=== PATIENT | male | born 1945 | race Caucasian/White ===

== ENCOUNTER → 2016-10-10 | Outpatient (CLI) | payer MEDICARE, OTHER ==
[~2016-10-10] MED LIST: ASPI-892 PO; CARB200T6 PO; CLOT10TR PO; CRB200T PO; DIPH25TA82 PO; DXCC100C PO; EPIN0.3P3 INJ; FAMO20TA13 PO; FEXO-16 PO; GADOBUTROL 10 MMOL/10 ML (GADAVIST) VIAL IV ONE; GEMF600T3 PO; GLYB1.253 PO; HDR10T PO; HYDR-2854 PO; INSU100I14 SQ; INSU100I29 SQ; INSU100I5 SQ; LORA10TA7 PO; LRT10T PO; METF1000 PO; MONT10TA24 PO; NSTU5 PO; OMEP40CA36 PO; PRD20T PO; RANI-10 PO; Sodium Bicarbonate PO; TOPI50TA2 PO; TPR25T PO; WARF1TAB PO; WARF5TAB PO
[2016-10-10 08:48] LABS: BASOPHILS % (AUTO) 1 % (0-10); EOSINOPHILS # (AUTO) 0.2 10^3/uL (0.0-0.3); EOSINOPHILS % (AUTO) 3 % (0-10); LYMPHOCYTES # (AUTO) 2.2 X 10^3 (1.0-4.0); LYMPHOCYTES % (AUTO) 33 % (12-44); MEAN CORPUSCULAR HEMOGLOBIN 29 PG (25-34); MEAN CORPUSCULAR HGB CONC 34 G/DL (32-36); MEAN CORPUSCULAR VOLUME 87 FL (80-99); MONOCYTES # (AUTO) 0.5 X 10^3 (0.0-1.0); MONOCYTES % (AUTO) 8 % (0-12); NEUTROPHILS # (AUTO) 3.6 X 10^3 (1.8-7.8); NEUTROPHILS % (AUTO) 55 % (42-75); PLATELET COUNT 239 10^3/uL (130-400); RED BLOOD COUNT 5.72 10^6/uL (4.35-5.85); RED CELL DISTRIBUTION WIDTH 13.6 % (10.0-14.5); WHITE BLOOD COUNT 6.5 10^3/uL (4.3-11.0)
[2016-10-10 09:04] LABS: INR 3.3 (0.8-1.4); PROTHROMBIN TIME PATIENT 33.8 SEC (12.2-14.7)
[2016-10-10 09:17] LABS: ALBUMIN 4.2 G/DL (3.2-4.5); BILIRUBIN,TOTAL 0.5 MG/DL (0.1-1.0); CALCIUM 9.3 MG/DL (8.5-10.1); CREATININE SERUM 1.52 MG/DL (0.60-1.30); POTASSIUM 4.1 MMOL/L (3.6-5.0); TOTAL PROTEIN 8.7 G/DL (6.4-8.2)
--- NOTE | 2016-10-10 13:01 | Diagnostic Imaging Report ---
PROCEDURE: MR imaging of the brain with and without contrast. TECHNIQUE: Multiplanar, multisequence MR imaging of the brain was performed with and without contrast. INDICATION: Dizziness. Type 2 diabetes. 5 mL of Gadavist was administered intravenously. FINDINGS: There is no diffusion restriction to suggest an acute infarct or other diffusion abnormality. There is mild periventricular and deep white matter T2 hyperintense signal abnormality not associated with mass effect or contrast enhancement suggestive of chronic microvascular ischemic changes. This is commonly seen at the patient's age. No hydrocephalus. No extra-axial fluid collection. There is no enhancing brain or extra-axial mass. The pituitary gland is normal in size. No hypothalamic or pineal region mass. The brainstem and the cerebellum appear unremarkable. The cerebellopontine angle demonstrates no abnormality with symmetric IAC and inner ear structures. The central vascular flow-voids demonstrate a dominant left vertebral artery, and appears grossly unremarkable otherwise. There is a nonspecific mild mucosal thickening or fluid signal in the right mastoid air cells. There is also a 1 cm enhancing nodule in the right parotid gland with smooth margins and lobulated appearance. It has morphologic appearance in favor of an incidental intraparotid lymph node. IMPRESSION: No acute infarct or enhancing mass. Dictated by: Dictated on workstation # [id number]
== END ==
LOC: RAD 08:18
PROVIDERS: ATTEND Internal Medicine
DX: Z00.00 Encounter for general adult medical examination without abnormal findings (principal); I63.50 Cerebral infarction due to unspecified occlusion or stenosis of unspecified cerebral artery; E78.1 Pure hyperglyceridemia; E11.65 Type 2 diabetes mellitus with hyperglycemia; E55.9 Vitamin D deficiency, unspecified; E78.00 Pure hypercholesterolemia, unspecified
CPT/HCPCS: 36415; 70553; 80053; 82306; 82465; 83036; 84478; 85025; 85610

== ENCOUNTER → 2017-11-07 | Outpatient (CLI) | payer MEDICARE, OTHER ==
[~2017-11-07] VITALS: Ht 172.7 cm; Wt 86.2 kg
[~2017-11-07] MED LIST changes: +CATHETER FLUSH 10 ML SYR IV PRN; -GADOBUTROL 10 MMOL/10 ML (GADAVIST) VIAL IV ONE
[2017-11-07 08:08] VITALS: BP 128/94
--- NOTE | 2017-11-07 23:24 | STRESS TEST ---
DATE OF SERVICE: 11/07/2017 PROCEDURE: Resting and post-exercise technetium-99m Tetrofosmin SPECT CT imaging. ORDERING PHYSICIAN: Amelia Rene DO. PRIMARY CARE PHYSICIAN: Amelia Rene DO. CLINICAL DIAGNOSIS: Chest discomfort. DESCRIPTION: Baseline images were carried out after injection of 9.68 mCi technetium-99m Tetrofosmin. Subsequently, exercise was carried out on a treadmill under Dr. Rene's supervision and this part of the study is reported separately by her. The patient exercised for a total of 5 minutes and 45 seconds in the Edwin protocol. He attained 7.1 mets of workload and 92% of maximum predicted heart rate. After he had attained 85% of maximum predicted heart rate, 28.9 mCi of technetium-99m Tetrofosmin were injected and the exercise was continued for more than another minute. The test was stopped on account of fatigue. Review of images at rest and following stress does not indicate any significant perfusion defects consistent with significant myocardial ischemia or infarction. Gated images show normal global left ventricular systolic function with normal regional wall motion. Left ventricular ejection fraction is calculated to be 66%. Left ventricular end diastolic volume is 22 mL. TID is absent (0.91). CONCLUSIONS: 1. No evidence of significant myocardial ischemia or infarction is seen. 2. Normal regional wall motion. 3. Normal global left ventricular systolic function with a calculated ejection fraction of 66%. Job ID: [id number] DocumentID: [id number] Dictated Date: 11/07/2017 14:59:05 Compliance Aide Date: 11/07/2017 23:23:10 Dictated By: SHIVAM LAINEZ MD, MA, FACP, FACC,
== END ==
LOC: CARD 06:31
PROVIDERS: ATTEND Internal Medicine
DX: R07.9 Chest pain, unspecified (principal)
CPT/HCPCS: 78452; 93017

== ENCOUNTER 2018-05-13 10:26 | Inpatient (IN) | payer MEDICARE, OTHER ==
[~2018-05-13] VITALS: Ht 180.3 cm; Wt 85.5 kg
[~2018-05-13 10:26] MED LIST changes: +ALB0.5V IH; +ASPI-983 PO; +BENZ-36 PO; -CATHETER FLUSH 10 ML SYR IV PRN; +CEPH250C PO; +HYDR-700 PO; +INSU100I14 SC; +INSU100I29 SC; +PANT40TA3 PO; +POLY17PO23 PO; +SODI325T PO; +TOPI100T11 PO; +WARF1TAB82 PO
[2018-05-13] MEDS ORDERED: NS IV 1000 ML 1,000 ML IV SCH (10:32)
[2018-05-13] MEDS ORDERED: fentaNYL INJECTION 100 MCG/2 ML AMP IVP PRN (10:45)
[2018-05-13] MEDS ORDERED: ONDANSETRON 4 MG/2 ML (SDV) Z0FRAN IVP PRN (10:45)
[2018-05-13] MEDS ORDERED: ACETAMINOPHEN 500 MG TAB (TYLENOL) PO PRN (10:45)
[2018-05-13 10:50] VITALS: BP 125/87
--- OUTSIDE RECORDS SUMMARY | 2018-05-13 11:04 | XMS REPORT | Clinical Summary ---
Author Author User, [employer] Organization Amelia Rene DO, FACP Address Unknown Phone Allergies, Adverse Reactions, Alerts Allergy Name Reaction Description Start Date Severity Status Provider TETRACYCLINE Critical Active Amelia Rene Conditions or Problems Problem Name Problem Code Onset Date Status Entry Date Provider Comment Standard Description Annotate DIABETES MELLITUS, NONINSULIN DEPENDENT (NIDDM) 250.02 Active Amelia Rene Diabetes mellitus without mention of complication, type II or unspecified type, uncontrolled OTHER CONVULSIONS 780.39 Active Amelia Rene Other convulsions HYPERCHOLESTEROLEMIA 272.0 Active Amelia Rene Pure hypercholesterolemia HYPERTRIGLYCERIDEMIA 272.1 Active Amelia Rene Pure hyperglyceridemia CONSTIPATION, CHRONIC 564.09 Active Amelia Rene Other constipation RENAL INSUFFICIENCY 593.9 Active Amelia Rene Unspecified disorder of kidney and ureter ERECTILE DYSFUNCTION, 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 Amelia Rene Impotence of organic origin HYPOTENSION, ORTHOSTATIC 458.0 Resolved Amelia Rene Orthostatic hypotension ENCOUNTER FOR LONG-TERM USE OF OTHER MEDICATIONS V58.69 Resolved Amelia Rene Long-term (current) use of other medications HYPERTENSION 401.1 Active Amelia Rene Benign essential hypertension URI 465.9 Inactive Amelia Rene Acute upper respiratory infections of unspecified site SYNCOPE 780.2 Resolved Amelia Rene Syncope and collapse URTICARIA, ACUTE 708.9 Resolved Amelia Rene Unspecified urticaria SEDIMENTATION RATE, ELEVATED 790.1 Active Amelia Rene Elevated sedimentation rate DYSPNEA 786.09 Active Amelia Rene Other dyspnea and respiratory abnormality OTHER PULMONARY EMBOLISM AND INFARCTION 415.19 Active Amelia Rene Other pulmonary embolism and infarction Medication List Medication Instructions Start Date Stop Date Generic Name NDC Status Provider Patient Instruction SODIUM BICARBONATE 325 MG TABS 1 po BID SODIUM BICARBONATE 77746575874 Active Amelia Rene COUMADIN 1 MG TABS ONE TAB ALONG WITH 6MG TO TOTAL 7 MG ON WED, FRI AND SUN ONLY WARFARIN SODIUM 53119766353 Active Amelia Rene COUMADIN 6 MG TABS 1 PO DAILYON MON, TU, THURS AND FRI WARFARIN SODIUM 81390633065 Active Amelia Rene COUMADIN 1 MG TABS WARFARIN SODIUM 22278851476 No Longer Active Amelia Rene TESSALON PERLES 100 MG CAPS 1 PO TID prn cough BENZONATATE 74548285492 No Longer Active Karla Evans HYDROXYZINE HCL 10 MG TABS 1 PO TID PRN ITCHING HYDROXYZINE HCL 13620622691 No Longer Active Amelia Rene AMBIEN 10 MG TAB 1 PO QHS prn ZOLPIDEM TARTRATE 78946878623 No Longer Active Amelia Rene NOVOLOG FLEXPEN 100 UNIT/ML SOPN 14 UNITS BEFORE MEALS INSULIN ASPART 78535177595 Active Amelia Rene LEVEMIR FLEXPEN 100 UNIT/ML SOPN 25 UNITS AT HS INSULIN DETEMIR 10416354878 Active Amelia Rene COUMADIN 1 MG TABS TAKE ONE WITH A 6 MG TO TOTAL 7 MG AND THEN TAKE 6 MG THE NEXT. WARFARIN SODIUM 63634807599 No Longer Active Amelia Lisseth Rene LOVENOX 80 MG/0.8ML SOLN 1 injection twice daily ENOXAPARIN SODIUM 68572997105 No Longer Active Amelia Lisseth Rene OMEPRAZOLE 40 MG CPDR 1 PO daily OMEPRAZOLE 65738374364 Active Karla Evans NYSTATIN 027514 UNIT/ML SUSP 1 teaspoon swish and swallow QID NYSTATIN 38663733418 No Longer Active Amelianunu Rene PREDNISONE 20 MG TAB 1/2 PO daily PREDNISONE 35476861828 No Longer Active Amelianunu Rene TRUETEST TEST STRP TEST BS QID DX: 250.02 GLUCOSE BLOOD 63377105701 Active Karla Evans TOPAMAX 50 MG TABS 1 PO BID TOPIRAMATE 81926098466 Active Karla Evans MONTELUKAST SODIUM 10 MG TABS 1 PO AT HS MONTELUKAST SODIUM 14977733176 Active Karla Evans PREDNISONE 20 MG TAB 1 PO DAILY BID WITH MEALS PREDNISONE 27845764997 No Longer Active Amelianunu Rene CLARITIN 10 MG TABS 1 PO BID LORATADINE 99982136011 Active Amelianunu Rene PEPCID 20 MG TAB 1 PO BID FAMOTIDINE 28944883377 No Longer Active Amelianunu Rene DOXYCYCLINE HYCLATE 100 MG CAP 1 po BID DOXYCYCLINE HYCLATE 30836964271 No Longer Active Amelianunu Rene PEN NEEDLES 01/21" 31G X 8 MM MISC DIRECTED DX: 250.02 INSULIN PEN NEEDLE 10593452823 No Longer Active Amelia Lisseth Rene FLUOCINONIDE 0.05 % CREA apply to affected area on hand nightly for 7 nights then prn FLUOCINONIDE 75591002511 No Longer Active Amelia Lisseth Rene LEVITRA 10 MG TABS 1 PO as directed VARDENAFIL HCL 94674544163 No Longer Active Amelia Lisseth Rene SENIOR MULTIVITAMIN PLUS TABS 1 PO daily MULTIPLE VITAMINS- MINERALS 83680993734 No Longer Active Amelia Lisseth Rene EQL FISH OIL 1000 MG CAPS 3 PO BID OMEGA-3 FATTY ACIDS 78370094869 No Longer Active Amelia Lisseth Rene DOCUSATE SODIUM 100 MG CAPS 2 PO BID DOCUSATE SODIUM 47024832801 No Longer Active Amelia Lisseth Rene ASPIRIN 81 MG TABS 1 PO BID ASPIRIN 79990725513 No Longer Active Amelia Lisseth Rene CARBAMAZEPINE 200 MG TABS 3-5 PO daily CARBAMAZEPINE 04989159889 No Longer Active Amelia Lisseth Rene GEMFIBROZIL 600 MG TABS 1 PO BID GEMFIBROZIL 77749744198 No Longer Active Amelia Lisseth Rene METFORMIN HCL 1000 MG TABS 1 PO BID METFORMIN HCL 56022459069 No Longer Active Amelia Lisseth Rene GLYBURIDE 1.25 MG TABS 2 PO QAM and 1 PO QPM GLYBURIDE 43327057490 No Longer Active Amelia Lisseth Rene PROMETHAZINE VC/CODEINE 6.25-5-10 MG/5ML SYRP 1 teaspoon PO Q6hrs prn cough [id number] 04726048773 No Longer Active Amelia Lisseth Rene WELCHOL 625 MG TABS 3 PO BID with meals COLESEVELAM HCL 69497065029 No Longer Active Amelia Lisseth Rene TEGRETOL XR 100 MG [id number] 1 PO friday, friday, CARBAMAZEPINE 44529677430 No Longer Active Amelia Lisseth Rene JANUVIA 100 MG TABS 1 PO daily SITAGLIPTIN PHOSPHATE 80545207128 No Longer Active Amelia Lissethkarley Rene Immunizations Vaccine Administration Date Value Standard Description Influenza vaccine given Done influenza virus vaccine, unspecified formulation Vital Signs Date Name Value Unit Range Description pulse rate E&M - 8867-4 76 /min Heart rate respiratory rate E&M - 9279-1 14 /min Resp rate weight E&M - 3141-9 185 [lb_av] Weight Measured blood pressure, diastolic - 8462-4 72 mm[Hg] BP michael blood pressure, systolic - 8480-6 118 mm[Hg] BP sys pulse rate E&M - 8867-4 72 /min Heart rate respiratory rate E&M - 9279-1 14 /min Resp rate temperature E&M 97.7 [degF] Body temperature weight E&M - 3141-9 183 [lb_av] Weight Measured blood pressure, diastolic - 8462-4 80 mm[Hg] BP michael blood pressure, systolic - 8480-6 140 mm[Hg] BP sys pulse rate E&M - 8867-4 76 /min Heart rate respiratory rate E&M - 9279-1 14 /min Resp rate temperature E&M 98.6 [degF] Body temperature weight E&M - 3141-9 184 [lb_av] Weight Measured blood pressure, diastolic - 8462-4 90 mm[Hg] BP michael blood pressure, systolic - 8480-6 140 mm[Hg] BP sys pulse rate E&M - 8867-4 84 /min Heart rate respiratory rate E&M - 9279-1 14 /min Resp rate temperature E&M 98.6 [degF] Body temperature weight E&M - 3141-9 180 [lb_av] Weight Measured blood pressure, diastolic - 8462-4 74 mm[Hg] BP michael blood pressure, systolic - 8480-6 136 mm[Hg] BP sys pulse rate E&M - 8867-4 80 /min Heart rate respiratory rate E&M - 9279-1 14 /min Resp rate temperature E&M 97.6 [degF] Body temperature blood pressure, diastolic - 8462-4 68 mm[Hg] BP michael blood pressure, systolic - 8480-6 122 mm[Hg] BP sys pulse rate E&M - 8867-4 66 /min Heart rate respiratory rate E&M - 9279-1 14 /min Resp rate temperature E&M 98.6 [degF] Body temperature weight E&M - 3141-9 182 [lb_av] Weight Measured blood pressure, diastolic - 8462-4 92 mm[Hg] BP michael blood pressure, systolic - 8480-6 158 mm[Hg] BP sys pulse rate E&M - 8867-4 92 /min Heart rate respiratory rate E&M - 9279-1 14 /min Resp rate weight E&M - 3141-9 177 [lb_av] Weight Measured blood pressure, diastolic - 8462-4 78 mm[Hg] BP michael blood pressure, systolic - 8480-6 122 mm[Hg] BP sys pulse rate E&M - 8867-4 78 /min Heart rate respiratory rate E&M - 9279-1 14 /min Resp rate weight E&M - 3141-9 180 [lb_av] Weight Measured blood pressure, diastolic - 8462-4 92 mm[Hg] BP michael blood pressure, systolic - 8480-6 136 mm[Hg] BP sys pulse rate E&M - 8867-4 82 /min Heart rate respiratory rate E&M - 9279-1 14 /min Resp rate temperature E&M 97.3 [degF] Body temperature weight E&M - 3141-9 181 [lb_av] Weight Measured blood pressure, diastolic - 8462-4 96 mm[Hg] BP michael blood pressure, systolic - 8480-6 142 mm[Hg] BP sys pulse rate E&M - 8867-4 80 /min Heart rate respiratory rate E&M - 9279-1 16 /min Resp rate temperature E&M 97.4 [degF] Body temperature weight E&M - 3141-9 177 [lb_av] Weight Measured blood pressure, diastolic - 8462-4 90 mm[Hg] BP michael blood pressure, systolic - 8480-6 145 mm[Hg] BP sys pulse rate E&M - 8867-4 72 /min Heart rate respiratory rate E&M - 9279-1 14 /min Resp rate temperature E&M 99.8 [degF] Body temperature weight E&M - 3141-9 184 [lb_av] Weight Measured blood pressure, diastolic - 8462-4 80 mm[Hg] BP michael blood pressure, systolic - 8480-6 130 mm[Hg] BP sys pulse rate E&M - 8867-4 96 /min Heart rate respiratory rate E&M - 9279-1 14 /min Resp rate temperature E&M 98.6 [degF] Body temperature weight E&M - 3141-9 190 [lb_av] Weight Measured Diagnostic Results Date Name Value Unit Range Description Clinical Lists Update: CBC,CMP,ESR - Chemistry sodium, serum 136 mmol/L alanine aminotransferase (SGPT), serum 27 U/L creatinine, serum 1.4 mg/dL carbon dioxide, venous blood 18 mmol/L chloride, serum 105 mmol/L protein, total, serum 7.1 g/dL potassium, serum 4.3 mmol/L albumin, serum 3.7 g/dL alkaline phosphatase, serum 70 U/L bilirubin, serum, total 0.5 mg/dL urea nitrogen, blood 40 mg/dL calcium, serum 10.0 mg/dL glucose, plasma fasting 255 mg/dL aspartate aminotransferase (SGOT), serum 11 U/L Estimated Glomerular Filtration Rate (calc) >60 mL/min/1.73m2 Clinical Lists Update: CBC,CMP,ESR - Hematology erythrocyte sedimentation rate 42 mm/h platelet count 341 10*3/mm3 leukocyte count, blood 16.4 10*3/mm3 mean corpuscular volume, RBC 88 fL red blood cell distribution width 13.8 % erythrocyte (RBC) count 4.72 10*6/mm3 hematocrit, blood 41.7 % hemoglobin, blood 14.3 g/dL Clinical Lists Update: CBC,CMP,ESR IN PT LABS - Chemistry aspartate aminotransferase (SGOT), serum 10 U/L alanine aminotransferase (SGPT), serum 26 U/L sodium, serum 140 mmol/L albumin, serum 3.4 g/dL alkaline phosphatase, serum 44 U/L bilirubin, serum, total 0.2 mg/dL urea nitrogen, blood 43 mg/dL calcium, serum 9.5 mg/dL potassium, serum 4.2 mmol/L protein, total, serum 7.0 g/dL chloride, serum 111 mmol/L carbon dioxide, venous blood 18 mmol/L creatinine, serum 1.29 mg/dL glucose, plasma fasting 200 mg/dL Clinical Lists Update: CBC,CMP,ESR IN PT LABS - Hematology hematocrit, blood 37 % erythrocyte sedimentation rate 44 mm/h platelet count 420 10*3/mm3 leukocyte count, blood 14.1 10*3/mm3 mean corpuscular volume, RBC 88 fL red blood cell distribution width 12.6 % erythrocyte (RBC) count 4.22 10*6/mm3 hemoglobin, blood 12.7 g/dL Clinical Lists Update: CBC,CMP,ESR,Chol,Trig - Chemistry cholesterol, serum 183 mg/dL HDL cholesterol, serum 26 mg/dL chloride, serum 111 mmol/L LDL cholesterol, serum 112 mg/dL cholesterol/HDL ratio, serum, percent 7.0 protein, total, serum 8.1 g/dL potassium, serum 3.8 mmol/L Estimated Glomerular Filtration Rate (calc) >60 mL/min/1.73m2 glucose, plasma fasting 119 mg/dL aspartate aminotransferase (SGOT), serum 15 U/L alanine aminotransferase (SGPT), serum 20 U/L sodium, serum 142 mmol/L albumin, serum 3.9 g/dL alkaline phosphatase, serum 68 U/L bilirubin, serum, total 0.5 mg/dL urea nitrogen, blood 16 mg/dL calcium, serum 10.1 mg/dL carbon dioxide, venous blood 20 mmol/L creatinine, serum 1.3 mg/dL triglyceride, serum, fasting 227 mg/dL Clinical Lists Update: CBC,CMP,ESR,Chol,Trig - Hematology erythrocyte sedimentation rate 60 mm/h mean corpuscular volume, RBC 89 fL platelet count 268 10*3/mm3 hematocrit, blood 43.1 % hemoglobin, blood 14.0 g/dL red blood cell distribution width 13.6 % leukocyte count, blood 8.2 10*3/mm3 erythrocyte (RBC) count 4.83 10*6/mm3 Clinical Lists Update: CBC,CMP,FLP,HgA1c - Chemistry aspartate aminotransferase (SGOT), serum 10 U/L alanine aminotransferase (SGPT), serum 9 U/L sodium, serum 140 mmol/L alkaline phosphatase, serum 60 U/L bilirubin, serum, total 0.5 mg/dL urea nitrogen, blood 17 mg/dL calcium, serum 9.6 mg/dL triglyceride, serum, fasting 156 mg/dL potassium, serum 4.3 mmol/L protein, total, serum 8.7 g/dL chloride, serum 105 mmol/L cholesterol/HDL ratio, serum, percent 4.9 cholesterol, serum 165 mg/dL carbon dioxide, venous blood 21 mmol/L creatinine, serum 1.3 mg/dL Estimated Glomerular Filtration Rate (calc) 55 mL/min/1.73m2 glucose, plasma fasting 183 mg/dL HDL cholesterol, serum 34 mg/dL hemoglobin A1C, blood, as % of total hemoglobin 10.3 % LDL cholesterol, serum 100 mg/dL albumin, serum 4.0 g/dL Clinical Lists Update: CBC,CMP,FLP,HgA1c - Hematology erythrocyte (RBC) count 4.53 10*6/mm3 red blood cell distribution width 13.2 % mean corpuscular volume, RBC 91 fL hemoglobin, blood 13.6 g/dL platelet count 558 10*3/mm3 hematocrit, blood 41.3 % leukocyte count, blood 18.3 10*3/mm3 Clinical Lists Update: CMP,CHOL,TRIG,HGA1C,ESR,PT,INR - Chemistry protein, total, serum 9.6 g/dL hemoglobin A1C, blood, as % of total hemoglobin 7.0 % glucose, plasma fasting 130 mg/dL Estimated Glomerular Filtration Rate (calc) 43 mL/min/1.73m2 creatinine, serum 1.6 mg/dL carbon dioxide, venous blood 21 mmol/L cholesterol, serum 179 mg/dL chloride, serum 110 mmol/L potassium, serum 4.1 mmol/L triglyceride, serum, fasting 278 mg/dL calcium, serum 9.9 mg/dL urea nitrogen, blood 22 mg/dL bilirubin, serum, total 0.5 mg/dL alkaline phosphatase, serum 104 U/L albumin, serum 4.6 g/dL sodium, serum 142 mmol/L alanine aminotransferase (SGPT), serum 18 U/L aspartate aminotransferase (SGOT), serum 20 U/L Clinical Lists Update: CMP,CHOL,TRIG,HGA1C,ESR,PT,INR - Coagulation prothrombin time (patient) 26.6 s international normalized ratio (INR) 2.6 Clinical Lists Update: CMP,CHOL,TRIG,HGA1C,ESR,PT,INR - Hematology erythrocyte sedimentation rate 37 mm/h Clinical Lists Update: CMP,CHOL,TRIG,HgA1c - Chemistry alanine aminotransferase (SGPT), serum 16 U/L carbon dioxide, venous blood 20 mmol/L bilirubin, serum, total 0.4 mg/dL sodium, serum 141 mmol/L albumin, serum 4.1 g/dL protein, total, serum 8.0 g/dL hemoglobin A1C, blood, as % of total hemoglobin 7.0 % alkaline phosphatase, serum 75 U/L creatinine, serum 1.4 mg/dL triglyceride, serum, fasting 271 mg/dL glucose, plasma fasting 143 mg/dL cholesterol, serum 184 mg/dL Estimated Glomerular Filtration Rate (calc) >60 mL/min/1.73m2 chloride, serum 112 mmol/L potassium, serum 4.1 mmol/L urea nitrogen, blood 19 mg/dL calcium, serum 9.1 mg/dL aspartate aminotransferase (SGOT), serum 18 U/L Clinical Lists Update: CMP,Microalbumin,TSH,Chol,Trig - Chemistry aspartate aminotransferase (SGOT), serum 28 U/L carbon dioxide, venous blood 20 mmol/L alanine aminotransferase (SGPT), serum 26 U/L sodium, serum 140 mmol/L creatinine, serum 1.2 mg/dL alkaline phosphatase, serum 47 U/L bilirubin, serum, total 0.2 mg/dL cholesterol, serum 159 mg/dL glucose, plasma fasting 141 mg/dL chloride, serum 107 mmol/L protein, total, serum 8.8 g/dL potassium, serum 4.5 mmol/L thyroid stimulating hormone, serum 0.97 u[iU]/mL triglyceride, serum, fasting 292 mg/dL calcium, serum 9.3 mg/dL Estimated Glomerular Filtration Rate (calc) >60 mL/min/1.73m2 urea nitrogen, blood 20 mg/dL hemoglobin A1C, blood, as % of total hemoglobin 8.6 % albumin, serum 4.2 g/dL Clinical Lists Update: CMP,Microalbumin,TSH,Chol,Trig - Urinalysis microalbumin, urine, semiquantitative 6.7 mg/dL Clinical Lists Update: IN PT LABS - Chemistry chloride, serum 110 mmol/L sodium, serum 138 mmol/L creatinine, serum 1.0 mg/dL Estimated Glomerular Filtration Rate (calc) >60 mL/min/1.73m2 carbon dioxide, venous blood 20 mmol/L alanine aminotransferase (SGPT), serum 15 U/L aspartate aminotransferase (SGOT), serum 13 U/L protein, total, serum 6.8 g/dL potassium, serum 4.2 mmol/L urea nitrogen, blood 24 mg/dL bilirubin, serum, total 0.2 mg/dL anion gap, serum 8.7 alkaline phosphatase, serum 39 U/L albumin, serum 3.0 g/dL hemoglobin A1C, blood, as % of total hemoglobin 7.6 % glucose, plasma fasting 214 mg/dL Clinical Lists Update: IN PT LABS - Coagulation PTT patient 28.6 s prothrombin time (patient) 12.8 s international normalized ratio (INR) 1.2 Clinical Lists Update: IN PT LABS - Hematology erythrocyte (RBC) count 3.59 10*6/mm3 platelet count 295 10*3/mm3 erythrocyte sedimentation rate 86 mm/h leukocyte count, blood 9.5 10*3/mm3 hemoglobin, blood 10.7 g/dL hematocrit, blood 31.9 % mean corpuscular volume, RBC 89 fL red blood cell distribution width 12.8 % Clinical Lists Update: IN PT LABS - Urinalysis glucose, urine, semiquantitative >100 hyaline casts, urine few /[LPF] ketones, urine, by test strip neg appearance, urine Clear Yellow bilirubin, urine neg blood in urine (hemoglobin) by dipstick moderate mucus on urinalysis neg WBC urine on microscopy rare {Cells}/[HPF] urobilinogen, urine, semiquantitative (dipstick) normal nitrite, urine, semiquantitative neg pH, urine, semiquantitative 5.5 protein, urine, semiquantitative (dipstick) 100 RBC urine by microscopy neg specific gravity, urine 1.030 Clinical Lists Update: PT,INR - Coagulation prothrombin time (patient) 33.5 s international normalized ratio (INR) 3.9 prothrombin time (patient) 45.1 s prothrombin time (patient) 66.7 s prothrombin time (patient) 38.3 s prothrombin time (patient) 17.2 s prothrombin time (patient) 48.0 s international normalized ratio (INR) 4.6 international normalized ratio (INR) 1.7 prothrombin time (patient) 42.0 s international normalized ratio (INR) 4.1 prothrombin time (patient) 38.3 s prothrombin time (patient) 36.1 s international normalized ratio (INR) 6.0 international normalized ratio (INR) 3.1 international normalized ratio (INR) 3.5 international normalized ratio (INR) 3.3 prothrombin time (patient) 49.9 s international normalized ratio (INR) 4.8 international normalized ratio (INR) 3.7 Clinical Lists Update: RE: Coumadin Results - Coagulation prothrombin time (patient) 53.4 s international normalized ratio (INR) 5.1 Office Visit: Dr Rene's Check Up: Established Patient Visit - Coagulation international normalized ratio (INR) 1.3 prothrombin time (patient) 13.3 s Phone Note: Bloodwork/Lovenox Update - Coagulation international normalized ratio (INR) 2.3 prothrombin time (patient) 24.0 s Phone Note: RE: Coumadin Results - Chemistry protein, total, serum 7.8 g/dL potassium, serum 3.8 mmol/L calcium, serum 9.1 mg/dL urea nitrogen, blood 18 mg/dL bilirubin, serum, total 0.2 mg/dL alkaline phosphatase, serum 110 U/L albumin, serum 4.0 g/dL glucose, plasma fasting 154 mg/dL Estimated Glomerular Filtration Rate (calc) >60 mL/min/1.73m2 creatinine, serum 1.3 mg/dL sodium, serum 141 mmol/L chloride, serum 111 mmol/L carbon dioxide, venous blood 19 mmol/L alanine aminotransferase (SGPT), serum 16 U/L aspartate aminotransferase (SGOT), serum 14 U/L Phone Note: RE: Coumadin Results - Coagulation prothrombin time (patient) 21.4 s international normalized ratio (INR) 2.1 Phone Note: RE: Coumadin Results - Hematology platelet count 235 10*3/mm3 erythrocyte (RBC) count 5.00 10*6/mm3 red blood cell distribution width 13.6 % mean corpuscular volume, RBC 87 fL leukocyte count, blood 5.8 10*3/mm3 hematocrit, blood 43.3 % hemoglobin, blood 14.0 g/dL erythrocyte sedimentation rate 34 mm/h Encounters Code Encounter Date Provider Facility CPT-04558 Ofc Vst, Est Level III 14:38:44 CDT Amelia Rene DO, FACP CPT-80753 Ofc Vst, Est Level IV 20:21:55 [employer] [employer] Amelia Rene DO, FACP CPT-53787 Ofc Vst, Est Level IV 16:05:00 [employer] Amelia Ernst Rene, DO, FACP CPT-63819 Ofc Vst, Est Level V 21:19:57 [employer] Amelia Ernst Rene, DO, FACP CPT-07358 Ofc Vst, Est Level IV 17:06:25 [employer] Amelia Rene [facility] CPT-22360 Ofc Vst, Est Level III 13:25:12 [employer] [employer] Amelia Ernst Rene, DO, FACP CPT-84297 Ofc Vst, Est Level III 12:54:14 CDT Amelia Lisseth Ernst Rene, DO, FACP CPT-75546 Ofc Vst, Est Level III 16:36:19 CDT Amelianunu Ernst Anju, DO, FACP CPT-36766 Ofc Vst, Est Level IV 22:37:22 CDT Amelia Lisseth Ernst Rene, DO, FACP CPT-32733 Ofc Vst, Est Level V 15:41:07 CDT Amelianunu Ernst Rene, DO, FACP CPT-87574 Ofc Vst, Est Level III 11:42:56 CDT Amelianunu Ernst Anju, DO, FACP CPT-37006 Ofc Vst, Est Level III 12:06:27 [employer] Amelia Lisseth Ernst Rene, DO, FACP CPT-51889 Ofc Vst, Est Level III 14:34:43 CDT Amelia Lisseth Yeni S Rene, DO, FACP CPT-62364 Ofc Vst, Est Level III 14:19:43 [employer] Amelia Lisseth Yeni Sujata Rene, DO, FACP CPT-34328 Ofc Vst, Est Level IV 16:26:28 CDT Amelia Lisseth Rene DO, FACP CPT-83572 Ofc Vst, Est Level IV 14:04:53 [employer] Amelia Rene DO, FACP CPT-34315 Ofc Vst, New Level IV 14:05:53 CDT Amelia Rene DO, FACP Procedures Code Procedure Name Date Entry Date Standard Description CPT-G0439 Medicare Annual Wellness Visit 12:45:38 [facility] CPT-G8443 E-Prescribing Medication Sent 12:06:27 [employer] [employer] CPT-G8443 E-Prescribing Medication Sent 12:44:06 CDT CPT-G0439 Medicare Annual Wellness Visit 12:44:06 CDT CPT-G8443 E-Prescribing Medication Sent 14:34:43 CDT CPT-G0438 Medicare Annual Wellness Visit Initial 11:12:53 CDT
--- OUTSIDE RECORDS SUMMARY | 2018-05-13 11:05 | XMS REPORT | Clinical Summary ---
Author Author User, [employer] Amelia Rene DO, FACP Address Unknown [...] MG TABS 1 po BID SODIUM BICARBONATE 79732355276 Active Amelia Rene COUMADIN 1 MG TABS ONE TAB ALONG WITH 6MG TO TOTAL 7 MG ON WED, FRI AND SUN ONLY WARFARIN SODIUM 45308854243 Active Amelia Rene COUMADIN 6 MG TABS 1 PO DAILYON MON, TU, THURS AND FRI WARFARIN SODIUM 08132135710 Active Amelia Rene COUMADIN 1 MG TABS WARFARIN SODIUM 17984694705 No Longer Active Amelia Rene TESSALON PERLES 100 MG CAPS 1 PO TID prn cough BENZONATATE 66452034474 No Longer Active Karla Evans HYDROXYZINE HCL 10 MG TABS 1 PO TID PRN ITCHING HYDROXYZINE HCL 44621586880 No Longer Active Amelia Rene AMBIEN 10 MG TAB 1 PO QHS prn ZOLPIDEM TARTRATE 63930018020 No Longer Active Amelia Rene NOVOLOG FLEXPEN 100 UNIT/ML SOPN 14 UNITS BEFORE MEALS INSULIN ASPART 94135884741 Active Amelia Rene LEVEMIR FLEXPEN 100 UNIT/ML SOPN 25 UNITS AT HS INSULIN DETEMIR 60176969452 Active Amelia Rene COUMADIN 1 MG TABS TAKE ONE WITH A 6 MG TO TOTAL 7 MG AND THEN TAKE 6 MG THE NEXT. WARFARIN SODIUM 57714476581 No Longer Active Amelia Lisseth Rene LOVENOX 80 MG/0.8ML SOLN 1 injection twice daily ENOXAPARIN SODIUM 97044956919 No Longer Active Amelia Lisseth Rene OMEPRAZOLE 40 MG CPDR 1 PO daily OMEPRAZOLE 21625135485 Active Karla Evans NYSTATIN 326424 UNIT/ML SUSP 1 teaspoon swish and swallow QID NYSTATIN 29608682551 No Longer Active Amelianunu Rene PREDNISONE 20 MG TAB 1/2 PO daily PREDNISONE 47961918608 No Longer Active Amelianunu Rene TRUETEST TEST STRP TEST BS QID DX: 250.02 GLUCOSE BLOOD 68814169488 Active Karla Evans TOPAMAX 50 MG TABS 1 PO BID TOPIRAMATE 02649391471 Active Karla Evans MONTELUKAST SODIUM 10 MG TABS 1 PO AT HS MONTELUKAST SODIUM 26065046373 Active Karla Evans PREDNISONE 20 MG TAB 1 PO DAILY BID WITH MEALS PREDNISONE 34293508825 No Longer Active Amelianunu Rene CLARITIN 10 MG TABS 1 PO BID LORATADINE 72127028730 Active Amelianunu Rene PEPCID 20 MG TAB 1 PO BID FAMOTIDINE 75224825568 No Longer Active Amelianunu Rene DOXYCYCLINE HYCLATE 100 MG CAP 1 po BID DOXYCYCLINE HYCLATE 69474528275 No Longer Active Amelianunu Rene PEN NEEDLES 01/21" 31G X 8 MM MISC DIRECTED DX: 250.02 INSULIN PEN NEEDLE 10339510739 No Longer Active Amelia Lisseth Rene FLUOCINONIDE 0.05 % CREA apply to affected area on hand nightly for 7 nights then prn FLUOCINONIDE 55143256351 No Longer Active Amelia Lisseth Rene LEVITRA 10 MG TABS 1 PO as directed VARDENAFIL HCL 29056356874 No Longer Active Amelia Lisseth Rene SENIOR MULTIVITAMIN PLUS TABS 1 PO daily MULTIPLE VITAMINS- MINERALS 43251930065 No Longer Active Amelia Lisseth Rene EQL FISH OIL 1000 MG CAPS 3 PO BID OMEGA-3 FATTY ACIDS 39162691239 No Longer Active Amelia Lisseth Rene DOCUSATE SODIUM 100 MG CAPS 2 PO BID DOCUSATE SODIUM 53463293548 No Longer Active Amelia Lisseth Rene ASPIRIN 81 MG TABS 1 PO BID ASPIRIN 74044227268 No Longer Active Amelia Lisseth Rene CARBAMAZEPINE 200 MG TABS 3-5 PO daily CARBAMAZEPINE 45069836645 No Longer Active Amelia Lisseth Rene GEMFIBROZIL 600 MG TABS 1 PO BID GEMFIBROZIL 45771442010 No Longer Active Amelia Lisseth Rene METFORMIN HCL 1000 MG TABS 1 PO BID METFORMIN HCL 61312340783 No Longer Active Amelia Lisseth Rene GLYBURIDE 1.25 MG TABS 2 PO QAM and 1 PO QPM GLYBURIDE 80765429259 No Longer Active Amelia Lisseth Rene PROMETHAZINE VC/CODEINE 6.25-5-10 MG/5ML SYRP 1 teaspoon PO Q6hrs prn cough [id number] 54684263611 No Longer Active Amelia Lisseth Rene WELCHOL 625 MG TABS 3 PO BID with meals COLESEVELAM HCL 53537562311 No Longer Active Amelia Lisseth Rene TEGRETOL XR 100 MG [id number] 1 PO friday, friday, CARBAMAZEPINE 19690663568 No Longer Active Amelia Lisseth Rene JANUVIA 100 MG TABS 1 PO daily SITAGLIPTIN PHOSPHATE 81752427788 No Longer Active Amelia Lissethkarley Rene Immunizations [...] Description Clinical Lists Update: CBC,CMP,ESR - Chemistry alkaline phosphatase, serum 70 U/L urea nitrogen, blood 40 mg/dL albumin, serum 3.7 g/dL calcium, serum 10.0 mg/dL chloride, serum 105 mmol/L carbon dioxide, venous blood 18 mmol/L creatinine, serum 1.4 mg/dL potassium, serum 4.3 mmol/L protein, total, serum 7.1 g/dL aspartate aminotransferase (SGOT), serum 11 U/L Estimated Glomerular Filtration Rate (calc) >60 mL/min/1.73m2 glucose, plasma fasting 255 mg/dL sodium, serum 136 mmol/L bilirubin, serum, total 0.5 mg/dL alanine aminotransferase (SGPT), serum 27 U/L Clinical Lists Update: CBC,CMP,ESR - Hematology erythrocyte sedimentation rate 42 mm/h hematocrit, blood 41.7 % hemoglobin, blood 14.3 g/dL platelet count 341 10*3/mm3 erythrocyte (RBC) count 4.72 10*6/mm3 leukocyte count, blood 16.4 10*3/mm3 mean corpuscular volume, RBC 88 fL red blood cell distribution width 13.8 % Clinical Lists Update: CBC,CMP,ESR IN PT LABS - Chemistry albumin, serum 3.4 g/dL glucose, plasma fasting 200 mg/dL sodium, serum 140 mmol/L bilirubin, serum, total 0.2 mg/dL alanine aminotransferase (SGPT), serum 26 U/L aspartate aminotransferase (SGOT), serum 10 U/L protein, total, serum 7.0 g/dL potassium, serum 4.2 mmol/L creatinine, serum 1.29 mg/dL carbon dioxide, venous blood 18 mmol/L chloride, serum 111 mmol/L calcium, serum 9.5 mg/dL urea nitrogen, blood 43 mg/dL alkaline phosphatase, serum 44 U/L Clinical Lists Update: CBC,CMP,ESR IN PT LABS - Hematology leukocyte count, blood 14.1 10*3/mm3 erythrocyte (RBC) count 4.22 10*6/mm3 erythrocyte sedimentation rate 44 mm/h hematocrit, blood 37 % red blood cell distribution width 12.6 % hemoglobin, blood 12.7 g/dL platelet count 420 10*3/mm3 mean corpuscular volume, RBC 88 fL Clinical Lists Update: CBC,CMP,ESR,Chol,Trig - Chemistry albumin, serum 3.9 g/dL alkaline phosphatase, serum 68 U/L cholesterol/HDL ratio, serum, percent 7.0 urea nitrogen, blood 16 mg/dL calcium, serum 10.1 mg/dL chloride, serum 111 mmol/L cholesterol, serum 183 mg/dL carbon dioxide, venous blood 20 mmol/L creatinine, serum 1.3 mg/dL HDL cholesterol, serum 26 mg/dL LDL cholesterol, serum 112 mg/dL potassium, serum 3.8 mmol/L protein, total, serum 8.1 g/dL aspartate aminotransferase (SGOT), serum 15 U/L alanine aminotransferase (SGPT), serum 20 U/L bilirubin, serum, total 0.5 mg/dL triglyceride, serum, fasting 227 mg/dL sodium, serum 142 mmol/L glucose, plasma fasting 119 mg/dL Estimated Glomerular Filtration Rate (calc) >60 mL/min/1.73m2 Clinical Lists Update: CBC,CMP,ESR,Chol,Trig - Hematology platelet count 268 10*3/mm3 red blood cell distribution width 13.6 % hemoglobin, blood 14.0 g/dL erythrocyte (RBC) count 4.83 10*6/mm3 mean corpuscular volume, RBC 89 fL hematocrit, blood 43.1 % leukocyte count, blood 8.2 10*3/mm3 erythrocyte sedimentation rate 60 mm/h Clinical Lists Update: CBC,CMP,FLP,HgA1c - Chemistry calcium, serum 9.6 mg/dL alanine aminotransferase (SGPT), serum 9 U/L creatinine, serum 1.3 mg/dL aspartate aminotransferase (SGOT), serum 10 U/L chloride, serum 105 mmol/L protein, total, serum 8.7 g/dL carbon dioxide, venous blood 21 mmol/L potassium, serum 4.3 mmol/L urea nitrogen, blood 17 mg/dL LDL cholesterol, serum 100 mg/dL Estimated Glomerular Filtration Rate (calc) 55 mL/min/1.73m2 albumin, serum 4.0 g/dL bilirubin, serum, total 0.5 mg/dL HDL cholesterol, serum 34 mg/dL triglyceride, serum, fasting 156 mg/dL hemoglobin A1C, blood, as % of total hemoglobin 10.3 % sodium, serum 140 mmol/L alkaline phosphatase, serum 60 U/L cholesterol/HDL ratio, serum, percent 4.9 glucose, plasma fasting 183 mg/dL cholesterol, serum 165 mg/dL Clinical Lists Update: CBC,CMP,FLP,HgA1c - Hematology mean corpuscular volume, RBC 91 fL platelet count 558 10*3/mm3 hematocrit, blood 41.3 % red blood cell distribution width 13.2 % erythrocyte (RBC) count 4.53 10*6/mm3 leukocyte count, blood 18.3 10*3/mm3 hemoglobin, blood 13.6 g/dL Clinical Lists Update: CMP,CHOL,TRIG,HGA1C,ESR,PT,INR - Chemistry Estimated Glomerular Filtration Rate (calc) 43 mL/min/1.73m2 albumin, serum 4.6 g/dL alkaline phosphatase, serum 104 U/L urea nitrogen, blood 22 mg/dL calcium, serum 9.9 mg/dL chloride, serum 110 mmol/L cholesterol, serum 179 mg/dL carbon dioxide, venous blood 21 mmol/L creatinine, serum 1.6 mg/dL hemoglobin A1C, blood, as % of total hemoglobin 7.0 % potassium, serum 4.1 mmol/L protein, total, serum 9.6 g/dL aspartate aminotransferase (SGOT), serum 20 U/L alanine aminotransferase (SGPT), serum 18 U/L bilirubin, serum, total 0.5 mg/dL triglyceride, serum, fasting 278 mg/dL sodium, serum 142 mmol/L glucose, plasma fasting 130 mg/dL Clinical Lists Update: CMP,CHOL,TRIG,HGA1C,ESR,PT,INR - Coagulation international normalized ratio (INR) 2.6 prothrombin time (patient) 26.6 s Clinical Lists Update: CMP,CHOL,TRIG,HGA1C,ESR,PT,INR - Hematology erythrocyte sedimentation rate 37 mm/h Clinical Lists Update: CMP,CHOL,TRIG,HgA1c - Chemistry calcium, serum 9.1 mg/dL potassium, serum 4.1 mmol/L protein, total, serum 8.0 g/dL chloride, serum 112 mmol/L aspartate aminotransferase (SGOT), serum 18 U/L alkaline phosphatase, serum 75 U/L alanine aminotransferase (SGPT), serum 16 U/L cholesterol, serum 184 mg/dL bilirubin, serum, total 0.4 mg/dL triglyceride, serum, fasting 271 mg/dL carbon dioxide, venous blood 20 mmol/L sodium, serum 141 mmol/L urea nitrogen, blood 19 mg/dL glucose, plasma fasting 143 mg/dL creatinine, serum 1.4 mg/dL Estimated Glomerular Filtration Rate (calc) >60 mL/min/1.73m2 hemoglobin A1C, blood, as % of total hemoglobin 7.0 % albumin, serum 4.1 g/dL Clinical Lists Update: CMP,Microalbumin,TSH,Chol,Trig - Chemistry Estimated Glomerular Filtration Rate (calc) >60 mL/min/1.73m2 glucose, plasma fasting 141 mg/dL sodium, serum 140 mmol/L triglyceride, serum, fasting 292 mg/dL bilirubin, serum, total 0.2 mg/dL alanine aminotransferase (SGPT), serum 26 U/L aspartate aminotransferase (SGOT), serum 28 U/L protein, total, serum 8.8 g/dL potassium, serum 4.5 mmol/L thyroid stimulating hormone, serum 0.97 u[iU]/mL hemoglobin A1C, blood, as % of total hemoglobin 8.6 % creatinine, serum 1.2 mg/dL carbon dioxide, venous blood 20 mmol/L cholesterol, serum 159 mg/dL chloride, serum 107 mmol/L calcium, serum 9.3 mg/dL urea nitrogen, blood 20 mg/dL alkaline phosphatase, serum 47 U/L albumin, serum 4.2 g/dL Clinical Lists Update: CMP,Microalbumin,TSH,Chol,Trig - Urinalysis microalbumin, urine, semiquantitative 6.7 mg/dL Clinical Lists Update: IN PT LABS - Chemistry anion gap, serum 8.7 sodium, serum 138 mmol/L bilirubin, serum, total 0.2 mg/dL alanine aminotransferase (SGPT), serum 15 U/L aspartate aminotransferase (SGOT), serum 13 U/L protein, total, serum 6.8 g/dL potassium, serum 4.2 mmol/L hemoglobin A1C, blood, as % of total hemoglobin 7.6 % creatinine, serum 1.0 mg/dL carbon dioxide, venous blood 20 mmol/L chloride, serum 110 mmol/L urea nitrogen, blood 24 mg/dL alkaline phosphatase, serum 39 U/L albumin, serum 3.0 g/dL Estimated Glomerular Filtration Rate (calc) >60 mL/min/1.73m2 glucose, plasma fasting 214 mg/dL Clinical Lists Update: IN PT LABS - Coagulation prothrombin time (patient) 12.8 s PTT patient 28.6 s international normalized ratio (INR) 1.2 Clinical Lists Update: IN PT LABS - Hematology platelet count 295 10*3/mm3 leukocyte count, blood 9.5 10*3/mm3 mean corpuscular volume, RBC 89 fL red blood cell distribution width 12.8 % hemoglobin, blood 10.7 g/dL hematocrit, blood 31.9 % erythrocyte sedimentation rate 86 mm/h erythrocyte (RBC) count 3.59 10*6/mm3 Clinical Lists Update: IN PT LABS - Urinalysis glucose, urine, semiquantitative >100 protein, urine, semiquantitative (dipstick) 100 bilirubin, urine neg ketones, urine, by test strip neg nitrite, urine, semiquantitative neg pH, urine, semiquantitative 5.5 specific gravity, urine 1.030 urobilinogen, urine, semiquantitative (dipstick) normal appearance, urine Clear Yellow WBC urine on microscopy rare {Cells}/[HPF] RBC urine by microscopy neg hyaline casts, urine few /[LPF] mucus on urinalysis neg blood in urine (hemoglobin) by dipstick moderate Clinical Lists Update: PT,INR - Coagulation international normalized ratio (INR) 3.3 international normalized ratio (INR) 1.7 international normalized ratio (INR) 3.1 international normalized ratio (INR) 6.0 international normalized ratio (INR) 4.1 international normalized ratio (INR) 3.9 international normalized ratio (INR) 3.5 prothrombin time (patient) 42.0 s international normalized ratio (INR) 4.8 international normalized ratio (INR) 3.7 prothrombin time (patient) 17.2 s prothrombin time (patient) 38.3 s prothrombin time (patient) 49.9 s prothrombin time (patient) 36.1 s prothrombin time (patient) 38.3 s prothrombin time (patient) 33.5 s prothrombin time (patient) 66.7 s prothrombin time (patient) 45.1 s Clinical Lists Update: RE: Coumadin Results - Coagulation prothrombin time (patient) 53.4 s international normalized ratio (INR) 5.1 Office Visit: Dr Rene's Check Up: Established Patient Visit - Coagulation prothrombin time (patient) 13.3 s international normalized ratio (INR) 1.3 Phone Note: Bloodwork/Lovenox Update - Coagulation international normalized ratio (INR) 2.3 prothrombin time (patient) 24.0 s Phone Note: RE: Coumadin Results - Chemistry bilirubin, serum, total 0.2 mg/dL alanine aminotransferase (SGPT), serum 16 U/L aspartate aminotransferase (SGOT), serum 14 U/L protein, total, serum 7.8 g/dL potassium, serum 3.8 mmol/L creatinine, serum 1.3 mg/dL carbon dioxide, venous blood 19 mmol/L chloride, serum 111 mmol/L calcium, serum 9.1 mg/dL urea nitrogen, blood 18 mg/dL alkaline phosphatase, serum 110 U/L albumin, serum 4.0 g/dL sodium, serum 141 mmol/L Estimated Glomerular Filtration Rate (calc) >60 mL/min/1.73m2 glucose, plasma fasting 154 mg/dL Phone Note: RE: Coumadin Results - Coagulation international normalized ratio (INR) 2.1 prothrombin time (patient) 21.4 s Phone Note: RE: Coumadin Results - Hematology mean corpuscular volume, RBC 87 fL erythrocyte (RBC) count 5.00 10*6/mm3 platelet count 235 10*3/mm3 hemoglobin, blood 14.0 g/dL hematocrit, blood 43.3 % red blood cell distribution width 13.6 % erythrocyte sedimentation rate 34 mm/h leukocyte count, blood 5.8 10*3/mm3 Encounters Code Encounter Date Provider Facility CPT-63474 Ofc Vst, Est Level III 14:38:44 CDT Amelia Rene DO, FACP CPT-07177 Ofc Vst, Est Level IV 20:21:55 [employer] Amelia Rene DO, FACP CPT-30806 Ofc Vst, Est Level IV 16:05:00 [employer]IMAL PATHOLOGY TEACHER Amelia Lisseth Rene Amelia S Rene, DO, FACP CPT-98102 Ofc Vst, Est Level V 21:19:57 [employer]IMAL PATHOLOGY TEACHER Amelia Ernst Anju, DO, FACP CPT-98160 Ofc Vst, Est Level IV 17:06:25 ANIMAL PATHOLOGY TEACHER [facility] CPT-36337 Ofc Vst, Est Level III 13:25:12 [employer]IMAL PATHOLOGY TEACHER Amelia Ernst Anju, DO, FACP CPT-62833 Ofc Vst, Est Level III 12:54:14 CDT Ameliannuu Ernst Anju, DO, FACP CPT-62125 Ofc Vst, Est Level III 16:36:19 CDT Amelia Ernst Anju, DO, FACP CPT-42615 Ofc Vst, Est Level IV 22:37:22 CDT Amelianunu Ernst Anju, DO, FACP CPT-30263 Ofc Vst, Est Level V 15:41:07 CDT Amelianunu Ernst Anju, DO, FACP CPT-60643 Ofc Vst, Est Level III 11:42:56 CDT Amelianunu Ernst Anju, DO, FACP CPT-77765 Ofc Vst, Est Level III 12:06:27 [employer]IMAL PATHOLOGY TEACHER Amelia Ernst Anju, DO, FACP CPT-60438 Ofc Vst, Est Level III 14:34:43 CDT Amelia Ernst Anju, DO, FACP CPT-21901 Ofc Vst, Est Level III 14:19:43 ANIMAL PATHOLOGY TEACHER Amelia Ernst Anju, DO, FACP CPT-01762 Ofc Vst, Est Level IV 16:26:28 CDT Amelianunu Ernst Anju, DO, FACP CPT-04937 Ofc Vst, Est Level IV 14:04:53 ANIMAL PATHOLOGY TEACHER Amelia Rene DO, FACP CPT-26146 Ofc Vst, New Level IV 14:05:53 CDT Amelia Rene DO, FACP Procedures Code Procedure Name Date Entry Date Standard Description CPT-G0439 Medicare Annual Wellness Visit 12:45:38 ANIMAL PATHOLOGY TEACHER CPT-G8443 E-Prescribing Medication Sent 12:06:27 ANIMAL PATHOLOGY TEACHER CPT-G8443 E-Prescribing Medication Sent 12:44:06 CDT CPT-G0439 Medicare Annual Wellness Visit 12:44:06 CDT CPT-G8443 E-Prescribing Medication Sent 14:34:43 CDT CPT-G0438 Medicare Annual Wellness Visit Initial 11:12:53 CDT
--- OUTSIDE RECORDS SUMMARY | 2018-05-13 11:06 | XMS REPORT | Clinical Summary ---
Author Author User, [employer] Organization Amelia Rene DO, FACP Address Unknown [...] urticaria SEDIMENTATION RATE, ELEVATED 790.1 Active Amelia Rnee Elevated sedimentation rate DYSPNEA 786.09 Active Amelia Rene Other dyspnea and respiratory abnormality OTHER PULMONARY EMBOLISM AND INFARCTION 415.19 Active Amelia Rene Other pulmonary embolism and infarction Medication List Medication Instructions Start Date Stop Date Generic Name NDC Status Provider Patient Instruction SODIUM BICARBONATE 325 MG TABS 1 po BID SODIUM BICARBONATE 89637348333 Active Amelia Rene COUMADIN 1 MG TABS ONE TAB ALONG WITH 6MG TO TOTAL 7 MG ON WED, FRI AND SUN ONLY WARFARIN SODIUM 34943029987 Active Amelia Rene COUMADIN 6 MG TABS 1 PO DAILYON MON, TU, THURS AND FRI WARFARIN SODIUM 41265700876 Active Amelia Rene COUMADIN 1 MG TABS WARFARIN SODIUM 21279474348 No Longer Active Amelia Rene TESSALON PERLES 100 MG CAPS 1 PO TID prn cough BENZONATATE 66377029745 No Longer Active Karla Evans HYDROXYZINE HCL 10 MG TABS 1 PO TID PRN ITCHING HYDROXYZINE HCL 54654133626 No Longer Active Amelia Rene AMBIEN 10 MG TAB 1 PO QHS prn ZOLPIDEM TARTRATE 06235873342 No Longer Active Amelia Rene NOVOLOG FLEXPEN 100 UNIT/ML SOPN 14 UNITS BEFORE MEALS INSULIN ASPART 62405066202 Active Amelia Rene LEVEMIR FLEXPEN 100 UNIT/ML SOPN 25 UNITS AT HS INSULIN DETEMIR 61392171261 Active Amelia Rene COUMADIN 1 MG TABS TAKE ONE WITH A 6 MG TO TOTAL 7 MG AND THEN TAKE 6 MG THE NEXT. WARFARIN SODIUM 05765117573 No Longer Active Amelia Lisseth Rene LOVENOX 80 MG/0.8ML SOLN 1 injection twice daily ENOXAPARIN SODIUM 42183727954 No Longer Active Amelia Lisseth Rene OMEPRAZOLE 40 MG CPDR 1 PO daily OMEPRAZOLE 99465051787 Active Karla Evans NYSTATIN 519277 UNIT/ML SUSP 1 teaspoon swish and swallow QID NYSTATIN 60441367206 No Longer Active Amelianunu Rene PREDNISONE 20 MG TAB 1/2 PO daily PREDNISONE 79222873214 No Longer Active Amelianunu Rene TRUETEST TEST STRP TEST BS QID DX: 250.02 GLUCOSE BLOOD 11345480842 Active Karla Evans TOPAMAX 50 MG TABS 1 PO BID TOPIRAMATE 75034082950 Active Karla Evans MONTELUKAST SODIUM 10 MG TABS 1 PO AT HS MONTELUKAST SODIUM 51365040262 Active Karla Evans PREDNISONE 20 MG TAB 1 PO DAILY BID WITH MEALS PREDNISONE 06925447621 No Longer Active Amelianunu Rene CLARITIN 10 MG TABS 1 PO BID LORATADINE 20616435548 Active Amelianunu Rene PEPCID 20 MG TAB 1 PO BID FAMOTIDINE 80913076266 No Longer Active Amelianunu Rene DOXYCYCLINE HYCLATE 100 MG CAP 1 po BID DOXYCYCLINE HYCLATE 99868716058 No Longer Active Amelianunu Rene PEN NEEDLES /" 31G X 8 MM MISC DIRECTED DX: 250.02 INSULIN PEN NEEDLE 11513877126 No Longer Active Amelianunu Rene FLUOCINONIDE 0.05 % CREA apply to affected area on hand nightly for 7 nights then prn FLUOCINONIDE 87646726650 No Longer Active Amelia Lisseth Rene LEVITRA 10 MG TABS 1 PO as directed VARDENAFIL HCL 57989883495 No Longer Active Amelia Lisseth Rene SENIOR MULTIVITAMIN PLUS TABS 1 PO daily MULTIPLE VITAMINS- MINERALS 17084937185 No Longer Active Amelia Lisseth Rene EQL FISH OIL 1000 MG CAPS 3 PO BID OMEGA-3 FATTY ACIDS 74735503416 No Longer Active Amelia Lisesth Rene DOCUSATE SODIUM 100 MG CAPS 2 PO BID DOCUSATE SODIUM 35981698356 No Longer Active Amelia Lisseth Rene ASPIRIN 81 MG TABS 1 PO BID ASPIRIN 77330707194 No Longer Active Amelia Lisseth Rene CARBAMAZEPINE 200 MG TABS 3-5 PO daily CARBAMAZEPINE 23792743813 No Longer Active Amelia Lisseth Rene GEMFIBROZIL 600 MG TABS 1 PO BID GEMFIBROZIL 54572277058 No Longer Active Amelia Lisseth Rene METFORMIN HCL 1000 MG TABS 1 PO BID METFORMIN HCL 61097640511 No Longer Active Amelia Lisseth Rene GLYBURIDE 1.25 MG TABS 2 PO QAM and 1 PO QPM GLYBURIDE 27324032194 No Longer Active Amelia Lisseth Rene PROMETHAZINE VC/CODEINE 6.25-5-10 MG/5ML SYRP 1 teaspoon PO Q6hrs prn cough [id number] 01561764755 No Longer Active Amelia Lisseth Rene WELCHOL 625 MG TABS 3 PO BID with meals COLESEVELAM HCL 35644014158 No Longer Active Amelia Lisseth Rene TEGRETOL XR 100 MG [id number] 1 PO friday, friday, CARBAMAZEPINE 17630786356 No Longer Active Amelia Lisseth Rene JANUVIA 100 MG TABS 1 PO daily SITAGLIPTIN PHOSPHATE 77392627371 No Longer Active Amelia Lissethkarley Rene Immunizations [...] 10*3/mm3 Encounters Code Encounter Date Provider Facility CPT-77973 Ofc Vst, Est Level III 14:38:44 CDT Amelia Rene DO, FACP CPT-33349 Ofc Vst, Est Level IV 20:21:55 [employer]CH[employer] Amelia Rene DO, FACP CPT-91846 Ofc Vst, Est Level IV 16:05:00 [employer]CH[employer] Amelia Lisseth Rene Amelia S Rene, DO, FACP CPT-75924 Ofc Vst, Est Level V 21:19:57 [employer] MECH[employer] Amelia Ernst Anju, DO, FACP CPT-73528 Ofc Vst, Est Level IV 17:06:25 [employer] MECH[employer]IC [facility] CPT-49523 Ofc Vst, Est Level III 13:25:12 [employer]CH[employer] Amelia Ernst Anju, DO, FACP CPT-08812 Ofc Vst, Est Level III 12:54:14 CDT Amelianunu Ernst Anju, DO, FACP CPT-37606 Ofc Vst, Est Level III 16:36:19 CDT Amelia Ernst Anju, DO, FACP CPT-41789 Ofc Vst, Est Level IV 22:37:22 CDT Amelia Lisseth Ernst Anju, DO, FACP CPT-54369 Ofc Vst, Est Level V 15:41:07 CDT Amelianunu Ernst Anju, DO, FACP CPT-71239 Ofc Vst, Est Level III 11:42:56 CDT Amelia Ernst Anju, DO, FACP CPT-26533 Ofc Vst, Est Level III 12:06:27 [employer] MECH[employer] Amelia Ernst Anju, DO, FACP CPT-72501 Ofc Vst, Est Level III 14:34:43 CDT Amelia Ernst Anju, DO, FACP CPT-96555 Ofc Vst, Est Level III 14:19:43 [employer] MECH[employer] Amelia Ernst Anju, DO, FACP CPT-10692 Ofc Vst, Est Level IV 16:26:28 CDT Amelianunu Ernst Anju, DO, FACP CPT-73158 Ofc Vst, Est Level IV 14:04:53 [employer] MECH[employer] Amelia Rene DO, FACP CPT-49932 Ofc Vst, New Level IV 14:05:53 CDT Amelia Rene DO, FACP Procedures Code Procedure Name Date Entry Date Standard Description CPT-G0439 Medicare Annual Wellness Visit 12:45:38 [employer] CPT-G8443 E-Prescribing Medication Sent 12:06:27 [employer]CH[employer] CPT-G8443 E-Prescribing Medication Sent 12:44:06 CDT CPT-G0439 Medicare Annual Wellness Visit 12:44:06 CDT CPT-G8443 E-Prescribing Medication Sent 14:34:43 CDT CPT-G0438 Medicare Annual Wellness Visit Initial 11:12:53 CDT
--- OUTSIDE RECORDS SUMMARY | 2018-05-13 11:07 | XMS REPORT | Clinical Summary ---
Author Author User, [employer] Organization Amelia Rene DO, FACP Address Unknown [...] Generic Name NDC Status Provider Patient Instruction BD PEN NEEDLE BARAK U/F 32G X 4 MM MISC DIRECTED DX: 250.02 INSULIN PEN NEEDLE 81688292408 Active Karlapatrick Evans COUMADIN 6 MG TABS 1 PO DAILY WARFARIN SODIUM 99286463358 Active Karla Waterstis COUMADIN 1 MG TABS ONE TAB ALONG WITH 6MG TO TOTAL 7 MG ON WED, SAT AND SUN ONLY WARFARIN SODIUM 82808796835 No Longer Active Amelia Rene SODIUM BICARBONATE 325 MG TABS 1 po BID SODIUM BICARBONATE 71527532947 Active Karla Waterstis COUMADIN 1 MG TABS WARFARIN SODIUM 90138161414 No Longer Active Amelia Rene TESSALON PERLES 100 MG CAPS 1 PO TID prn cough BENZONATATE 58034703741 No Longer Active Karla Evans HYDROXYZINE HCL 10 MG TABS 1 PO TID PRN ITCHING HYDROXYZINE HCL 78800060325 No Longer Active Amelia Rene AMBIEN 10 MG TAB 1 PO QHS prn ZOLPIDEM TARTRATE 22703452568 No Longer Active Amelia Rene NOVOLOG FLEXPEN 100 UNIT/ML SOPN 14 UNITS BEFORE MEALS INSULIN ASPART 04105979810 Active Karla Evans LEVEMIR FLEXPEN 100 UNIT/ML SOPN 25 UNITS AT HS INSULIN DETEMIR 82984435308 Active Karla Evans COUMADIN 1 MG TABS TAKE ONE WITH A 6 MG TO TOTAL 7 MG AND THEN TAKE 6 MG THE NEXT. WARFARIN SODIUM 41725258557 No Longer Active Amelianunu Rene LOVENOX 80 MG/0.8ML SOLN 1 injection twice daily ENOXAPARIN SODIUM 56046669959 No Longer Active Amelianunu Rene OMEPRAZOLE 40 MG CPDR 1 PO daily OMEPRAZOLE 84934569912 Active Karla Evans NYSTATIN 807408 UNIT/ML SUSP 1 teaspoon swish and swallow QID NYSTATIN 04732264060 No Longer Active Amelianunu Rene PREDNISONE 20 MG TAB 1/2 PO daily PREDNISONE 91298872371 No Longer Active Amelia Rene TRUETEST TEST STRP TEST BS QID DX: 250.02 GLUCOSE BLOOD 32673310439 Active Karla Evans TOPAMAX 50 MG TABS 1 PO BID TOPIRAMATE 73314300463 Active Karla Evans MONTELUKAST SODIUM 10 MG TABS 1 PO AT HS MONTELUKAST SODIUM 89813697962 Active Karla Evans PREDNISONE 20 MG TAB 1 PO DAILY BID WITH MEALS PREDNISONE 18448300394 No Longer Active Amelia Rene CLARITIN 10 MG TABS 1 PO BID LORATADINE 71580018226 Active Amelianunu Rene PEPCID 20 MG TAB 1 PO BID FAMOTIDINE 52588406011 No Longer Active Amelianunu Rene DOXYCYCLINE HYCLATE 100 MG CAP 1 po BID DOXYCYCLINE HYCLATE 16119907854 No Longer Active Amelianunu Rene PEN NEEDLES 5/16" 31G X 8 MM MISC DIRECTED DX: 250.02 INSULIN PEN NEEDLE 43914641835 No Longer Active Amelianunu Rene FLUOCINONIDE 0.05 % CREA apply to affected area on hand nightly for 7 nights then prn FLUOCINONIDE 20273193460 No Longer Active Amelia Lisseth Rene LEVITRA 10 MG TABS 1 PO as directed VARDENAFIL HCL 12197660648 No Longer Active Amelia Lisseth Rene SENIOR MULTIVITAMIN PLUS TABS 1 PO daily MULTIPLE VITAMINS- MINERALS 89686378775 No Longer Active Amelia Lisseth Rene EQL FISH OIL 1000 MG CAPS 3 PO BID OMEGA-3 FATTY ACIDS 82137731392 No Longer Active Amelia Lisseth Rene DOCUSATE SODIUM 100 MG CAPS 2 PO BID DOCUSATE SODIUM 22436499387 No Longer Active Amelia Lisseth Rene ASPIRIN 81 MG TABS 1 PO BID ASPIRIN 83715884785 No Longer Active Amelia Lisseth Rene CARBAMAZEPINE 200 MG TABS 3-5 PO daily CARBAMAZEPINE 62063064913 No Longer Active Amelia Lisseth Rene GEMFIBROZIL 600 MG TABS 1 PO BID GEMFIBROZIL 25876690889 No Longer Active Amelia Lisseth Rene METFORMIN HCL 1000 MG TABS 1 PO BID METFORMIN HCL 80856123520 No Longer Active Amelia Lisseth Rene GLYBURIDE 1.25 MG TABS 2 PO QAM and 1 PO QPM GLYBURIDE 84691500367 No Longer Active Amelia Lisseth Rene PROMETHAZINE VC/CODEINE 6.25-5-10 MG/5ML SYRP 1 teaspoon PO Q6hrs prn cough [id number] 58477399253 No Longer Active Amelia Lisseth Rene WELCHOL 625 MG TABS 3 PO BID with meals COLESEVELAM HCL 02125074246 No Longer Active Amelia Lisseth Rene TEGRETOL XR 100 MG [id number] 1 PO friday, friday, CARBAMAZEPINE 64431635014 No Longer Active Amelia Rene JANUVIA 100 MG TABS 1 PO daily SITAGLIPTIN PHOSPHATE 46399913782 No Longer Active Amelianunu Rene Immunizations Vaccine Administration Date Value Standard [...] E&M - 3141-9 184 [lb_av] Weight Measured Diagnostic Results Date Name Value Unit Range Description Clinical Lists Update: CBC,CMP,ESR - Chemistry bilirubin, serum, total 0.5 mg/dL alkaline phosphatase, serum 70 U/L urea nitrogen, blood 40 mg/dL calcium, serum 10.0 mg/dL chloride, serum 105 mmol/L carbon dioxide, venous blood 18 mmol/L creatinine, serum 1.4 mg/dL potassium, serum 4.3 mmol/L Estimated Glomerular Filtration Rate (calc) >60 mL/min/1.73m2 glucose, plasma fasting 255 mg/dL sodium, serum 136 mmol/L albumin, serum 3.7 g/dL alanine aminotransferase (SGPT), serum 27 U/L aspartate aminotransferase (SGOT), serum 11 U/L protein, total, serum 7.1 g/dL Clinical Lists Update: CBC,CMP,ESR - Hematology erythrocyte sedimentation rate 42 mm/h hematocrit, blood 41.7 % hemoglobin, blood 14.3 g/dL platelet count 341 10*3/mm3 erythrocyte (RBC) count 4.72 10*6/mm3 leukocyte count, blood 16.4 10*3/mm3 mean corpuscular volume, RBC 88 fL red blood cell distribution width 13.8 % Clinical Lists Update: CBC,CMP,ESR IN PT LABS - Chemistry bilirubin, serum, total 0.2 mg/dL alkaline phosphatase, serum 44 U/L urea nitrogen, blood 43 mg/dL calcium, serum 9.5 mg/dL chloride, serum 111 mmol/L carbon dioxide, venous blood 18 mmol/L creatinine, serum 1.29 mg/dL potassium, serum 4.2 mmol/L glucose, plasma fasting 200 mg/dL sodium, serum 140 mmol/L albumin, serum 3.4 g/dL alanine aminotransferase (SGPT), serum 26 U/L aspartate aminotransferase (SGOT), serum 10 U/L protein, total, serum 7.0 g/dL Clinical Lists Update: CBC,CMP,ESR IN PT LABS - Hematology erythrocyte sedimentation rate 44 mm/h hematocrit, blood 37 % hemoglobin, blood 12.7 g/dL platelet count 420 10*3/mm3 erythrocyte (RBC) count 4.22 10*6/mm3 leukocyte count, blood 14.1 10*3/mm3 mean corpuscular volume, RBC 88 fL red blood cell distribution width 12.6 % Clinical Lists Update: CBC,CMP,ESR,Chol,Trig - Chemistry potassium, serum 3.8 mmol/L protein, total, serum 8.1 g/dL HDL cholesterol, serum 26 mg/dL creatinine, serum 1.3 mg/dL carbon dioxide, venous blood 20 mmol/L cholesterol, serum 183 mg/dL chloride, serum 111 mmol/L calcium, serum 10.1 mg/dL urea nitrogen, blood 16 mg/dL alkaline phosphatase, serum 68 U/L albumin, serum 3.9 g/dL Estimated Glomerular Filtration Rate (calc) >60 mL/min/1.73m2 glucose, plasma fasting 119 mg/dL cholesterol/HDL ratio, serum, percent 7.0 sodium, serum 142 mmol/L triglyceride, serum, fasting 227 mg/dL bilirubin, serum, total 0.5 mg/dL alanine aminotransferase (SGPT), serum 20 U/L aspartate aminotransferase (SGOT), serum 15 U/L LDL cholesterol, serum 112 mg/dL Clinical Lists Update: CBC,CMP,ESR,Chol,Trig - Hematology red blood cell distribution width 13.6 % mean corpuscular volume, RBC 89 fL leukocyte count, blood 8.2 10*3/mm3 erythrocyte (RBC) count 4.83 10*6/mm3 platelet count 268 10*3/mm3 hemoglobin, blood 14.0 g/dL hematocrit, blood 43.1 % erythrocyte sedimentation rate 60 mm/h Clinical Lists Update: CBC,CMP,FLP,HgA1c - Chemistry alanine aminotransferase (SGPT), serum 9 U/L alkaline phosphatase, serum 60 U/L urea nitrogen, blood 17 mg/dL calcium, serum 9.6 mg/dL chloride, serum 105 mmol/L cholesterol, serum 165 mg/dL carbon dioxide, venous blood 21 mmol/L Estimated Glomerular Filtration Rate (calc) 55 mL/min/1.73m2 glucose, plasma fasting 183 mg/dL cholesterol/HDL ratio, serum, percent 4.9 sodium, serum 140 mmol/L triglyceride, serum, fasting 156 mg/dL bilirubin, serum, total 0.5 mg/dL albumin, serum 4.0 g/dL aspartate aminotransferase (SGOT), serum 10 U/L protein, total, serum 8.7 g/dL potassium, serum 4.3 mmol/L LDL cholesterol, serum 100 mg/dL hemoglobin A1C, blood, as % of total hemoglobin 10.3 % HDL cholesterol, serum 34 mg/dL creatinine, serum 1.3 mg/dL Clinical Lists Update: CBC,CMP,FLP,HgA1c - Hematology hematocrit, blood 41.3 % hemoglobin, blood 13.6 g/dL platelet count 558 10*3/mm3 erythrocyte (RBC) count 4.53 10*6/mm3 leukocyte count, blood 18.3 10*3/mm3 mean corpuscular volume, RBC 91 fL red blood cell distribution width 13.2 % Clinical Lists Update: CMP,CHOL,TRIG,HGA1C,ESR,PT,INR - Chemistry Estimated Glomerular Filtration Rate (calc) 43 mL/min/1.73m2 glucose, plasma fasting 130 mg/dL albumin, serum 4.6 g/dL urea nitrogen, blood 22 mg/dL calcium, serum [...] fasting 278 mg/dL sodium, serum 142 mmol/L alkaline phosphatase, serum 104 U/L Clinical Lists Update: CMP,CHOL,TRIG,HGA1C,ESR,PT,INR - Coagulation prothrombin time (patient) 26.6 s international normalized ratio (INR) 2.6 Clinical Lists Update: CMP,CHOL,TRIG,HGA1C,ESR,PT,INR - Hematology erythrocyte sedimentation rate 37 mm/h Clinical Lists Update: CMP,CHOL,TRIG,HgA1c - Chemistry albumin, serum 4.1 g/dL alkaline phosphatase, serum 75 U/L urea nitrogen, blood 19 mg/dL calcium, serum 9.1 mg/dL chloride, serum 112 mmol/L cholesterol, serum 184 mg/dL carbon dioxide, venous blood 20 mmol/L creatinine, serum 1.4 mg/dL hemoglobin A1C, blood, as % of total hemoglobin 7.0 % potassium, serum 4.1 mmol/L protein, total, serum 8.0 g/dL aspartate aminotransferase (SGOT), serum 18 U/L alanine aminotransferase (SGPT), serum 16 U/L bilirubin, serum, total 0.4 mg/dL triglyceride, serum, fasting 271 mg/dL sodium, serum 141 mmol/L glucose, plasma fasting 143 mg/dL Estimated Glomerular Filtration Rate (calc) >60 mL/min/1.73m2 Clinical Lists Update: CMP,CHOL,TRIG,TSH,HGA1C,MICROALBUMIN - Chemistry calcium, serum 9.5 mg/dL aspartate aminotransferase (SGOT), serum 18 U/L urea nitrogen, blood 14 mg/dL Estimated Glomerular Filtration Rate (calc) >60 mL/min/1.73m2 glucose, plasma fasting 145 mg/dL sodium, serum 142 mmol/L triglyceride, serum, fasting 264 mg/dL bilirubin, serum, total 0.4 mg/dL alanine aminotransferase (SGPT), serum 19 U/L alkaline phosphatase, serum 87 U/L protein, total, serum 7.7 g/dL potassium, serum 4.1 mmol/L thyroid stimulating hormone, serum 0.55 u[iU]/mL hemoglobin A1C, blood, as % of total hemoglobin 7.6 % creatinine, serum 1.4 mg/dL carbon dioxide, venous blood 21 mmol/L cholesterol, serum 144 mg/dL chloride, serum 113 mmol/L albumin, serum 3.8 g/dL Clinical Lists Update: CMP,CHOL,TRIG,TSH,HGA1C,MICROALBUMIN - Urinalysis microalbumin, urine, semiquantitative 1.5 mg/dL Clinical Lists Update: IN PT LABS - Chemistry Estimated Glomerular Filtration Rate (calc) >60 mL/min/1.73m2 glucose, plasma fasting 214 mg/dL anion gap, serum 8.7 sodium, serum 138 mmol/L bilirubin, serum, total 0.2 mg/dL alanine aminotransferase (SGPT), serum 15 U/L aspartate aminotransferase (SGOT), serum 13 U/L protein, total, serum 6.8 g/dL potassium, serum 4.2 mmol/L creatinine, serum 1.0 mg/dL carbon dioxide, venous blood 20 mmol/L chloride, serum 110 mmol/L urea nitrogen, blood 24 mg/dL alkaline phosphatase, serum 39 U/L albumin, serum 3.0 g/dL hemoglobin A1C, blood, as % of total hemoglobin 7.6 % Clinical Lists Update: IN PT LABS - Coagulation PTT patient 28.6 s international normalized ratio (INR) 1.2 prothrombin time (patient) 12.8 s Clinical Lists Update: IN PT LABS - Hematology mean corpuscular volume, RBC 89 fL leukocyte count, blood 9.5 10*3/mm3 erythrocyte (RBC) count 3.59 10*6/mm3 platelet count 295 10*3/mm3 hemoglobin, blood 10.7 g/dL erythrocyte sedimentation rate 86 mm/h hematocrit, blood 31.9 % red blood cell distribution width 12.8 % Clinical Lists Update: IN PT LABS - Urinalysis bilirubin, urine neg glucose, urine, semiquantitative >100 blood in urine (hemoglobin) by dipstick moderate mucus on urinalysis neg hyaline casts, urine few /[LPF] RBC urine by microscopy neg WBC urine on microscopy rare {Cells}/[HPF] appearance, urine Clear Yellow urobilinogen, urine, semiquantitative (dipstick) normal specific gravity, urine 1.030 pH, urine, semiquantitative 5.5 protein, urine, semiquantitative (dipstick) 100 ketones, urine, by test strip neg nitrite, urine, semiquantitative neg Clinical Lists Update: PT,INR - Coagulation prothrombin time (patient) 42.0 s international normalized ratio (INR) 3.9 prothrombin time (patient) 45.1 s international normalized ratio (INR) 4.1 prothrombin time (patient) 66.7 s international normalized ratio (INR) 6.0 prothrombin time (patient) 33.5 s international normalized ratio (INR) 3.1 prothrombin time (patient) 38.3 s international normalized ratio (INR) 3.5 prothrombin time (patient) 36.1 s international normalized ratio (INR) 3.3 prothrombin time (patient) 49.9 s international normalized ratio (INR) 4.8 prothrombin time (patient) 38.3 s international normalized ratio (INR) 3.7 prothrombin time (patient) 17.2 s international normalized ratio (INR) 1.7 prothrombin time (patient) 48.0 s international normalized ratio (INR) 4.6 prothrombin time (patient) 33.5 s international normalized ratio (INR) 3.2 prothrombin time (patient) 29.4 s international normalized ratio (INR) 2.8 international normalized ratio (INR) 3.2 prothrombin time (patient) 32.9 s Clinical Lists Update: RE: Coumadin Results - Coagulation international normalized ratio (INR) 5.1 prothrombin time (patient) 53.4 s Office Visit: Dr Rene's Check Up: Established [...] 10*3/mm3 Encounters Code Encounter Date Provider Facility CPT-40356 Ofc Vst, Est Level III 14:38:44 CDT Amelia Rene DO, [facility] CPT-53726 Ofc Vst, Est Level IV 20:21:55 [employer] Amelia Rene DO, FACP CPT-34564 Ofc Vst, Est Level IV 16:05:00 [employer]ING [employer]INE[employer] Amelia Ernst Rene, DO, FACP CPT-59738 Ofc Vst, Est Level V 21:19:57 [employer]ING ENGINE[employer] Amelia Ernst Rene, DO, FACP CPT-77474 Ofc Vst, Est Level IV 17:06:25 [employer] Amelia Rene [facility] CPT-52132 Ofc Vst, Est Level III 13:25:12 [employer] Amelia Ernst Rene, DO, FACP CPT-94756 Ofc Vst, Est Level III 12:54:14 CDT Amelia Ernst Rene, DO, FACP CPT-30282 Ofc Vst, Est Level III 16:36:19 CDT Amelianunu Ernst Anju, DO, FACP CPT-04033 Ofc Vst, Est Level IV 22:37:22 CDT Amelianunu Ernst Rene, DO, FACP CPT-76771 Ofc Vst, Est Level V 15:41:07 CDT Amelianunu Ernst Rene, DO, FACP CPT-82050 Ofc Vst, Est Level III 11:42:56 CDT Amelia Ernst Anju, DO, FACP CPT-67726 Ofc Vst, Est Level III 12:06:27 [employer]ING ENGINE[employer] Amelia Ernst Rene, DO, FACP CPT-46128 Ofc Vst, Est Level III 14:34:43 CDT Amelia Lisseth Ernst Rene, DO, FACP CPT-25769 Ofc Vst, Est Level III 14:19:43 [employer]URING ENGINEER Amelia Ernst Rene, DO, FACP CPT-62856 Ofc Vst, Est Level IV 16:26:28 CDT Amelianunu Ernst Anju, DO, FACP CPT-74465 Ofc Vst, Est Level IV 14:04:53 [employer]URING ENGINEER Amelia Rene DO, [facility] CPT-74913 Ofc Vst, New Level IV 14:05:53 CDT Amelia Rene DO, [facility] Procedures Code Procedure Name Date Entry Date Standard Description CPT-G0439 Medicare Annual Wellness Visit 12:45:38 [employer]ING ENGINEER CPT-G8443 E-Prescribing Medication Sent 12:06:27 [employer]ING [employer]INE[employer] CPT-G8443 E-Prescribing Medication Sent 12:44:06 CDT CPT-G0439 Medicare Annual Wellness Visit 12:44:06 CDT CPT-G8443 E-Prescribing Medication Sent 14:34:43 CDT CPT-G0438 Medicare Annual Wellness Visit Initial 11:12:53 CDT
--- OUTSIDE RECORDS SUMMARY | 2018-05-13 11:07 | XMS REPORT | Clinical Summary ---
Author Author User, [employer] Organization Amelia Rene DO, FACP Address Unknown [...] MG TABS 1 po BID SODIUM BICARBONATE 65780288565 Active Amelia Rene COUMADIN 1 MG TABS ONE TAB ALONG WITH 6MG TO TOTAL 7 MG ON WED, FRI AND SUN ONLY WARFARIN SODIUM 26320005556 Active Amelia Rene COUMADIN 6 MG TABS 1 PO DAILYON MON, TU, THURS AND FRI WARFARIN SODIUM 26147399693 Active Amelia Rene COUMADIN 1 MG TABS WARFARIN SODIUM 49784280940 No Longer Active Amelia Rene TESSALON PERLES 100 MG CAPS 1 PO TID prn cough BENZONATATE 93848537667 No Longer Active Karla Evans HYDROXYZINE HCL 10 MG TABS 1 PO TID PRN ITCHING HYDROXYZINE HCL 66156245821 No Longer Active Amelia Rene AMBIEN 10 MG TAB 1 PO QHS prn ZOLPIDEM TARTRATE 46143036673 No Longer Active Amelia Rene NOVOLOG FLEXPEN 100 UNIT/ML SOPN 14 UNITS BEFORE MEALS INSULIN ASPART 42266617532 Active Amelia Rene LEVEMIR FLEXPEN 100 UNIT/ML SOPN 25 UNITS AT HS INSULIN DETEMIR 62005679753 Active Amelia Rene COUMADIN 1 MG TABS TAKE ONE WITH A 6 MG TO TOTAL 7 MG AND THEN TAKE 6 MG THE NEXT. WARFARIN SODIUM 38852753259 No Longer Active Amelia Lisseth Rene LOVENOX 80 MG/0.8ML SOLN 1 injection twice daily ENOXAPARIN SODIUM 84035222845 No Longer Active Amelia Lisseth Rene OMEPRAZOLE 40 MG CPDR 1 PO daily OMEPRAZOLE 71267779617 Active Karla Evans NYSTATIN 253339 UNIT/ML SUSP 1 teaspoon swish and swallow QID NYSTATIN 79663280234 No Longer Active Amelianunu Rene PREDNISONE 20 MG TAB 1/2 PO daily PREDNISONE 25405781498 No Longer Active Amelianunu Rene TRUETEST TEST STRP TEST BS QID DX: 250.02 GLUCOSE BLOOD 26085542408 Active Karla Evans TOPAMAX 50 MG TABS 1 PO BID TOPIRAMATE 42400979088 Active Karla Evans MONTELUKAST SODIUM 10 MG TABS 1 PO AT HS MONTELUKAST SODIUM 24902276032 Active Karla Evans PREDNISONE 20 MG TAB 1 PO DAILY BID WITH MEALS PREDNISONE 34253499141 No Longer Active Amelianunu Rene CLARITIN 10 MG TABS 1 PO BID LORATADINE 83381211554 Active Amelianunu Rene PEPCID 20 MG TAB 1 PO BID FAMOTIDINE 80146846066 No Longer Active Amelianunu Rene DOXYCYCLINE HYCLATE 100 MG CAP 1 po BID DOXYCYCLINE HYCLATE 40093052980 No Longer Active Amelianunu Rene PEN NEEDLES 01/21" 31G X 8 MM MISC DIRECTED DX: 250.02 INSULIN PEN NEEDLE 40296636513 No Longer Active Amelia Lisseth Rene FLUOCINONIDE 0.05 % CREA apply to affected area on hand nightly for 7 nights then prn FLUOCINONIDE 91420405289 No Longer Active Amelia Lisseth Rene LEVITRA 10 MG TABS 1 PO as directed VARDENAFIL HCL 48788773560 No Longer Active Amelia Lisseth Rene SENIOR MULTIVITAMIN PLUS TABS 1 PO daily MULTIPLE VITAMINS- MINERALS 78785951184 No Longer Active Amelia Lisseth Rene EQL FISH OIL 1000 MG CAPS 3 PO BID OMEGA-3 FATTY ACIDS 07080276786 No Longer Active Amelia Lisseth Rene DOCUSATE SODIUM 100 MG CAPS 2 PO BID DOCUSATE SODIUM 32938087734 No Longer Active Amelia Lisseth Rene ASPIRIN 81 MG TABS 1 PO BID ASPIRIN 03790870524 No Longer Active Amelia Lisseth Rene CARBAMAZEPINE 200 MG TABS 3-5 PO daily CARBAMAZEPINE 87459117306 No Longer Active Amelia Lisseth Rene GEMFIBROZIL 600 MG TABS 1 PO BID GEMFIBROZIL 22672389856 No Longer Active Amelia Lisseth Rnee METFORMIN HCL 1000 MG TABS 1 PO BID METFORMIN HCL 06382988443 No Longer Active Amelia Lisseth Rene GLYBURIDE 1.25 MG TABS 2 PO QAM and 1 PO QPM GLYBURIDE 53203618341 No Longer Active Amelia Lisseth Rene PROMETHAZINE VC/CODEINE 6.25-5-10 MG/5ML SYRP 1 teaspoon PO Q6hrs prn cough [id number] 88982031903 No Longer Active Amelia Lisseth Rene WELCHOL 625 MG TABS 3 PO BID with meals COLESEVELAM HCL 07427989506 No Longer Active Amelia Lisseth Rene TEGRETOL XR 100 MG [id number] 1 PO friday, friday, CARBAMAZEPINE 24731681355 No Longer Active Amelia Lisseth Rene JANUVIA 100 MG TABS 1 PO daily SITAGLIPTIN PHOSPHATE 67636424871 No Longer Active Amelia Lissethkarley Rene Immunizations [...] 10*3/mm3 Encounters Code Encounter Date Provider Facility CPT-06025 Ofc Vst, Est Level III 14:38:44 CDT Amelia Rene DO, FACP CPT-75206 Ofc Vst, Est Level IV 20:21:55 FIN[employer]CIAL COMPLIANCE MANAGER Amelia Rene DO, FACP CPT-04106 Ofc Vst, Est Level IV 16:05:00 FINANCIAL COMPLIANCE MANAGER Amelia Lisseth Rene Amelia S Rene, DO, FACP CPT-22202 Ofc Vst, Est Level V 21:19:57 FINANCIAL COMPLIANCE MANAGER Amelia Ernst Anju, DO, FACP CPT-98395 Ofc Vst, Est Level IV 17:06:25 FINANCIAL COMPLIANCE MANAGER [facility] CPT-67257 Ofc Vst, Est Level III 13:25:12 FINANCIAL COMPLIANCE MANAGER Amelia Ernst Anju, DO, FACP CPT-77295 Ofc Vst, Est Level III 12:54:14 CDT Amelianunu Ernst Anju, DO, FACP CPT-13616 Ofc Vst, Est Level III 16:36:19 CDT Amelia Ernst Anju, DO, FACP CPT-17312 Ofc Vst, Est Level IV 22:37:22 CDT Amelianunu Ernst Anju, DO, FACP CPT-61823 Ofc Vst, Est Level V 15:41:07 CDT Amelianunu Ernst Anju, DO, FACP CPT-67796 Ofc Vst, Est Level III 11:42:56 CDT Amelianunu Ernst Anju, DO, FACP CPT-89250 Ofc Vst, Est Level III 12:06:27 FINANCIAL COMPLIANCE MANAGER Amelia Ernst Anju, DO, FACP CPT-48697 Ofc Vst, Est Level III 14:34:43 CDT Amelia Ernst Anju, DO, FACP CPT-00613 Ofc Vst, Est Level III 14:19:43 FINANCIAL COMPLIANCE MANAGER Amelia Ernst Anju, DO, FACP CPT-06776 Ofc Vst, Est Level IV 16:26:28 CDT Amelianunu Ernst Anju, DO, FACP CPT-33079 Ofc Vst, Est Level IV 14:04:53 FINANCIAL COMPLIANCE MANAGER Amelia Rene DO, FACP CPT-50209 Ofc Vst, New Level IV 14:05:53 CDT Amelia Rene DO, FACP Procedures Code Procedure Name Date Entry Date Standard Description CPT-G0439 Medicare Annual Wellness Visit 12:45:38 FINANCIAL COMPLIANCE MANAGER CPT-G8443 E-Prescribing Medication Sent 12:06:27 FINANCIAL COMPLIANCE MANAGER CPT-G8443 E-Prescribing Medication Sent 12:44:06 CDT CPT-G0439 Medicare Annual Wellness Visit 12:44:06 CDT CPT-G8443 E-Prescribing Medication Sent 14:34:43 CDT CPT-G0438 Medicare Annual Wellness Visit Initial 11:12:53 CDT
--- OUTSIDE RECORDS SUMMARY | 2018-05-13 11:08 | XMS REPORT | Clinical Summary ---
Author Author User, [employer] Amelia Rene DO, FACP Address Unknown [...] MG TABS 1 po BID SODIUM BICARBONATE 55408425891 Active Amelia Rene COUMADIN 1 MG TABS ONE TAB ALONG WITH 6MG TO TOTAL 7 MG ON WED, FRI AND SUN ONLY WARFARIN SODIUM 26192110477 Active Amelia Rene COUMADIN 6 MG TABS 1 PO DAILYON MON, TU, THURS AND FRI WARFARIN SODIUM 73681523229 Active Amelia Rene COUMADIN 1 MG TABS WARFARIN SODIUM 13376872488 No Longer Active Amelia Rene TESSALON PERLES 100 MG CAPS 1 PO TID prn cough BENZONATATE 26894127076 No Longer Active Karla Evans HYDROXYZINE HCL 10 MG TABS 1 PO TID PRN ITCHING HYDROXYZINE HCL 86361194679 No Longer Active Amelia Rene AMBIEN 10 MG TAB 1 PO QHS prn ZOLPIDEM TARTRATE 20162914690 No Longer Active Amelia Rene NOVOLOG FLEXPEN 100 UNIT/ML SOPN 14 UNITS BEFORE MEALS INSULIN ASPART 09620026425 Active Amelia Rene LEVEMIR FLEXPEN 100 UNIT/ML SOPN 25 UNITS AT HS INSULIN DETEMIR 70730077340 Active Amelia Rene COUMADIN 1 MG TABS TAKE ONE WITH A 6 MG TO TOTAL 7 MG AND THEN TAKE 6 MG THE NEXT. WARFARIN SODIUM 21335844037 No Longer Active Amelia Lisseth Rene LOVENOX 80 MG/0.8ML SOLN 1 injection twice daily ENOXAPARIN SODIUM 46131913588 No Longer Active Amelia Lisseth Rene OMEPRAZOLE 40 MG CPDR 1 PO daily OMEPRAZOLE 49852676780 Active Karla Evans NYSTATIN 091198 UNIT/ML SUSP 1 teaspoon swish and swallow QID NYSTATIN 04740648462 No Longer Active Amelianunu Rene PREDNISONE 20 MG TAB 1/2 PO daily PREDNISONE 72773166675 No Longer Active Amelianunu Rene TRUETEST TEST STRP TEST BS QID DX: 250.02 GLUCOSE BLOOD 84682451516 Active Karla Evans TOPAMAX 50 MG TABS 1 PO BID TOPIRAMATE 28609883213 Active Karla Evans MONTELUKAST SODIUM 10 MG TABS 1 PO AT HS MONTELUKAST SODIUM 63001030436 Active Karla Evans PREDNISONE 20 MG TAB 1 PO DAILY BID WITH MEALS PREDNISONE 40089110941 No Longer Active Amelianunu Rene CLARITIN 10 MG TABS 1 PO BID LORATADINE 49509318152 Active Amelianunu Rene PEPCID 20 MG TAB 1 PO BID FAMOTIDINE 31044847335 No Longer Active Amelianunu Rene DOXYCYCLINE HYCLATE 100 MG CAP 1 po BID DOXYCYCLINE HYCLATE 85361125610 No Longer Active Amelianunu Rene PEN NEEDLES 01/21" 31G X 8 MM MISC DIRECTED DX: 250.02 INSULIN PEN NEEDLE 51202417004 No Longer Active Amelia Lisseth Rene FLUOCINONIDE 0.05 % CREA apply to affected area on hand nightly for 7 nights then prn FLUOCINONIDE 68320977785 No Longer Active Amelia Lisseth Rene LEVITRA 10 MG TABS 1 PO as directed VARDENAFIL HCL 86031581611 No Longer Active Amelia Lisseth Rene SENIOR MULTIVITAMIN PLUS TABS 1 PO daily MULTIPLE VITAMINS- MINERALS 49358161259 No Longer Active Amelia Lisseth Rene EQL FISH OIL 1000 MG CAPS 3 PO BID OMEGA-3 FATTY ACIDS 93466002142 No Longer Active Amelia Lisseth Rene DOCUSATE SODIUM 100 MG CAPS 2 PO BID DOCUSATE SODIUM 10969170667 No Longer Active Amelia Lisseth Rene ASPIRIN 81 MG TABS 1 PO BID ASPIRIN 45831487517 No Longer Active Amelia Lisseth Rene CARBAMAZEPINE 200 MG TABS 3-5 PO daily CARBAMAZEPINE 81423797768 No Longer Active Amelia Lisseth Rene GEMFIBROZIL 600 MG TABS 1 PO BID GEMFIBROZIL 28369144891 No Longer Active Amelia Lisseth Rene METFORMIN HCL 1000 MG TABS 1 PO BID METFORMIN HCL 85953818429 No Longer Active Amelia Lisseth Rene GLYBURIDE 1.25 MG TABS 2 PO QAM and 1 PO QPM GLYBURIDE 02039832192 No Longer Active Amelia Lisseth Rene PROMETHAZINE VC/CODEINE 6.25-5-10 MG/5ML SYRP 1 teaspoon PO Q6hrs prn cough [id number] 78099398857 No Longer Active Amelia Lisseth Rene WELCHOL 625 MG TABS 3 PO BID with meals COLESEVELAM HCL 87199805503 No Longer Active Amelia Lisseth Rene TEGRETOL XR 100 MG [id number] 1 PO friday, friday, CARBAMAZEPINE 64931322014 No Longer Active Amelia Lisseth Rene JANUVIA 100 MG TABS 1 PO daily SITAGLIPTIN PHOSPHATE 29946459126 No Longer Active Amelia Lissethkarley Rene Immunizations [...] 10*3/mm3 Encounters Code Encounter Date Provider Facility CPT-25086 Ofc Vst, Est Level III 14:38:44 CDT Amelia Rene DO, FACP CPT-75699 Ofc Vst, Est Level IV 20:21:55 [facility] [employer] [facility]AIR Amelia Rene DO, FACP CPT-81885 Ofc Vst, Est Level IV 16:05:00 EN[facility]IRONMENT[facility]UDIES DE[facility]MENT CHAIR Amelia Lisseth Rene Amelia S Rene, DO, FACP CPT-13399 Ofc Vst, Est Level V 21:19:57 EN[facility] DE[facility]MENT CHAIR Amelia Ernst Anju, DO, FACP CPT-43961 Ofc Vst, Est Level IV 17:06:25 ENVIRONMENTAL STUDIES DEPARTMENT CHAIR [facility] CPT-66842 Ofc Vst, Est Level III 13:25:12 ENVIRONMENTAL STUDIES DEPARTMENT CHAIR Amelia Ernst Anju, DO, FACP CPT-23835 Ofc Vst, Est Level III 12:54:14 CDT Amelianunu Ernst Anju, DO, FACP CPT-10029 Ofc Vst, Est Level III 16:36:19 CDT Amelia Ernst Anju, DO, FACP CPT-59169 Ofc Vst, Est Level IV 22:37:22 CDT Amelianunu Ernst Anju, DO, FACP CPT-95995 Ofc Vst, Est Level V 15:41:07 CDT Amelianunu Ernst Anju, DO, FACP CPT-50254 Ofc Vst, Est Level III 11:42:56 CDT Amelianunu Ernst Anju, DO, FACP CPT-37826 Ofc Vst, Est Level III 12:06:27 ENVIRONMENTAL STUDIES DEPARTMENT CHAIR Amelia Ernst Anju, DO, FACP CPT-38795 Ofc Vst, Est Level III 14:34:43 CDT Amelia Ernst Anju, DO, FACP CPT-72863 Ofc Vst, Est Level III 14:19:43 ENVIRONMENTAL STUDIES DEPARTMENT CHAIR Amelia Ernst Anju, DO, FACP CPT-65890 Ofc Vst, Est Level IV 16:26:28 CDT Amelianunu Ernst Anju, DO, FACP CPT-47211 Ofc Vst, Est Level IV 14:04:53 ENVIRONMENTAL STUDIES DEPARTMENT CHAIR Amelia Rene DO, FACP CPT-75956 Ofc Vst, New Level IV 14:05:53 CDT Amelia Rene DO, FACP Procedures Code Procedure Name Date Entry Date Standard Description CPT-G0439 Medicare Annual Wellness Visit 12:45:38 ENVIRONMENTAL STUDIES DEPARTMENT CHAIR CPT-G8443 E-Prescribing Medication Sent 12:06:27 ENVIRONMENTAL STUDIES DEPARTMENT CHAIR CPT-G8443 E-Prescribing Medication Sent 12:44:06 CDT CPT-G0439 Medicare Annual Wellness Visit 12:44:06 CDT CPT-G8443 E-Prescribing Medication Sent 14:34:43 CDT CPT-G0438 Medicare Annual Wellness Visit Initial 11:12:53 CDT
--- OUTSIDE RECORDS SUMMARY | 2018-05-13 11:09 | XMS REPORT | Clinical Summary ---
Author Author User, [employer] Organization Amelia Rene DO, FACP Address Unknown [...] MG TABS 1 po BID SODIUM BICARBONATE 86680387949 Active Amelia Rene COUMADIN 1 MG TABS ONE TAB ALONG WITH 6MG TO TOTAL 7 MG ON WED, FRI AND SUN ONLY WARFARIN SODIUM 31584484646 Active Amelia Rene COUMADIN 6 MG TABS 1 PO DAILYON MON, TU, THURS AND FRI WARFARIN SODIUM 21017712694 Active Amelia Rene COUMADIN 1 MG TABS WARFARIN SODIUM 71318606113 No Longer Active Amelia Rene TESSALON PERLES 100 MG CAPS 1 PO TID prn cough BENZONATATE 05978008686 No Longer Active Karla Evans HYDROXYZINE HCL 10 MG TABS 1 PO TID PRN ITCHING HYDROXYZINE HCL 25497081834 No Longer Active Amelia Rene AMBIEN 10 MG TAB 1 PO QHS prn ZOLPIDEM TARTRATE 60766385677 No Longer Active Amelia Rene NOVOLOG FLEXPEN 100 UNIT/ML SOPN 14 UNITS BEFORE MEALS INSULIN ASPART 92288950284 Active Amelia Rene LEVEMIR FLEXPEN 100 UNIT/ML SOPN 25 UNITS AT HS INSULIN DETEMIR 78337736855 Active Amelia Rene COUMADIN 1 MG TABS TAKE ONE WITH A 6 MG TO TOTAL 7 MG AND THEN TAKE 6 MG THE NEXT. WARFARIN SODIUM 40668451450 No Longer Active Amelia Lisseth Rene LOVENOX 80 MG/0.8ML SOLN 1 injection twice daily ENOXAPARIN SODIUM 46857348956 No Longer Active Amelia Lisseth Rene OMEPRAZOLE 40 MG CPDR 1 PO daily OMEPRAZOLE 28232482475 Active Karla Evans NYSTATIN 990425 UNIT/ML SUSP 1 teaspoon swish and swallow QID NYSTATIN 88617732169 No Longer Active Amelianunu Rene PREDNISONE 20 MG TAB 1/2 PO daily PREDNISONE 93092365092 No Longer Active Amelianunu Rene TRUETEST TEST STRP TEST BS QID DX: 250.02 GLUCOSE BLOOD 24006555497 Active Karla Evans TOPAMAX 50 MG TABS 1 PO BID TOPIRAMATE 50398608756 Active Karla Evans MONTELUKAST SODIUM 10 MG TABS 1 PO AT HS MONTELUKAST SODIUM 88869750191 Active Karla Evans PREDNISONE 20 MG TAB 1 PO DAILY BID WITH MEALS PREDNISONE 64627926446 No Longer Active Amelianunu Rene CLARITIN 10 MG TABS 1 PO BID LORATADINE 28129312038 Active Amelianunu Rene PEPCID 20 MG TAB 1 PO BID FAMOTIDINE 56752064010 No Longer Active Amelianunu Rene DOXYCYCLINE HYCLATE 100 MG CAP 1 po BID DOXYCYCLINE HYCLATE 26529211144 No Longer Active Amelianunu Rene PEN NEEDLES 01/21" 31G X 8 MM MISC DIRECTED DX: 250.02 INSULIN PEN NEEDLE 94601761165 No Longer Active Amelia Lisseth Rene FLUOCINONIDE 0.05 % CREA apply to affected area on hand nightly for 7 nights then prn FLUOCINONIDE 40217480388 No Longer Active Amelia Lisseth Rene LEVITRA 10 MG TABS 1 PO as directed VARDENAFIL HCL 94841426529 No Longer Active Amelia Lisseth Rene SENIOR MULTIVITAMIN PLUS TABS 1 PO daily MULTIPLE VITAMINS- MINERALS 97801790986 No Longer Active Amelia Lisseth Rene EQL FISH OIL 1000 MG CAPS 3 PO BID OMEGA-3 FATTY ACIDS 78503792448 No Longer Active Amelia Lisseth Rene DOCUSATE SODIUM 100 MG CAPS 2 PO BID DOCUSATE SODIUM 18925800200 No Longer Active Amelia Lisseth Rene ASPIRIN 81 MG TABS 1 PO BID ASPIRIN 05618351590 No Longer Active Amelia Lisseth Rene CARBAMAZEPINE 200 MG TABS 3-5 PO daily CARBAMAZEPINE 35318585773 No Longer Active Amelia Lisseth Rene GEMFIBROZIL 600 MG TABS 1 PO BID GEMFIBROZIL 85752914051 No Longer Active Amelia Lisseth Rene METFORMIN HCL 1000 MG TABS 1 PO BID METFORMIN HCL 28849853638 No Longer Active Amelia Lisseth Rene GLYBURIDE 1.25 MG TABS 2 PO QAM and 1 PO QPM GLYBURIDE 32430935972 No Longer Active Amelia Lisseth Rene PROMETHAZINE VC/CODEINE 6.25-5-10 MG/5ML SYRP 1 teaspoon PO Q6hrs prn cough [id number] 90835188516 No Longer Active Amelia Lisseth Rene WELCHOL 625 MG TABS 3 PO BID with meals COLESEVELAM HCL 63545720106 No Longer Active Amelia Lisseth Rene TEGRETOL XR 100 MG [id number] 1 PO friday, friday, CARBAMAZEPINE 13324535761 No Longer Active Amelia Lisseth Rene JANUVIA 100 MG TABS 1 PO daily SITAGLIPTIN PHOSPHATE 68694155135 No Longer Active Amelia Lissethkarley Rene Immunizations [...] 10*3/mm3 Encounters Code Encounter Date Provider Facility CPT-97527 Ofc Vst, Est Level III 14:38:44 CDT Amelia Rene DO, FACP CPT-51928 Ofc Vst, Est Level IV 20:21:55 DOG SHOW JUDGE Amelia Rene DO, FACP CPT-12842 Ofc Vst, Est Level IV 16:05:00 DOG SHOW JUDGE Amelia Lisseth Rene Amelia S Rene, DO, FACP CPT-41579 Ofc Vst, Est Level V 21:19:57 DOG SHOW JUDGE Amelia Ernst Anju, DO, FACP CPT-79621 Ofc Vst, Est Level IV 17:06:25 DOG SHOW JUDGE [facility] CPT-54281 Ofc Vst, Est Level III 13:25:12 DOG SHOW JUDGE Amelia Ernst Anju, DO, FACP CPT-22709 Ofc Vst, Est Level III 12:54:14 CDT Amelianunu Ernst Anju, DO, FACP CPT-91894 Ofc Vst, Est Level III 16:36:19 CDT Amelia Ernst Anju, DO, FACP CPT-13233 Ofc Vst, Est Level IV 22:37:22 CDT Amelianunu Ernst Anju, DO, FACP CPT-25982 Ofc Vst, Est Level V 15:41:07 CDT Amelianunu Ernst Anju, DO, FACP CPT-71498 Ofc Vst, Est Level III 11:42:56 CDT Amelianunu Ernst Anju, DO, FACP CPT-35206 Ofc Vst, Est Level III 12:06:27 DOG SHOW JUDGE Amelia Ernst Anju, DO, FACP CPT-00748 Ofc Vst, Est Level III 14:34:43 CDT Amelia Ernst Anju, DO, FACP CPT-09348 Ofc Vst, Est Level III 14:19:43 DOG SHOW JUDGE Amelia Ernst Anju, DO, FACP CPT-69118 Ofc Vst, Est Level IV 16:26:28 CDT Amelianunu Ernst Anju, DO, FACP CPT-04963 Ofc Vst, Est Level IV 14:04:53 DOG SHOW JUDGE Amelia Rene DO, FACP CPT-95116 Ofc Vst, New Level IV 14:05:53 CDT Amelia Rene DO, FACP Procedures Code Procedure Name Date Entry Date Standard Description CPT-G0439 Medicare Annual Wellness Visit 12:45:38 DOG SHOW JUDGE CPT-G8443 E-Prescribing Medication Sent 12:06:27 DOG SHOW JUDGE CPT-G8443 E-Prescribing Medication Sent 12:44:06 CDT CPT-G0439 Medicare Annual Wellness Visit 12:44:06 CDT CPT-G8443 E-Prescribing Medication Sent 14:34:43 CDT CPT-G0438 Medicare Annual Wellness Visit Initial 11:12:53 CDT
--- OUTSIDE RECORDS SUMMARY | 2018-05-13 11:09 | XMS REPORT | Clinical Summary ---
Author Author User, [employer] Organization Amelia Rene DO, FACP Address Unknown [...] MISC DIRECTED DX: 250.02 INSULIN PEN NEEDLE 26983189024 Active Karla Waterstis COUMADIN 6 MG TABS 1 PO DAILY WARFARIN SODIUM 73993198024 Active Karla Waterstis COUMADIN 1 MG TABS ONE TAB ALONG WITH 6MG TO TOTAL 7 MG ON WED, SAT AND SUN ONLY WARFARIN SODIUM 03636299752 No Longer Active Amelia Rene SODIUM BICARBONATE 325 MG TABS 1 po BID SODIUM BICARBONATE 08901428642 Active Karla Waterstis COUMADIN 1 MG TABS WARFARIN SODIUM 44775298269 No Longer Active Amelia Rene TESSALON PERLES 100 MG CAPS 1 PO TID prn cough BENZONATATE 78689181228 No Longer Active Karla Waterstis HYDROXYZINE HCL 10 MG TABS 1 PO TID PRN ITCHING HYDROXYZINE HCL 40465436272 No Longer Active Amelia Rene AMBIEN 10 MG TAB 1 PO QHS prn ZOLPIDEM TARTRATE 28744055090 No Longer Active Amelia Rene NOVOLOG FLEXPEN 100 UNIT/ML SOPN 14 UNITS BEFORE MEALS INSULIN ASPART 88443778963 Active Amelia Rene LEVEMIR FLEXPEN 100 UNIT/ML SOPN 25 UNITS AT HS INSULIN DETEMIR 74028464778 Active Amelianunu Rene COUMADIN 1 MG TABS TAKE ONE WITH A 6 MG TO TOTAL 7 MG AND THEN TAKE 6 MG THE NEXT. WARFARIN SODIUM 79084033467 No Longer Active Amelianunu Rene LOVENOX 80 MG/0.8ML SOLN 1 injection twice daily ENOXAPARIN SODIUM 78260418681 No Longer Active Amelianunu Rene OMEPRAZOLE 40 MG CPDR 1 PO daily OMEPRAZOLE 93226976184 Active Karla Cristina NYSTATIN 117327 UNIT/ML SUSP 1 teaspoon swish and swallow QID NYSTATIN 43506929445 No Longer Active Amelianunu Rene PREDNISONE 20 MG TAB 1/2 PO daily PREDNISONE 31571656088 No Longer Active Amelia Rene TRUETEST TEST STRP TEST BS QID DX: 250.02 GLUCOSE BLOOD 93626377065 Active Karla Waterstis TOPAMAX 50 MG TABS 1 PO BID TOPIRAMATE 41930140750 Active Karla Evans MONTELUKAST SODIUM 10 MG TABS 1 PO AT HS MONTELUKAST SODIUM 56665377845 Active Karla Cristina PREDNISONE 20 MG TAB 1 PO DAILY BID WITH MEALS PREDNISONE 78256142605 No Longer Active Amelianunu Rene CLARITIN 10 MG TABS 1 PO BID LORATADINE 61608733360 Active Amelianunu Rene PEPCID 20 MG TAB 1 PO BID FAMOTIDINE 29190390988 No Longer Active Amelianunu Rene DOXYCYCLINE HYCLATE 100 MG CAP 1 po BID DOXYCYCLINE HYCLATE 22246591215 No Longer Active Amelia Rene PEN NEEDLES 5/16" 31G X 8 MM MISC DIRECTED DX: 250.02 INSULIN PEN NEEDLE 65944667088 No Longer Active Amelia Lisseth Rene FLUOCINONIDE 0.05 % CREA apply to affected area on hand nightly for 7 nights then prn FLUOCINONIDE 80809855080 No Longer Active Amelia Lisseth Rene LEVITRA 10 MG TABS 1 PO as directed VARDENAFIL HCL 33423553180 No Longer Active Amelia Lisseth Rene SENIOR MULTIVITAMIN PLUS TABS 1 PO daily MULTIPLE VITAMINS- MINERALS 05567288163 No Longer Active Amelia Lisseth Rene EQL FISH OIL 1000 MG CAPS 3 PO BID OMEGA-3 FATTY ACIDS 98747309467 No Longer Active Amelia Lisseth Rene DOCUSATE SODIUM 100 MG CAPS 2 PO BID DOCUSATE SODIUM 22684907501 No Longer Active Amelia Lisseth Rene ASPIRIN 81 MG TABS 1 PO BID ASPIRIN 52059491632 No Longer Active Amelia Lisseth Rene CARBAMAZEPINE 200 MG TABS 3-5 PO daily CARBAMAZEPINE 85942867257 No Longer Active Amelia Lisseth Rene GEMFIBROZIL 600 MG TABS 1 PO BID GEMFIBROZIL 30016151370 No Longer Active Amelia Lisseth Rene METFORMIN HCL 1000 MG TABS 1 PO BID METFORMIN HCL 23613903930 No Longer Active Amelia Lisseth Rene GLYBURIDE 1.25 MG TABS 2 PO QAM and 1 PO QPM GLYBURIDE 93156115789 No Longer Active Amelia Lisseth Rene PROMETHAZINE VC/CODEINE 6.25-5-10 MG/5ML SYRP 1 teaspoon PO Q6hrs prn cough [id number] 09700308524 No Longer Active Amelia Lisseth Rene WELCHOL 625 MG TABS 3 PO BID with meals COLESEVELAM HCL 02488343283 No Longer Active Amelia Lisseth Rene TEGRETOL XR 100 MG [id number] 1 PO friday, friday, [facility] 02676959336 No Longer Active Amelia Rene JANUVIA 100 MG TABS 1 PO daily SITAGLIPTIN PHOSPHATE 36063362627 No Longer Active Amelia Rene Immunizations Vaccine Administration Date Value Standard [...] Update: CBC,CMP,ESR IN PT LABS - Chemistry protein, total, serum 7.0 g/dL potassium, serum 4.2 mmol/L creatinine, serum 1.29 mg/dL carbon dioxide, venous blood 18 mmol/L chloride, serum 111 mmol/L calcium, serum 9.5 mg/dL urea nitrogen, blood 43 mg/dL alkaline phosphatase, serum 44 U/L albumin, serum 3.4 g/dL glucose, plasma fasting 200 mg/dL sodium, serum 140 mmol/L bilirubin, serum, total 0.2 mg/dL alanine aminotransferase (SGPT), serum 26 U/L aspartate aminotransferase (SGOT), serum 10 U/L Clinical Lists Update: CBC,CMP,ESR IN PT LABS - Hematology erythrocyte sedimentation rate 44 mm/h hematocrit, blood 37 % hemoglobin, blood 12.7 g/dL platelet count 420 10*3/mm3 erythrocyte (RBC) count 4.22 10*6/mm3 leukocyte count, blood 14.1 10*3/mm3 mean corpuscular volume, RBC 88 fL red blood cell distribution width 12.6 % Clinical Lists Update: CBC,CMP,ESR,Chol,Trig - Chemistry glucose, plasma fasting 119 mg/dL alkaline phosphatase, serum 68 U/L urea nitrogen, blood 16 mg/dL calcium, serum 10.1 mg/dL chloride, serum 111 mmol/L cholesterol, serum 183 mg/dL carbon dioxide, venous blood 20 mmol/L creatinine, serum 1.3 mg/dL Estimated Glomerular Filtration Rate (calc) >60 mL/min/1.73m2 albumin, serum 3.9 g/dL cholesterol/HDL ratio, serum, percent 7.0 sodium, serum 142 mmol/L triglyceride, serum, fasting 227 mg/dL bilirubin, serum, total 0.5 mg/dL alanine aminotransferase (SGPT), serum 20 U/L aspartate aminotransferase (SGOT), serum 15 U/L protein, total, serum 8.1 g/dL potassium, serum 3.8 mmol/L LDL cholesterol, serum 112 mg/dL HDL cholesterol, serum 26 mg/dL Clinical Lists Update: CBC,CMP,ESR,Chol,Trig - Hematology red blood cell distribution width 13.6 % mean corpuscular volume, RBC 89 fL leukocyte count, blood 8.2 10*3/mm3 erythrocyte (RBC) count 4.83 10*6/mm3 platelet count 268 10*3/mm3 hemoglobin, blood 14.0 g/dL hematocrit, blood 43.1 % erythrocyte sedimentation rate 60 mm/h Clinical Lists Update: CBC,CMP,FLP,HgA1c - Chemistry cholesterol, serum 165 mg/dL chloride, serum 105 mmol/L calcium, serum 9.6 mg/dL urea nitrogen, blood 17 mg/dL alkaline phosphatase, serum 60 U/L albumin, serum 4.0 g/dL Estimated Glomerular Filtration Rate (calc) 55 mL/min/1.73m2 glucose, plasma fasting 183 mg/dL cholesterol/HDL ratio, serum, percent 4.9 sodium, serum 140 mmol/L triglyceride, serum, fasting 156 mg/dL bilirubin, serum, total 0.5 mg/dL alanine aminotransferase (SGPT), serum 9 U/L aspartate aminotransferase (SGOT), serum 10 U/L protein, total, serum 8.7 g/dL potassium, serum 4.3 mmol/L LDL cholesterol, serum 100 mg/dL hemoglobin A1C, blood, as % of total hemoglobin 10.3 % HDL cholesterol, serum 34 mg/dL creatinine, serum 1.3 mg/dL carbon dioxide, venous blood 21 mmol/L Clinical Lists Update: CBC,CMP,FLP,HgA1c - Hematology red blood cell distribution width 13.2 % mean corpuscular volume, RBC 91 fL leukocyte count, blood 18.3 10*3/mm3 hematocrit, blood 41.3 % platelet count 558 10*3/mm3 hemoglobin, blood 13.6 g/dL erythrocyte (RBC) count 4.53 10*6/mm3 Clinical Lists Update: CMP,CHOL,TRIG,HGA1C,ESR,PT,INR - Chemistry Estimated Glomerular Filtration Rate (calc) 43 mL/min/1.73m2 albumin, serum 4.6 g/dL sodium, serum 142 mmol/L triglyceride, serum, fasting 278 mg/dL bilirubin, serum, total 0.5 mg/dL alanine aminotransferase (SGPT), serum 18 U/L aspartate aminotransferase (SGOT), serum 20 U/L protein, total, serum 9.6 g/dL potassium, serum 4.1 mmol/L hemoglobin A1C, blood, as % of total hemoglobin 7.0 % creatinine, serum 1.6 mg/dL carbon dioxide, venous blood 21 mmol/L cholesterol, serum 179 mg/dL chloride, serum 110 mmol/L calcium, serum 9.9 mg/dL urea nitrogen, blood 22 mg/dL alkaline phosphatase, serum 104 U/L glucose, plasma fasting 130 mg/dL Clinical Lists Update: CMP,CHOL,TRIG,HGA1C,ESR,PT,INR - Coagulation prothrombin time (patient) 26.6 s international normalized ratio (INR) 2.6 Clinical Lists Update: CMP,CHOL,TRIG,HGA1C,ESR,PT,INR - Hematology erythrocyte sedimentation rate 37 mm/h Clinical Lists Update: CMP,CHOL,TRIG,HgA1c - Chemistry Estimated Glomerular Filtration Rate (calc) >60 mL/min/1.73m2 bilirubin, serum, total 0.4 mg/dL alanine aminotransferase (SGPT), serum 16 U/L aspartate aminotransferase (SGOT), serum 18 U/L protein, total, serum 8.0 g/dL potassium, serum 4.1 mmol/L hemoglobin A1C, blood, as % of total hemoglobin 7.0 % creatinine, serum 1.4 mg/dL carbon dioxide, venous blood 20 mmol/L cholesterol, serum 184 mg/dL chloride, serum 112 mmol/L calcium, serum 9.1 mg/dL urea nitrogen, blood 19 mg/dL alkaline phosphatase, serum 75 U/L albumin, serum 4.1 g/dL sodium, serum 141 mmol/L triglyceride, serum, fasting 271 mg/dL glucose, plasma fasting 143 mg/dL Clinical Lists Update: CMP,Microalbumin,TSH,Chol,Trig - Chemistry triglyceride, serum, fasting 292 mg/dL glucose, plasma fasting 141 mg/dL alanine aminotransferase (SGPT), serum 26 U/L [...] serum 47 U/L albumin, serum 4.2 g/dL Estimated Glomerular Filtration Rate (calc) >60 mL/min/1.73m2 sodium, serum 140 mmol/L bilirubin, serum, total 0.2 mg/dL Clinical Lists Update: CMP,Microalbumin,TSH,Chol,Trig - Urinalysis microalbumin, urine, semiquantitative 6.7 mg/dL Clinical Lists Update: IN PT LABS - Chemistry Estimated Glomerular Filtration Rate (calc) >60 mL/min/1.73m2 glucose, plasma fasting 214 mg/dL hemoglobin A1C, blood, as % of total hemoglobin 7.6 % albumin, serum 3.0 g/dL alkaline phosphatase, serum 39 U/L urea nitrogen, blood 24 mg/dL chloride, serum 110 mmol/L carbon dioxide, venous blood 20 mmol/L creatinine, serum 1.0 mg/dL potassium, serum 4.2 mmol/L protein, total, serum 6.8 g/dL aspartate aminotransferase (SGOT), serum 13 U/L anion gap, serum 8.7 sodium, serum 138 mmol/L bilirubin, serum, total 0.2 mg/dL alanine aminotransferase (SGPT), serum 15 U/L Clinical Lists Update: IN PT LABS - Coagulation international normalized ratio (INR) 1.2 PTT patient 28.6 s prothrombin time (patient) 12.8 s Clinical Lists Update: IN PT LABS - Hematology platelet count 295 10*3/mm3 erythrocyte (RBC) count 3.59 10*6/mm3 erythrocyte sedimentation rate 86 mm/h hematocrit, blood 31.9 % hemoglobin, blood 10.7 g/dL red blood cell distribution width 12.8 % mean corpuscular volume, RBC 89 fL leukocyte count, blood 9.5 10*3/mm3 Clinical Lists Update: IN PT LABS - Urinalysis bilirubin, urine neg glucose, urine, semiquantitative >100 protein, urine, semiquantitative (dipstick) 100 blood in urine (hemoglobin) by dipstick moderate mucus on urinalysis neg hyaline casts, urine few /[LPF] RBC urine by microscopy neg WBC urine on microscopy rare {Cells}/[HPF] appearance, urine Clear Yellow urobilinogen, urine, semiquantitative (dipstick) normal specific gravity, urine 1.030 pH, urine, semiquantitative 5.5 nitrite, urine, semiquantitative neg ketones, urine, by test strip neg Clinical Lists Update: PT,INR - Coagulation international normalized ratio (INR) 2.8 prothrombin time (patient) 42.0 s international normalized ratio (INR) 3.2 prothrombin time (patient) 33.5 s international normalized ratio (INR) 4.6 prothrombin time (patient) 48.0 s international normalized ratio (INR) 1.7 prothrombin time (patient) 17.2 s international normalized ratio (INR) 3.7 prothrombin time (patient) 38.3 s international normalized ratio (INR) 4.8 prothrombin time (patient) 49.9 s prothrombin time (patient) 29.4 s international normalized ratio (INR) 3.9 international normalized ratio (INR) 3.3 prothrombin time (patient) 36.1 s international normalized ratio (INR) 3.5 prothrombin time (patient) 38.3 s international normalized ratio (INR) 3.1 prothrombin time (patient) 33.5 s international normalized ratio (INR) 6.0 prothrombin time (patient) 66.7 s international normalized ratio (INR) 4.1 prothrombin time (patient) 45.1 s Clinical Lists [...] 10*3/mm3 Encounters Code Encounter Date Provider Facility CPT-82621 Ofc Vst, Est Level III 14:38:44 CDT Amelianunu Ernst Anju, DO, FACP CPT-38038 Ofc Vst, Est Level IV 20:21:55 AUTOCUTTER Amelia Ernst Rene, DO, FACP CPT-18278 Ofc Vst, Est Level IV 16:05:00 AUTOCUTTER Amelia Ernst Rene, DO, FACP CPT-00705 Ofc Vst, Est Level V 21:19:57 AUTOCUTTER Amelia Ernst Anju, DO, FACP CPT-10105 Ofc Vst, Est Level IV 17:06:25 AUTOCUTTER [facility] CPT-93364 Ofc Vst, Est Level III 13:25:12 AUTOCUTTER Amelia Ernst Anju, DO, FACP CPT-13806 Ofc Vst, Est Level III 12:54:14 CDT Amelianunu Ernst Anju, DO, FACP CPT-97910 Ofc Vst, Est Level III 16:36:19 CDT Amelianuun Ernst Rene, DO, FACP CPT-10395 Ofc Vst, Est Level IV 22:37:22 CDT Amelianunu Ernst Anju, DO, FACP CPT-34481 Ofc Vst, Est Level V 15:41:07 CDT Amelia Lisseth Ernst Anju, DO, FACP CPT-13124 Ofc Vst, Est Level III 11:42:56 CDT Amelia Lisseth Ernst Rene, DO, FACP CPT-14650 Ofc Vst, Est Level III 12:06:27 AUTOCUTTER Amelia Lisseth Ernst Anju, DO, FACP CPT-70548 Ofc Vst, Est Level III 14:34:43 CDT Amelianunu Yeni Sujata DO Anju, FACP CPT-38395 Ofc Vst, Est Level III 14:19:43 AUTOCUTTER Amelia Rene Amelia Rene DO, FACP CPT-30633 Ofc Vst, Est Level IV 16:26:28 CDT Amelia Rodriguezninoska Rene DO, FACP CPT-54541 Ofc Vst, Est Level IV 14:04:53 AUTOCUTTER Amelia Yennunu Rene DO, FACP CPT-13405 Ofc Vst, New Level IV 14:05:53 CDT Amelia Montanez Anju Rene DO, FACP Procedures Code Procedure Name Date Entry Date Standard Description CPT-G0439 Medicare Annual Wellness Visit 12:45:38 AUTOCUTTER CPT-G8443 E-Prescribing Medication Sent 12:06:27 AUTOCUTTER CPT-G8443 E-Prescribing Medication Sent 12:44:06 CDT CPT-G0439 Medicare Annual Wellness Visit 12:44:06 CDT CPT-G8443 E-Prescribing Medication Sent 14:34:43 CDT CPT-G0438 Medicare Annual Wellness Visit Initial 11:12:53 CDT
--- OUTSIDE RECORDS SUMMARY | 2018-05-13 11:10 | XMS REPORT | Clinical Summary ---
Author Author User, [employer] Organization Amelia Rene DO, FACP Address Unknown [...] MG TABS 1 po BID SODIUM BICARBONATE 88608275827 Active Amelia Rene COUMADIN 1 MG TABS ONE TAB ALONG WITH 6MG TO TOTAL 7 MG ON WED, FRI AND SUN ONLY WARFARIN SODIUM 37679796502 Active Amelia Rene COUMADIN 6 MG TABS 1 PO DAILYON MON, TU, THURS AND FRI WARFARIN SODIUM 48286094846 Active Amelia Rene COUMADIN 1 MG TABS WARFARIN SODIUM 57391520187 No Longer Active Amelia Rene TESSALON PERLES 100 MG CAPS 1 PO TID prn cough BENZONATATE 59466461231 No Longer Active Karla Evans HYDROXYZINE HCL 10 MG TABS 1 PO TID PRN ITCHING HYDROXYZINE HCL 84794158440 No Longer Active Amelia Rene AMBIEN 10 MG TAB 1 PO QHS prn ZOLPIDEM TARTRATE 61910609210 No Longer Active Amelia Rene NOVOLOG FLEXPEN 100 UNIT/ML SOPN 14 UNITS BEFORE MEALS INSULIN ASPART 99038349523 Active Amelia Rene LEVEMIR FLEXPEN 100 UNIT/ML SOPN 25 UNITS AT HS INSULIN DETEMIR 28987918309 Active Amelia Rene COUMADIN 1 MG TABS TAKE ONE WITH A 6 MG TO TOTAL 7 MG AND THEN TAKE 6 MG THE NEXT. WARFARIN SODIUM 75039998488 No Longer Active Amelia Lisseth Rene LOVENOX 80 MG/0.8ML SOLN 1 injection twice daily ENOXAPARIN SODIUM 94612089093 No Longer Active Amelia Lisseth Rene OMEPRAZOLE 40 MG CPDR 1 PO daily OMEPRAZOLE 92280750873 Active Karla Evans NYSTATIN 185996 UNIT/ML SUSP 1 teaspoon swish and swallow QID NYSTATIN 54650027104 No Longer Active Amelianunu Rene PREDNISONE 20 MG TAB 1/2 PO daily PREDNISONE 28404262363 No Longer Active Amelianunu Rene TRUETEST TEST STRP TEST BS QID DX: 250.02 GLUCOSE BLOOD 77409859518 Active Karla Evans TOPAMAX 50 MG TABS 1 PO BID TOPIRAMATE 19650484446 Active Karla Evans MONTELUKAST SODIUM 10 MG TABS 1 PO AT HS MONTELUKAST SODIUM 95874259992 Active Karla Evans PREDNISONE 20 MG TAB 1 PO DAILY BID WITH MEALS PREDNISONE 63883467969 No Longer Active Amelianunu Rene CLARITIN 10 MG TABS 1 PO BID LORATADINE 26111574846 Active Amelianunu Rene PEPCID 20 MG TAB 1 PO BID FAMOTIDINE 06627189964 No Longer Active Amelianunu Rene DOXYCYCLINE HYCLATE 100 MG CAP 1 po BID DOXYCYCLINE HYCLATE 82152419214 No Longer Active Amelianunu Rene PEN NEEDLES /" 31G X 8 MM MISC DIRECTED DX: 250.02 INSULIN PEN NEEDLE 03526874508 No Longer Active Amelianunu Rene FLUOCINONIDE 0.05 % CREA apply to affected area on hand nightly for 7 nights then prn FLUOCINONIDE 78258465251 No Longer Active Amelia Lisseth Rene LEVITRA 10 MG TABS 1 PO as directed VARDENAFIL HCL 40853880133 No Longer Active Amelia Lisseth Rene SENIOR MULTIVITAMIN PLUS TABS 1 PO daily MULTIPLE VITAMINS- MINERALS 74388285722 No Longer Active Amelia Lisseth Rene EQL FISH OIL 1000 MG CAPS 3 PO BID OMEGA-3 FATTY ACIDS 47185142142 No Longer Active Amelia Lisseth Rene DOCUSATE SODIUM 100 MG CAPS 2 PO BID DOCUSATE SODIUM 16265223779 No Longer Active Amelia Lisseth Rene ASPIRIN 81 MG TABS 1 PO BID ASPIRIN 97159135491 No Longer Active Amelia Lisseth Rene CARBAMAZEPINE 200 MG TABS 3-5 PO daily CARBAMAZEPINE 56043557372 No Longer Active Amelia Lisseth Rene GEMFIBROZIL 600 MG TABS 1 PO BID GEMFIBROZIL 04730765754 No Longer Active Amelia Lisseth Rene METFORMIN HCL 1000 MG TABS 1 PO BID METFORMIN HCL 63109802662 No Longer Active Amelia Lisseth Rene GLYBURIDE 1.25 MG TABS 2 PO QAM and 1 PO QPM GLYBURIDE 97005565133 No Longer Active Amelia Lisseth Rene PROMETHAZINE VC/CODEINE 6.25-5-10 MG/5ML SYRP 1 teaspoon PO Q6hrs prn cough [id number] 41981134056 No Longer Active Amelia Lisseth Rene WELCHOL 625 MG TABS 3 PO BID with meals COLESEVELAM HCL 12476682469 No Longer Active Amelia Lisseth Rene TEGRETOL XR 100 MG [id number] 1 PO friday, friday, CARBAMAZEPINE 88842031586 No Longer Active Amelia Lisseth Rene JANUVIA 100 MG TABS 1 PO daily SITAGLIPTIN PHOSPHATE 66224654733 No Longer Active Amelia Lissethkarley Rene Immunizations [...] pressure, diastolic - 8462-4 74 mm[Hg] BP micahel blood pressure, systolic - 8480-6 136 mm[Hg] [...] normalized ratio (INR) 5.1 Office Visit: Dr Rnee's Check Up: Established Patient Visit - Coagulation [...] 10*3/mm3 Encounters Code Encounter Date Provider Facility CPT-90889 Ofc Vst, Est Level III 14:38:44 CDT Amelia Rene DO, FACP CPT-03101 Ofc Vst, Est Level IV 20:21:55 COVERAGE SPECIALIST RN Amelia Rene DO, FACP CPT-13781 Ofc Vst, Est Level IV 16:05:00 COVERAGE SPECIALIST RN Amelia Lisseth Rene Amelia S Rene, DO, FACP CPT-98691 Ofc Vst, Est Level V 21:19:57 COVERAGE SPECIALIST RN Amelia Ernst Anju, DO, FACP CPT-74361 Ofc Vst, Est Level IV 17:06:25 COVERAGE SPECIALIST RN [facility] CPT-94593 Ofc Vst, Est Level III 13:25:12 COVERAGE SPECIALIST RN Amelia Ernst Anju, DO, FACP CPT-44420 Ofc Vst, Est Level III 12:54:14 CDT Amelianunu Ernst Anju, DO, FACP CPT-66839 Ofc Vst, Est Level III 16:36:19 CDT Amelia Ernst Anju, DO, FACP CPT-49523 Ofc Vst, Est Level IV 22:37:22 CDT Amelia Lisseth Ernst Anju, DO, FACP CPT-19779 Ofc Vst, Est Level V 15:41:07 CDT Amelianunu Ernst Anju, DO, FACP CPT-55227 Ofc Vst, Est Level III 11:42:56 CDT Amelia Ernst Anju, DO, FACP CPT-71761 Ofc Vst, Est Level III 12:06:27 COVERAGE SPECIALIST RN Amelia Ernst Anju, DO, FACP CPT-83311 Ofc Vst, Est Level III 14:34:43 CDT Amelia Ernst Anju, DO, FACP CPT-23772 Ofc Vst, Est Level III 14:19:43 COVERAGE SPECIALIST RN Amelia Ernst Anju, DO, FACP CPT-80527 Ofc Vst, Est Level IV 16:26:28 CDT Amelianunu Ernst Anju, DO, FACP CPT-36609 Ofc Vst, Est Level IV 14:04:53 COVERAGE SPECIALIST RN Amelia Rene DO, FACP CPT-93107 Ofc Vst, New Level IV 14:05:53 CDT Amelia Rene DO, FACP Procedures Code Procedure Name Date Entry Date Standard Description CPT-G0439 Medicare Annual Wellness Visit 12:45:38 COVERAGE SPECIALIST RN CPT-G8443 E-Prescribing Medication Sent 12:06:27 COVERAGE SPECIALIST RN CPT-G8443 E-Prescribing Medication Sent 12:44:06 CDT CPT-G0439 Medicare Annual Wellness Visit 12:44:06 CDT CPT-G8443 E-Prescribing Medication Sent 14:34:43 CDT CPT-G0438 Medicare Annual Wellness Visit Initial 11:12:53 CDT
--- OUTSIDE RECORDS SUMMARY | 2018-05-13 11:11 | XMS REPORT | Clinical Summary ---
Author Author User, [employer] Organization Amelia Rene DO, FACP Address Unknown [...] MISC DIRECTED DX: 250.02 INSULIN PEN NEEDLE 57904337039 Active Karlapatrick Evans COUMADIN 6 MG TABS 1 PO DAILY WARFARIN SODIUM 68166334965 Active Karla Waterstis COUMADIN 1 MG TABS ONE TAB ALONG WITH 6MG TO TOTAL 7 MG ON WED, SAT AND SUN ONLY WARFARIN SODIUM 02645819377 No Longer Active Amelia Rene SODIUM BICARBONATE 325 MG TABS 1 po BID SODIUM BICARBONATE 93703531500 Active Karla Waterstis COUMADIN 1 MG TABS WARFARIN SODIUM 64265791138 No Longer Active Amelia Rene TESSALON PERLES 100 MG CAPS 1 PO TID prn cough BENZONATATE 40737773660 No Longer Active Karla Evans HYDROXYZINE HCL 10 MG TABS 1 PO TID PRN ITCHING HYDROXYZINE HCL 11498727908 No Longer Active Amelia Rene AMBIEN 10 MG TAB 1 PO QHS prn ZOLPIDEM TARTRATE 30944691876 No Longer Active Amelia Rene NOVOLOG FLEXPEN 100 UNIT/ML SOPN 14 UNITS BEFORE MEALS INSULIN ASPART 55763370605 Active Karla Evans LEVEMIR FLEXPEN 100 UNIT/ML SOPN 25 UNITS AT HS INSULIN DETEMIR 52692360147 Active Karla Evans COUMADIN 1 MG TABS TAKE ONE WITH A 6 MG TO TOTAL 7 MG AND THEN TAKE 6 MG THE NEXT. WARFARIN SODIUM 94468986347 No Longer Active Amelianunu Rene LOVENOX 80 MG/0.8ML SOLN 1 injection twice daily ENOXAPARIN SODIUM 06766991154 No Longer Active Amelianunu Rene OMEPRAZOLE 40 MG CPDR 1 PO daily OMEPRAZOLE 65627180163 Active Karla Evans NYSTATIN 542735 UNIT/ML SUSP 1 teaspoon swish and swallow QID NYSTATIN 01369273643 No Longer Active Amelianunu Rene PREDNISONE 20 MG TAB 1/2 PO daily PREDNISONE 78400981612 No Longer Active Amelia Rene TRUETEST TEST STRP TEST BS QID DX: 250.02 GLUCOSE BLOOD 71277776863 Active Karla Evans TOPAMAX 50 MG TABS 1 PO BID TOPIRAMATE 60339123952 Active Karla Evans MONTELUKAST SODIUM 10 MG TABS 1 PO AT HS MONTELUKAST SODIUM 98725658013 Active Karla Evans PREDNISONE 20 MG TAB 1 PO DAILY BID WITH MEALS PREDNISONE 19953604847 No Longer Active Amelia Rene CLARITIN 10 MG TABS 1 PO BID LORATADINE 54027104444 Active Amelianunu Rene PEPCID 20 MG TAB 1 PO BID FAMOTIDINE 60426749527 No Longer Active Amelianunu Rene DOXYCYCLINE HYCLATE 100 MG CAP 1 po BID DOXYCYCLINE HYCLATE 48644485340 No Longer Active Amelianunu Rene PEN NEEDLES 5/16" 31G X 8 MM MISC DIRECTED DX: 250.02 INSULIN PEN NEEDLE 48741468627 No Longer Active Amelianunu Rene FLUOCINONIDE 0.05 % CREA apply to affected area on hand nightly for 7 nights then prn FLUOCINONIDE 25290402502 No Longer Active Amelia Lisseth Rene LEVITRA 10 MG TABS 1 PO as directed VARDENAFIL HCL 30332194603 No Longer Active Amelia Lisseth Rene SENIOR MULTIVITAMIN PLUS TABS 1 PO daily MULTIPLE VITAMINS- MINERALS 01607621410 No Longer Active Amelia Lisseth Rene EQL FISH OIL 1000 MG CAPS 3 PO BID OMEGA-3 FATTY ACIDS 73040808668 No Longer Active Amelia Lisseth Rene DOCUSATE SODIUM 100 MG CAPS 2 PO BID DOCUSATE SODIUM 89709106031 No Longer Active Amelia Lisseth Rene ASPIRIN 81 MG TABS 1 PO BID ASPIRIN 14777127341 No Longer Active Amelia Lisseth Rene CARBAMAZEPINE 200 MG TABS 3-5 PO daily CARBAMAZEPINE 94282399306 No Longer Active Amelia Lisseth Rene GEMFIBROZIL 600 MG TABS 1 PO BID GEMFIBROZIL 37639279710 No Longer Active Amelia Lisseth Rene METFORMIN HCL 1000 MG TABS 1 PO BID METFORMIN HCL 45329857846 No Longer Active Amelia Lisseth Rene GLYBURIDE 1.25 MG TABS 2 PO QAM and 1 PO QPM GLYBURIDE 51952357273 No Longer Active Amelia Lisseth Rene PROMETHAZINE VC/CODEINE 6.25-5-10 MG/5ML SYRP 1 teaspoon PO Q6hrs prn cough [id number] 30011273668 No Longer Active Amelia Lisseth Rene WELCHOL 625 MG TABS 3 PO BID with meals COLESEVELAM HCL 23205186197 No Longer Active Amelia Lisseth Rene TEGRETOL XR 100 MG [id number]-AUP 1 PO friday, friday, CARBAMAZEPINE 48541290284 No Longer Active Amelia Rene JANUVIA 100 MG TABS 1 PO daily SITAGLIPTIN PHOSPHATE 26494867794 No Longer Active Amelianunu Rene Immunizations Vaccine [...] pressure, diastolic - 8462-4 68 mm[Hg] BP micheal blood pressure, systolic - 8480-6 122 mm[Hg] [...] 43 mL/min/1.73m2 glucose, plasma fasting 130 mg/dL sodium, serum 142 mmol/L triglyceride, serum, [...] 22 mg/dL alkaline phosphatase, serum 104 U/L albumin, serum 4.6 g/dL Clinical Lists Update: CMP,CHOL,TRIG,HGA1C,ESR,PT,INR - Coagulation international normalized ratio (INR) 2.6 prothrombin time (patient) 26.6 s Clinical Lists Update: CMP,CHOL,TRIG,HGA1C,ESR,PT,INR - Hematology erythrocyte sedimentation rate 37 mm/h Clinical Lists Update: CMP,CHOL,TRIG,HgA1c - Chemistry bilirubin, serum, total 0.4 mg/dL alanine aminotransferase [...] serum 75 U/L albumin, serum 4.1 g/dL triglyceride, serum, fasting 271 mg/dL sodium, serum 141 mmol/L glucose, plasma fasting 143 mg/dL Estimated Glomerular Filtration Rate (calc) >60 mL/min/1.73m2 Clinical Lists Update: IN PT LABS - Chemistry anion gap, serum 8.7 glucose, plasma fasting 214 mg/dL bilirubin, serum, total 0.2 mg/dL alanine [...] as % of total hemoglobin 7.6 % Estimated Glomerular Filtration Rate (calc) >60 mL/min/1.73m2 sodium, serum 138 mmol/L Clinical Lists Update: IN PT LABS - Coagulation international normalized ratio (INR) 1.2 PTT patient 28.6 s prothrombin time (patient) 12.8 s Clinical Lists Update: IN PT LABS - Hematology mean corpuscular volume, RBC 89 fL leukocyte count, blood 9.5 10*3/mm3 erythrocyte (RBC) count 3.59 10*6/mm3 platelet count 295 10*3/mm3 hemoglobin, blood 10.7 g/dL hematocrit, blood 31.9 % erythrocyte sedimentation rate 86 mm/h red blood cell distribution width 12.8 % Clinical Lists Update: IN PT LABS - Urinalysis pH, urine, semiquantitative 5.5 nitrite, urine, semiquantitative neg ketones, urine, by test strip neg bilirubin, urine neg glucose, urine, semiquantitative >100 specific gravity, urine 1.030 urobilinogen, urine, semiquantitative (dipstick) normal blood in urine (hemoglobin) by dipstick moderate mucus on urinalysis neg hyaline casts, urine few /[LPF] RBC urine by microscopy neg protein, urine, semiquantitative (dipstick) 100 appearance, urine Clear Yellow WBC urine on microscopy rare {Cells}/[HPF] Clinical Lists Update: PT,INR - Coagulation prothrombin time (patient) 49.9 s international normalized ratio (INR) 4.8 prothrombin time (patient) 38.3 s international normalized ratio (INR) 3.7 prothrombin time (patient) 17.2 s international normalized ratio (INR) 1.7 prothrombin time (patient) 48.0 s international normalized ratio (INR) 4.6 prothrombin time (patient) 33.5 s international normalized ratio (INR) 3.2 prothrombin time (patient) 29.4 s prothrombin time (patient) 42.0 s prothrombin time (patient) 32.9 s international normalized ratio (INR) 3.2 international normalized ratio (INR) 2.8 international normalized ratio (INR) 3.9 international normalized [...] 10*3/mm3 Encounters Code Encounter Date Provider Facility CPT-04325 Ofc Vst, Est Level III 14:38:44 CDT mAelia Rene DO, FACP CPT-04902 Ofc Vst, Est Level IV 20:21:55 DONOR PROCESSOR Amelia Rene DO, FACP CPT-04798 Ofc Vst, Est Level IV 16:05:00 DONOR PROCESSOR Amelia Rene DO, FACP CPT-80588 Ofc Vst, Est Level V 21:19:57 DONOR PROCESSOR Amelia Rene DO, FACP CPT-36780 Ofc Vst, Est Level IV 17:06:25 DONOR PROCESSOR Amelia Rene [facility] CPT-39778 Ofc Vst, Est Level III 13:25:12 DONOR PROCESSOR Amelia Rene DO, FACP CPT-32230 Ofc Vst, Est Level III 12:54:14 CDT Amelia Rene DO, FACP CPT-68967 Ofc Vst, Est Level III 16:36:19 CDT Amelia Rene DO, FACP CPT-41573 Ofc Vst, Est Level IV 22:37:22 CDT Amelia Rene DO, FACP CPT-70974 Ofc Vst, Est Level V 15:41:07 CDT Amelia Rene, DO, FACP CPT-94516 Ofc Vst, Est Level III 11:42:56 CDT Amelia Rene DO, FACP CPT-19339 Ofc Vst, Est Level III 12:06:27 DONOR PROCESSOR Amelia Rodriguezner Amelianunu Rene DO, FACP CPT-95023 Ofc Vst, Est Level III 14:34:43 CDT Amelia Rodriguezner Amelianunu Rene DO, FACP CPT-37773 Ofc Vst, Est Level III 14:19:43 DONOR PROCESSOR Amelia Rodriguezner Amelianunu Rene DO, FACP CPT-78028 Ofc Vst, Est Level IV 16:26:28 CDT Amelia Montanez Anju Rene DO, FACP CPT-46585 Ofc Vst, Est Level IV 14:04:53 DONOR PROCESSOR Amelia Rodriguezninoska Rene DO, FACP CPT-97274 Ofc Vst, New Level IV 14:05:53 CDT Amelia Rene Amelia Rene, DO, FACP Procedures Code Procedure Name Date Entry Date Standard Description CPT-G0439 Medicare Annual Wellness Visit 12:45:38 DONOR PROCESSOR CPT-G8443 E-Prescribing Medication Sent 12:06:27 DONOR PROCESSOR CPT-G8443 E-Prescribing Medication Sent 12:44:06 CDT CPT-G0439 Medicare Annual Wellness Visit 12:44:06 CDT CPT-G8443 E-Prescribing Medication Sent 14:34:43 CDT CPT-G0438 Medicare Annual Wellness Visit Initial 11:12:53 CDT
--- OUTSIDE RECORDS SUMMARY | 2018-05-13 11:12 | XMS REPORT | Clinical Summary ---
Author Author User, [employer] Organization Amelia Rene DO, FACP Address Unknown [...] MG TABS 1 po BID SODIUM BICARBONATE 39818688751 Active Amelia Rene COUMADIN 1 MG TABS ONE TAB ALONG WITH 6MG TO TOTAL 7 MG ON WED, FRI AND SUN ONLY WARFARIN SODIUM 11676629137 Active Amelia Rene COUMADIN 6 MG TABS 1 PO DAILYON MON, TU, THURS AND FRI WARFARIN SODIUM 82776774998 Active Amelia Rene COUMADIN 1 MG TABS WARFARIN SODIUM 49968039697 No Longer Active Amelia Rene TESSALON PERLES 100 MG CAPS 1 PO TID prn cough BENZONATATE 68309299127 No Longer Active Karla Evans HYDROXYZINE HCL 10 MG TABS 1 PO TID PRN ITCHING HYDROXYZINE HCL 31571630536 No Longer Active Amelia Rene AMBIEN 10 MG TAB 1 PO QHS prn ZOLPIDEM TARTRATE 99374963334 No Longer Active Amelia Rene NOVOLOG FLEXPEN 100 UNIT/ML SOPN 14 UNITS BEFORE MEALS INSULIN ASPART 09174273689 Active Amelia Rene LEVEMIR FLEXPEN 100 UNIT/ML SOPN 25 UNITS AT HS INSULIN DETEMIR 61955620081 Active Amelia Rene COUMADIN 1 MG TABS TAKE ONE WITH A 6 MG TO TOTAL 7 MG AND THEN TAKE 6 MG THE NEXT. WARFARIN SODIUM 37914926152 No Longer Active Amelia Lisseth Rene LOVENOX 80 MG/0.8ML SOLN 1 injection twice daily ENOXAPARIN SODIUM 55930856927 No Longer Active Amelia Lisseth Rene OMEPRAZOLE 40 MG CPDR 1 PO daily OMEPRAZOLE 16036537879 Active Karla Evans NYSTATIN 080084 UNIT/ML SUSP 1 teaspoon swish and swallow QID NYSTATIN 18041724718 No Longer Active Amelianunu Rene PREDNISONE 20 MG TAB 1/2 PO daily PREDNISONE 60421275897 No Longer Active Amelianunu Rene TRUETEST TEST STRP TEST BS QID DX: 250.02 GLUCOSE BLOOD 71183031256 Active Karla Evans TOPAMAX 50 MG TABS 1 PO BID TOPIRAMATE 89871990845 Active Karla Evans MONTELUKAST SODIUM 10 MG TABS 1 PO AT HS MONTELUKAST SODIUM 58835358496 Active Karla Evans PREDNISONE 20 MG TAB 1 PO DAILY BID WITH MEALS PREDNISONE 86581209673 No Longer Active Amelianunu Rene CLARITIN 10 MG TABS 1 PO BID LORATADINE 23575524849 Active Amelianunu Rene PEPCID 20 MG TAB 1 PO BID FAMOTIDINE 51697553852 No Longer Active Amelianunu Rene DOXYCYCLINE HYCLATE 100 MG CAP 1 po BID DOXYCYCLINE HYCLATE 13766422170 No Longer Active Amelianunu Rene PEN NEEDLES /" 31G X 8 MM MISC DIRECTED DX: 250.02 INSULIN PEN NEEDLE 82622316351 No Longer Active Amelianunu Rene FLUOCINONIDE 0.05 % CREA apply to affected area on hand nightly for 7 nights then prn FLUOCINONIDE 15645599037 No Longer Active Amelia Lisseth Rene LEVITRA 10 MG TABS 1 PO as directed VARDENAFIL HCL 72147880287 No Longer Active Amelia Lisseth Rene SENIOR MULTIVITAMIN PLUS TABS 1 PO daily MULTIPLE VITAMINS- MINERALS 56202746382 No Longer Active Amelia Lisseth Rene EQL FISH OIL 1000 MG CAPS 3 PO BID OMEGA-3 FATTY ACIDS 86066723668 No Longer Active Amelia Lisseth Rene DOCUSATE SODIUM 100 MG CAPS 2 PO BID DOCUSATE SODIUM 53968665060 No Longer Active Amelia Lisseth Rene ASPIRIN 81 MG TABS 1 PO BID ASPIRIN 18433799447 No Longer Active Amelia Lisseth Rene CARBAMAZEPINE 200 MG TABS 3-5 PO daily CARBAMAZEPINE 63681599162 No Longer Active Amelia Lisseth Rene GEMFIBROZIL 600 MG TABS 1 PO BID GEMFIBROZIL 48580939845 No Longer Active Amelia Lisseth Rene METFORMIN HCL 1000 MG TABS 1 PO BID METFORMIN HCL 61846416552 No Longer Active Amelia Lisseth Rene GLYBURIDE 1.25 MG TABS 2 PO QAM and 1 PO QPM GLYBURIDE 01763742286 No Longer Active Amelia Lisseth Rene PROMETHAZINE VC/CODEINE 6.25-5-10 MG/5ML SYRP 1 teaspoon PO Q6hrs prn cough [id number] 80059873380 No Longer Active Amelia Lisseth Rene WELCHOL 625 MG TABS 3 PO BID with meals COLESEVELAM HCL 28422818145 No Longer Active Amelia Lisseth Rene TEGRETOL XR 100 MG [id number] 1 PO friday, friday, CARBAMAZEPINE 05430477802 No Longer Active Amelia Lisseth Rene JANUVIA 100 MG TABS 1 PO daily SITAGLIPTIN PHOSPHATE 52537350814 No Longer Active Amelia Lissethkarley Rene Immunizations [...] 10*3/mm3 Encounters Code Encounter Date Provider Facility CPT-18593 Ofc Vst, Est Level III 14:38:44 CDT Amelia Rene DO, FACP CPT-53384 Ofc Vst, Est Level IV 20:21:55 WEB CONTENT [employer] SOCIAL MEDIA MANAGER Amelia Rene DO, FACP CPT-32022 Ofc Vst, Est Level IV 16:05:00 WE[employer] CONTENT [employer] SOCIAL MEDIA MANAGER Amelia Lisseth Rene Amelia S Rene, DO, FACP CPT-07536 Ofc Vst, Est Level V 21:19:57 WE[employer] CONTENT [employer] SOCIAL MEDIA MANAGER Amelia Ernst Anju, DO, FACP CPT-33884 Ofc Vst, Est Level IV 17:06:25 WE[employer] CONT[employer] SOCIAL MEDIA MANAGER Amelia [facility] CPT-29964 Ofc Vst, Est Level III 13:25:12 WE[employer] CONT[employer] SOCIAL MEDIA MANAGER Amelia Ernst Anju, DO, FACP CPT-78506 Ofc Vst, Est Level III 12:54:14 CDT Amelianunu Ernst Anju, DO, FACP CPT-83787 Ofc Vst, Est Level III 16:36:19 CDT Amelia Ernst Anju, DO, FACP CPT-16927 Ofc Vst, Est Level IV 22:37:22 CDT Amelia Lisseth Ernst Anju, DO, FACP CPT-32100 Ofc Vst, Est Level V 15:41:07 CDT Amelianunu Ernst Anju, DO, FACP CPT-85025 Ofc Vst, Est Level III 11:42:56 CDT Amelia Ernst Anju, DO, FACP CPT-90737 Ofc Vst, Est Level III 12:06:27 WE[employer] CONT[employer] & SOCIAL MEDIA MANAGER Amelia Ernst Anju, DO, FACP CPT-87721 Ofc Vst, Est Level III 14:34:43 CDT Amelia Ernst Anju, DO, FACP CPT-46430 Ofc Vst, Est Level III 14:19:43 WEB CONTENT & SOCIAL MEDIA MANAGER Amelia Ernst Anju, DO, FACP CPT-26133 Ofc Vst, Est Level IV 16:26:28 CDT Amelianunu Ernst Anju, DO, FACP CPT-80130 Ofc Vst, Est Level IV 14:04:53 WE[employer] CONTENT & SOCIAL MEDIA MANAGER Amelia Rene DO, FACP CPT-17693 Ofc Vst, New Level IV 14:05:53 CDT Amelia Rene DO, FACP Procedures Code Procedure Name Date Entry Date Standard Description CPT-G0439 Medicare Annual Wellness Visit 12:45:38 WEB CONTENT & SOCIAL MEDIA MANAGER CPT-G8443 E-Prescribing Medication Sent 12:06:27 WEB CONTENT & SOCIAL MEDIA MANAGER CPT-G8443 E-Prescribing Medication Sent 12:44:06 CDT CPT-G0439 Medicare Annual Wellness Visit 12:44:06 CDT CPT-G8443 E-Prescribing Medication Sent 14:34:43 CDT CPT-G0438 Medicare Annual Wellness Visit Initial 11:12:53 CDT
--- OUTSIDE RECORDS SUMMARY | 2018-05-13 11:12 | XMS REPORT | Clinical Summary ---
Author Author User, [employer] Organization Amelia Rene DO, FACP Address Unknown [...] MISC DIRECTED DX: 250.02 INSULIN PEN NEEDLE 67957332422 Active Karla Evans COUMADIN 6 MG TABS 1 PO DAILY WARFARIN SODIUM 19676496484 Active Amelia Rene COUMADIN 1 MG TABS ONE TAB ALONG WITH 6MG TO TOTAL 7 MG ON WED, SAT AND SUN ONLY WARFARIN SODIUM 98227646505 No Longer Active Amelia Rene SODIUM BICARBONATE 325 MG TABS 1 po BID SODIUM BICARBONATE 29040259415 Active Amelia Rene COUMADIN 1 MG TABS WARFARIN SODIUM 06933244328 No Longer Active Amelia Rene TESSALON PERLES 100 MG CAPS 1 PO TID prn cough BENZONATATE 26442402445 No Longer Active Karla Evans HYDROXYZINE HCL 10 MG TABS 1 PO TID PRN ITCHING HYDROXYZINE HCL 21892863950 No Longer Active Amelia Rene AMBIEN 10 MG TAB 1 PO QHS prn ZOLPIDEM TARTRATE 50634375018 No Longer Active Amelia Rene NOVOLOG FLEXPEN 100 UNIT/ML SOPN 14 UNITS BEFORE MEALS INSULIN ASPART 62881217743 Active Amelia Rene LEVEMIR FLEXPEN 100 UNIT/ML SOPN 25 UNITS AT HS INSULIN DETEMIR 86700094042 Active Amelianunu Rene COUMADIN 1 MG TABS TAKE ONE WITH A 6 MG TO TOTAL 7 MG AND THEN TAKE 6 MG THE NEXT. WARFARIN SODIUM 93129900407 No Longer Active Amelia Rene LOVENOX 80 MG/0.8ML SOLN 1 injection twice daily ENOXAPARIN SODIUM 92648476258 No Longer Active Amelianunu Rene OMEPRAZOLE 40 MG CPDR 1 PO daily OMEPRAZOLE 12348733519 Active Karlapatrick Evans NYSTATIN 694284 UNIT/ML SUSP 1 teaspoon swish and swallow QID NYSTATIN 65880360135 No Longer Active Amelianunu Rene PREDNISONE 20 MG TAB 1/2 PO daily PREDNISONE 72765037179 No Longer Active Amelia Rene TRUETEST TEST STRP TEST BS QID DX: 250.02 GLUCOSE BLOOD 24523318839 Active Karlapatrick Evans TOPAMAX 50 MG TABS 1 PO BID TOPIRAMATE 39404084485 Active Karla Cristina MONTELUKAST SODIUM 10 MG TABS 1 PO AT HS MONTELUKAST SODIUM 20029620276 Active Karlapatrick Evans PREDNISONE 20 MG TAB 1 PO DAILY BID WITH MEALS PREDNISONE 11465927550 No Longer Active Amelia Rene CLARITIN 10 MG TABS 1 PO BID LORATADINE 03889262102 Active Amelia Rene PEPCID 20 MG TAB 1 PO BID FAMOTIDINE 66971607753 No Longer Active Amelianunu Rene DOXYCYCLINE HYCLATE 100 MG CAP 1 po BID DOXYCYCLINE HYCLATE 09310210631 No Longer Active Amelia Rene PEN NEEDLES 5/16" 31G X 8 MM MISC DIRECTED DX: 250.02 INSULIN PEN NEEDLE 73520888681 No Longer Active Amelia Lisseth Rene FLUOCINONIDE 0.05 % CREA apply to affected area on hand nightly for 7 nights then prn FLUOCINONIDE 34516504264 No Longer Active Amelia Lisseth Rene LEVITRA 10 MG TABS 1 PO as directed VARDENAFIL HCL 00204576239 No Longer Active Amelia Lisseth Rene SENIOR MULTIVITAMIN PLUS TABS 1 PO daily MULTIPLE VITAMINS- MINERALS 18977484749 No Longer Active Amelia Lisseth Rene EQL FISH OIL 1000 MG CAPS 3 PO BID OMEGA-3 FATTY ACIDS 76616733508 No Longer Active Amelia Lisseth Rene DOCUSATE SODIUM 100 MG CAPS 2 PO BID DOCUSATE SODIUM 15498506187 No Longer Active Amelia Lisseth Rene ASPIRIN 81 MG TABS 1 PO BID ASPIRIN 69387840732 No Longer Active Amelia Lisseth Rene CARBAMAZEPINE 200 MG TABS 3-5 PO daily CARBAMAZEPINE 36034090225 No Longer Active Amelia Lisseth Rene GEMFIBROZIL 600 MG TABS 1 PO BID GEMFIBROZIL 35767640807 No Longer Active Amelia Lisseth Rene METFORMIN HCL 1000 MG TABS 1 PO BID METFORMIN HCL 18687673530 No Longer Active Amelia Lisseth Rene GLYBURIDE 1.25 MG TABS 2 PO QAM and 1 PO QPM GLYBURIDE 36241888057 No Longer Active Amelia Lisseth Rene PROMETHAZINE VC/CODEINE 6.25-5-10 MG/5ML SYRP 1 teaspoon PO Q6hrs prn cough [id number] 39778316938 No Longer Active Amelia Lisseth Rene WELCHOL 625 MG TABS 3 PO BID with meals COLESEVELAM HCL 65583616828 No Longer Active Amelia Lisseth Rene TEGRETOL XR 100 MG [id number]-IQR 1 PO friday, friday, [facility] 53760917489 No Longer Active Amelia Rene JANUVIA 100 MG TABS 1 PO daily SITAGLIPTIN PHOSPHATE 81352496195 No Longer Active Amelia Rene Immunizations Vaccine [...] - Coagulation prothrombin time (patient) 12.8 s international normalized ratio (INR) 1.2 PTT patient 28.6 s Clinical Lists Update: IN PT LABS - Hematology platelet count 295 10*3/mm3 hemoglobin, blood 10.7 g/dL hematocrit, blood 31.9 % erythrocyte sedimentation rate 86 mm/h leukocyte count, blood 9.5 10*3/mm3 mean corpuscular volume, RBC 89 fL red blood cell distribution width 12.8 % erythrocyte (RBC) count 3.59 10*6/mm3 Clinical Lists [...] by test strip neg bilirubin, urine neg Clinical Lists Update: PT,INR - Coagulation international normalized ratio (INR) 3.9 prothrombin time (patient) 33.5 s international normalized ratio (INR) 6.0 international normalized ratio (INR) 3.1 international normalized ratio (INR) 3.5 international normalized ratio (INR) 3.3 international normalized ratio (INR) 4.1 prothrombin time (patient) 48.0 s international normalized ratio (INR) 4.8 international normalized ratio (INR) 3.7 international normalized ratio (INR) 1.7 international normalized ratio (INR) 4.6 international normalized ratio (INR) 3.2 prothrombin time (patient) 42.0 s prothrombin time (patient) 45.1 s prothrombin time (patient) 66.7 s prothrombin time (patient) 33.5 s prothrombin time (patient) 38.3 s prothrombin time (patient) 36.1 s prothrombin time (patient) 49.9 s prothrombin time (patient) 38.3 s prothrombin time (patient) 17.2 s Clinical Lists Update: RE: Coumadin Results [...] 10*3/mm3 Encounters Code Encounter Date Provider Facility CPT-83221 Ofc Vst, Est Level III 14:38:44 CDT Amelia Yeni S Rene, DO, FACP CPT-95022 Ofc Vst, Est Level IV 20:21:55 DIRECTOR APPAREL Amelia Ernst Rene, DO, FACP CPT-09735 Ofc Vst, Est Level IV 16:05:00 DIRECTOR APPAREL Amelia Ernst Rene, DO, FACP CPT-72804 Ofc Vst, Est Level V 21:19:57 DIRECTOR APPAREL Amelia Ernst Rene, DO, FACP CPT-66577 Ofc Vst, Est Level IV 17:06:25 DIRECTOR APPAREL Amelia [facility] CPT-44242 Ofc Vst, Est Level III 13:25:12 DIRECTOR APPAREL Amelia Ernst Rene, DO, FACP CPT-98384 Ofc Vst, Est Level III 12:54:14 CDT Amelianunu Ernst Rene, DO, FACP CPT-04188 Ofc Vst, Est Level III 16:36:19 CDT Amelianunu Ernst Anju, DO, FACP CPT-14201 Ofc Vst, Est Level IV 22:37:22 CDT Amelia Ernst Anju, DO, FACP CPT-59050 Ofc Vst, Est Level V 15:41:07 CDT Amelianunu Ernst Rene, DO, FACP CPT-25420 Ofc Vst, Est Level III 11:42:56 CDT Amelianunu Ernst Rene, DO, FACP CPT-73177 Ofc Vst, Est Level III 12:06:27 DIRECTOR APPAREL Amelia Ernst Rene, DO, FACP CPT-60372 Ofc Vst, Est Level III 14:34:43 CDT Amelia Ernst Anju, DO, FACP CPT-91117 Ofc Vst, Est Level III 14:19:43 DIRECTOR APPAREL Amelia Montanez Anju Rene DO, FACP CPT-96282 Ofc Vst, Est Level IV 16:26:28 CDT Amelia Montanez Anju Rene DO, FACP CPT-66686 Ofc Vst, Est Level IV 14:04:53 DIRECTOR APPAREL Amelia Fernandezanne Anju Rene DO, FACP CPT-44082 Ofc Vst, New Level IV 14:05:53 CDT Amelia Fernandezanne Anju Rene DO, FACP Procedures Code Procedure Name Date Entry Date Standard Description CPT-G0439 Medicare Annual Wellness Visit 12:45:38 DIRECTOR APPAREL CPT-G8443 E-Prescribing Medication Sent 12:06:27 DIRECTOR APPAREL CPT-G8443 E-Prescribing Medication Sent 12:44:06 CDT CPT-G0439 Medicare Annual Wellness Visit 12:44:06 CDT CPT-G8443 E-Prescribing Medication Sent 14:34:43 CDT CPT-G0438 Medicare Annual Wellness Visit Initial 11:12:53 CDT
--- OUTSIDE RECORDS SUMMARY | 2018-05-13 11:13 | XMS REPORT | Clinical Summary ---
Author Author User, [employer] Organization Amelia Rene DO, FACP Address Unknown [...] MISC DIRECTED DX: 250.02 INSULIN PEN NEEDLE 99500063359 Active Karla Waterstis COUMADIN 6 MG TABS 1 PO DAILY WARFARIN SODIUM 85159948456 Active Karla Evans COUMADIN 1 MG TABS ONE TAB ALONG WITH 6MG TO TOTAL 7 MG ON WED, SAT AND SUN ONLY WARFARIN SODIUM 93465519211 No Longer Active Amelia Rene SODIUM BICARBONATE 325 MG TABS 1 po BID SODIUM BICARBONATE 64277431268 Active Karla Evans COUMADIN 1 MG TABS WARFARIN SODIUM 61049225409 No Longer Active Amelia Rene TESSALON PERLES 100 MG CAPS 1 PO TID prn cough BENZONATATE 70664125656 No Longer Active Karla Waterstis HYDROXYZINE HCL 10 MG TABS 1 PO TID PRN ITCHING HYDROXYZINE HCL 79853660358 No Longer Active Amelia Rene AMBIEN 10 MG TAB 1 PO QHS prn ZOLPIDEM TARTRATE 09099341500 No Longer Active Amelia Rene NOVOLOG FLEXPEN 100 UNIT/ML SOPN 14 UNITS BEFORE MEALS INSULIN ASPART 55077404823 Active Amelia Rene LEVEMIR FLEXPEN 100 UNIT/ML SOPN 25 UNITS AT HS INSULIN DETEMIR 77982053879 Active Karla Evans COUMADIN 1 MG TABS TAKE ONE WITH A 6 MG TO TOTAL 7 MG AND THEN TAKE 6 MG THE NEXT. WARFARIN SODIUM 40036256550 No Longer Active Amelianunu Rene LOVENOX 80 MG/0.8ML SOLN 1 injection twice daily ENOXAPARIN SODIUM 53134146386 No Longer Active Amelianunu Rene OMEPRAZOLE 40 MG CPDR 1 PO daily OMEPRAZOLE 57361153625 Active Karla Evans NYSTATIN 878238 UNIT/ML SUSP 1 teaspoon swish and swallow QID NYSTATIN 14676422563 No Longer Active Amelianunu Rene PREDNISONE 20 MG TAB 1/2 PO daily PREDNISONE 64299326963 No Longer Active Amelianunu Rene TRUETEST TEST STRP TEST BS QID DX: 250.02 GLUCOSE BLOOD 94833688232 Active Karla Evans TOPAMAX 50 MG TABS 1 PO BID TOPIRAMATE 69909915303 Active Karla Evans MONTELUKAST SODIUM 10 MG TABS 1 PO AT HS MONTELUKAST SODIUM 98703633516 Active Karla Evans PREDNISONE 20 MG TAB 1 PO DAILY BID WITH MEALS PREDNISONE 33378520958 No Longer Active Amelianunu Rene CLARITIN 10 MG TABS 1 PO BID LORATADINE 32211638787 Active Amelianunu Rene PEPCID 20 MG TAB 1 PO BID FAMOTIDINE 56404809960 No Longer Active Amelianunu Rene DOXYCYCLINE HYCLATE 100 MG CAP 1 po BID DOXYCYCLINE HYCLATE 99103925765 No Longer Active Amelianunu Rene PEN NEEDLES 5/16" 31G X 8 MM MISC DIRECTED DX: 250.02 INSULIN PEN NEEDLE 21149725565 No Longer Active Amelianunu Rene FLUOCINONIDE 0.05 % CREA apply to affected area on hand nightly for 7 nights then prn FLUOCINONIDE 72167641808 No Longer Active Amelia Lisseth Rene LEVITRA 10 MG TABS 1 PO as directed VARDENAFIL HCL 06910879507 No Longer Active Amelia Lisseth Rene SENIOR MULTIVITAMIN PLUS TABS 1 PO daily MULTIPLE VITAMINS- MINERALS 01807328628 No Longer Active Amelia Lisseth Rene EQL FISH OIL 1000 MG CAPS 3 PO BID OMEGA-3 FATTY ACIDS 00355118703 No Longer Active Amelia Lisseth Rene DOCUSATE SODIUM 100 MG CAPS 2 PO BID DOCUSATE SODIUM 31291866148 No Longer Active Amelia Lisseth Rene ASPIRIN 81 MG TABS 1 PO BID ASPIRIN 58614998014 No Longer Active Amelia Lisseth Rene CARBAMAZEPINE 200 MG TABS 3-5 PO daily CARBAMAZEPINE 61281809796 No Longer Active Amelia Lisseth Rene GEMFIBROZIL 600 MG TABS 1 PO BID GEMFIBROZIL 75887049356 No Longer Active Amelia Lisseth Rene METFORMIN HCL 1000 MG TABS 1 PO BID METFORMIN HCL 27227408236 No Longer Active Amelia Lisseth Rene GLYBURIDE 1.25 MG TABS 2 PO QAM and 1 PO QPM GLYBURIDE 00295819219 No Longer Active Amelia Lisseth Rene PROMETHAZINE VC/CODEINE 6.25-5-10 MG/5ML SYRP 1 teaspoon PO Q6hrs prn cough [id number] 06510849069 No Longer Active Amelia Lisseth Rene WELCHOL 625 MG TABS 3 PO BID with meals COLESEVELAM HCL 10676069262 No Longer Active Amelia Lisseth Rene TEGRETOL XR 100 MG [id number] 1 PO friday, friday, CARBAMAZEPINE 27922507755 No Longer Active Amelia Rene JANUVIA 100 MG TABS 1 PO daily SITAGLIPTIN PHOSPHATE 15072838758 No Longer Active Amelia Rene Immunizations Vaccine [...] 10*3/mm3 Encounters Code Encounter Date Provider Facility CPT-77156 Ofc Vst, Est Level III 14:38:44 CDT Amelia Rene, DO, FACP CPT-46504 Ofc Vst, Est Level IV 20:21:55 DIRECT[employer]ALITY [employer]S Amelia Rene, DO, FACP CPT-86245 Ofc Vst, Est Level IV 16:05:00 [employer] Amelia Rene DO, FACP CPT-06628 Ofc Vst, Est Level V 21:19:57 [employer] Amelia Rene DO, FACP CPT-92336 Ofc Vst, Est Level IV 17:06:25 DIRECT[employer] Amelia Rene [facility] CPT-02311 Ofc Vst, Est Level III 13:25:12 [employer] Amelia Rene DO, FACP CPT-24634 Ofc Vst, Est Level III 12:54:14 CDT Amelia Rene DO, FACP CPT-58550 Ofc Vst, Est Level III 16:36:19 CDT Amelia Rene, DO, FACP CPT-89643 Ofc Vst, Est Level IV 22:37:22 CDT Amelia Rene, DO, FACP CPT-86390 Ofc Vst, Est Level V 15:41:07 CDT Amelia Rene, DO, FACP CPT-54902 Ofc Vst, Est Level III 11:42:56 CDT Amelia Rene, DO, FACP CPT-40769 Ofc Vst, Est Level III 12:06:27 [employer] Amelia Ernst Rene, DO, FACP CPT-28032 Ofc Vst, Est Level III 14:34:43 CDT Amelia Ernst Anju, DO, FACP CPT-64074 Ofc Vst, Est Level III 14:19:43 [employer] Amelai Ernst Rene, DO, FACP CPT-31356 Ofc Vst, Est Level IV 16:26:28 CDT Amelia Ernst Anju, DO, FACP CPT-14376 Ofc Vst, Est Level IV 14:04:53 [employer] Amelia Ernst Rene, DO, FACP CPT-99775 Ofc Vst, New Level IV 14:05:53 CDT Amelia Ernst Rene, DO, FACP Procedures Code Procedure Name Date Entry Date Standard Description CPT-G0439 Medicare Annual Wellness Visit 12:45:38 [employer] CPT-G8443 E-Prescribing Medication Sent 12:06:27 [employer] CPT-G8443 E-Prescribing Medication Sent 12:44:06 CDT CPT-G0439 Medicare Annual Wellness Visit 12:44:06 CDT CPT-G8443 E-Prescribing Medication Sent 14:34:43 CDT CPT-G0438 Medicare Annual Wellness Visit Initial 11:12:53 CDT
--- OUTSIDE RECORDS SUMMARY | 2018-05-13 11:14 | XMS REPORT | Clinical Summary ---
Author Author User, [employer] Organization Amelia Rene DO, FACP Address Unknown [...] MG TABS 1 po BID SODIUM BICARBONATE 15424937366 Active Amelia Rene COUMADIN 1 MG TABS ONE TAB ALONG WITH 6MG TO TOTAL 7 MG ON WED, FRI AND SUN ONLY WARFARIN SODIUM 02532437112 Active Amelia Rene COUMADIN 6 MG TABS 1 PO DAILYON MON, TU, THURS AND FRI WARFARIN SODIUM 88925843235 Active Amelia Rene COUMADIN 1 MG TABS WARFARIN SODIUM 83646759638 No Longer Active Amelia Rene TESSALON PERLES 100 MG CAPS 1 PO TID prn cough BENZONATATE 73977665597 No Longer Active Karla Evans HYDROXYZINE HCL 10 MG TABS 1 PO TID PRN ITCHING HYDROXYZINE HCL 79632856164 No Longer Active Amelia Rene AMBIEN 10 MG TAB 1 PO QHS prn ZOLPIDEM TARTRATE 56844292045 No Longer Active Amelia Rene NOVOLOG FLEXPEN 100 UNIT/ML SOPN 14 UNITS BEFORE MEALS INSULIN ASPART 13941210207 Active Amelia Rene LEVEMIR FLEXPEN 100 UNIT/ML SOPN 25 UNITS AT HS INSULIN DETEMIR 54795960231 Active Amelia Rene COUMADIN 1 MG TABS TAKE ONE WITH A 6 MG TO TOTAL 7 MG AND THEN TAKE 6 MG THE NEXT. WARFARIN SODIUM 93672312789 No Longer Active Amelia Lisseth Rene LOVENOX 80 MG/0.8ML SOLN 1 injection twice daily ENOXAPARIN SODIUM 66904213483 No Longer Active Amelia Lisseth Rene OMEPRAZOLE 40 MG CPDR 1 PO daily OMEPRAZOLE 22563825299 Active Karla Evans NYSTATIN 565691 UNIT/ML SUSP 1 teaspoon swish and swallow QID NYSTATIN 85099278599 No Longer Active Amelianunu Rene PREDNISONE 20 MG TAB 1/2 PO daily PREDNISONE 19568979721 No Longer Active Amelianunu Rene TRUETEST TEST STRP TEST BS QID DX: 250.02 GLUCOSE BLOOD 17371343063 Active Karla Evans TOPAMAX 50 MG TABS 1 PO BID TOPIRAMATE 54219101327 Active Karla Evans MONTELUKAST SODIUM 10 MG TABS 1 PO AT HS MONTELUKAST SODIUM 70426652206 Active Karla Evans PREDNISONE 20 MG TAB 1 PO DAILY BID WITH MEALS PREDNISONE 90535181958 No Longer Active Amelianunu Rene CLARITIN 10 MG TABS 1 PO BID LORATADINE 40906478094 Active Amelianunu Rene PEPCID 20 MG TAB 1 PO BID FAMOTIDINE 02504019957 No Longer Active Amelianunu Rene DOXYCYCLINE HYCLATE 100 MG CAP 1 po BID DOXYCYCLINE HYCLATE 74798667985 No Longer Active Amelianunu Rene PEN NEEDLES /" 31G X 8 MM MISC DIRECTED DX: 250.02 INSULIN PEN NEEDLE 21402171601 No Longer Active Amelianunu Rene FLUOCINONIDE 0.05 % CREA apply to affected area on hand nightly for 7 nights then prn FLUOCINONIDE 67303075232 No Longer Active Amelia Lisseth Rene LEVITRA 10 MG TABS 1 PO as directed VARDENAFIL HCL 92361991513 No Longer Active Amelia Lisseth Rene SENIOR MULTIVITAMIN PLUS TABS 1 PO daily MULTIPLE VITAMINS- MINERALS 63209713785 No Longer Active Amelia Lisseth Rene EQL FISH OIL 1000 MG CAPS 3 PO BID OMEGA-3 FATTY ACIDS 49568133399 No Longer Active Amelia Lisseth Rene DOCUSATE SODIUM 100 MG CAPS 2 PO BID DOCUSATE SODIUM 99110306331 No Longer Active Amelia Lisseth Rene ASPIRIN 81 MG TABS 1 PO BID ASPIRIN 14554613610 No Longer Active Amelia Lisseth Rene CARBAMAZEPINE 200 MG TABS 3-5 PO daily CARBAMAZEPINE 22888072657 No Longer Active Amelia Lisseth Rene GEMFIBROZIL 600 MG TABS 1 PO BID GEMFIBROZIL 00090494590 No Longer Active Amelia Lisseth Rene METFORMIN HCL 1000 MG TABS 1 PO BID METFORMIN HCL 98900595228 No Longer Active Amelia Lisseth Rene GLYBURIDE 1.25 MG TABS 2 PO QAM and 1 PO QPM GLYBURIDE 63802563627 No Longer Active Amelia Lisseth Rene PROMETHAZINE VC/CODEINE 6.25-5-10 MG/5ML SYRP 1 teaspoon PO Q6hrs prn cough [id number] 79932947255 No Longer Active Amelia Lisseth Rene WELCHOL 625 MG TABS 3 PO BID with meals COLESEVELAM HCL 64840050778 No Longer Active Amelia Lisseth Rene TEGRETOL XR 100 MG [id number] 1 PO friday, friday, CARBAMAZEPINE 43064320850 No Longer Active Amelia Lisseth Rene JANUVIA 100 MG TABS 1 PO daily SITAGLIPTIN PHOSPHATE 86262289184 No Longer Active Amelia Lissethkarley Rene Immunizations [...] 10*3/mm3 Encounters Code Encounter Date Provider Facility CPT-69059 Ofc Vst, Est Level III 14:38:44 CDT Amelia Rene DO, FACP CPT-49358 Ofc Vst, Est Level IV 20:21:55 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 Amelia Rene DO, FACP CPT-51992 Ofc Vst, Est Level IV 16:05:00 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 Amelia Lisseth Rene Amelia S Rene, DO, FACP CPT-48659 Ofc Vst, Est Level V 21:19:57 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 Amelia Ernst Anju, DO, FACP CPT-10388 Ofc Vst, Est Level IV 17:06:25 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 [facility] CPT-41458 Ofc Vst, Est Level III 13:25:12 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 Amelia Ernst Anju, DO, FACP CPT-12327 Ofc Vst, Est Level III 12:54:14 CDT Amelianunu Ernst Anju, DO, FACP CPT-13830 Ofc Vst, Est Level III 16:36:19 CDT Amelia Ernst Anju, DO, FACP CPT-70509 Ofc Vst, Est Level IV 22:37:22 CDT Amelia Lisseth Ernst Anju, DO, FACP CPT-95172 Ofc Vst, Est Level V 15:41:07 CDT Amelianunu Ernst Anju, DO, FACP CPT-83374 Ofc Vst, Est Level III 11:42:56 CDT Amelia Ernst Anju, DO, FACP CPT-85694 Ofc Vst, Est Level III 12:06:27 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 Amelia Ernst Anju, DO, FACP CPT-46426 Ofc Vst, Est Level III 14:34:43 CDT Amelia Ernst Anju, DO, FACP CPT-46414 Ofc Vst, Est Level III 14:19:43 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 Amelia Ernst Anju, DO, FACP CPT-05066 Ofc Vst, Est Level IV 16:26:28 CDT Amelianunu Ernst Anju, DO, FACP CPT-63344 Ofc Vst, Est Level IV 14:04:53 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
--- OUTSIDE RECORDS SUMMARY | 2018-05-13 11:14 | XMS REPORT | Clinical Summary ---
Author Author User, [employer] Organization Amelia Rene DO, FACP Address Unknown [...] MISC DIRECTED DX: 250.02 INSULIN PEN NEEDLE 84817240320 Active Karla Waterstis COUMADIN 6 MG TABS 1 PO DAILY WARFARIN SODIUM 07298907182 Active Karla Waterstis COUMADIN 1 MG TABS ONE TAB ALONG WITH 6MG TO TOTAL 7 MG ON WED, SAT AND SUN ONLY WARFARIN SODIUM 75131591390 No Longer Active Amelia Rene SODIUM BICARBONATE 325 MG TABS 1 po BID SODIUM BICARBONATE 72962744788 Active Karla Waterstis COUMADIN 1 MG TABS WARFARIN SODIUM 80453676539 No Longer Active Amelia Rene TESSALON PERLES 100 MG CAPS 1 PO TID prn cough BENZONATATE 97547315718 No Longer Active Karla Waterstis HYDROXYZINE HCL 10 MG TABS 1 PO TID PRN ITCHING HYDROXYZINE HCL 24762549453 No Longer Active Amelia Rene AMBIEN 10 MG TAB 1 PO QHS prn ZOLPIDEM TARTRATE 37530999172 No Longer Active Amelia Rene NOVOLOG FLEXPEN 100 UNIT/ML SOPN 14 UNITS BEFORE MEALS INSULIN ASPART 22778699844 Active Amelia Rene LEVEMIR FLEXPEN 100 UNIT/ML SOPN 25 UNITS AT HS INSULIN DETEMIR 34478779776 Active Amelianunu Rene COUMADIN 1 MG TABS TAKE ONE WITH A 6 MG TO TOTAL 7 MG AND THEN TAKE 6 MG THE NEXT. WARFARIN SODIUM 23957135942 No Longer Active Amelianunu Rene LOVENOX 80 MG/0.8ML SOLN 1 injection twice daily ENOXAPARIN SODIUM 02028799784 No Longer Active Amelianunu Rene OMEPRAZOLE 40 MG CPDR 1 PO daily OMEPRAZOLE 86973953679 Active Karla Cristina NYSTATIN 273714 UNIT/ML SUSP 1 teaspoon swish and swallow QID NYSTATIN 17927816870 No Longer Active Amelianunu Rene PREDNISONE 20 MG TAB 1/2 PO daily PREDNISONE 58980267834 No Longer Active Amelia Rene TRUETEST TEST STRP TEST BS QID DX: 250.02 GLUCOSE BLOOD 45762284552 Active Karla Waterstis TOPAMAX 50 MG TABS 1 PO BID TOPIRAMATE 16584479645 Active Karla Evans MONTELUKAST SODIUM 10 MG TABS 1 PO AT HS MONTELUKAST SODIUM 29169107288 Active Karla Cristina PREDNISONE 20 MG TAB 1 PO DAILY BID WITH MEALS PREDNISONE 43232384622 No Longer Active Amelianunu Rene CLARITIN 10 MG TABS 1 PO BID LORATADINE 57699523253 Active Amelianunu Rene PEPCID 20 MG TAB 1 PO BID FAMOTIDINE 19019472286 No Longer Active Amelianunu Rene DOXYCYCLINE HYCLATE 100 MG CAP 1 po BID DOXYCYCLINE HYCLATE 74803657773 No Longer Active Amelia Rene PEN NEEDLES 5/16" 31G X 8 MM MISC DIRECTED DX: 250.02 INSULIN PEN NEEDLE 15892852916 No Longer Active Amelia Lisseth Rene FLUOCINONIDE 0.05 % CREA apply to affected area on hand nightly for 7 nights then prn FLUOCINONIDE 90245402131 No Longer Active Amelia Lisseth Rene LEVITRA 10 MG TABS 1 PO as directed VARDENAFIL HCL 69538676318 No Longer Active Amelia Lisseth Rene SENIOR MULTIVITAMIN PLUS TABS 1 PO daily MULTIPLE VITAMINS- MINERALS 67399204628 No Longer Active Amelia Lisseth Rene EQL FISH OIL 1000 MG CAPS 3 PO BID OMEGA-3 FATTY ACIDS 80385108841 No Longer Active Amelia Lisseth Rene DOCUSATE SODIUM 100 MG CAPS 2 PO BID DOCUSATE SODIUM 98535954760 No Longer Active Amelia Lisseth Rene ASPIRIN 81 MG TABS 1 PO BID ASPIRIN 88113864009 No Longer Active Amelia Lisseth Rene CARBAMAZEPINE 200 MG TABS 3-5 PO daily CARBAMAZEPINE 88005312168 No Longer Active Amelia Lisseth Rene GEMFIBROZIL 600 MG TABS 1 PO BID GEMFIBROZIL 84750186930 No Longer Active Amelia Lisseth Rene METFORMIN HCL 1000 MG TABS 1 PO BID METFORMIN HCL 83321912724 No Longer Active Amelia Lisseth Rene GLYBURIDE 1.25 MG TABS 2 PO QAM and 1 PO QPM GLYBURIDE 40146670129 No Longer Active Amelia Lisseth Rene PROMETHAZINE VC/CODEINE 6.25-5-10 MG/5ML SYRP 1 teaspoon PO Q6hrs prn cough [id number] 31120203130 No Longer Active Amelia Lisseth Rene WELCHOL 625 MG TABS 3 PO BID with meals COLESEVELAM HCL 73076104985 No Longer Active Amelia Lisseth Rene TEGRETOL XR 100 MG [id number] 1 PO friday, friday, [facility] 19457070159 No Longer Active Amelia Rene JANUVIA 100 MG TABS 1 PO daily SITAGLIPTIN PHOSPHATE 88249186106 No Longer Active Amelia Rene Immunizations Vaccine [...] fasting 130 mg/dL albumin, serum 4.6 g/dL alkaline phosphatase, serum 104 U/L sodium, serum 142 mmol/L triglyceride, serum, fasting [...] 9.9 mg/dL urea nitrogen, blood 22 mg/dL Clinical Lists Update: CMP,CHOL,TRIG,HGA1C,ESR,PT,INR - Coagulation prothrombin time (patient) 26.6 s international normalized ratio (INR) 2.6 Clinical Lists Update: CMP,CHOL,TRIG,HGA1C,ESR,PT,INR - Hematology erythrocyte sedimentation rate 37 mm/h Clinical Lists Update: CMP,CHOL,TRIG,HgA1c - Chemistry Estimated Glomerular Filtration Rate (calc) >60 mL/min/1.73m2 glucose, plasma fasting 143 mg/dL sodium, serum 141 mmol/L triglyceride, serum, fasting 271 mg/dL bilirubin, serum, total 0.4 mg/dL alanine [...] serum 75 U/L albumin, serum 4.1 g/dL Clinical Lists Update: IN PT LABS - Chemistry Estimated Glomerular Filtration Rate (calc) >60 mL/min/1.73m2 glucose, plasma fasting 214 mg/dL albumin, serum 3.0 g/dL alkaline phosphatase, serum 39 U/L urea nitrogen, blood 24 mg/dL chloride, serum 110 mmol/L carbon dioxide, venous blood 20 mmol/L creatinine, serum 1.0 mg/dL hemoglobin A1C, blood, as % of total hemoglobin 7.6 % potassium, serum 4.2 mmol/L protein, total, serum [...] normalized ratio (INR) 3.9 prothrombin time (patient) 29.4 s international normalized ratio (INR) 6.0 international normalized ratio (INR) 3.1 international normalized ratio (INR) 3.5 international normalized ratio (INR) 3.3 international normalized ratio (INR) 4.1 prothrombin time (patient) 33.5 s international normalized ratio (INR) 4.8 international normalized ratio (INR) 3.7 international normalized ratio (INR) 1.7 international normalized ratio (INR) 4.6 international normalized ratio (INR) 3.2 international normalized ratio (INR) 2.8 prothrombin time (patient) 42.0 s prothrombin time (patient) 45.1 s prothrombin time (patient) 66.7 s prothrombin time (patient) 33.5 s prothrombin time (patient) 38.3 s prothrombin time (patient) 36.1 s prothrombin time (patient) 49.9 s prothrombin time (patient) 38.3 s prothrombin time (patient) 17.2 s prothrombin time (patient) 48.0 s Clinical Lists Update: RE: Coumadin Results [...] 10*3/mm3 Encounters Code Encounter Date Provider Facility CPT-07029 Ofc Vst, Est Level III 14:38:44 CDT Amelia Lisseth Anju Rene, DO, FACP CPT-28479 Ofc Vst, Est Level IV 20:21:55 [facility] Amelia Rene, DO, FACP CPT-27448 Ofc Vst, Est Level IV 16:05:00 [facility] [place] Amelia Rene, DO, FACP CPT-29202 Ofc Vst, Est Level V 21:19:57 [facility] [place] Amelia Rene, DO, FACP CPT-84659 Ofc Vst, Est Level IV 17:06:25 [facility] [place] Amelia Rene [facility] CPT-56819 Ofc Vst, Est Level III 13:25:12 [facility] [place] Amelia Rene, DO, FACP CPT-37799 Ofc Vst, Est Level III 12:54:14 CDT Amelia Rene, DO, FACP CPT-95407 Ofc Vst, Est Level III 16:36:19 CDT Amelia Rene, DO, FACP CPT-44810 Ofc Vst, Est Level IV 22:37:22 CDT Amelia Rene, DO, FACP CPT-61317 Ofc Vst, Est Level V 15:41:07 CDT Amelia Rene, DO, FACP CPT-01409 Ofc Vst, Est Level III 11:42:56 CDT Amelia Rene, DO, FACP CPT-03584 Ofc Vst, Est Level III 12:06:27 [facility] [place] Amelia Ernst Anju, DO, FACP CPT-71575 Ofc Vst, Est Level III 14:34:43 CDT Amelia Ernst Anju, DO, FACP CPT-84226 Ofc Vst, Est Level III 14:19:43 [facility] [place] Amelia Ernst Anju, DO, FACP CPT-11212 Ofc Vst, Est Level IV 16:26:28 CDT Amelia Ernst Anju, DO, FACP CPT-75399 Ofc Vst, Est Level IV 14:04:53 [facility] [place] Amelia Ernst Anju, DO, FACP CPT-87923 Ofc Vst, New Level IV 14:05:53 CDT Amelia Ernst Anju, DO, FACP Procedures Code Procedure Name Date Entry Date Standard Description CPT-G0439 Medicare Annual Wellness Visit 12:45:38 [facility] [place] CPT-G8443 E-Prescribing Medication Sent 12:06:27 [facility] [place] CPT-G8443 E-Prescribing Medication Sent 12:44:06 CDT CPT-G0439 Medicare Annual Wellness Visit 12:44:06 CDT CPT-G8443 E-Prescribing Medication Sent 14:34:43 CDT CPT-G0438 Medicare Annual Wellness Visit Initial 11:12:53 CDT
[2018-05-13] MEDS ORDERED: CATHETER FLUSH 10 ML SYR IV PRN (11:15)
--- OUTSIDE RECORDS SUMMARY | 2018-05-13 11:15 | XMS REPORT | Clinical Summary ---
Author Author User, [employer] Organization Amelia Rene DO, FACP Address Unknown [...] Generic Name NDC Status Provider Patient Instruction COUMADIN 6 MG TABS 1 PO DAILY WARFARIN SODIUM 24325390839 Active Amelia Rene COUMADIN 1 MG TABS ONE TAB ALONG WITH 6MG TO TOTAL 7 MG ON WED, FRI AND SUN ONLY WARFARIN SODIUM 42724259009 No Longer Active Amelia Rene SODIUM BICARBONATE 325 MG TABS 1 po BID SODIUM BICARBONATE 37558547778 Active Amelia Rene COUMADIN 1 MG TABS WARFARIN SODIUM 58113552042 No Longer Active Amelia Rene TESSALON PERLES 100 MG CAPS 1 PO TID prn cough BENZONATATE 09304037285 No Longer Active Karla Evans HYDROXYZINE HCL 10 MG TABS 1 PO TID PRN ITCHING HYDROXYZINE HCL 56409078250 No Longer Active Amelia Rene AMBIEN 10 MG TAB 1 PO QHS prn ZOLPIDEM TARTRATE 52464256725 No Longer Active Amelia Rene NOVOLOG FLEXPEN 100 UNIT/ML SOPN 14 UNITS BEFORE MEALS INSULIN ASPART 85672428202 Active Amelia Rene LEVEMIR FLEXPEN 100 UNIT/ML SOPN 25 UNITS AT HS INSULIN DETEMIR 81385061147 Active Amelia Rene COUMADIN 1 MG TABS TAKE ONE WITH A 6 MG TO TOTAL 7 MG AND THEN TAKE 6 MG THE NEXT. WARFARIN SODIUM 00334485329 No Longer Active Ameliannuu Rene LOVENOX 80 MG/0.8ML SOLN 1 injection twice daily ENOXAPARIN SODIUM 22975899376 No Longer Active Amelianunu Rene OMEPRAZOLE 40 MG CPDR 1 PO daily OMEPRAZOLE 48903007598 Active Karla Evans NYSTATIN 785410 UNIT/ML SUSP 1 teaspoon swish and swallow QID NYSTATIN 44437145573 No Longer Active Amelianunu Rene PREDNISONE 20 MG TAB 1/2 PO daily PREDNISONE 54487227141 No Longer Active Amelianunu Rene TRUETEST TEST STRP TEST BS QID DX: 250.02 GLUCOSE BLOOD 05304943675 Active Karla Evans TOPAMAX 50 MG TABS 1 PO BID TOPIRAMATE 05952913711 Active Karla Evans MONTELUKAST SODIUM 10 MG TABS 1 PO AT HS MONTELUKAST SODIUM 88130769030 Active Karla Evans PREDNISONE 20 MG TAB 1 PO DAILY BID WITH MEALS PREDNISONE 37198049701 No Longer Active Amelianunu Rene CLARITIN 10 MG TABS 1 PO BID LORATADINE 49120827192 Active Amelianunu Rene PEPCID 20 MG TAB 1 PO BID FAMOTIDINE 11620137648 No Longer Active Amelianunu Rene DOXYCYCLINE HYCLATE 100 MG CAP 1 po BID DOXYCYCLINE HYCLATE 61089291935 No Longer Active Amelianunu Rene PEN NEEDLES 01/21" 31G X 8 MM MISC DIRECTED DX: 250.02 INSULIN PEN NEEDLE 40635637691 No Longer Active Amelianunu Rene FLUOCINONIDE 0.05 % CREA apply to affected area on hand nightly for 7 nights then prn FLUOCINONIDE 88843308576 No Longer Active Amelia Lisseth Rene LEVITRA 10 MG TABS 1 PO as directed VARDENAFIL HCL 21354854253 No Longer Active Amelia Lisseth Rene SENIOR MULTIVITAMIN PLUS TABS 1 PO daily MULTIPLE VITAMINS- MINERALS 91489207740 No Longer Active Amelia Lisseth Rene EQL FISH OIL 1000 MG CAPS 3 PO BID OMEGA-3 FATTY ACIDS 51524485584 No Longer Active Amelia Lisseth Rene DOCUSATE SODIUM 100 MG CAPS 2 PO BID DOCUSATE SODIUM 05701596102 No Longer Active Amelia Lisseth Rene ASPIRIN 81 MG TABS 1 PO BID ASPIRIN 72585056691 No Longer Active Amelia Lisseth Rene CARBAMAZEPINE 200 MG TABS 3-5 PO daily CARBAMAZEPINE 86340047828 No Longer Active Amelia Lisseth Rene GEMFIBROZIL 600 MG TABS 1 PO BID GEMFIBROZIL 60544435040 No Longer Active Amelia Lisseth Rene METFORMIN HCL 1000 MG TABS 1 PO BID METFORMIN HCL 82818651474 No Longer Active Amelia Lisseth Rene GLYBURIDE 1.25 MG TABS 2 PO QAM and 1 PO QPM GLYBURIDE 71390313997 No Longer Active Amelia Lisseth Rene PROMETHAZINE VC/CODEINE 6.25-5-10 MG/5ML SYRP 1 teaspoon PO Q6hrs prn cough [id number] 82957280877 No Longer Active Amelia Lisseth Rene WELCHOL 625 MG TABS 3 PO BID with meals COLESEVELAM HCL 10399463892 No Longer Active Amelia Lisseth Rene TEGRETOL XR 100 MG [id number] 1 PO friday, friday, CARBAMAZEPINE 30465832663 No Longer Active Amelia Lisseth Rene JANUVIA 100 MG TABS 1 PO daily SITAGLIPTIN PHOSPHATE 41514657257 No Longer Active Amelia Lissethkarley Rene Immunizations [...] mm/h Encounters Code Encounter Date Provider Facility CPT-75031 Ofc Vst, Est Level III 14:38:44 CDT Amelia Rene DO, FACP CPT-48874 Ofc Vst, Est Level IV 20:21:55 [employer] Amelia Rene DO, FACP CPT-19171 Ofc Vst, Est Level IV 16:05:00 [facility] Amelia Ernst Rene, DO, FACP CPT-68449 Ofc Vst, Est Level V 21:19:57 [facility] Amelia Ernst Rene, DO, FACP CPT-99986 Ofc Vst, Est Level IV 17:06:25 [facility] CPT-08559 Ofc Vst, Est Level III 13:25:12 [facility] Amelia Ernst Rene, DO, FACP CPT-00242 Ofc Vst, Est Level III 12:54:14 CDT Amelianunu Ernst Rene, DO, FACP CPT-92572 Ofc Vst, Est Level III 16:36:19 CDT Amelianunu Ernst Rene, DO, FACP CPT-65983 Ofc Vst, Est Level IV 22:37:22 CDT Amelianunu Ernst Rene, DO, FACP CPT-88602 Ofc Vst, Est Level V 15:41:07 CDT Amelianunu Ernst Rene, DO, FACP CPT-42136 Ofc Vst, Est Level III 11:42:56 CDT Amelianunu Ernst Rene, DO, FACP CPT-33397 Ofc Vst, Est Level III 12:06:27 [facility] Amelia Lisseth Ernst Rene, DO, FACP CPT-21882 Ofc Vst, Est Level III 14:34:43 CDT Amelia Lisseth Yeni S Rene, DO, FACP CPT-68331 Ofc Vst, Est Level III 14:19:43 [employer]ARM[employer] Amelia Yeni Sujata Rene, DO, FACP CPT-15332 Ofc Vst, Est Level IV 16:26:28 CDT Amelia Lisseth Anju Rene DO, FACP CPT-70070 Ofc Vst, Est Level IV 14:04:53 [employer] FARM[employer] Amelia Rene DO, FACP CPT-50504 Ofc Vst, New Level IV 14:05:53 CDT Amelia Rene DO, FACP Procedures Code Procedure Name Date Entry Date Standard Description CPT-G0439 Medicare Annual Wellness Visit 12:45:38 H[facility] FARM[facility] CPT-G8443 E-Prescribing Medication Sent 12:06:27 [facility] CPT-G8443 E-Prescribing Medication Sent 12:44:06 CDT CPT-G0439 Medicare Annual Wellness Visit 12:44:06 CDT CPT-G8443 E-Prescribing Medication Sent 14:34:43 CDT CPT-G0438 Medicare Annual Wellness Visit Initial 11:12:53 CDT
--- OUTSIDE RECORDS SUMMARY | 2018-05-13 11:16 | XMS REPORT | Clinical Summary ---
Author Author User, [employer] Organization Amelia Rene DO, FACP Address Unknown [...] MG TABS 1 po BID SODIUM BICARBONATE 28877007617 Active Amelia Rene COUMADIN 1 MG TABS ONE TAB ALONG WITH 6MG TO TOTAL 7 MG ON WED, FRI AND SUN ONLY WARFARIN SODIUM 05272884955 Active Amelia Rene COUMADIN 6 MG TABS 1 PO DAILYON MON, TU, THURS AND FRI WARFARIN SODIUM 05366143999 Active Amelia Rene COUMADIN 1 MG TABS WARFARIN SODIUM 47829645843 No Longer Active Amelia Rene TESSALON PERLES 100 MG CAPS 1 PO TID prn cough BENZONATATE 53489264776 No Longer Active Karla Evans HYDROXYZINE HCL 10 MG TABS 1 PO TID PRN ITCHING HYDROXYZINE HCL 51409836091 No Longer Active Amelia Rene AMBIEN 10 MG TAB 1 PO QHS prn ZOLPIDEM TARTRATE 06478594771 No Longer Active Amelia Rene NOVOLOG FLEXPEN 100 UNIT/ML SOPN 14 UNITS BEFORE MEALS INSULIN ASPART 95766857697 Active Amelia Rene LEVEMIR FLEXPEN 100 UNIT/ML SOPN 25 UNITS AT HS INSULIN DETEMIR 70524877331 Active Amelia Rene COUMADIN 1 MG TABS TAKE ONE WITH A 6 MG TO TOTAL 7 MG AND THEN TAKE 6 MG THE NEXT. WARFARIN SODIUM 40484098895 No Longer Active Amelia Lisseth Rene LOVENOX 80 MG/0.8ML SOLN 1 injection twice daily ENOXAPARIN SODIUM 13217351865 No Longer Active Amelia Lisseth Rene OMEPRAZOLE 40 MG CPDR 1 PO daily OMEPRAZOLE 79158398230 Active Karla Evans NYSTATIN 269629 UNIT/ML SUSP 1 teaspoon swish and swallow QID NYSTATIN 95360857477 No Longer Active Amelianunu Rene PREDNISONE 20 MG TAB 1/2 PO daily PREDNISONE 74368745932 No Longer Active Amelianunu Rene TRUETEST TEST STRP TEST BS QID DX: 250.02 GLUCOSE BLOOD 83636219702 Active Karla Evans TOPAMAX 50 MG TABS 1 PO BID TOPIRAMATE 41745130316 Active Karla Evans MONTELUKAST SODIUM 10 MG TABS 1 PO AT HS MONTELUKAST SODIUM 74604895087 Active Karla Evans PREDNISONE 20 MG TAB 1 PO DAILY BID WITH MEALS PREDNISONE 52036534420 No Longer Active Amelianunu Rene CLARITIN 10 MG TABS 1 PO BID LORATADINE 75622604111 Active Amelianunu Rene PEPCID 20 MG TAB 1 PO BID FAMOTIDINE 06579712338 No Longer Active Amelianunu Rene DOXYCYCLINE HYCLATE 100 MG CAP 1 po BID DOXYCYCLINE HYCLATE 62588787607 No Longer Active Amelianunu Rene PEN NEEDLES 01/21" 31G X 8 MM MISC DIRECTED DX: 250.02 INSULIN PEN NEEDLE 56637267989 No Longer Active Amelia Lisseth Rene FLUOCINONIDE 0.05 % CREA apply to affected area on hand nightly for 7 nights then prn FLUOCINONIDE 02144707019 No Longer Active Amelia Lisseth Rene LEVITRA 10 MG TABS 1 PO as directed VARDENAFIL HCL 78476684125 No Longer Active Amelia Lisseth Rene SENIOR MULTIVITAMIN PLUS TABS 1 PO daily MULTIPLE VITAMINS- MINERALS 11938462905 No Longer Active Amelia Lisseth Rene EQL FISH OIL 1000 MG CAPS 3 PO BID OMEGA-3 FATTY ACIDS 88345789113 No Longer Active Amelia Lisseth Rene DOCUSATE SODIUM 100 MG CAPS 2 PO BID DOCUSATE SODIUM 79288479138 No Longer Active Amelia Lisseth Rene ASPIRIN 81 MG TABS 1 PO BID ASPIRIN 19639429581 No Longer Active Amelia Lisseth Rene CARBAMAZEPINE 200 MG TABS 3-5 PO daily CARBAMAZEPINE 33834976916 No Longer Active Amelia Lisseth Rene GEMFIBROZIL 600 MG TABS 1 PO BID GEMFIBROZIL 42869943216 No Longer Active Amelia Lisseth Rene METFORMIN HCL 1000 MG TABS 1 PO BID METFORMIN HCL 52943498045 No Longer Active Amelia Lisseth Rene GLYBURIDE 1.25 MG TABS 2 PO QAM and 1 PO QPM GLYBURIDE 34072110170 No Longer Active Amelia Lisseth Rene PROMETHAZINE VC/CODEINE 6.25-5-10 MG/5ML SYRP 1 teaspoon PO Q6hrs prn cough [id number] 51669857723 No Longer Active Amelia Lisseth Rene WELCHOL 625 MG TABS 3 PO BID with meals COLESEVELAM HCL 49529999354 No Longer Active Amelia Lisseth Rene TEGRETOL XR 100 MG [id number] 1 PO friday, friday, CARBAMAZEPINE 79171092726 No Longer Active Amelia Lisseth Rene JANUVIA 100 MG TABS 1 PO daily SITAGLIPTIN PHOSPHATE 91960428806 No Longer Active Amelia Lissethkarley Rene Immunizations [...] 10*3/mm3 Encounters Code Encounter Date Provider Facility CPT-17668 Ofc Vst, Est Level III 14:38:44 CDT Amelia Rene DO, FACP CPT-92132 Ofc Vst, Est Level IV 20:21:55 [facility]NA[facility] Amelia Rene DO, FACP CPT-05774 Ofc Vst, Est Level IV 16:05:00 MANA[facility] C[facility] Amelia Lisseth Rene Amelia S Rene, DO, FACP CPT-71867 Ofc Vst, Est Level V 21:19:57 MANAGER CENTER Amelia Ersnt Anju, DO, FACP CPT-77922 Ofc Vst, Est Level IV 17:06:25 MANA[facility] C[facility] CPT-61825 Ofc Vst, Est Level III 13:25:12 MANA[facility] C[facility] Amelia Ernst Anju, DO, FACP CPT-44496 Ofc Vst, Est Level III 12:54:14 CDT Amelianunu Ernst Anju, DO, FACP CPT-23980 Ofc Vst, Est Level III 16:36:19 CDT Amelia Ernst Anju, DO, FACP CPT-66589 Ofc Vst, Est Level IV 22:37:22 CDT Amelianunu Ernst Anju, DO, FACP CPT-33420 Ofc Vst, Est Level V 15:41:07 CDT Amelianunu Ernst Anju, DO, FACP CPT-33640 Ofc Vst, Est Level III 11:42:56 CDT Amelianunu Ernst Anju, DO, FACP CPT-56468 Ofc Vst, Est Level III 12:06:27 MANA[facility] C[facility] Amelia Ernst Anju, DO, FACP CPT-26342 Ofc Vst, Est Level III 14:34:43 CDT Amelia Ernst Anju, DO, FACP CPT-07808 Ofc Vst, Est Level III 14:19:43 MANA[facility] C[facility] Amelia Ernst Anju, DO, FACP CPT-91486 Ofc Vst, Est Level IV 16:26:28 CDT Amelianunu Ernst Anju, DO, FACP CPT-21396 Ofc Vst, Est Level IV 14:04:53 MANA[facility] C[facility] Amelia Rene DO, FACP CPT-65751 Ofc Vst, New Level IV 14:05:53 CDT Amelia Rene DO, FACP Procedures Code Procedure Name Date Entry Date Standard Description CPT-G0439 Medicare Annual Wellness Visit 12:45:38 [facility] CPT-G8443 E-Prescribing Medication Sent 12:06:27 [facility] CPT-G8443 E-Prescribing Medication Sent 12:44:06 CDT CPT-G0439 Medicare Annual Wellness Visit 12:44:06 CDT CPT-G8443 E-Prescribing Medication Sent 14:34:43 CDT CPT-G0438 Medicare Annual Wellness Visit Initial 11:12:53 CDT
--- OUTSIDE RECORDS SUMMARY | 2018-05-13 11:16 | XMS REPORT | Clinical Summary ---
Author Author User, [employer] Organization Amelia Rene DO, FACP Address Unknown [...] MG TABS 1 po BID SODIUM BICARBONATE 65406369578 Active Amelia Rene COUMADIN 1 MG TABS ONE TAB ALONG WITH 6MG TO TOTAL 7 MG ON WED, FRI AND SUN ONLY WARFARIN SODIUM 66318693903 Active Amelia Rene COUMADIN 6 MG TABS 1 PO DAILYON MON, TU, THURS AND FRI WARFARIN SODIUM 06629824072 Active Amelia Rene COUMADIN 1 MG TABS WARFARIN SODIUM 83124750201 No Longer Active Amelia Rene TESSALON PERLES 100 MG CAPS 1 PO TID prn cough BENZONATATE 71415544222 No Longer Active Karla Evans HYDROXYZINE HCL 10 MG TABS 1 PO TID PRN ITCHING HYDROXYZINE HCL 59490479511 No Longer Active Amelia Rene AMBIEN 10 MG TAB 1 PO QHS prn ZOLPIDEM TARTRATE 63220213642 No Longer Active Amelia Rene NOVOLOG FLEXPEN 100 UNIT/ML SOPN 14 UNITS BEFORE MEALS INSULIN ASPART 36745640310 Active Amelia Rene LEVEMIR FLEXPEN 100 UNIT/ML SOPN 25 UNITS AT HS INSULIN DETEMIR 71508765674 Active Amelia Rene COUMADIN 1 MG TABS TAKE ONE WITH A 6 MG TO TOTAL 7 MG AND THEN TAKE 6 MG THE NEXT. WARFARIN SODIUM 97352884707 No Longer Active Amelia Lisseth Rene LOVENOX 80 MG/0.8ML SOLN 1 injection twice daily ENOXAPARIN SODIUM 53846217743 No Longer Active Amelia Lisseth Rene OMEPRAZOLE 40 MG CPDR 1 PO daily OMEPRAZOLE 60560575649 Active Karla Evans NYSTATIN 242789 UNIT/ML SUSP 1 teaspoon swish and swallow QID NYSTATIN 18913959347 No Longer Active Amelianunu Rene PREDNISONE 20 MG TAB 1/2 PO daily PREDNISONE 03346990391 No Longer Active Amelianunu Rene TRUETEST TEST STRP TEST BS QID DX: 250.02 GLUCOSE BLOOD 86302556327 Active Karla Evans TOPAMAX 50 MG TABS 1 PO BID TOPIRAMATE 48242977026 Active Karla Evans MONTELUKAST SODIUM 10 MG TABS 1 PO AT HS MONTELUKAST SODIUM 30591127341 Active Karla Evans PREDNISONE 20 MG TAB 1 PO DAILY BID WITH MEALS PREDNISONE 28555802850 No Longer Active Amelianunu Rene CLARITIN 10 MG TABS 1 PO BID LORATADINE 61502227218 Active Amelianunu Rene PEPCID 20 MG TAB 1 PO BID FAMOTIDINE 68138970275 No Longer Active Amelianunu Rene DOXYCYCLINE HYCLATE 100 MG CAP 1 po BID DOXYCYCLINE HYCLATE 44373184702 No Longer Active Amelianunu Rene PEN NEEDLES 01/21" 31G X 8 MM MISC DIRECTED DX: 250.02 INSULIN PEN NEEDLE 94399880524 No Longer Active Amelia Lisseth Rene FLUOCINONIDE 0.05 % CREA apply to affected area on hand nightly for 7 nights then prn FLUOCINONIDE 33242862006 No Longer Active Amelia Lisseth Rene LEVITRA 10 MG TABS 1 PO as directed VARDENAFIL HCL 84252295353 No Longer Active Amelia Lisseth Rene SENIOR MULTIVITAMIN PLUS TABS 1 PO daily MULTIPLE VITAMINS- MINERALS 34828247870 No Longer Active Amelia Lisseth Rene EQL FISH OIL 1000 MG CAPS 3 PO BID OMEGA-3 FATTY ACIDS 60576071865 No Longer Active Amelia Lisseth Rene DOCUSATE SODIUM 100 MG CAPS 2 PO BID DOCUSATE SODIUM 05758000127 No Longer Active Amelia Lisseth Rene ASPIRIN 81 MG TABS 1 PO BID ASPIRIN 65944127699 No Longer Active Amelia Lisseth Rene CARBAMAZEPINE 200 MG TABS 3-5 PO daily CARBAMAZEPINE 67956791629 No Longer Active Amelia Lisseth Rene GEMFIBROZIL 600 MG TABS 1 PO BID GEMFIBROZIL 82907465661 No Longer Active Amelia Lisseth Rene METFORMIN HCL 1000 MG TABS 1 PO BID METFORMIN HCL 90600238836 No Longer Active Amelia Lisseth Rene GLYBURIDE 1.25 MG TABS 2 PO QAM and 1 PO QPM GLYBURIDE 27607137184 No Longer Active Amelia Lisseth Rene PROMETHAZINE VC/CODEINE 6.25-5-10 MG/5ML SYRP 1 teaspoon PO Q6hrs prn cough [id number] 64586056067 No Longer Active Amelia Lisseth Rene WELCHOL 625 MG TABS 3 PO BID with meals COLESEVELAM HCL 16369853220 No Longer Active Amelia Lisseth Rene TEGRETOL XR 100 MG [id number] 1 PO friday, friday, CARBAMAZEPINE 57932343426 No Longer Active Amelia Lisseth Rene JANUVIA 100 MG TABS 1 PO daily SITAGLIPTIN PHOSPHATE 43927917693 No Longer Active Amelia Lissethkarley Rene Immunizations [...] 10*3/mm3 Encounters Code Encounter Date Provider Facility CPT-29615 Ofc Vst, Est Level III 14:38:44 CDT Amelia Rene DO, FACP CPT-79972 Ofc Vst, Est Level IV 20:21:55 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 Amelia Rene DO, FACP CPT-19279 Ofc Vst, Est Level IV 16:05:00 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 Amelia Lisseth Rene Amelia S Rene, DO, FACP CPT-28768 Ofc Vst, Est Level V 21:19:57 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 Amelia Ernst Anju, DO, FACP CPT-10050 Ofc Vst, Est Level IV 17:06:25 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 [facility] CPT-60340 Ofc Vst, Est Level III 13:25:12 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 Amelia Ernst Anju, DO, FACP CPT-97092 Ofc Vst, Est Level III 12:54:14 CDT Amelianunu Ernst Anju, DO, FACP CPT-82401 Ofc Vst, Est Level III 16:36:19 CDT Amelia Ernst Anju, DO, FACP CPT-00548 Ofc Vst, Est Level IV 22:37:22 CDT Amelianunu Ernst Anju, DO, FACP CPT-28276 Ofc Vst, Est Level V 15:41:07 CDT Amelianunu Ernst Anju, DO, FACP CPT-62725 Ofc Vst, Est Level III 11:42:56 CDT Amelianunu Ernst Anju, DO, FACP CPT-10837 Ofc Vst, Est Level III 12:06:27 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 Amelia Ernst Anju, DO, FACP CPT-63184 Ofc Vst, Est Level III 14:34:43 CDT Amelia Ernst Anju, DO, FACP CPT-70404 Ofc Vst, Est Level III 14:19:43 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 Amelia Ernst Anju, DO, FACP CPT-84812 Ofc Vst, Est Level IV 16:26:28 CDT Amelianunu Ernst Anju, DO, FACP CPT-14417 Ofc Vst, Est Level IV 14:04:53 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 Amelia Rene DO, FACP CPT-36142 Ofc Vst, New Level IV 14:05:53 CDT Amelia Rene DO, FACP Procedures Code Procedure Name Date Entry Date Standard Description CPT-G0439 Medicare Annual Wellness Visit 12:45:38 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 CPT-G8443 E-Prescribing Medication Sent 12:06:27 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 CPT-G8443 E-Prescribing Medication Sent 12:44:06 CDT CPT-G0439 Medicare Annual Wellness Visit 12:44:06 CDT CPT-G8443 E-Prescribing Medication Sent 14:34:43 CDT CPT-G0438 Medicare Annual Wellness Visit Initial 11:12:53 CDT
--- OUTSIDE RECORDS SUMMARY | 2018-05-13 11:17 | XMS REPORT | Clinical Summary ---
Author Author User, [employer] Organization Amelia Rene DO, FACP Address [...] Rene Pure hypercholesterolemia HYPERTRIGLYCERIDEMIA 272.1 Active Amelia Reen Pure hyperglyceridemia CONSTIPATION, CHRONIC 564.09 Active Amelia [...] MG TABS 1 po BID SODIUM BICARBONATE 69978301384 Active Amelia Rene COUMADIN 1 MG TABS ONE TAB ALONG WITH 6MG TO TOTAL 7 MG ON WED, FRI AND SUN ONLY WARFARIN SODIUM 10395368271 Active Amelia Rene COUMADIN 6 MG TABS 1 PO DAILYON MON, TU, THURS AND FRI WARFARIN SODIUM 04137282437 Active Amelia Rene COUMADIN 1 MG TABS WARFARIN SODIUM 79054253188 No Longer Active Amelia Rene TESSALON PERLES 100 MG CAPS 1 PO TID prn cough BENZONATATE 81960098773 No Longer Active Karla Evans HYDROXYZINE HCL 10 MG TABS 1 PO TID PRN ITCHING HYDROXYZINE HCL 13198356450 No Longer Active Amelia Rene AMBIEN 10 MG TAB 1 PO QHS prn ZOLPIDEM TARTRATE 95777196411 No Longer Active Amelia Rene NOVOLOG FLEXPEN 100 UNIT/ML SOPN 14 UNITS BEFORE MEALS INSULIN ASPART 48857120102 Active Amelia Rene LEVEMIR FLEXPEN 100 UNIT/ML SOPN 25 UNITS AT HS INSULIN DETEMIR 73498820892 Active Amelia Rene COUMADIN 1 MG TABS TAKE ONE WITH A 6 MG TO TOTAL 7 MG AND THEN TAKE 6 MG THE NEXT. WARFARIN SODIUM 16719090768 No Longer Active Amelia Lisseth Rene LOVENOX 80 MG/0.8ML SOLN 1 injection twice daily ENOXAPARIN SODIUM 62240330251 No Longer Active Amelia Lisseth Rene OMEPRAZOLE 40 MG CPDR 1 PO daily OMEPRAZOLE 00248660953 Active Karla Evans NYSTATIN 981228 UNIT/ML SUSP 1 teaspoon swish and swallow QID NYSTATIN 78641428848 No Longer Active Amelianunu Rene PREDNISONE 20 MG TAB 1/2 PO daily PREDNISONE 52150326545 No Longer Active Amelianunu Rene TRUETEST TEST STRP TEST BS QID DX: 250.02 GLUCOSE BLOOD 19182194655 Active Karla Evans TOPAMAX 50 MG TABS 1 PO BID TOPIRAMATE 16278391486 Active Karla Evans MONTELUKAST SODIUM 10 MG TABS 1 PO AT HS MONTELUKAST SODIUM 44440199682 Active Karla Evans PREDNISONE 20 MG TAB 1 PO DAILY BID WITH MEALS PREDNISONE 71145192585 No Longer Active Amelianunu Rene CLARITIN 10 MG TABS 1 PO BID LORATADINE 34433004832 Active Amelianunu Rene PEPCID 20 MG TAB 1 PO BID FAMOTIDINE 66918440585 No Longer Active Amelianunu Rene DOXYCYCLINE HYCLATE 100 MG CAP 1 po BID DOXYCYCLINE HYCLATE 20196988574 No Longer Active Amelianunu Rene PEN NEEDLES 01/21" 31G X 8 MM MISC DIRECTED DX: 250.02 INSULIN PEN NEEDLE 68128846488 No Longer Active Amelia Lisseth Rene FLUOCINONIDE 0.05 % CREA apply to affected area on hand nightly for 7 nights then prn FLUOCINONIDE 26041661924 No Longer Active Amelia Lisseth Rene LEVITRA 10 MG TABS 1 PO as directed VARDENAFIL HCL 70496036602 No Longer Active Amelia Lisseth Rene SENIOR MULTIVITAMIN PLUS TABS 1 PO daily MULTIPLE VITAMINS- MINERALS 77770599592 No Longer Active Amelia Lisseth Rene EQL FISH OIL 1000 MG CAPS 3 PO BID OMEGA-3 FATTY ACIDS 29658435231 No Longer Active Amelia Lisseth Rene DOCUSATE SODIUM 100 MG CAPS 2 PO BID DOCUSATE SODIUM 78961047782 No Longer Active Amelia Lisseth Rene ASPIRIN 81 MG TABS 1 PO BID ASPIRIN 20993076903 No Longer Active Amelia Lisseth Rene CARBAMAZEPINE 200 MG TABS 3-5 PO daily CARBAMAZEPINE 82356137965 No Longer Active Maelia Lisseth Rene GEMFIBROZIL 600 MG TABS 1 PO BID GEMFIBROZIL 91579321253 No Longer Active Amelia Lisseth Rene METFORMIN HCL 1000 MG TABS 1 PO BID METFORMIN HCL 29160171624 No Longer Active Amelia Lisseth Rene GLYBURIDE 1.25 MG TABS 2 PO QAM and 1 PO QPM GLYBURIDE 53849315170 No Longer Active Amelia Lisseth Rene PROMETHAZINE VC/CODEINE 6.25-5-10 MG/5ML SYRP 1 teaspoon PO Q6hrs prn cough [id number] 39829417257 No Longer Active Amelia Lisseth Rene WELCHOL 625 MG TABS 3 PO BID with meals COLESEVELAM HCL 08565889368 No Longer Active Amelia Lisseth Rene TEGRETOL XR 100 MG [id number] 1 PO friday, friday, CARBAMAZEPINE 45371405703 No Longer Active Amelia Lisseth Rene JANUVIA 100 MG TABS 1 PO daily SITAGLIPTIN PHOSPHATE 12301139739 No Longer Active Amelia Lissethkarley Rene Immunizations [...] 10*3/mm3 Encounters Code Encounter Date Provider Facility CPT-83302 Ofc Vst, Est Level III 14:38:44 CDT Amelia Rene DO, FACP CPT-90573 Ofc Vst, Est Level IV 20:21:55 FISH CHECKER Amelia Rene DO, FACP CPT-70250 Ofc Vst, Est Level IV 16:05:00 FISH CHECKER Amelia Lisseth Rene Amelia S Rene, DO, FACP CPT-86556 Ofc Vst, Est Level V 21:19:57 FISH CHECKER Amelia Ernst Anju, DO, FACP CPT-29167 Ofc Vst, Est Level IV 17:06:25 FISH CHECKER Am[facility] CPT-35192 Ofc Vst, Est Level III 13:25:12 FISH CHECKER Amelia Ernst Anju, DO, FACP CPT-37317 Ofc Vst, Est Level III 12:54:14 CDT Amelianunu Ernst Anju, DO, FACP CPT-76056 Ofc Vst, Est Level III 16:36:19 CDT Amelia Ernst Anju, DO, FACP CPT-89315 Ofc Vst, Est Level IV 22:37:22 CDT Amelianunu Ernst Anju, DO, FACP CPT-06660 Ofc Vst, Est Level V 15:41:07 CDT Amelianunu Ernst Anju, DO, FACP CPT-35439 Ofc Vst, Est Level III 11:42:56 CDT Amelianunu Ernst Anju, DO, FACP CPT-35292 Ofc Vst, Est Level III 12:06:27 FISH CHECKER Amelia Ernst Anju, DO, FACP CPT-54439 Ofc Vst, Est Level III 14:34:43 CDT Amelia Ernst Anju, DO, FACP CPT-87107 Ofc Vst, Est Level III 14:19:43 FISH CHECKER Amelia Ernst Anju, DO, FACP CPT-83684 Ofc Vst, Est Level IV 16:26:28 CDT Amelianunu Ernst Anju, DO, FACP CPT-97114 Ofc Vst, Est Level IV 14:04:53 FISH CHECKER Amelia Rene DO, FACP CPT-03009 Ofc Vst, New Level IV 14:05:53 CDT Amelia Rene DO, FACP Procedures Code Procedure Name Date Entry Date Standard Description CPT-G0439 Medicare Annual Wellness Visit 12:45:38 FISH CHECKER CPT-G8443 E-Prescribing Medication Sent 12:06:27 FISH CHECKER CPT-G8443 E-Prescribing Medication Sent 12:44:06 CDT CPT-G0439 Medicare Annual Wellness Visit 12:44:06 CDT CPT-G8443 E-Prescribing Medication Sent 14:34:43 CDT CPT-G0438 Medicare Annual Wellness Visit Initial 11:12:53 CDT
--- OUTSIDE RECORDS SUMMARY | 2018-05-13 11:18 | XMS REPORT | Clinical Summary ---
Author Author User, [employer] Organization Amelia Rene DO, FACP Address Unknown [...] MG TABS 1 po BID SODIUM BICARBONATE 29882626250 Active Amelia Rene COUMADIN 1 MG TABS ONE TAB ALONG WITH 6MG TO TOTAL 7 MG ON WED, FRI AND SUN ONLY WARFARIN SODIUM 23628555663 Active Amelia Rene COUMADIN 6 MG TABS 1 PO DAILYON MON, TU, THURS AND FRI WARFARIN SODIUM 36083874634 Active Amelia Rene COUMADIN 1 MG TABS WARFARIN SODIUM 16447502183 No Longer Active Amelia Rene TESSALON PERLES 100 MG CAPS 1 PO TID prn cough BENZONATATE 43413420727 No Longer Active Karla Evans HYDROXYZINE HCL 10 MG TABS 1 PO TID PRN ITCHING HYDROXYZINE HCL 74370630993 No Longer Active Amelia Rene AMBIEN 10 MG TAB 1 PO QHS prn ZOLPIDEM TARTRATE 24536388247 No Longer Active Amelia Rene NOVOLOG FLEXPEN 100 UNIT/ML SOPN 14 UNITS BEFORE MEALS INSULIN ASPART 33339851934 Active Amelia Rene LEVEMIR FLEXPEN 100 UNIT/ML SOPN 25 UNITS AT HS INSULIN DETEMIR 61875082587 Active Amelia Rene COUMADIN 1 MG TABS TAKE ONE WITH A 6 MG TO TOTAL 7 MG AND THEN TAKE 6 MG THE NEXT. WARFARIN SODIUM 45676417890 No Longer Active Amelia Lisseth Rene LOVENOX 80 MG/0.8ML SOLN 1 injection twice daily ENOXAPARIN SODIUM 07084804623 No Longer Active Amelia Lisseth Rene OMEPRAZOLE 40 MG CPDR 1 PO daily OMEPRAZOLE 05942710840 Active Karla Evans NYSTATIN 113879 UNIT/ML SUSP 1 teaspoon swish and swallow QID NYSTATIN 98410008672 No Longer Active Amelianunu Rene PREDNISONE 20 MG TAB 1/2 PO daily PREDNISONE 26362257519 No Longer Active Amelianunu Rene TRUETEST TEST STRP TEST BS QID DX: 250.02 GLUCOSE BLOOD 02039494170 Active Karla Evans TOPAMAX 50 MG TABS 1 PO BID TOPIRAMATE 04276207068 Active Karla Evans MONTELUKAST SODIUM 10 MG TABS 1 PO AT HS MONTELUKAST SODIUM 71630674463 Active Karla Evans PREDNISONE 20 MG TAB 1 PO DAILY BID WITH MEALS PREDNISONE 55522225946 No Longer Active Amelianunu Rene CLARITIN 10 MG TABS 1 PO BID LORATADINE 58205675463 Active Amelianunu Rene PEPCID 20 MG TAB 1 PO BID FAMOTIDINE 84105440485 No Longer Active Amelianunu Rene DOXYCYCLINE HYCLATE 100 MG CAP 1 po BID DOXYCYCLINE HYCLATE 25941184984 No Longer Active Amelianunu Rene PEN NEEDLES 01/21" 31G X 8 MM MISC DIRECTED DX: 250.02 INSULIN PEN NEEDLE 57373559662 No Longer Active Amelia Lisseth Rene FLUOCINONIDE 0.05 % CREA apply to affected area on hand nightly for 7 nights then prn FLUOCINONIDE 49734734943 No Longer Active Amelia Lisseth Rene LEVITRA 10 MG TABS 1 PO as directed VARDENAFIL HCL 06893847243 No Longer Active Amelia Lisseth Rene SENIOR MULTIVITAMIN PLUS TABS 1 PO daily MULTIPLE VITAMINS- MINERALS 43682023864 No Longer Active Amelia Lisseth Rene EQL FISH OIL 1000 MG CAPS 3 PO BID OMEGA-3 FATTY ACIDS 47053671284 No Longer Active Amelia Lisseth Rene DOCUSATE SODIUM 100 MG CAPS 2 PO BID DOCUSATE SODIUM 98583740562 No Longer Active Amelia Lisseth Rene ASPIRIN 81 MG TABS 1 PO BID ASPIRIN 35596046091 No Longer Active Amelia Lisseth Rene CARBAMAZEPINE 200 MG TABS 3-5 PO daily CARBAMAZEPINE 67716230006 No Longer Active Amelia Lisseth Rene GEMFIBROZIL 600 MG TABS 1 PO BID GEMFIBROZIL 62055853787 No Longer Active Amelia Lisseth Rene METFORMIN HCL 1000 MG TABS 1 PO BID METFORMIN HCL 73337456974 No Longer Active Amelia Lisseth Rene GLYBURIDE 1.25 MG TABS 2 PO QAM and 1 PO QPM GLYBURIDE 69265867950 No Longer Active Amelia Lisseth Rene PROMETHAZINE VC/CODEINE 6.25-5-10 MG/5ML SYRP 1 teaspoon PO Q6hrs prn cough [id number] 34618406561 No Longer Active Amelia Lisseth Rene WELCHOL 625 MG TABS 3 PO BID with meals COLESEVELAM HCL 88865253209 No Longer Active Amelia Lisseth Rene TEGRETOL XR 100 MG [id number] 1 PO friday, friday, CARBAMAZEPINE 44267044014 No Longer Active Amelia Lisseth Rene JANUVIA 100 MG TABS 1 PO daily SITAGLIPTIN PHOSPHATE 42657416652 No Longer Active Amelia Lissethkarley Rene Immunizations [...] 10*3/mm3 Encounters Code Encounter Date Provider Facility CPT-55373 Ofc Vst, Est Level III 14:38:44 CDT Amelia Rene DO, FACP CPT-06782 Ofc Vst, Est Level IV 20:21:55 UTILITY CLERK Amelia Rene DO, FACP CPT-19604 Ofc Vst, Est Level IV 16:05:00 UTILITY CLERK Amelia Lisseth Rene Amelia S Rene, DO, FACP CPT-95198 Ofc Vst, Est Level V 21:19:57 UTILITY CLERK Amelia Ernst Anju, DO, FACP CPT-07546 Ofc Vst, Est Level IV 17:06:25 UTILITY CLERK [facility] CPT-67130 Ofc Vst, Est Level III 13:25:12 UTILITY CLERK Amelia Ernst Anju, DO, FACP CPT-89944 Ofc Vst, Est Level III 12:54:14 CDT Amelianunu Ernst Anju, DO, FACP CPT-22669 Ofc Vst, Est Level III 16:36:19 CDT Amelia Ernst Anju, DO, FACP CPT-55059 Ofc Vst, Est Level IV 22:37:22 CDT Amelianunu Ernst Anju, DO, FACP CPT-05520 Ofc Vst, Est Level V 15:41:07 CDT Amelianunu Ernst Anju, DO, FACP CPT-57273 Ofc Vst, Est Level III 11:42:56 CDT Amelianunu Ernst Anju, DO, FACP CPT-94458 Ofc Vst, Est Level III 12:06:27 UTILITY CLERK Amelia Ernst Anju, DO, FACP CPT-18502 Ofc Vst, Est Level III 14:34:43 CDT Amelia Ernst Anju, DO, FACP CPT-52463 Ofc Vst, Est Level III 14:19:43 UTILITY CLERK Amelia Ernst Anju, DO, FACP CPT-28692 Ofc Vst, Est Level IV 16:26:28 CDT Amelianunu Ernst Anju, DO, FACP CPT-84308 Ofc Vst, Est Level IV 14:04:53 UTILITY CLERK Amelia Rene DO, FACP CPT-08637 Ofc Vst, New Level IV 14:05:53 CDT Amelia Rene DO, FACP Procedures Code Procedure Name Date Entry Date Standard Description CPT-G0439 Medicare Annual Wellness Visit 12:45:38 UTILITY CLERK CPT-G8443 E-Prescribing Medication Sent 12:06:27 UTILITY CLERK CPT-G8443 E-Prescribing Medication Sent 12:44:06 CDT CPT-G0439 Medicare Annual Wellness Visit 12:44:06 CDT CPT-G8443 E-Prescribing Medication Sent 14:34:43 CDT CPT-G0438 Medicare Annual Wellness Visit Initial 11:12:53 CDT
--- OUTSIDE RECORDS SUMMARY | 2018-05-13 11:19 | XMS REPORT | Clinical Summary ---
Author Author User, [employer] Organization Amelia Rene DO, FACP Address Unknown [...] MG TABS 1 po BID SODIUM BICARBONATE 18596750658 Active Amelia Rene COUMADIN 1 MG TABS ONE TAB ALONG WITH 6MG TO TOTAL 7 MG ON WED, FRI AND SUN ONLY WARFARIN SODIUM 38419644740 Active Amelia Rene COUMADIN 6 MG TABS 1 PO DAILYON MON, TU, THURS AND FRI WARFARIN SODIUM 78774950480 Active Amelia Rene COUMADIN 1 MG TABS WARFARIN SODIUM 30437750298 No Longer Active Amelia Rene TESSALON PERLES 100 MG CAPS 1 PO TID prn cough BENZONATATE 15581792608 No Longer Active Karla Evans HYDROXYZINE HCL 10 MG TABS 1 PO TID PRN ITCHING HYDROXYZINE HCL 94192392794 No Longer Active Amelia Rene AMBIEN 10 MG TAB 1 PO QHS prn ZOLPIDEM TARTRATE 54404076923 No Longer Active Amelia Rene NOVOLOG FLEXPEN 100 UNIT/ML SOPN 14 UNITS BEFORE MEALS INSULIN ASPART 99367577292 Active Amelia Rene LEVEMIR FLEXPEN 100 UNIT/ML SOPN 25 UNITS AT HS INSULIN DETEMIR 56067626356 Active Amelia Rene COUMADIN 1 MG TABS TAKE ONE WITH A 6 MG TO TOTAL 7 MG AND THEN TAKE 6 MG THE NEXT. WARFARIN SODIUM 19757400672 No Longer Active Amelia Lisseth Rene LOVENOX 80 MG/0.8ML SOLN 1 injection twice daily ENOXAPARIN SODIUM 08882809538 No Longer Active Amelia Lisseth Rene OMEPRAZOLE 40 MG CPDR 1 PO daily OMEPRAZOLE 32274797817 Active Karla Evans NYSTATIN 890204 UNIT/ML SUSP 1 teaspoon swish and swallow QID NYSTATIN 08418426545 No Longer Active Amelianunu Rene PREDNISONE 20 MG TAB 1/2 PO daily PREDNISONE 73759151163 No Longer Active Amelianunu Rene TRUETEST TEST STRP TEST BS QID DX: 250.02 GLUCOSE BLOOD 78689707517 Active Karla Evans TOPAMAX 50 MG TABS 1 PO BID TOPIRAMATE 63634264338 Active Karla Evans MONTELUKAST SODIUM 10 MG TABS 1 PO AT HS MONTELUKAST SODIUM 92279764498 Active Karla Evans PREDNISONE 20 MG TAB 1 PO DAILY BID WITH MEALS PREDNISONE 72611335018 No Longer Active Amelianunu Rene CLARITIN 10 MG TABS 1 PO BID LORATADINE 82643024839 Active Amelianunu Rene PEPCID 20 MG TAB 1 PO BID FAMOTIDINE 12955279047 No Longer Active Amelianunu Rene DOXYCYCLINE HYCLATE 100 MG CAP 1 po BID DOXYCYCLINE HYCLATE 34986392331 No Longer Active Amelianunu Rene PEN NEEDLES 01/21" 31G X 8 MM MISC DIRECTED DX: 250.02 INSULIN PEN NEEDLE 55164810023 No Longer Active Amelia Lisseth Rene FLUOCINONIDE 0.05 % CREA apply to affected area on hand nightly for 7 nights then prn FLUOCINONIDE 87261561337 No Longer Active Amelia Lisseth Rene LEVITRA 10 MG TABS 1 PO as directed VARDENAFIL HCL 15576380155 No Longer Active Amelia Lisseth Rene SENIOR MULTIVITAMIN PLUS TABS 1 PO daily MULTIPLE VITAMINS- MINERALS 92467379305 No Longer Active Amelia Lisesth Rene EQL FISH OIL 1000 MG CAPS 3 PO BID OMEGA-3 FATTY ACIDS 80895487518 No Longer Active Amelia Lisseth Rene DOCUSATE SODIUM 100 MG CAPS 2 PO BID DOCUSATE SODIUM 24642263485 No Longer Active Amelia Lisseth Rene ASPIRIN 81 MG TABS 1 PO BID ASPIRIN 46601072287 No Longer Active Amelia Lisseth Rene CARBAMAZEPINE 200 MG TABS 3-5 PO daily CARBAMAZEPINE 30328087542 No Longer Active Amelia Lisseth Rene GEMFIBROZIL 600 MG TABS 1 PO BID GEMFIBROZIL 61856563554 No Longer Active Amelia Lisseth Rene METFORMIN HCL 1000 MG TABS 1 PO BID METFORMIN HCL 55212044835 No Longer Active Amelia Lisseth Rene GLYBURIDE 1.25 MG TABS 2 PO QAM and 1 PO QPM GLYBURIDE 34521606523 No Longer Active Amelia Lisseth Rene PROMETHAZINE VC/CODEINE 6.25-5-10 MG/5ML SYRP 1 teaspoon PO Q6hrs prn cough [id number] 40421387475 No Longer Active Amelia Lisseth Rene WELCHOL 625 MG TABS 3 PO BID with meals COLESEVELAM HCL 32211390707 No Longer Active Amelia Lisseth Rene TEGRETOL XR 100 MG [id number] 1 PO friday, friday, CARBAMAZEPINE 24062357201 No Longer Active Amelia Lisseth Rene JANUVIA 100 MG TABS 1 PO daily SITAGLIPTIN PHOSPHATE 04240449504 No Longer Active Amelia Lissethkarley Rene Immunizations [...] 10*3/mm3 Encounters Code Encounter Date Provider Facility CPT-75870 Ofc Vst, Est Level III 14:38:44 CDT Amelia Rene DO, FACP CPT-15474 Ofc Vst, Est Level IV 20:21:55 HEAD STRENGTH AND CONDITIONING COACH Amelia Rene DO, FACP CPT-54372 Ofc Vst, Est Level IV 16:05:00 HEAD STRENGTH AND CONDITIONING COACH Amelia Lisseth Rene Amelia S Rene, DO, FACP CPT-78029 Ofc Vst, Est Level V 21:19:57 HEAD STRENGTH AND CONDITIONING COACH Amelia Ernst Anju, DO, FACP CPT-24692 Ofc Vst, Est Level IV 17:06:25 HEAD STRENGTH AND CONDITIONING COACH [facility] CPT-52710 Ofc Vst, Est Level III 13:25:12 HEAD STRENGTH AND CONDITIONING COACH Amelia Ernst Anju, DO, FACP CPT-27897 Ofc Vst, Est Level III 12:54:14 CDT Amelianunu Ernst Anju, DO, FACP CPT-38240 Ofc Vst, Est Level III 16:36:19 CDT Amelia Ernst Anju, DO, FACP CPT-91868 Ofc Vst, Est Level IV 22:37:22 CDT Amelianunu Ernst Anju, DO, FACP CPT-02236 Ofc Vst, Est Level V 15:41:07 CDT Amelianunu Ernst Anju, DO, FACP CPT-17564 Ofc Vst, Est Level III 11:42:56 CDT Amelianunu Ernst Anju, DO, FACP CPT-26509 Ofc Vst, Est Level III 12:06:27 HEAD STRENGTH AND CONDITIONING COACH Amelia Ernst Anju, DO, FACP CPT-11387 Ofc Vst, Est Level III 14:34:43 CDT Amelia Ernst Anju, DO, FACP CPT-31012 Ofc Vst, Est Level III 14:19:43 HEAD STRENGTH AND CONDITIONING COACH Amelia Ernst Anju, DO, FACP CPT-30539 Ofc Vst, Est Level IV 16:26:28 CDT Amelianunu Ernst Anju, DO, FACP CPT-16493 Ofc Vst, Est Level IV 14:04:53 HEAD STRENGTH AND CONDITIONING COACH Amelia Rene DO, FACP CPT-27424 Ofc Vst, New Level IV 14:05:53 CDT Amelia Rene DO, FACP Procedures Code Procedure Name Date Entry Date Standard Description CPT-G0439 Medicare Annual Wellness Visit 12:45:38 HEAD STRENGTH AND CONDITIONING COACH CPT-G8443 E-Prescribing Medication Sent 12:06:27 HEAD STRENGTH AND CONDITIONING COACH CPT-G8443 E-Prescribing Medication Sent 12:44:06 CDT CPT-G0439 Medicare Annual Wellness Visit 12:44:06 CDT CPT-G8443 E-Prescribing Medication Sent 14:34:43 CDT CPT-G0438 Medicare Annual Wellness Visit Initial 11:12:53 CDT
--- OUTSIDE RECORDS SUMMARY | 2018-05-13 11:19 | XMS REPORT | Clinical Summary ---
Author Author User, [employer] Organization Amelia Rene DO, FACP Address Unknown [...] OTHER PULMONARY EMBOLISM AND INFARCTION 415.19 Active Amelai Rene Other pulmonary embolism and infarction Medication List Medication Instructions Start Date Stop Date Generic Name NDC Status Provider Patient Instruction BD PEN NEEDLE BARAK U/F 32G X 4 MM MISC DIRECTED DX: 250.02 INSULIN PEN NEEDLE 81765169019 Active Karla Waterstis COUMADIN 6 MG TABS 1 PO DAILY WARFARIN SODIUM 98887397987 Active Karla Waterstis COUMADIN 1 MG TABS ONE TAB ALONG WITH 6MG TO TOTAL 7 MG ON WED, SAT AND SUN ONLY WARFARIN SODIUM 68467289848 No Longer Active Amelia Rene SODIUM BICARBONATE 325 MG TABS 1 po BID SODIUM BICARBONATE 04761483253 Active Karla Waterstis COUMADIN 1 MG TABS WARFARIN SODIUM 12527158384 No Longer Active Amelia Rene TESSALON PERLES 100 MG CAPS 1 PO TID prn cough BENZONATATE 92791766244 No Longer Active Karla Waterstis HYDROXYZINE HCL 10 MG TABS 1 PO TID PRN ITCHING HYDROXYZINE HCL 12350012067 No Longer Active Amelia Rene AMBIEN 10 MG TAB 1 PO QHS prn ZOLPIDEM TARTRATE 82787502841 No Longer Active Amelia Rene NOVOLOG FLEXPEN 100 UNIT/ML SOPN 14 UNITS BEFORE MEALS INSULIN ASPART 45962533591 Active Amelia Rene LEVEMIR FLEXPEN 100 UNIT/ML SOPN 25 UNITS AT HS INSULIN DETEMIR 22480245341 Active Karla Evans COUMADIN 1 MG TABS TAKE ONE WITH A 6 MG TO TOTAL 7 MG AND THEN TAKE 6 MG THE NEXT. WARFARIN SODIUM 78890033242 No Longer Active Amelianunu Rene LOVENOX 80 MG/0.8ML SOLN 1 injection twice daily ENOXAPARIN SODIUM 09501891926 No Longer Active Amelianunu Rene OMEPRAZOLE 40 MG CPDR 1 PO daily OMEPRAZOLE 64465827809 Active Karla Evans NYSTATIN 310251 UNIT/ML SUSP 1 teaspoon swish and swallow QID NYSTATIN 96671049710 No Longer Active Amelianunu Rene PREDNISONE 20 MG TAB 1/2 PO daily PREDNISONE 53036365496 No Longer Active Amelianunu Rene TRUETEST TEST STRP TEST BS QID DX: 250.02 GLUCOSE BLOOD 02628423541 Active Karla Evans TOPAMAX 50 MG TABS 1 PO BID TOPIRAMATE 80103961621 Active Karla Evans MONTELUKAST SODIUM 10 MG TABS 1 PO AT HS MONTELUKAST SODIUM 19398431865 Active Karla Evans PREDNISONE 20 MG TAB 1 PO DAILY BID WITH MEALS PREDNISONE 62981615561 No Longer Active Amelianunu Rene CLARITIN 10 MG TABS 1 PO BID LORATADINE 85463267861 Active Amelianunu Rene PEPCID 20 MG TAB 1 PO BID FAMOTIDINE 07423494318 No Longer Active Amelianunu Rene DOXYCYCLINE HYCLATE 100 MG CAP 1 po BID DOXYCYCLINE HYCLATE 70922195992 No Longer Active Amelianunu Rene PEN NEEDLES 5/16" 31G X 8 MM MISC DIRECTED DX: 250.02 INSULIN PEN NEEDLE 76307395725 No Longer Active Amelianunu Rene FLUOCINONIDE 0.05 % CREA apply to affected area on hand nightly for 7 nights then prn FLUOCINONIDE 26227358320 No Longer Active Amelia Lisseth Rene LEVITRA 10 MG TABS 1 PO as directed VARDENAFIL HCL 09365627940 No Longer Active Amelia Lisseth Rene SENIOR MULTIVITAMIN PLUS TABS 1 PO daily MULTIPLE VITAMINS- MINERALS 88345876196 No Longer Active Amelia Lisseth Rene EQL FISH OIL 1000 MG CAPS 3 PO BID OMEGA-3 FATTY ACIDS 88159810010 No Longer Active Amelia Lisseth Rene DOCUSATE SODIUM 100 MG CAPS 2 PO BID DOCUSATE SODIUM 67661084100 No Longer Active Amelia Lisseth Rene ASPIRIN 81 MG TABS 1 PO BID ASPIRIN 11960174623 No Longer Active Amelia Lisseth Rene CARBAMAZEPINE 200 MG TABS 3-5 PO daily CARBAMAZEPINE 68173895087 No Longer Active Amelia Lisseth Rene GEMFIBROZIL 600 MG TABS 1 PO BID GEMFIBROZIL 78788595885 No Longer Active Amelia Lisseth Rene METFORMIN HCL 1000 MG TABS 1 PO BID METFORMIN HCL 13069054040 No Longer Active Amelia Lisseth Rene GLYBURIDE 1.25 MG TABS 2 PO QAM and 1 PO QPM GLYBURIDE 39244077480 No Longer Active Amelia Lisseth Rene PROMETHAZINE VC/CODEINE 6.25-5-10 MG/5ML SYRP 1 teaspoon PO Q6hrs prn cough [id number] 14725802464 No Longer Active Amelia Lisseth Rene WELCHOL 625 MG TABS 3 PO BID with meals COLESEVELAM HCL 58590395116 No Longer Active Amelia Lisseth Rene TEGRETOL XR 100 MG [id number] 1 PO friday, friday, CARBAMAZEPINE 18385406526 No Longer Active Amelia Rene JANUVIA 100 MG TABS 1 PO daily SITAGLIPTIN PHOSPHATE 42965391649 No Longer Active Amelianunu Rene Immunizations Vaccine [...] Update: [facility] - Hematology erythrocyte sedimentation rate 86 mm/h red blood cell distribution width 12.8 % mean corpuscular volume, RBC 89 fL leukocyte count, blood 9.5 10*3/mm3 erythrocyte (RBC) count 3.59 10*6/mm3 platelet count 295 10*3/mm3 hemoglobin, blood 10.7 g/dL hematocrit, blood 31.9 % Clinical Lists Update: IN PT LABS - Urinalysis pH, urine, semiquantitative 5.5 nitrite, urine, semiquantitative neg ketones, urine, by test strip neg bilirubin, urine neg glucose, urine, semiquantitative >100 specific gravity, urine 1.030 urobilinogen, urine, semiquantitative (dipstick) normal appearance, urine Clear Yellow WBC urine on microscopy rare {Cells}/[HPF] blood in urine (hemoglobin) by dipstick moderate mucus on urinalysis neg protein, urine, semiquantitative (dipstick) 100 RBC urine by microscopy neg hyaline casts, urine few /[LPF] Clinical Lists Update: PT,INR - Coagulation prothrombin time (patient) 49.9 s international normalized ratio (INR) 4.8 prothrombin time (patient) 38.3 s international normalized ratio (INR) 3.7 prothrombin time (patient) 17.2 s international normalized ratio (INR) 1.7 prothrombin time (patient) 48.0 s international normalized ratio (INR) 4.6 prothrombin time (patient) 33.5 s international normalized ratio (INR) 3.2 prothrombin time (patient) 42.0 s international normalized ratio (INR) 2.8 prothrombin time (patient) 29.4 s international normalized [...] 10*3/mm3 Encounters Code Encounter Date Provider Facility CPT-80890 Ofc Vst, Est Level III 14:38:44 CDT Amelia Lisseth Anju Rene, DO, FACP CPT-62065 Ofc Vst, Est Level IV 20:21:55 READING AIDE Amelia Rene, DO, FACP CPT-06063 Ofc Vst, Est Level IV 16:05:00 READING AIDE Amelia Rene, DO, FACP CPT-76283 Ofc Vst, Est Level V 21:19:57 READING AIDE Amelia Rene, DO, FACP CPT-26265 Ofc Vst, Est Level IV 17:06:25 READING AIDE Amelia Rene [facility] CPT-98452 Ofc Vst, Est Level III 13:25:12 READING AIDE Amelia Rene, DO, FACP CPT-58082 Ofc Vst, Est Level III 12:54:14 CDT Amelia Rene, DO, FACP CPT-17255 Ofc Vst, Est Level III 16:36:19 CDT Amelia Rene, DO, FACP CPT-54941 Ofc Vst, Est Level IV 22:37:22 CDT Amelia Rene, DO, FACP CPT-80064 Ofc Vst, Est Level V 15:41:07 CDT Amelia Rene, DO, FACP CPT-76642 Ofc Vst, Est Level III 11:42:56 CDT Amelia Rene, DO, FACP CPT-79718 Ofc Vst, Est Level III 12:06:27 READING AIDE Amelia Rene, DO, FACP CPT-16381 Ofc Vst, Est Level III 14:34:43 CDT Amelia Lisseth Rene Amelia Rene DO, FACP CPT-93630 Ofc Vst, Est Level III 14:19:43 READING AIDE Amelia Rodriguezninoska Rene DO, FACP CPT-93667 Ofc Vst, Est Level IV 16:26:28 CDT Amelia Lisseth Yennunu Rene DO, FACP CPT-77213 Ofc Vst, Est Level IV 14:04:53 READING AIDE Amelia Montanez Anju Rene DO, FACP CPT-08570 Ofc Vst, New Level IV 14:05:53 CDT Amelia Rodriguezninoska Rene DO, FACP Procedures Code Procedure Name Date Entry Date Standard Description CPT-G0439 Medicare Annual Wellness Visit 12:45:38 READING AIDE CPT-G8443 E-Prescribing Medication Sent 12:06:27 READING AIDE CPT-G8443 E-Prescribing Medication Sent 12:44:06 CDT CPT-G0439 Medicare Annual Wellness Visit 12:44:06 CDT CPT-G8443 E-Prescribing Medication Sent 14:34:43 CDT CPT-G0438 Medicare Annual Wellness Visit Initial 11:12:53 CDT
--- OUTSIDE RECORDS SUMMARY | 2018-05-13 11:20 | XMS REPORT | Clinical Summary ---
Author Author User, [employer] Organization Amelia Rene DO, FACP Address Unknown [...] MG TABS 1 po BID SODIUM BICARBONATE 24150510951 Active Amelia Rene COUMADIN 1 MG TABS ONE TAB ALONG WITH 6MG TO TOTAL 7 MG ON WED, FRI AND SUN ONLY WARFARIN SODIUM 49335064964 Active Amelia Rene COUMADIN 6 MG TABS 1 PO DAILYON MON, TU, THURS AND FRI WARFARIN SODIUM 62246937182 Active Amelia Rene COUMADIN 1 MG TABS WARFARIN SODIUM 70606844153 No Longer Active Amelia Rene TESSALON PERLES 100 MG CAPS 1 PO TID prn cough BENZONATATE 58461318277 No Longer Active Karla Evans HYDROXYZINE HCL 10 MG TABS 1 PO TID PRN ITCHING HYDROXYZINE HCL 11956421113 No Longer Active Amelia Rene AMBIEN 10 MG TAB 1 PO QHS prn ZOLPIDEM TARTRATE 08769724989 No Longer Active Amelia Rene NOVOLOG FLEXPEN 100 UNIT/ML SOPN 14 UNITS BEFORE MEALS INSULIN ASPART 29353254387 Active Amelia Rene LEVEMIR FLEXPEN 100 UNIT/ML SOPN 25 UNITS AT HS INSULIN DETEMIR 54875153008 Active Amelia Rene COUMADIN 1 MG TABS TAKE ONE WITH A 6 MG TO TOTAL 7 MG AND THEN TAKE 6 MG THE NEXT. WARFARIN SODIUM 63002626726 No Longer Active Amelia Lisseth Rene LOVENOX 80 MG/0.8ML SOLN 1 injection twice daily ENOXAPARIN SODIUM 40966848835 No Longer Active Amelia Lisseth Rene OMEPRAZOLE 40 MG CPDR 1 PO daily OMEPRAZOLE 81452379436 Active Karla Evans NYSTATIN 990289 UNIT/ML SUSP 1 teaspoon swish and swallow QID NYSTATIN 93098270070 No Longer Active Amelianunu Rene PREDNISONE 20 MG TAB 1/2 PO daily PREDNISONE 89388433792 No Longer Active Amelianunu Rene TRUETEST TEST STRP TEST BS QID DX: 250.02 GLUCOSE BLOOD 50897708202 Active Karla Evans TOPAMAX 50 MG TABS 1 PO BID TOPIRAMATE 50732208764 Active Karla Evans MONTELUKAST SODIUM 10 MG TABS 1 PO AT HS MONTELUKAST SODIUM 69618775478 Active Karla Evans PREDNISONE 20 MG TAB 1 PO DAILY BID WITH MEALS PREDNISONE 65504734875 No Longer Active Amelianunu Rene CLARITIN 10 MG TABS 1 PO BID LORATADINE 00826626480 Active Amelianunu Rene PEPCID 20 MG TAB 1 PO BID FAMOTIDINE 10470881878 No Longer Active Amelianunu Rene DOXYCYCLINE HYCLATE 100 MG CAP 1 po BID DOXYCYCLINE HYCLATE 48118281802 No Longer Active Amelianunu Rene PEN NEEDLES /" 31G X 8 MM MISC DIRECTED DX: 250.02 INSULIN PEN NEEDLE 51464235931 No Longer Active Amelianunu Rene FLUOCINONIDE 0.05 % CREA apply to affected area on hand nightly for 7 nights then prn FLUOCINONIDE 01434211328 No Longer Active Amelia Lisseth Rene LEVITRA 10 MG TABS 1 PO as directed VARDENAFIL HCL 99062195556 No Longer Active Amelia Lisseth Rene SENIOR MULTIVITAMIN PLUS TABS 1 PO daily MULTIPLE VITAMINS- MINERALS 29877838563 No Longer Active Amelia Lisseth Rene EQL FISH OIL 1000 MG CAPS 3 PO BID OMEGA-3 FATTY ACIDS 57127495767 No Longer Active Amelia Lisseth Rene DOCUSATE SODIUM 100 MG CAPS 2 PO BID DOCUSATE SODIUM 34166191198 No Longer Active Amelia Lisseth Rene ASPIRIN 81 MG TABS 1 PO BID ASPIRIN 10735462514 No Longer Active Amelia Lisseth Rene CARBAMAZEPINE 200 MG TABS 3-5 PO daily CARBAMAZEPINE 84432005630 No Longer Active Amelia Lisseth Rene GEMFIBROZIL 600 MG TABS 1 PO BID GEMFIBROZIL 37969472099 No Longer Active Amelia Lisseth Rene METFORMIN HCL 1000 MG TABS 1 PO BID METFORMIN HCL 03411941949 No Longer Active Amelia Lisseth Rene GLYBURIDE 1.25 MG TABS 2 PO QAM and 1 PO QPM GLYBURIDE 68931202069 No Longer Active Amelia Lisseth Rene PROMETHAZINE VC/CODEINE 6.25-5-10 MG/5ML SYRP 1 teaspoon PO Q6hrs prn cough [id number] 33587624470 No Longer Active Amelia Lisseth Rene WELCHOL 625 MG TABS 3 PO BID with meals COLESEVELAM HCL 12188072107 No Longer Active Amelia Lisseth Rene TEGRETOL XR 100 MG [id number] 1 PO friday, friday, CARBAMAZEPINE 73088095837 No Longer Active Amelia Lisseth Rene JANUVIA 100 MG TABS 1 PO daily SITAGLIPTIN PHOSPHATE 09739738138 No Longer Active Amelia Lissethkarley Rene Immunizations [...] 10*3/mm3 Encounters Code Encounter Date Provider Facility CPT-72221 Ofc Vst, Est Level III 14:38:44 CDT Amelia Rene DO, FACP CPT-44180 Ofc Vst, Est Level IV 20:21:55 CAMPGROUND CARETAKER Amelia Rene DO, FACP CPT-73153 Ofc Vst, Est Level IV 16:05:00 CAMPGROUND CARETAKER Amelia Lisseth Rene Amelia S Rene, DO, FACP CPT-93257 Ofc Vst, Est Level V 21:19:57 CAMPGROUND CARETAKER Amelia Ernst Anju, DO, FACP CPT-95443 Ofc Vst, Est Level IV 17:06:25 CAMPGROUND CARETAKER Amelia [facility] CPT-83404 Ofc Vst, Est Level III 13:25:12 CAMPGROUND CARETAKER Amelia Ernst Anju, DO, FACP CPT-95049 Ofc Vst, Est Level III 12:54:14 CDT Amelianunu Ernst Anju, DO, FACP CPT-49478 Ofc Vst, Est Level III 16:36:19 CDT Amelia Ernst Anju, DO, FACP CPT-48528 Ofc Vst, Est Level IV 22:37:22 CDT Amelia Lisseth Ernst Anju, DO, FACP CPT-20124 Ofc Vst, Est Level V 15:41:07 CDT Amelianunu Ernst Anju, DO, FACP CPT-45408 Ofc Vst, Est Level III 11:42:56 CDT Amelia Ernst Anju, DO, FACP CPT-76352 Ofc Vst, Est Level III 12:06:27 CAMPGROUND CARETAKER Amelia Ernst Anju, DO, FACP CPT-85325 Ofc Vst, Est Level III 14:34:43 CDT Amelia Ernst Anju, DO, FACP CPT-66899 Ofc Vst, Est Level III 14:19:43 CAMPGROUND CARETAKER Amelia Ernst Anju, DO, FACP CPT-83974 Ofc Vst, Est Level IV 16:26:28 CDT Amelianunu Ernst Anju, DO, FACP CPT-91900 Ofc Vst, Est Level IV 14:04:53 CAMPGROUND CARETAKER Amelia Rene DO, FACP CPT-87520 Ofc Vst, New Level IV 14:05:53 CDT Amelia Rene DO, FACP Procedures Code Procedure Name Date Entry Date Standard Description CPT-G0439 Medicare Annual Wellness Visit 12:45:38 CAMPGROUND CARETAKER CPT-G8443 E-Prescribing Medication Sent 12:06:27 CAMPGROUND CARETAKER CPT-G8443 E-Prescribing Medication Sent 12:44:06 CDT CPT-G0439 Medicare Annual Wellness Visit 12:44:06 CDT CPT-G8443 E-Prescribing Medication Sent 14:34:43 CDT CPT-G0438 Medicare Annual Wellness Visit Initial 11:12:53 CDT
--- OUTSIDE RECORDS SUMMARY | 2018-05-13 11:21 | XMS REPORT | Clinical Summary ---
Author Author User, [employer] Organization Amelia Rene DO, FACP Address Unknown [...] MG TABS 1 po BID SODIUM BICARBONATE 67816746732 Active Amelia Rene COUMADIN 1 MG TABS ONE TAB ALONG WITH 6MG TO TOTAL 7 MG ON WED, FRI AND SUN ONLY WARFARIN SODIUM 67617608825 Active Amelia Rene COUMADIN 6 MG TABS 1 PO DAILYON MON, TU, THURS AND FRI WARFARIN SODIUM 56232376796 Active Amelia Rene COUMADIN 1 MG TABS WARFARIN SODIUM 92240780545 No Longer Active Amelia Rene TESSALON PERLES 100 MG CAPS 1 PO TID prn cough BENZONATATE 71683427933 No Longer Active Karla Evans HYDROXYZINE HCL 10 MG TABS 1 PO TID PRN ITCHING HYDROXYZINE HCL 30391388256 No Longer Active Amelia Rene AMBIEN 10 MG TAB 1 PO QHS prn ZOLPIDEM TARTRATE 81931950478 No Longer Active Amelia Rene NOVOLOG FLEXPEN 100 UNIT/ML SOPN 14 UNITS BEFORE MEALS INSULIN ASPART 92170293266 Active Amelia Rene LEVEMIR FLEXPEN 100 UNIT/ML SOPN 25 UNITS AT HS INSULIN DETEMIR 38295751641 Active Amelia Rene COUMADIN 1 MG TABS TAKE ONE WITH A 6 MG TO TOTAL 7 MG AND THEN TAKE 6 MG THE NEXT. WARFARIN SODIUM 47063754165 No Longer Active Amelia Lisseth Rene LOVENOX 80 MG/0.8ML SOLN 1 injection twice daily ENOXAPARIN SODIUM 20440657433 No Longer Active Amelia Lisseth Rene OMEPRAZOLE 40 MG CPDR 1 PO daily OMEPRAZOLE 08926558959 Active Karla Evans NYSTATIN 105775 UNIT/ML SUSP 1 teaspoon swish and swallow QID NYSTATIN 62875692358 No Longer Active Amelianunu Rene PREDNISONE 20 MG TAB 1/2 PO daily PREDNISONE 21081104860 No Longer Active Amelianunu Rene TRUETEST TEST STRP TEST BS QID DX: 250.02 GLUCOSE BLOOD 08194392141 Active Karla Evans TOPAMAX 50 MG TABS 1 PO BID TOPIRAMATE 40734005022 Active Karla Evans MONTELUKAST SODIUM 10 MG TABS 1 PO AT HS MONTELUKAST SODIUM 99211263305 Active Karla Evans PREDNISONE 20 MG TAB 1 PO DAILY BID WITH MEALS PREDNISONE 91856314685 No Longer Active Amelianunu Rene CLARITIN 10 MG TABS 1 PO BID LORATADINE 99115981595 Active Amelianunu Rene PEPCID 20 MG TAB 1 PO BID FAMOTIDINE 18859924529 No Longer Active Amelianunu Rene DOXYCYCLINE HYCLATE 100 MG CAP 1 po BID DOXYCYCLINE HYCLATE 09360586632 No Longer Active Amelianunu Rene PEN NEEDLES /" 31G X 8 MM MISC DIRECTED DX: 250.02 INSULIN PEN NEEDLE 82643909042 No Longer Active Amelianunu Rene FLUOCINONIDE 0.05 % CREA apply to affected area on hand nightly for 7 nights then prn FLUOCINONIDE 71047619674 No Longer Active Amelia Lisseth Rene LEVITRA 10 MG TABS 1 PO as directed VARDENAFIL HCL 98674488579 No Longer Active Amelia Lisseth Rene SENIOR MULTIVITAMIN PLUS TABS 1 PO daily MULTIPLE VITAMINS- MINERALS 46694119459 No Longer Active Amelia Lisseth Rene EQL FISH OIL 1000 MG CAPS 3 PO BID OMEGA-3 FATTY ACIDS 26929133589 No Longer Active Amelia Lisseth Rene DOCUSATE SODIUM 100 MG CAPS 2 PO BID DOCUSATE SODIUM 14968643458 No Longer Active Amelia Lisseth Rene ASPIRIN 81 MG TABS 1 PO BID ASPIRIN 75368011368 No Longer Active Amelia Lisseth Rene CARBAMAZEPINE 200 MG TABS 3-5 PO daily CARBAMAZEPINE 62697297312 No Longer Active Amelia Lisseth Rene GEMFIBROZIL 600 MG TABS 1 PO BID GEMFIBROZIL 80534504071 No Longer Active Amelia Lisseth Rene METFORMIN HCL 1000 MG TABS 1 PO BID METFORMIN HCL 93965166126 No Longer Active Amelia Lisseth Rene GLYBURIDE 1.25 MG TABS 2 PO QAM and 1 PO QPM GLYBURIDE 46317020271 No Longer Active Amelia Lisseth Rene PROMETHAZINE VC/CODEINE 6.25-5-10 MG/5ML SYRP 1 teaspoon PO Q6hrs prn cough [id number] 40464853900 No Longer Active Amelia Lisseth Rene WELCHOL 625 MG TABS 3 PO BID with meals COLESEVELAM HCL 71043755699 No Longer Active Amelia Lisseth Rene TEGRETOL XR 100 MG [id number] 1 PO friday, friday, CARBAMAZEPINE 09450656136 No Longer Active Amelia Lisseth Rene JANUVIA 100 MG TABS 1 PO daily SITAGLIPTIN PHOSPHATE 64930803408 No Longer Active Amelia Lissethkarley Rene Immunizations [...] 10*3/mm3 Encounters Code Encounter Date Provider Facility CPT-94915 Ofc Vst, Est Level III 14:38:44 CDT Amelia Rene DO, FACP CPT-00900 Ofc Vst, Est Level IV 20:21:55 COMPENSATION AND BENEFITS MANAGER Amelia Rene DO, FACP CPT-69670 Ofc Vst, Est Level IV 16:05:00 COMPENSATION AND BENEFITS MANAGER Amelia Lisseth Rene Amelia S Rene, DO, FACP CPT-98624 Ofc Vst, Est Level V 21:19:57 COMPENSATION AND BENEFITS MANAGER Amelia Ernst Anju, DO, FACP CPT-87092 Ofc Vst, Est Level IV 17:06:25 COMPENSATION AND BENEFITS MANAGER Amelia [facility] CPT-07219 Ofc Vst, Est Level III 13:25:12 COMPENSATION AND BENEFITS MANAGER Amelia Ernst Anju, DO, FACP CPT-31132 Ofc Vst, Est Level III 12:54:14 CDT Amelianunu Ernst Anju, DO, FACP CPT-55985 Ofc Vst, Est Level III 16:36:19 CDT Amelia Ernst Anju, DO, FACP CPT-67248 Ofc Vst, Est Level IV 22:37:22 CDT Amelia Lisseth Ernst Anju, DO, FACP CPT-93016 Ofc Vst, Est Level V 15:41:07 CDT Amelianunu Ernst Anju, DO, FACP CPT-17171 Ofc Vst, Est Level III 11:42:56 CDT Amelia Ernst Anju, DO, FACP CPT-71834 Ofc Vst, Est Level III 12:06:27 COMPENSATION AND BENEFITS MANAGER Amelia Ernst Anju, DO, FACP CPT-53998 Ofc Vst, Est Level III 14:34:43 CDT Amelia Ernst Anju, DO, FACP CPT-61089 Ofc Vst, Est Level III 14:19:43 COMPENSATION AND BENEFITS MANAGER Amelia Ernst Anju, DO, FACP CPT-46478 Ofc Vst, Est Level IV 16:26:28 CDT Amelianunu Ernst Anju, DO, FACP CPT-05383 Ofc Vst, Est Level IV 14:04:53 COMPENSATION AND BENEFITS MANAGER Amelia Rene DO, FACP CPT-32965 Ofc Vst, New Level IV 14:05:53 CDT Amelia Rene DO, FACP Procedures Code Procedure Name Date Entry Date Standard Description CPT-G0439 Medicare Annual Wellness Visit 12:45:38 COMPENSATION AND BENEFITS MANAGER CPT-G8443 E-Prescribing Medication Sent 12:06:27 COMPENSATION AND BENEFITS MANAGER CPT-G8443 E-Prescribing Medication Sent 12:44:06 CDT CPT-G0439 Medicare Annual Wellness Visit 12:44:06 CDT CPT-G8443 E-Prescribing Medication Sent 14:34:43 CDT CPT-G0438 Medicare Annual Wellness Visit Initial 11:12:53 CDT
--- OUTSIDE RECORDS SUMMARY | 2018-05-13 11:21 | XMS REPORT | Clinical Summary ---
Author Author User, [employer] Organization Amelia Rene DO, FACP Address Unknown [...] MG TABS 1 po BID SODIUM BICARBONATE 12626109690 Active Amelia Rene COUMADIN 1 MG TABS ONE TAB ALONG WITH 6MG TO TOTAL 7 MG ON WED, FRI AND SUN ONLY WARFARIN SODIUM 90410127141 Active Amelia Rene COUMADIN 6 MG TABS 1 PO DAILYON MON, TU, THURS AND FRI WARFARIN SODIUM 98018491529 Active Amelia Rene COUMADIN 1 MG TABS WARFARIN SODIUM 56435602406 No Longer Active Amelia Rene TESSALON PERLES 100 MG CAPS 1 PO TID prn cough BENZONATATE 04959243175 No Longer Active Karla Evans HYDROXYZINE HCL 10 MG TABS 1 PO TID PRN ITCHING HYDROXYZINE HCL 98215898387 No Longer Active Amelia Rene AMBIEN 10 MG TAB 1 PO QHS prn ZOLPIDEM TARTRATE 36309347086 No Longer Active Amelia Rene NOVOLOG FLEXPEN 100 UNIT/ML SOPN 14 UNITS BEFORE MEALS INSULIN ASPART 64311865971 Active Amelia Rene LEVEMIR FLEXPEN 100 UNIT/ML SOPN 25 UNITS AT HS INSULIN DETEMIR 40676974926 Active Amelia Rene COUMADIN 1 MG TABS TAKE ONE WITH A 6 MG TO TOTAL 7 MG AND THEN TAKE 6 MG THE NEXT. WARFARIN SODIUM 12084390181 No Longer Active Amelia Lisseth Rene LOVENOX 80 MG/0.8ML SOLN 1 injection twice daily ENOXAPARIN SODIUM 73323297651 No Longer Active Amelia Lisseth Rene OMEPRAZOLE 40 MG CPDR 1 PO daily OMEPRAZOLE 17945706259 Active Karla Evans NYSTATIN 820202 UNIT/ML SUSP 1 teaspoon swish and swallow QID NYSTATIN 45089299325 No Longer Active Amelianunu Rene PREDNISONE 20 MG TAB 1/2 PO daily PREDNISONE 83513485016 No Longer Active Amelianunu Rene TRUETEST TEST STRP TEST BS QID DX: 250.02 GLUCOSE BLOOD 61418200426 Active Karla Evans TOPAMAX 50 MG TABS 1 PO BID TOPIRAMATE 23184071612 Active Karla Evans MONTELUKAST SODIUM 10 MG TABS 1 PO AT HS MONTELUKAST SODIUM 16297249481 Active Karla Evans PREDNISONE 20 MG TAB 1 PO DAILY BID WITH MEALS PREDNISONE 02741750629 No Longer Active Amelianunu Rene CLARITIN 10 MG TABS 1 PO BID LORATADINE 44777194498 Active Amelianunu Rene PEPCID 20 MG TAB 1 PO BID FAMOTIDINE 97492037733 No Longer Active Amelianunu Rene DOXYCYCLINE HYCLATE 100 MG CAP 1 po BID DOXYCYCLINE HYCLATE 36790794320 No Longer Active Amelianunu Rene PEN NEEDLES 01/21" 31G X 8 MM MISC DIRECTED DX: 250.02 INSULIN PEN NEEDLE 64585093455 No Longer Active Amelia Lisseth Rene FLUOCINONIDE 0.05 % CREA apply to affected area on hand nightly for 7 nights then prn FLUOCINONIDE 44552678952 No Longer Active Amelia Lisseth Rene LEVITRA 10 MG TABS 1 PO as directed VARDENAFIL HCL 93786661883 No Longer Active Amelia Lisseth Rene SENIOR MULTIVITAMIN PLUS TABS 1 PO daily MULTIPLE VITAMINS- MINERALS 36175899330 No Longer Active Amelia Lisseth Rene EQL FISH OIL 1000 MG CAPS 3 PO BID OMEGA-3 FATTY ACIDS 71380664302 No Longer Active Amelia Lisseth Rene DOCUSATE SODIUM 100 MG CAPS 2 PO BID DOCUSATE SODIUM 12424456619 No Longer Active Amelia Lisseth Rene ASPIRIN 81 MG TABS 1 PO BID ASPIRIN 52467144125 No Longer Active Amelia Lisseth Rene CARBAMAZEPINE 200 MG TABS 3-5 PO daily CARBAMAZEPINE 56220579133 No Longer Active Amelia Lisseth Rene GEMFIBROZIL 600 MG TABS 1 PO BID GEMFIBROZIL 53012388381 No Longer Active Amelia Lisseth Rene METFORMIN HCL 1000 MG TABS 1 PO BID METFORMIN HCL 24013242887 No Longer Active Amelia Lisseth Rene GLYBURIDE 1.25 MG TABS 2 PO QAM and 1 PO QPM GLYBURIDE 63274881276 No Longer Active Amelia Lisseth Rene PROMETHAZINE VC/CODEINE 6.25-5-10 MG/5ML SYRP 1 teaspoon PO Q6hrs prn cough [id number] 96986253531 No Longer Active Amelia Lisseth Rene WELCHOL 625 MG TABS 3 PO BID with meals COLESEVELAM HCL 26051531424 No Longer Active Amelia Lisseth Rene TEGRETOL XR 100 MG [id number] 1 PO friday, friday, CARBAMAZEPINE 28816216641 No Longer Active Amelia Lisseth Rene JANUVIA 100 MG TABS 1 PO daily SITAGLIPTIN PHOSPHATE 09168100648 No Longer Active Amelia Lissethkarley Rene Immunizations [...] 10*3/mm3 Encounters Code Encounter Date Provider Facility CPT-94609 Ofc Vst, Est Level III 14:38:44 CDT Amelia Rene DO, FACP CPT-47528 Ofc Vst, Est Level IV 20:21:55 ADA ACCOMMODATION CONSULTANT Amelia Rene DO, FACP CPT-59858 Ofc Vst, Est Level IV 16:05:00 ADA ACCOMMODATION CONSULTANT Amelia Lisseth Rene Amelia S Rene, DO, FACP CPT-98595 Ofc Vst, Est Level V 21:19:57 ADA ACCOMMODATION CONSULTANT Amelia Ernst Anju, DO, FACP CPT-41145 Ofc Vst, Est Level IV 17:06:25 ADA ACCOMMODATION CONSULTANT Am[facility] CPT-36382 Ofc Vst, Est Level III 13:25:12 ADA ACCOMMODATION CONSULTANT Amelia Ernst Anju, DO, FACP CPT-00497 Ofc Vst, Est Level III 12:54:14 CDT Amelianunu Ernst Anju, DO, FACP CPT-35094 Ofc Vst, Est Level III 16:36:19 CDT Amelia Ernst Anju, DO, FACP CPT-45270 Ofc Vst, Est Level IV 22:37:22 CDT Amelianunu Ernst Anju, DO, FACP CPT-96634 Ofc Vst, Est Level V 15:41:07 CDT Amelianunu Ernst Anju, DO, FACP CPT-36020 Ofc Vst, Est Level III 11:42:56 CDT Amelianunu Ernst Anju, DO, FACP CPT-61525 Ofc Vst, Est Level III 12:06:27 ADA ACCOMMODATION CONSULTANT Amelia Ernst Anju, DO, FACP CPT-38215 Ofc Vst, Est Level III 14:34:43 CDT Amelia Ernst Anju, DO, FACP CPT-95321 Ofc Vst, Est Level III 14:19:43 ADA ACCOMMODATION CONSULTANT Amelia Ernst Anju, DO, FACP CPT-61296 Ofc Vst, Est Level IV 16:26:28 CDT Amelianunu Ernst Anju, DO, FACP CPT-79683 Ofc Vst, Est Level IV 14:04:53 ADA ACCOMMODATION CONSULTANT Amelia Rene DO, FACP CPT-72620 Ofc Vst, New Level IV 14:05:53 CDT Amelia Rene DO, FACP Procedures Code Procedure Name Date Entry Date Standard Description CPT-G0439 Medicare Annual Wellness Visit 12:45:38 ADA ACCOMMODATION CONSULTANT CPT-G8443 E-Prescribing Medication Sent 12:06:27 ADA ACCOMMODATION CONSULTANT CPT-G8443 E-Prescribing Medication Sent 12:44:06 CDT CPT-G0439 Medicare Annual Wellness Visit 12:44:06 CDT CPT-G8443 E-Prescribing Medication Sent 14:34:43 CDT CPT-G0438 Medicare Annual Wellness Visit Initial 11:12:53 CDT
--- OUTSIDE RECORDS SUMMARY | 2018-05-13 11:22 | XMS REPORT | Clinical Summary ---
Author Author User, [employer] Organization Amelia Rene DO, FACP Address Unknown [...] MG TABS 1 po BID SODIUM BICARBONATE 75322238069 Active Amelia Rene COUMADIN 1 MG TABS ONE TAB ALONG WITH 6MG TO TOTAL 7 MG ON WED, FRI AND SUN ONLY WARFARIN SODIUM 04388172908 Active Amelia Rene COUMADIN 6 MG TABS 1 PO DAILYON MON, TU, THURS AND FRI WARFARIN SODIUM 77071998444 Active Amelia Rene COUMADIN 1 MG TABS WARFARIN SODIUM 01264410869 No Longer Active Amelia Rene TESSALON PERLES 100 MG CAPS 1 PO TID prn cough BENZONATATE 68574036359 No Longer Active Karla Evans HYDROXYZINE HCL 10 MG TABS 1 PO TID PRN ITCHING HYDROXYZINE HCL 12435814248 No Longer Active Amelia Rene AMBIEN 10 MG TAB 1 PO QHS prn ZOLPIDEM TARTRATE 72608751765 No Longer Active Amelia Rene NOVOLOG FLEXPEN 100 UNIT/ML SOPN 14 UNITS BEFORE MEALS INSULIN ASPART 55404882842 Active Amelia Rene LEVEMIR FLEXPEN 100 UNIT/ML SOPN 25 UNITS AT HS INSULIN DETEMIR 06623414758 Active Amelia Rene COUMADIN 1 MG TABS TAKE ONE WITH A 6 MG TO TOTAL 7 MG AND THEN TAKE 6 MG THE NEXT. WARFARIN SODIUM 50406105960 No Longer Active Amelia Lisseth Rene LOVENOX 80 MG/0.8ML SOLN 1 injection twice daily ENOXAPARIN SODIUM 85844443875 No Longer Active Amelia Lisseth Rene OMEPRAZOLE 40 MG CPDR 1 PO daily OMEPRAZOLE 92714074156 Active Karla Evans NYSTATIN 183851 UNIT/ML SUSP 1 teaspoon swish and swallow QID NYSTATIN 29266665059 No Longer Active Amelianunu Rene PREDNISONE 20 MG TAB 1/2 PO daily PREDNISONE 18307685448 No Longer Active Amelianunu Rene TRUETEST TEST STRP TEST BS QID DX: 250.02 GLUCOSE BLOOD 09140771596 Active Karla Evans TOPAMAX 50 MG TABS 1 PO BID TOPIRAMATE 38348619489 Active Karla Evans MONTELUKAST SODIUM 10 MG TABS 1 PO AT HS MONTELUKAST SODIUM 30396766894 Active Karla Evans PREDNISONE 20 MG TAB 1 PO DAILY BID WITH MEALS PREDNISONE 42316219163 No Longer Active Amelianunu Rene CLARITIN 10 MG TABS 1 PO BID LORATADINE 25075743689 Active Amelianunu Rene PEPCID 20 MG TAB 1 PO BID FAMOTIDINE 05950258156 No Longer Active Amelianunu Rene DOXYCYCLINE HYCLATE 100 MG CAP 1 po BID DOXYCYCLINE HYCLATE 43950072839 No Longer Active Amelianunu Rene PEN NEEDLES /" 31G X 8 MM MISC DIRECTED DX: 250.02 INSULIN PEN NEEDLE 95202092826 No Longer Active Amelianunu Rene FLUOCINONIDE 0.05 % CREA apply to affected area on hand nightly for 7 nights then prn FLUOCINONIDE 45380675658 No Longer Active Amelia Lisseth Rene LEVITRA 10 MG TABS 1 PO as directed VARDENAFIL HCL 74577981091 No Longer Active Amelia Lisseth Rene SENIOR MULTIVITAMIN PLUS TABS 1 PO daily MULTIPLE VITAMINS- MINERALS 71286126420 No Longer Active Amelia Lisseth Rene EQL FISH OIL 1000 MG CAPS 3 PO BID OMEGA-3 FATTY ACIDS 42886304151 No Longer Active Amelia Lisseth Rene DOCUSATE SODIUM 100 MG CAPS 2 PO BID DOCUSATE SODIUM 71398299036 No Longer Active Amelia Lisseth Rene ASPIRIN 81 MG TABS 1 PO BID ASPIRIN 94429755324 No Longer Active Amelia Lisseth Rene CARBAMAZEPINE 200 MG TABS 3-5 PO daily CARBAMAZEPINE 79561947390 No Longer Active Amelia Lisseth Rene GEMFIBROZIL 600 MG TABS 1 PO BID GEMFIBROZIL 84526311288 No Longer Active Amelia Lisseth Rene METFORMIN HCL 1000 MG TABS 1 PO BID METFORMIN HCL 79124130408 No Longer Active Amelia Lisseth Rene GLYBURIDE 1.25 MG TABS 2 PO QAM and 1 PO QPM GLYBURIDE 62051194090 No Longer Active Amelia Lisseth Rene PROMETHAZINE VC/CODEINE 6.25-5-10 MG/5ML SYRP 1 teaspoon PO Q6hrs prn cough [id number] 71960363124 No Longer Active Amelia Lisseth Rene WELCHOL 625 MG TABS 3 PO BID with meals COLESEVELAM HCL 65507988647 No Longer Active Amelia Lisseth Rene TEGRETOL XR 100 MG [id number] 1 PO friday, friday, CARBAMAZEPINE 16916062474 No Longer Active Amelia Lisseth Rene JANUVIA 100 MG TABS 1 PO daily SITAGLIPTIN PHOSPHATE 18332935730 No Longer Active Amelia Lissethkarley Rene Immunizations [...] 10*3/mm3 Encounters Code Encounter Date Provider Facility CPT-24125 Ofc Vst, Est Level III 14:38:44 CDT Amelia Rene DO, FACP CPT-10490 Ofc Vst, Est Level IV 20:21:55 LAW FIRM ADMINISTRATOR Amelia Rene DO, FACP CPT-57641 Ofc Vst, Est Level IV 16:05:00 LAW FIRM ADMINISTRATOR Amelia Lisseth Rene Amelia S Rene, DO, FACP CPT-05321 Ofc Vst, Est Level V 21:19:57 LAW FIRM ADMINISTRATOR Amelia Ernst Anju, DO, FACP CPT-86031 Ofc Vst, Est Level IV 17:06:25 LAW FIRM ADMINISTRATOR Amelia [facility] CPT-77167 Ofc Vst, Est Level III 13:25:12 LAW FIRM ADMINISTRATOR Amelia Ernst Anju, DO, FACP CPT-83558 Ofc Vst, Est Level III 12:54:14 CDT Amelianunu Ernst Anju, DO, FACP CPT-11038 Ofc Vst, Est Level III 16:36:19 CDT Amelia Ernst Anju, DO, FACP CPT-90225 Ofc Vst, Est Level IV 22:37:22 CDT Amelia Lisseth Ernst Anju, DO, FACP CPT-71167 Ofc Vst, Est Level V 15:41:07 CDT Amelianunu Ernst Anju, DO, FACP CPT-43425 Ofc Vst, Est Level III 11:42:56 CDT Amelia Ernst Anju, DO, FACP CPT-97885 Ofc Vst, Est Level III 12:06:27 LAW FIRM ADMINISTRATOR Amelia Ernst Anju, DO, FACP CPT-96154 Ofc Vst, Est Level III 14:34:43 CDT Amelia Ernst Anju, DO, FACP CPT-95691 Ofc Vst, Est Level III 14:19:43 LAW FIRM ADMINISTRATOR Amelia Ernst Anju, DO, FACP CPT-72687 Ofc Vst, Est Level IV 16:26:28 CDT Amelianunu Ernst Anju, DO, FACP CPT-94461 Ofc Vst, Est Level IV 14:04:53 LAW FIRM ADMINISTRATOR Amelia Rene DO, FACP CPT-03580 Ofc Vst, New Level IV 14:05:53 CDT Amelia Rene DO, FACP Procedures Code Procedure Name Date Entry Date Standard Description CPT-G0439 Medicare Annual Wellness Visit 12:45:38 LAW FIRM ADMINISTRATOR CPT-G8443 E-Prescribing Medication Sent 12:06:27 LAW FIRM ADMINISTRATOR CPT-G8443 E-Prescribing Medication Sent 12:44:06 CDT CPT-G0439 Medicare Annual Wellness Visit 12:44:06 CDT CPT-G8443 E-Prescribing Medication Sent 14:34:43 CDT CPT-G0438 Medicare Annual Wellness Visit Initial 11:12:53 CDT
--- OUTSIDE RECORDS SUMMARY | 2018-05-13 11:24 | XMS REPORT | Clinical Summary ---
Author Author User, [email or web address] Organization Amelia Rene DO, FACP Address Unknown [...] MISC DIRECTED DX: 250.02 INSULIN PEN NEEDLE 55976228498 Active Karla Evans COUMADIN 6 MG TABS 1 PO DAILY WARFARIN SODIUM 42211914762 Active Amelia Rene COUMADIN 1 MG TABS ONE TAB ALONG WITH 6MG TO TOTAL 7 MG ON WED, SAT AND SUN ONLY WARFARIN SODIUM 29874843875 No Longer Active Amelia Rene SODIUM BICARBONATE 325 MG TABS 1 po BID SODIUM BICARBONATE 63489340745 Active Amelia Rene COUMADIN 1 MG TABS WARFARIN SODIUM 91585252853 No Longer Active Amelia Rene TESSALON PERLES 100 MG CAPS 1 PO TID prn cough BENZONATATE 76054129746 No Longer Active Karla Evans HYDROXYZINE HCL 10 MG TABS 1 PO TID PRN ITCHING HYDROXYZINE HCL 30809326393 No Longer Active Amelia Rene AMBIEN 10 MG TAB 1 PO QHS prn ZOLPIDEM TARTRATE 21242082546 No Longer Active Amelia Rene NOVOLOG FLEXPEN 100 UNIT/ML SOPN 14 UNITS BEFORE MEALS INSULIN ASPART 02851142713 Active Amelia Rene LEVEMIR FLEXPEN 100 UNIT/ML SOPN 25 UNITS AT HS INSULIN DETEMIR 27213488049 Active Amelianunu Rene COUMADIN 1 MG TABS TAKE ONE WITH A 6 MG TO TOTAL 7 MG AND THEN TAKE 6 MG THE NEXT. WARFARIN SODIUM 79561308922 No Longer Active Amelia Rene LOVENOX 80 MG/0.8ML SOLN 1 injection twice daily ENOXAPARIN SODIUM 60790516596 No Longer Active Amelianunu Rene OMEPRAZOLE 40 MG CPDR 1 PO daily OMEPRAZOLE 45469371156 Active Karlapatrick Evans NYSTATIN 987791 UNIT/ML SUSP 1 teaspoon swish and swallow QID NYSTATIN 73213728718 No Longer Active Amelianunu Rene PREDNISONE 20 MG TAB 1/2 PO daily PREDNISONE 21678292133 No Longer Active Amelia Rene TRUETEST TEST STRP TEST BS QID DX: 250.02 GLUCOSE BLOOD 90450171548 Active Karlapatrick Evans TOPAMAX 50 MG TABS 1 PO BID TOPIRAMATE 99237443918 Active Karla Cristina MONTELUKAST SODIUM 10 MG TABS 1 PO AT HS MONTELUKAST SODIUM 49529935762 Active Karlapatrick Evans PREDNISONE 20 MG TAB 1 PO DAILY BID WITH MEALS PREDNISONE 67070776383 No Longer Active Amelia Rene CLARITIN 10 MG TABS 1 PO BID LORATADINE 35560469207 Active Amelia Rene PEPCID 20 MG TAB 1 PO BID FAMOTIDINE 93655209453 No Longer Active Amelianunu Rene DOXYCYCLINE HYCLATE 100 MG CAP 1 po BID DOXYCYCLINE HYCLATE 84368263240 No Longer Active Amelia Rene PEN NEEDLES 5/16" 31G X 8 MM MISC DIRECTED DX: 250.02 INSULIN PEN NEEDLE 85151768376 No Longer Active Amelia Lisseth Rene FLUOCINONIDE 0.05 % CREA apply to affected area on hand nightly for 7 nights then prn FLUOCINONIDE 75275474090 No Longer Active Amelia Lisseth Rene LEVITRA 10 MG TABS 1 PO as directed VARDENAFIL HCL 96017499270 No Longer Active Amelia Lisseth Rene SENIOR MULTIVITAMIN PLUS TABS 1 PO daily MULTIPLE VITAMINS- MINERALS 77547675878 No Longer Active Amelia Lisseth Rene EQL FISH OIL 1000 MG CAPS 3 PO BID OMEGA-3 FATTY ACIDS 16041785014 No Longer Active Amelia Lisseth Rene DOCUSATE SODIUM 100 MG CAPS 2 PO BID DOCUSATE SODIUM 36034140614 No Longer Active Amelia Lisseth Rene ASPIRIN 81 MG TABS 1 PO BID ASPIRIN 79324395668 No Longer Active Amelia Lisseth Rene CARBAMAZEPINE 200 MG TABS 3-5 PO daily CARBAMAZEPINE 15154421832 No Longer Active Amelia Lisseth Rene GEMFIBROZIL 600 MG TABS 1 PO BID GEMFIBROZIL 38022429764 No Longer Active Amelia Lisseth Rene METFORMIN HCL 1000 MG TABS 1 PO BID METFORMIN HCL 80535020284 No Longer Active Amelia Lisseth Rene GLYBURIDE 1.25 MG TABS 2 PO QAM and 1 PO QPM GLYBURIDE 54458826243 No Longer Active Amelia Lisseth Rene PROMETHAZINE VC/CODEINE 6.25-5-10 MG/5ML SYRP 1 teaspoon PO Q6hrs prn cough [id number] 90727634275 No Longer Active Amelia Lisseth Rene WELCHOL 625 MG TABS 3 PO BID with meals COLESEVELAM HCL 31222220237 No Longer Active Amelia Lisseth Rene TEGRETOL XR 100 MG [id number] 1 PO friday, friday, [facility] 09094796463 No Longer Active Amelia Rene JANUVIA 100 MG TABS 1 PO daily SITAGLIPTIN PHOSPHATE 85322910895 No Longer Active Amelia Rene Immunizations Vaccine [...] mm/h Encounters Code Encounter Date Provider Facility CPT-74047 Ofc Vst, Est Level III 14:38:44 CDT Amelia Rene DO, FACP CPT-85690 Ofc Vst, Est Level IV 20:21:55 UTILIZATION COORDINATOR Amelia Ernst Rene, DO, FACP CPT-82512 Ofc Vst, Est Level IV 16:05:00 UTILIZATION COORDINATOR Amelia Ernst Rene, DO, FACP CPT-83957 Ofc Vst, Est Level V 21:19:57 UTILIZATION COORDINATOR Amelia Ernst Rene, DO, FACP CPT-55766 Ofc Vst, Est Level IV 17:06:25 UTILIZATION COORDINATOR Amelia Rene [facility] CPT-91498 Ofc Vst, Est Level III 13:25:12 UTILIZATION COORDINATOR Amelia Ernst Rene, DO, FACP CPT-68188 Ofc Vst, Est Level III 12:54:14 CDT Amelianunu Ernst Anju, DO, FACP CPT-71051 Ofc Vst, Est Level III 16:36:19 CDT Amelianunu Ernst Rene, DO, FACP CPT-52847 Ofc Vst, Est Level IV 22:37:22 CDT Amelianunu Ernst Rene, DO, FACP CPT-59528 Ofc Vst, Est Level V 15:41:07 CDT Amelianunu Ernst Rene, DO, FACP CPT-44632 Ofc Vst, Est Level III 11:42:56 CDT Amelia Lisseth Ernst Rene, DO, FACP CPT-30818 Ofc Vst, Est Level III 12:06:27 UTILIZATION COORDINATOR Amelia Lisseth Ernst Rene, DO, FACP CPT-26809 Ofc Vst, Est Level III 14:34:43 CDT Amelia Lisseth Ernst Rene, DO, FACP CPT-74788 Ofc Vst, Est Level III 14:19:43 UTILIZATION COORDINATOR Amelia Lisseth Ernst Rene, DO, FACP CPT-09222 Ofc Vst, Est Level IV 16:26:28 CDT Amelia Rene DO, FACP CPT-08364 Ofc Vst, Est Level IV 14:04:53 UTILIZATION COORDINATOR Amelia Rene DO, FACP CPT-93427 Ofc Vst, New Level IV 14:05:53 CDT Amelia Rene DO, FACP Procedures Code Procedure Name Date Entry Date Standard Description CPT-G0439 Medicare Annual Wellness Visit 12:45:38 UTILIZATION COORDINATOR CPT-G8443 E-Prescribing Medication Sent 12:06:27 UTILIZATION COORDINATOR CPT-G8443 E-Prescribing Medication Sent 12:44:06 CDT CPT-G0439 Medicare Annual Wellness Visit 12:44:06 CDT CPT-G8443 E-Prescribing Medication Sent 14:34:43 CDT CPT-G0438 Medicare Annual Wellness Visit Initial 11:12:53 CDT
--- OUTSIDE RECORDS SUMMARY | 2018-05-13 11:25 | XMS REPORT | Clinical Summary ---
Author Author User, [employer] Organization Amelia Rene DO, FACP Address Unknown [...] MG TABS 1 po BID SODIUM BICARBONATE 74286122457 Active Amelia Rene COUMADIN 1 MG TABS ONE TAB ALONG WITH 6MG TO TOTAL 7 MG ON WED, FRI AND SUN ONLY WARFARIN SODIUM 96551056767 Active Amelia Rene COUMADIN 6 MG TABS 1 PO DAILYON MON, TU, THURS AND FRI WARFARIN SODIUM 01044334041 Active Amelia Rene COUMADIN 1 MG TABS WARFARIN SODIUM 99104731582 No Longer Active Amelia Rene TESSALON PERLES 100 MG CAPS 1 PO TID prn cough BENZONATATE 92807341197 No Longer Active Karla Evans HYDROXYZINE HCL 10 MG TABS 1 PO TID PRN ITCHING HYDROXYZINE HCL 00609893931 No Longer Active Amelia Rene AMBIEN 10 MG TAB 1 PO QHS prn ZOLPIDEM TARTRATE 55830393115 No Longer Active Amelia Rene NOVOLOG FLEXPEN 100 UNIT/ML SOPN 14 UNITS BEFORE MEALS INSULIN ASPART 70022698529 Active Amelia Rene LEVEMIR FLEXPEN 100 UNIT/ML SOPN 25 UNITS AT HS INSULIN DETEMIR 78538799786 Active Amelia Rene COUMADIN 1 MG TABS TAKE ONE WITH A 6 MG TO TOTAL 7 MG AND THEN TAKE 6 MG THE NEXT. WARFARIN SODIUM 72838505637 No Longer Active Amelia Lisseth Rene LOVENOX 80 MG/0.8ML SOLN 1 injection twice daily ENOXAPARIN SODIUM 25835573101 No Longer Active Amelia Lisseth Rene OMEPRAZOLE 40 MG CPDR 1 PO daily OMEPRAZOLE 76660016168 Active Karla Evans NYSTATIN 503136 UNIT/ML SUSP 1 teaspoon swish and swallow QID NYSTATIN 61352323994 No Longer Active Amelianunu Rene PREDNISONE 20 MG TAB 1/2 PO daily PREDNISONE 52051811961 No Longer Active Amelianunu Rene TRUETEST TEST STRP TEST BS QID DX: 250.02 GLUCOSE BLOOD 03760737154 Active Karla Evans TOPAMAX 50 MG TABS 1 PO BID TOPIRAMATE 61753659451 Active Karla Evans MONTELUKAST SODIUM 10 MG TABS 1 PO AT HS MONTELUKAST SODIUM 54898388299 Active Karla Evans PREDNISONE 20 MG TAB 1 PO DAILY BID WITH MEALS PREDNISONE 61103749499 No Longer Active Amelianunu Rene CLARITIN 10 MG TABS 1 PO BID LORATADINE 87871222216 Active Amelianunu Rene PEPCID 20 MG TAB 1 PO BID FAMOTIDINE 85386147607 No Longer Active Amelianunu Rene DOXYCYCLINE HYCLATE 100 MG CAP 1 po BID DOXYCYCLINE HYCLATE 78894926064 No Longer Active Amelianunu Rene PEN NEEDLES 01/21" 31G X 8 MM MISC DIRECTED DX: 250.02 INSULIN PEN NEEDLE 51928947148 No Longer Active Amelia Lisseth Rene FLUOCINONIDE 0.05 % CREA apply to affected area on hand nightly for 7 nights then prn FLUOCINONIDE 42784002261 No Longer Active Amelia Lisseth Rene LEVITRA 10 MG TABS 1 PO as directed VARDENAFIL HCL 35219894950 No Longer Active Amelia Lisseth Rene SENIOR MULTIVITAMIN PLUS TABS 1 PO daily MULTIPLE VITAMINS- MINERALS 11963495636 No Longer Active Amelia Lisseth Rene EQL FISH OIL 1000 MG CAPS 3 PO BID OMEGA-3 FATTY ACIDS 32909153975 No Longer Active Amelia Lisseth Rene DOCUSATE SODIUM 100 MG CAPS 2 PO BID DOCUSATE SODIUM 05080607533 No Longer Active Amelia Lisseth Rene ASPIRIN 81 MG TABS 1 PO BID ASPIRIN 34432279812 No Longer Active Amelia Lisseth Rene CARBAMAZEPINE 200 MG TABS 3-5 PO daily CARBAMAZEPINE 25939135207 No Longer Active Amelia Lsiseth Rene GEMFIBROZIL 600 MG TABS 1 PO BID GEMFIBROZIL 08334802656 No Longer Active Amelia Lisseth Rene METFORMIN HCL 1000 MG TABS 1 PO BID METFORMIN HCL 31354926178 No Longer Active Amelia Lisseth Rene GLYBURIDE 1.25 MG TABS 2 PO QAM and 1 PO QPM GLYBURIDE 63533417944 No Longer Active Amelia Lisseth Rene PROMETHAZINE VC/CODEINE 6.25-5-10 MG/5ML SYRP 1 teaspoon PO Q6hrs prn cough [id number] 96659888479 No Longer Active Amelia Lisseth Rene WELCHOL 625 MG TABS 3 PO BID with meals COLESEVELAM HCL 63188240340 No Longer Active Amelia Lisseth Rene TEGRETOL XR 100 MG [id number] 1 PO friday, friday, CARBAMAZEPINE 71318354241 No Longer Active Amelia Lisseth Rene JANUVIA 100 MG TABS 1 PO daily SITAGLIPTIN PHOSPHATE 21308729800 No Longer Active Amelia Lissethkarley Rene Immunizations [...] 10*3/mm3 Encounters Code Encounter Date Provider Facility CPT-63733 Ofc Vst, Est Level III 14:38:44 CDT Amelia Rene DO, FACP CPT-59459 Ofc Vst, Est Level IV 20:21:55 GERIATRIC NURSE PRACTITIONER Amelia Rene DO, FACP CPT-50927 Ofc Vst, Est Level IV 16:05:00 GERIATRIC NURSE PRACTITIONER Amelia Lisseth Rene Amelia S Rene, DO, FACP CPT-79927 Ofc Vst, Est Level V 21:19:57 GERIATRIC NURSE PRACTITIONER Amelia Ernst Anju, DO, FACP CPT-19248 Ofc Vst, Est Level IV 17:06:25 GERIATRIC NURSE PRACTITIONER Amelia [facility] CPT-11215 Ofc Vst, Est Level III 13:25:12 GERIATRIC NURSE PRACTITIONER Amelia Ernst Anju, DO, FACP CPT-06554 Ofc Vst, Est Level III 12:54:14 CDT Amelianunu Ernst Anju, DO, FACP CPT-98511 Ofc Vst, Est Level III 16:36:19 CDT Amelia Ernst Anju, DO, FACP CPT-01343 Ofc Vst, Est Level IV 22:37:22 CDT Amelianunu Ernst Anju, DO, FACP CPT-01686 Ofc Vst, Est Level V 15:41:07 CDT Amelianunu Ernst Anju, DO, FACP CPT-79451 Ofc Vst, Est Level III 11:42:56 CDT Amelianunu Ernst Anju, DO, FACP CPT-74316 Ofc Vst, Est Level III 12:06:27 GERIATRIC NURSE PRACTITIONER Amelia Ernst Anju, DO, FACP CPT-64381 Ofc Vst, Est Level III 14:34:43 CDT Amelia Ernst Anju, DO, FACP CPT-05327 Ofc Vst, Est Level III 14:19:43 GERIATRIC NURSE PRACTITIONER Amelia Ernst Anju, DO, FACP CPT-89360 Ofc Vst, Est Level IV 16:26:28 CDT Amelianunu Ernst Anju, DO, FACP CPT-82454 Ofc Vst, Est Level IV 14:04:53 GERIATRIC NURSE PRACTITIONER Amelia Rene DO, FACP CPT-68849 Ofc Vst, New Level IV 14:05:53 CDT Amelia Rene DO, FACP Procedures Code Procedure Name Date Entry Date Standard Description CPT-G0439 Medicare Annual Wellness Visit 12:45:38 GERIATRIC NURSE PRACTITIONER CPT-G8443 E-Prescribing Medication Sent 12:06:27 GERIATRIC NURSE PRACTITIONER CPT-G8443 E-Prescribing Medication Sent 12:44:06 CDT CPT-G0439 Medicare Annual Wellness Visit 12:44:06 CDT CPT-G8443 E-Prescribing Medication Sent 14:34:43 CDT CPT-G0438 Medicare Annual Wellness Visit Initial 11:12:53 CDT
--- OUTSIDE RECORDS SUMMARY | 2018-05-13 11:25 | XMS REPORT | Clinical Summary ---
Author Author User, [employer] Organization Amelia Rene DO, FACP Address Unknown [...] use of other medications HYPERTENSION 401.1 Active Amleia Rene Benign essential hypertension URI 465.9 Inactive [...] MG TABS 1 po BID SODIUM BICARBONATE 53981116205 Active Amelia Rene COUMADIN 1 MG TABS ONE TAB ALONG WITH 6MG TO TOTAL 7 MG ON WED, FRI AND SUN ONLY WARFARIN SODIUM 37942293691 Active Amelia Rene COUMADIN 6 MG TABS 1 PO DAILYON MON, TU, THURS AND FRI WARFARIN SODIUM 74208760921 Active Amelia Rene COUMADIN 1 MG TABS WARFARIN SODIUM 01084419630 No Longer Active Amelia Rene TESSALON PERLES 100 MG CAPS 1 PO TID prn cough BENZONATATE 53628238541 No Longer Active Karla Evans HYDROXYZINE HCL 10 MG TABS 1 PO TID PRN ITCHING HYDROXYZINE HCL 57810059753 No Longer Active Amelia Rene AMBIEN 10 MG TAB 1 PO QHS prn ZOLPIDEM TARTRATE 11258530981 No Longer Active Amelia Rene NOVOLOG FLEXPEN 100 UNIT/ML SOPN 14 UNITS BEFORE MEALS INSULIN ASPART 33736645342 Active Amelia Rene LEVEMIR FLEXPEN 100 UNIT/ML SOPN 25 UNITS AT HS INSULIN DETEMIR 40289969602 Active Amelia Rene COUMADIN 1 MG TABS TAKE ONE WITH A 6 MG TO TOTAL 7 MG AND THEN TAKE 6 MG THE NEXT. WARFARIN SODIUM 75024233344 No Longer Active Amelia Lisseth Rene LOVENOX 80 MG/0.8ML SOLN 1 injection twice daily ENOXAPARIN SODIUM 89773528872 No Longer Active Amelia Lisseth Rene OMEPRAZOLE 40 MG CPDR 1 PO daily OMEPRAZOLE 64103904398 Active Karla Evans NYSTATIN 185709 UNIT/ML SUSP 1 teaspoon swish and swallow QID NYSTATIN 50965967355 No Longer Active Amelianunu Rene PREDNISONE 20 MG TAB 1/2 PO daily PREDNISONE 09724702313 No Longer Active Amelianunu Rene TRUETEST TEST STRP TEST BS QID DX: 250.02 GLUCOSE BLOOD 41655834044 Active Karla Evans TOPAMAX 50 MG TABS 1 PO BID TOPIRAMATE 50001805901 Active Karla Evans MONTELUKAST SODIUM 10 MG TABS 1 PO AT HS MONTELUKAST SODIUM 34431708364 Active Karla Evans PREDNISONE 20 MG TAB 1 PO DAILY BID WITH MEALS PREDNISONE 07324154418 No Longer Active Amelianunu Rene CLARITIN 10 MG TABS 1 PO BID LORATADINE 83992294736 Active Amelianunu Rene PEPCID 20 MG TAB 1 PO BID FAMOTIDINE 81023834379 No Longer Active Amelianunu Rene DOXYCYCLINE HYCLATE 100 MG CAP 1 po BID DOXYCYCLINE HYCLATE 81617465927 No Longer Active Amelianunu Rene PEN NEEDLES /" 31G X 8 MM MISC DIRECTED DX: 250.02 INSULIN PEN NEEDLE 61379264377 No Longer Active Amelianunu Rene FLUOCINONIDE 0.05 % CREA apply to affected area on hand nightly for 7 nights then prn FLUOCINONIDE 30419405822 No Longer Active Amelia Lisseth Rene LEVITRA 10 MG TABS 1 PO as directed VARDENAFIL HCL 06022717754 No Longer Active Amelia Lisseth Rene SENIOR MULTIVITAMIN PLUS TABS 1 PO daily MULTIPLE VITAMINS- MINERALS 77280666623 No Longer Active Amelia Lisseth Rene EQL FISH OIL 1000 MG CAPS 3 PO BID OMEGA-3 FATTY ACIDS 19388183288 No Longer Active Amelia Lisseth Rene DOCUSATE SODIUM 100 MG CAPS 2 PO BID DOCUSATE SODIUM 01345141638 No Longer Active Amelia Lisseth Rene ASPIRIN 81 MG TABS 1 PO BID ASPIRIN 21124442351 No Longer Active Amelia Lisseth Rene CARBAMAZEPINE 200 MG TABS 3-5 PO daily CARBAMAZEPINE 56089675905 No Longer Active Amelia Lisseth Rene GEMFIBROZIL 600 MG TABS 1 PO BID GEMFIBROZIL 86687668271 No Longer Active Amelia Lisseth Rene METFORMIN HCL 1000 MG TABS 1 PO BID METFORMIN HCL 74680633430 No Longer Active Amelia Lisseth Rene GLYBURIDE 1.25 MG TABS 2 PO QAM and 1 PO QPM GLYBURIDE 59941353916 No Longer Active Amelia Lisseth Rene PROMETHAZINE VC/CODEINE 6.25-5-10 MG/5ML SYRP 1 teaspoon PO Q6hrs prn cough [id number] 90825466838 No Longer Active Amelia Lisseth Rene WELCHOL 625 MG TABS 3 PO BID with meals COLESEVELAM HCL 72287574401 No Longer Active Amelia Lisseth Rene TEGRETOL XR 100 MG [id number] 1 PO friday, friday, CARBAMAZEPINE 22184051547 No Longer Active Amelia Lisseth Rene JANUVIA 100 MG TABS 1 PO daily SITAGLIPTIN PHOSPHATE 12489329858 No Longer Active Amelia Lissethkarley Rene Immunizations [...] 10*3/mm3 Encounters Code Encounter Date Provider Facility CPT-10558 Ofc Vst, Est Level III 14:38:44 CDT Amelia Rene DO, FACP CPT-59194 Ofc Vst, Est Level IV 20:21:55 KEYBOARD SPECIALIST Amelia Rene DO, FACP CPT-16575 Ofc Vst, Est Level IV 16:05:00 KEYBOARD SPECIALIST Amelia Lisseth Rene Amelia S Rene, DO, FACP CPT-75090 Ofc Vst, Est Level V 21:19:57 KEYBOARD SPECIALIST Amelia Ernst Anju, DO, FACP CPT-63632 Ofc Vst, Est Level IV 17:06:25 KEYBOARD SPECIALIST Amelia [facility] CPT-72724 Ofc Vst, Est Level III 13:25:12 KEYBOARD SPECIALIST Amelia Ernst Anju, DO, FACP CPT-84239 Ofc Vst, Est Level III 12:54:14 CDT Amelianunu Ernst Anju, DO, FACP CPT-33193 Ofc Vst, Est Level III 16:36:19 CDT Amelia Ernst Anju, DO, FACP CPT-79519 Ofc Vst, Est Level IV 22:37:22 CDT Amelia Lisseth Ernst Anju, DO, FACP CPT-04264 Ofc Vst, Est Level V 15:41:07 CDT Amelianunu Ernst Anju, DO, FACP CPT-24804 Ofc Vst, Est Level III 11:42:56 CDT Amelia Ernst Anju, DO, FACP CPT-67426 Ofc Vst, Est Level III 12:06:27 KEYBOARD SPECIALIST Amelia Ernst Anju, DO, FACP CPT-32788 Ofc Vst, Est Level III 14:34:43 CDT Amelia Ernst Anju, DO, FACP CPT-09748 Ofc Vst, Est Level III 14:19:43 KEYBOARD SPECIALIST Amelia Ernst Anju, DO, FACP CPT-89309 Ofc Vst, Est Level IV 16:26:28 CDT Amelianunu Ernst Anju, DO, FACP CPT-71982 Ofc Vst, Est Level IV 14:04:53 KEYBOARD SPECIALIST Amelia Rene DO, FACP CPT-53353 Ofc Vst, New Level IV 14:05:53 CDT Amelia Rene DO, FACP Procedures Code Procedure Name Date Entry Date Standard Description CPT-G0439 Medicare Annual Wellness Visit 12:45:38 KEYBOARD SPECIALIST CPT-G8443 E-Prescribing Medication Sent 12:06:27 KEYBOARD SPECIALIST CPT-G8443 E-Prescribing Medication Sent 12:44:06 CDT CPT-G0439 Medicare Annual Wellness Visit 12:44:06 CDT CPT-G8443 E-Prescribing Medication Sent 14:34:43 CDT CPT-G0438 Medicare Annual Wellness Visit Initial 11:12:53 CDT
--- OUTSIDE RECORDS SUMMARY | 2018-05-13 11:26 | XMS REPORT | Clinical Summary ---
Author Author User, [employer] Organization Amelia Rene DO, FACP Address Unknown [...] unspecified type, uncontrolled OTHER CONVULSIONS 780.39 Active Ameila Rene Other convulsions HYPERCHOLESTEROLEMIA 272.0 Active Amelia [...] MG TABS 1 po BID SODIUM BICARBONATE 35754391796 Active Amelia Rene COUMADIN 1 MG TABS ONE TAB ALONG WITH 6MG TO TOTAL 7 MG ON WED, FRI AND SUN ONLY WARFARIN SODIUM 79829745583 Active Amelia Rene COUMADIN 6 MG TABS 1 PO DAILYON MON, TU, THURS AND FRI WARFARIN SODIUM 05818012645 Active Amelia Rene COUMADIN 1 MG TABS WARFARIN SODIUM 26307785175 No Longer Active Amelia Rene TESSALON PERLES 100 MG CAPS 1 PO TID prn cough BENZONATATE 94123327285 No Longer Active Karla Evans HYDROXYZINE HCL 10 MG TABS 1 PO TID PRN ITCHING HYDROXYZINE HCL 28728093300 No Longer Active Amelia Rene AMBIEN 10 MG TAB 1 PO QHS prn ZOLPIDEM TARTRATE 01446469785 No Longer Active Amelia Rene NOVOLOG FLEXPEN 100 UNIT/ML SOPN 14 UNITS BEFORE MEALS INSULIN ASPART 95441474963 Active Amelia Rene LEVEMIR FLEXPEN 100 UNIT/ML SOPN 25 UNITS AT HS INSULIN DETEMIR 63012842063 Active Amelia Rene COUMADIN 1 MG TABS TAKE ONE WITH A 6 MG TO TOTAL 7 MG AND THEN TAKE 6 MG THE NEXT. WARFARIN SODIUM 80350082389 No Longer Active Amelia Lisseth Rene LOVENOX 80 MG/0.8ML SOLN 1 injection twice daily ENOXAPARIN SODIUM 08970706928 No Longer Active Amelia Lisseth Rene OMEPRAZOLE 40 MG CPDR 1 PO daily OMEPRAZOLE 89463197270 Active Karla Evans NYSTATIN 885326 UNIT/ML SUSP 1 teaspoon swish and swallow QID NYSTATIN 56652017482 No Longer Active Amelianunu Rene PREDNISONE 20 MG TAB 1/2 PO daily PREDNISONE 40195632813 No Longer Active Amelianunu Rene TRUETEST TEST STRP TEST BS QID DX: 250.02 GLUCOSE BLOOD 30180293360 Active Karla Evans TOPAMAX 50 MG TABS 1 PO BID TOPIRAMATE 85922372066 Active Karla Evans MONTELUKAST SODIUM 10 MG TABS 1 PO AT HS MONTELUKAST SODIUM 55489312684 Active Karla Evans PREDNISONE 20 MG TAB 1 PO DAILY BID WITH MEALS PREDNISONE 95776390287 No Longer Active Amelianunu Rene CLARITIN 10 MG TABS 1 PO BID LORATADINE 57124686755 Active Amelianunu Rene PEPCID 20 MG TAB 1 PO BID FAMOTIDINE 32863060884 No Longer Active Amelianunu Rene DOXYCYCLINE HYCLATE 100 MG CAP 1 po BID DOXYCYCLINE HYCLATE 18091935377 No Longer Active Amelianunu Rene PEN NEEDLES 01/21" 31G X 8 MM MISC DIRECTED DX: 250.02 INSULIN PEN NEEDLE 86644195260 No Longer Active Amelia Lisseth Rene FLUOCINONIDE 0.05 % CREA apply to affected area on hand nightly for 7 nights then prn FLUOCINONIDE 07958204100 No Longer Active Amelia Lisseth Rene LEVITRA 10 MG TABS 1 PO as directed VARDENAFIL HCL 70727776369 No Longer Active Amelia Lisseth Rene SENIOR MULTIVITAMIN PLUS TABS 1 PO daily MULTIPLE VITAMINS- MINERALS 40588259150 No Longer Active Amelia Lisseth Rene EQL FISH OIL 1000 MG CAPS 3 PO BID OMEGA-3 FATTY ACIDS 58844303552 No Longer Active Amelia Lisseth Rene DOCUSATE SODIUM 100 MG CAPS 2 PO BID DOCUSATE SODIUM 08575647291 No Longer Active Amelia Lisseth Rene ASPIRIN 81 MG TABS 1 PO BID ASPIRIN 83597066348 No Longer Active Amelia Lisseth Rene CARBAMAZEPINE 200 MG TABS 3-5 PO daily CARBAMAZEPINE 92092877924 No Longer Active Amelia Lisseth Rene GEMFIBROZIL 600 MG TABS 1 PO BID GEMFIBROZIL 12914770894 No Longer Active Amelia Lisseth Rene METFORMIN HCL 1000 MG TABS 1 PO BID METFORMIN HCL 08646683464 No Longer Active Amelia Lisseth Rene GLYBURIDE 1.25 MG TABS 2 PO QAM and 1 PO QPM GLYBURIDE 72923393499 No Longer Active Amelia Lisseth Rene PROMETHAZINE VC/CODEINE 6.25-5-10 MG/5ML SYRP 1 teaspoon PO Q6hrs prn cough [id number] 80776666213 No Longer Active Amelia Lisseth Rene WELCHOL 625 MG TABS 3 PO BID with meals COLESEVELAM HCL 50306342685 No Longer Active Amelia Lisseth Rene TEGRETOL XR 100 MG [id number] 1 PO friday, friday, CARBAMAZEPINE 54985509531 No Longer Active Amelia Lisseth Rene JANUVIA 100 MG TABS 1 PO daily SITAGLIPTIN PHOSPHATE 08479059879 No Longer Active Amelia Lissethkarley Rene Immunizations [...] 10*3/mm3 Encounters Code Encounter Date Provider Facility CPT-99196 Ofc Vst, Est Level III 14:38:44 CDT Amelia Rene DO, FACP CPT-60407 Ofc Vst, Est Level IV 20:21:55 DEMOGRAPHER Amelia Rene DO, FACP CPT-57344 Ofc Vst, Est Level IV 16:05:00 DEMOGRAPHER Amelia Lisseth Rene Amelia S Rene, DO, FACP CPT-70460 Ofc Vst, Est Level V 21:19:57 DEMOGRAPHER Amelia Ernst Anju, DO, FACP CPT-73953 Ofc Vst, Est Level IV 17:06:25 DEMOGRAPHER Amelia [facility] CPT-49548 Ofc Vst, Est Level III 13:25:12 DEMOGRAPHER Amelia Ernst Anju, DO, FACP CPT-61334 Ofc Vst, Est Level III 12:54:14 CDT Amelianunu Ernst Anju, DO, FACP CPT-55249 Ofc Vst, Est Level III 16:36:19 CDT Amelia Ernst Anju, DO, FACP CPT-76889 Ofc Vst, Est Level IV 22:37:22 CDT Amelianunu Ernst Anju, DO, FACP CPT-43219 Ofc Vst, Est Level V 15:41:07 CDT Amelianunu Ernst Anju, DO, FACP CPT-72361 Ofc Vst, Est Level III 11:42:56 CDT Amelianunu Ernst Anju, DO, FACP CPT-62910 Ofc Vst, Est Level III 12:06:27 DEMOGRAPHER Amelia Enrst Anju, DO, FACP CPT-36808 Ofc Vst, Est Level III 14:34:43 CDT Amelia Ernst Anju, DO, FACP CPT-02804 Ofc Vst, Est Level III 14:19:43 DEMOGRAPHER Amelia Ernst Anju, DO, FACP CPT-84517 Ofc Vst, Est Level IV 16:26:28 CDT Amelianunu Ernst Anju, DO, FACP CPT-77619 Ofc Vst, Est Level IV 14:04:53 DEMOGRAPHER Amelia Rene DO, FACP CPT-72853 Ofc Vst, New Level IV 14:05:53 CDT Amelia Rene DO, FACP Procedures Code Procedure Name Date Entry Date Standard Description CPT-G0439 Medicare Annual Wellness Visit 12:45:38 DEMOGRAPHER CPT-G8443 E-Prescribing Medication Sent 12:06:27 DEMOGRAPHER CPT-G8443 E-Prescribing Medication Sent 12:44:06 CDT CPT-G0439 Medicare Annual Wellness Visit 12:44:06 CDT CPT-G8443 E-Prescribing Medication Sent 14:34:43 CDT CPT-G0438 Medicare Annual Wellness Visit Initial 11:12:53 CDT
--- OUTSIDE RECORDS SUMMARY | 2018-05-13 11:27 | XMS REPORT | Clinical Summary ---
Author Author User, Number 100 Organization Amelia Rene DO, FACP Address Unknown [...] MG TABS 1 po BID SODIUM BICARBONATE 91424209504 Active Amelia Rene COUMADIN 1 MG TABS ONE TAB ALONG WITH 6MG TO TOTAL 7 MG ON WED, FRI AND SUN ONLY WARFARIN SODIUM 26050280501 Active Amelia Rene COUMADIN 6 MG TABS 1 PO DAILYON MON, TU, THURS AND FRI WARFARIN SODIUM 46921519331 Active Amelia Rene COUMADIN 1 MG TABS WARFARIN SODIUM 81998487152 No Longer Active Amelia Rene TESSALON PERLES 100 MG CAPS 1 PO TID prn cough BENZONATATE 60325966373 No Longer Active Karla Evans HYDROXYZINE HCL 10 MG TABS 1 PO TID PRN ITCHING HYDROXYZINE HCL 45481999534 No Longer Active Amelia Rene AMBIEN 10 MG TAB 1 PO QHS prn ZOLPIDEM TARTRATE 11292263515 No Longer Active Amelia Rene NOVOLOG FLEXPEN 100 UNIT/ML SOPN 14 UNITS BEFORE MEALS INSULIN ASPART 99506074860 Active Amelia Rene LEVEMIR FLEXPEN 100 UNIT/ML SOPN 25 UNITS AT HS INSULIN DETEMIR 56595723306 Active Amelia Rene COUMADIN 1 MG TABS TAKE ONE WITH A 6 MG TO TOTAL 7 MG AND THEN TAKE 6 MG THE NEXT. WARFARIN SODIUM 62295258635 No Longer Active Amelia Lisseth Rene LOVENOX 80 MG/0.8ML SOLN 1 injection twice daily ENOXAPARIN SODIUM 52985331328 No Longer Active Amelia Lisseth Rene OMEPRAZOLE 40 MG CPDR 1 PO daily OMEPRAZOLE 02716493015 Active Karla Evans NYSTATIN 122209 UNIT/ML SUSP 1 teaspoon swish and swallow QID NYSTATIN 30207577067 No Longer Active Amelianunu Rene PREDNISONE 20 MG TAB 1/2 PO daily PREDNISONE 27955839962 No Longer Active Amelianunu Rene TRUETEST TEST STRP TEST BS QID DX: 250.02 GLUCOSE BLOOD 58027714973 Active Karla Evans TOPAMAX 50 MG TABS 1 PO BID TOPIRAMATE 93270046948 Active Karla Evans MONTELUKAST SODIUM 10 MG TABS 1 PO AT HS MONTELUKAST SODIUM 81484065741 Active Karla Evans PREDNISONE 20 MG TAB 1 PO DAILY BID WITH MEALS PREDNISONE 78359602217 No Longer Active Amelianunu Rene CLARITIN 10 MG TABS 1 PO BID LORATADINE 21378152807 Active Amelianunu Rene PEPCID 20 MG TAB 1 PO BID FAMOTIDINE 05847537788 No Longer Active Amelianunu Rene DOXYCYCLINE HYCLATE 100 MG CAP 1 po BID DOXYCYCLINE HYCLATE 95119966535 No Longer Active Amelianunu Rene PEN NEEDLES 01/21" 31G X 8 MM MISC DIRECTED DX: 250.02 INSULIN PEN NEEDLE 07033184110 No Longer Active Amelia Lisseth Rene FLUOCINONIDE 0.05 % CREA apply to affected area on hand nightly for 7 nights then prn FLUOCINONIDE 15889341724 No Longer Active Amelia Lisseth Rene LEVITRA 10 MG TABS 1 PO as directed VARDENAFIL HCL 51747097696 No Longer Active Amelia Lisseth Rene SENIOR MULTIVITAMIN PLUS TABS 1 PO daily MULTIPLE VITAMINS- MINERALS 96018897420 No Longer Active Amelia Lisseth Rene EQL FISH OIL 1000 MG CAPS 3 PO BID OMEGA-3 FATTY ACIDS 63463942730 No Longer Active Amelia Lisseth Rene DOCUSATE SODIUM 100 MG CAPS 2 PO BID DOCUSATE SODIUM 67377863873 No Longer Active Amelia Lisseth Rene ASPIRIN 81 MG TABS 1 PO BID ASPIRIN 76405182917 No Longer Active Amelia Lisseth Rene CARBAMAZEPINE 200 MG TABS 3-5 PO daily CARBAMAZEPINE 03427070833 No Longer Active Amelia Lisseth Reen GEMFIBROZIL 600 MG TABS 1 PO BID GEMFIBROZIL 03098458309 No Longer Active Amelia Lisseth Rene METFORMIN HCL 1000 MG TABS 1 PO BID METFORMIN HCL 19784686759 No Longer Active Amelia Lisseth Rene GLYBURIDE 1.25 MG TABS 2 PO QAM and 1 PO QPM GLYBURIDE 61435771392 No Longer Active Amelia Lisseth Rene PROMETHAZINE VC/CODEINE 6.25-5-10 MG/5ML SYRP 1 teaspoon PO Q6hrs prn cough [id number] 00752209026 No Longer Active Amelia Lisseth Rene WELCHOL 625 MG TABS 3 PO BID with meals COLESEVELAM HCL 74072354912 No Longer Active Amelia Lisseth Rene TEGRETOL XR 100 MG [id number] 1 PO friday, friday, CARBAMAZEPINE 88107115033 No Longer Active Amelia Lisseth Rene JANUVIA 100 MG TABS 1 PO daily SITAGLIPTIN PHOSPHATE 19917235581 No Longer Active Amelia Lissethkarley Rene Immunizations [...] 10*3/mm3 Encounters Code Encounter Date Provider Facility CPT-64518 Ofc Vst, Est Level III 14:38:44 CDT Amelia Rene DO, FACP CPT-80355 Ofc Vst, Est Level IV 20:21:55 ACCESS CONSULTANT Amelia Rene DO, FACP CPT-66611 Ofc Vst, Est Level IV 16:05:00 ACCESS CONSULTANT Amelia Lisseth Rene Amelia S Rene, DO, FACP CPT-02610 Ofc Vst, Est Level V 21:19:57 ACCESS CONSULTANT Amelia Ernst Anju, DO, FACP CPT-34171 Ofc Vst, Est Level IV 17:06:25 ACCESS CONSULTANT [facility] CPT-44356 Ofc Vst, Est Level III 13:25:12 ACCESS CONSULTANT Amelia Ernst Anju, DO, FACP CPT-54546 Ofc Vst, Est Level III 12:54:14 CDT Amelianunu Ernst Anju, DO, FACP CPT-68066 Ofc Vst, Est Level III 16:36:19 CDT Amelia Ernst Anju, DO, FACP CPT-21306 Ofc Vst, Est Level IV 22:37:22 CDT Amelianunu Ernst Anju, DO, FACP CPT-98281 Ofc Vst, Est Level V 15:41:07 CDT Amelianunu Ernst Anju, DO, FACP CPT-66568 Ofc Vst, Est Level III 11:42:56 CDT Amelianunu Ernst Anju, DO, FACP CPT-58355 Ofc Vst, Est Level III 12:06:27 ACCESS CONSULTANT Amelia Ernst Anju, DO, FACP CPT-73298 Ofc Vst, Est Level III 14:34:43 CDT Amelia Ernst Anju, DO, FACP CPT-57777 Ofc Vst, Est Level III 14:19:43 ACCESS CONSULTANT Amelia Ernst Anju, DO, FACP CPT-98709 Ofc Vst, Est Level IV 16:26:28 CDT Amelianunu Ernst Anju, DO, FACP CPT-46075 Ofc Vst, Est Level IV 14:04:53 ACCESS CONSULTANT Amelia Rene DO, FACP CPT-03896 Ofc Vst, New Level IV 14:05:53 CDT Amelia Rene DO, FACP Procedures Code Procedure Name Date Entry Date Standard Description CPT-G0439 Medicare Annual Wellness Visit 12:45:38 ACCESS CONSULTANT CPT-G8443 E-Prescribing Medication Sent 12:06:27 ACCESS CONSULTANT CPT-G8443 E-Prescribing Medication Sent 12:44:06 CDT CPT-G0439 Medicare Annual Wellness Visit 12:44:06 CDT CPT-G8443 E-Prescribing Medication Sent 14:34:43 CDT CPT-G0438 Medicare Annual Wellness Visit Initial 11:12:53 CDT
--- OUTSIDE RECORDS SUMMARY | 2018-05-13 11:27 | XMS REPORT | Clinical Summary ---
Author Author User, [employer] Organization Amelia Rene DO, FACP Address Unknown [...] MG TABS 1 po BID SODIUM BICARBONATE 88636388561 Active Amelia Rene COUMADIN 1 MG TABS ONE TAB ALONG WITH 6MG TO TOTAL 7 MG ON WED, FRI AND SUN ONLY WARFARIN SODIUM 39566969157 Active Amelia Rene COUMADIN 6 MG TABS 1 PO DAILYON MON, TU, THURS AND FRI WARFARIN SODIUM 08868469631 Active Amelia Rene COUMADIN 1 MG TABS WARFARIN SODIUM 81462641688 No Longer Active Amelia Rene TESSALON PERLES 100 MG CAPS 1 PO TID prn cough BENZONATATE 51190240285 No Longer Active Karla Evans HYDROXYZINE HCL 10 MG TABS 1 PO TID PRN ITCHING HYDROXYZINE HCL 14680343787 No Longer Active Amelia Rene AMBIEN 10 MG TAB 1 PO QHS prn ZOLPIDEM TARTRATE 99754880770 No Longer Active Amelia Rene NOVOLOG FLEXPEN 100 UNIT/ML SOPN 14 UNITS BEFORE MEALS INSULIN ASPART 98845398905 Active Amelia Rene LEVEMIR FLEXPEN 100 UNIT/ML SOPN 25 UNITS AT HS INSULIN DETEMIR 64517734966 Active Amelia Rene COUMADIN 1 MG TABS TAKE ONE WITH A 6 MG TO TOTAL 7 MG AND THEN TAKE 6 MG THE NEXT. WARFARIN SODIUM 24143796005 No Longer Active Amelia Lisseth Rene LOVENOX 80 MG/0.8ML SOLN 1 injection twice daily ENOXAPARIN SODIUM 57265568154 No Longer Active Amelia Lisseth Rene OMEPRAZOLE 40 MG CPDR 1 PO daily OMEPRAZOLE 16107590756 Active Karla Evans NYSTATIN 131281 UNIT/ML SUSP 1 teaspoon swish and swallow QID NYSTATIN 37867794867 No Longer Active Amelianunu Rene PREDNISONE 20 MG TAB 1/2 PO daily PREDNISONE 05940915537 No Longer Active Amelianunu Rene TRUETEST TEST STRP TEST BS QID DX: 250.02 GLUCOSE BLOOD 13681484059 Active Karla Evans TOPAMAX 50 MG TABS 1 PO BID TOPIRAMATE 93334774744 Active Karla Evans MONTELUKAST SODIUM 10 MG TABS 1 PO AT HS MONTELUKAST SODIUM 18337414105 Active Karla Evans PREDNISONE 20 MG TAB 1 PO DAILY BID WITH MEALS PREDNISONE 51719907902 No Longer Active Amelianunu Rene CLARITIN 10 MG TABS 1 PO BID LORATADINE 14922300939 Active Amelianunu Rene PEPCID 20 MG TAB 1 PO BID FAMOTIDINE 84541587412 No Longer Active Amelianunu Rene DOXYCYCLINE HYCLATE 100 MG CAP 1 po BID DOXYCYCLINE HYCLATE 46153849393 No Longer Active Amelianunu Rene PEN NEEDLES 01/21" 31G X 8 MM MISC DIRECTED DX: 250.02 INSULIN PEN NEEDLE 43859756831 No Longer Active Amelia Lisseth Rene FLUOCINONIDE 0.05 % CREA apply to affected area on hand nightly for 7 nights then prn FLUOCINONIDE 40537339669 No Longer Active Amelia Lisseth Rene LEVITRA 10 MG TABS 1 PO as directed VARDENAFIL HCL 45808043311 No Longer Active Amelia Lisseth Rene SENIOR MULTIVITAMIN PLUS TABS 1 PO daily MULTIPLE VITAMINS- MINERALS 86798439465 No Longer Active Amelia Lisseth Rene EQL FISH OIL 1000 MG CAPS 3 PO BID OMEGA-3 FATTY ACIDS 65339953350 No Longer Active Amelia Lisseth Rene DOCUSATE SODIUM 100 MG CAPS 2 PO BID DOCUSATE SODIUM 60644565777 No Longer Active Amelia Lisseth Rene ASPIRIN 81 MG TABS 1 PO BID ASPIRIN 51256735027 No Longer Active Amelia Lisseth Rene CARBAMAZEPINE 200 MG TABS 3-5 PO daily CARBAMAZEPINE 04018799296 No Longer Active Amelia Lisseth Rene GEMFIBROZIL 600 MG TABS 1 PO BID GEMFIBROZIL 12450881934 No Longer Active Amelia Lisseth Rene METFORMIN HCL 1000 MG TABS 1 PO BID METFORMIN HCL 46725313267 No Longer Active Amelia Lisseth Rene GLYBURIDE 1.25 MG TABS 2 PO QAM and 1 PO QPM GLYBURIDE 94455671090 No Longer Active Amelia Lisseth Rene PROMETHAZINE VC/CODEINE 6.25-5-10 MG/5ML SYRP 1 teaspoon PO Q6hrs prn cough [id number] 76906572673 No Longer Active Amelia Lisseth Rene WELCHOL 625 MG TABS 3 PO BID with meals COLESEVELAM HCL 13985592932 No Longer Active Amelia Lisseth Rene TEGRETOL XR 100 MG [id number] 1 PO friday, friday, CARBAMAZEPINE 71572589987 No Longer Active Amelia Lisseth Rene JANUVIA 100 MG TABS 1 PO daily SITAGLIPTIN PHOSPHATE 01450887433 No Longer Active Amelia Lissethkarley Rene Immunizations [...] 10*3/mm3 Encounters Code Encounter Date Provider Facility CPT-08795 Ofc Vst, Est Level III 14:38:44 CDT Amelia Rene DO, FACP CPT-30187 Ofc Vst, Est Level IV 20:21:55 DIRECTOR SUPPLY CHAIN Amelia Rene DO, FACP CPT-23486 Ofc Vst, Est Level IV 16:05:00 DIRECTOR SUPPLY CHAIN Amelia Lisseth Rene Amelia S Rene, DO, FACP CPT-31132 Ofc Vst, Est Level V 21:19:57 DIRECTOR SUPPLY CHAIN Amelia Ernst Anju, DO, FACP CPT-76313 Ofc Vst, Est Level IV 17:06:25 DIRECTOR SUPPLY CHAIN [facility] CPT-21028 Ofc Vst, Est Level III 13:25:12 DIRECTOR SUPPLY CHAIN Amelia Ernst Anju, DO, FACP CPT-21656 Ofc Vst, Est Level III 12:54:14 CDT Amelianunu Ernst Anju, DO, FACP CPT-53351 Ofc Vst, Est Level III 16:36:19 CDT Amelia Ernst Anju, DO, FACP CPT-61471 Ofc Vst, Est Level IV 22:37:22 CDT Amelianunu Ernst Anju, DO, FACP CPT-67479 Ofc Vst, Est Level V 15:41:07 CDT Amelianunu Ernst Anju, DO, FACP CPT-09938 Ofc Vst, Est Level III 11:42:56 CDT Amelianunu Ernst Anju, DO, FACP CPT-71755 Ofc Vst, Est Level III 12:06:27 DIRECTOR SUPPLY CHAIN Amelia Ernst Anju, DO, FACP CPT-75403 Ofc Vst, Est Level III 14:34:43 CDT Amelia Ernst Anju, DO, FACP CPT-98166 Ofc Vst, Est Level III 14:19:43 DIRECTOR SUPPLY CHAIN Amelia Ernst Anju, DO, FACP CPT-94487 Ofc Vst, Est Level IV 16:26:28 CDT Amelianunu Ernst Anju, DO, FACP CPT-75606 Ofc Vst, Est Level IV 14:04:53 DIRECTOR SUPPLY CHAIN Amelia Rene DO, FACP CPT-43554 Ofc Vst, New Level IV 14:05:53 CDT Amelia Rene DO, FACP Procedures Code Procedure Name Date Entry Date Standard Description CPT-G0439 Medicare Annual Wellness Visit 12:45:38 DIRECTOR SUPPLY CHAIN CPT-G8443 E-Prescribing Medication Sent 12:06:27 DIRECTOR SUPPLY CHAIN CPT-G8443 E-Prescribing Medication Sent 12:44:06 CDT CPT-G0439 Medicare Annual Wellness Visit 12:44:06 CDT CPT-G8443 E-Prescribing Medication Sent 14:34:43 CDT CPT-G0438 Medicare Annual Wellness Visit Initial 11:12:53 CDT
--- OUTSIDE RECORDS SUMMARY | 2018-05-13 11:28 | XMS REPORT | Clinical Summary ---
Author Author User, [employer] Organization Amelia Rene DO, FACP Address Unknown [...] MG TABS 1 po BID SODIUM BICARBONATE 15150386039 Active Amelia Rene COUMADIN 1 MG TABS ONE TAB ALONG WITH 6MG TO TOTAL 7 MG ON WED, FRI AND SUN ONLY WARFARIN SODIUM 39876916092 Active Amelia Rene COUMADIN 6 MG TABS 1 PO DAILYON MON, TU, THURS AND FRI WARFARIN SODIUM 71395743651 Active Amelia Rene COUMADIN 1 MG TABS WARFARIN SODIUM 92765754754 No Longer Active Amelia Rene TESSALON PERLES 100 MG CAPS 1 PO TID prn cough BENZONATATE 18128712189 No Longer Active Karla Evans HYDROXYZINE HCL 10 MG TABS 1 PO TID PRN ITCHING HYDROXYZINE HCL 27059274272 No Longer Active Amelia Rene AMBIEN 10 MG TAB 1 PO QHS prn ZOLPIDEM TARTRATE 75959980447 No Longer Active Amelia Rene NOVOLOG FLEXPEN 100 UNIT/ML SOPN 14 UNITS BEFORE MEALS INSULIN ASPART 04842918228 Active Amelia Rene LEVEMIR FLEXPEN 100 UNIT/ML SOPN 25 UNITS AT HS INSULIN DETEMIR 01957769437 Active Amelia Rene COUMADIN 1 MG TABS TAKE ONE WITH A 6 MG TO TOTAL 7 MG AND THEN TAKE 6 MG THE NEXT. WARFARIN SODIUM 70774871701 No Longer Active Amelia Lisseth Rene LOVENOX 80 MG/0.8ML SOLN 1 injection twice daily ENOXAPARIN SODIUM 45014296480 No Longer Active Amelia Lisseth Rene OMEPRAZOLE 40 MG CPDR 1 PO daily OMEPRAZOLE 18426766422 Active Karla Evans NYSTATIN 284998 UNIT/ML SUSP 1 teaspoon swish and swallow QID NYSTATIN 15861777158 No Longer Active Amelianunu Rene PREDNISONE 20 MG TAB 1/2 PO daily PREDNISONE 02178392933 No Longer Active Amelianunu Rene TRUETEST TEST STRP TEST BS QID DX: 250.02 GLUCOSE BLOOD 94159814928 Active Karla Evans TOPAMAX 50 MG TABS 1 PO BID TOPIRAMATE 78054832664 Active Karla Evans MONTELUKAST SODIUM 10 MG TABS 1 PO AT HS MONTELUKAST SODIUM 41526661286 Active Karla Evans PREDNISONE 20 MG TAB 1 PO DAILY BID WITH MEALS PREDNISONE 88808101789 No Longer Active Amelianunu Rene CLARITIN 10 MG TABS 1 PO BID LORATADINE 59977610401 Active Amelianunu Rene PEPCID 20 MG TAB 1 PO BID FAMOTIDINE 78934855642 No Longer Active Amelianunu Rene DOXYCYCLINE HYCLATE 100 MG CAP 1 po BID DOXYCYCLINE HYCLATE 11590544087 No Longer Active Amelianunu Rene PEN NEEDLES /" 31G X 8 MM MISC DIRECTED DX: 250.02 INSULIN PEN NEEDLE 04005168502 No Longer Active Amelianunu Rene FLUOCINONIDE 0.05 % CREA apply to affected area on hand nightly for 7 nights then prn FLUOCINONIDE 08456604400 No Longer Active Amelia Lisseth Rene LEVITRA 10 MG TABS 1 PO as directed VARDENAFIL HCL 62688678741 No Longer Active Amelia Lisseth Rene SENIOR MULTIVITAMIN PLUS TABS 1 PO daily MULTIPLE VITAMINS- MINERALS 47324412154 No Longer Active Amelia Lisseth Rene EQL FISH OIL 1000 MG CAPS 3 PO BID OMEGA-3 FATTY ACIDS 25151070006 No Longer Active Amelia Lisseth Rene DOCUSATE SODIUM 100 MG CAPS 2 PO BID DOCUSATE SODIUM 60571009136 No Longer Active Amelia Lisseth Rene ASPIRIN 81 MG TABS 1 PO BID ASPIRIN 99410072765 No Longer Active Amelia Lisseth Rene CARBAMAZEPINE 200 MG TABS 3-5 PO daily CARBAMAZEPINE 74907959581 No Longer Active Amelia Lisseth Rene GEMFIBROZIL 600 MG TABS 1 PO BID GEMFIBROZIL 86346207937 No Longer Active Amelia Lisseth Rene METFORMIN HCL 1000 MG TABS 1 PO BID METFORMIN HCL 57145450541 No Longer Active Amelia Lisseth Rene GLYBURIDE 1.25 MG TABS 2 PO QAM and 1 PO QPM GLYBURIDE 13709739767 No Longer Active Amelia Lisseth Rene PROMETHAZINE VC/CODEINE 6.25-5-10 MG/5ML SYRP 1 teaspoon PO Q6hrs prn cough [id number] 38463286061 No Longer Active Amelia Lisseth Rene WELCHOL 625 MG TABS 3 PO BID with meals COLESEVELAM HCL 15117851075 No Longer Active Amelia Lisseth Rene TEGRETOL XR 100 MG [id number] 1 PO friday, friday, CARBAMAZEPINE 64315849096 No Longer Active Amelia Lisseth Rene JANUVIA 100 MG TABS 1 PO daily SITAGLIPTIN PHOSPHATE 13802817936 No Longer Active Amelia Lissethkarley Rene Immunizations [...] 10*3/mm3 Encounters Code Encounter Date Provider Facility CPT-18194 Ofc Vst, Est Level III 14:38:44 CDT Amelia Rene DO, FACP CPT-21448 Ofc Vst, Est Level IV 20:21:55 INSTRUMENT ASSEMBLER Amelia Rene DO, FACP CPT-20856 Ofc Vst, Est Level IV 16:05:00 INSTRUMENT ASSEMBLER Amelia Lisseth Rene Amelia S Rene, DO, FACP CPT-54951 Ofc Vst, Est Level V 21:19:57 INSTRUMENT ASSEMBLER Amelia Ernst Anju, DO, FACP CPT-80279 Ofc Vst, Est Level IV 17:06:25 INSTRUMENT ASSEMBLER [facility] CPT-46077 Ofc Vst, Est Level III 13:25:12 INSTRUMENT ASSEMBLER Amelia Ernst Anju, DO, FACP CPT-50162 Ofc Vst, Est Level III 12:54:14 CDT Amelianunu Ernst Anju, DO, FACP CPT-09440 Ofc Vst, Est Level III 16:36:19 CDT Amelia Ernst Anju, DO, FACP CPT-31242 Ofc Vst, Est Level IV 22:37:22 CDT Amelia Lisseth Ernst Anju, DO, FACP CPT-23401 Ofc Vst, Est Level V 15:41:07 CDT Amelianunu Ernst Anju, DO, FACP CPT-79300 Ofc Vst, Est Level III 11:42:56 CDT Amelia Ernst Anju, DO, FACP CPT-06446 Ofc Vst, Est Level III 12:06:27 INSTRUMENT ASSEMBLER Amelia Ernst Anju, DO, FACP CPT-99626 Ofc Vst, Est Level III 14:34:43 CDT Amelia Ernst Anju, DO, FACP CPT-27932 Ofc Vst, Est Level III 14:19:43 INSTRUMENT ASSEMBLER Amelia Ernst Anju, DO, FACP CPT-71213 Ofc Vst, Est Level IV 16:26:28 CDT Amelianunu Ernst Anju, DO, FACP CPT-25974 Ofc Vst, Est Level IV 14:04:53 INSTRUMENT ASSEMBLER Amelia Rene DO, FACP CPT-43063 Ofc Vst, New Level IV 14:05:53 CDT Amelia Rene DO, FACP Procedures Code Procedure Name Date Entry Date Standard Description CPT-G0439 Medicare Annual Wellness Visit 12:45:38 INSTRUMENT ASSEMBLER CPT-G8443 E-Prescribing Medication Sent 12:06:27 INSTRUMENT ASSEMBLER CPT-G8443 E-Prescribing Medication Sent 12:44:06 CDT CPT-G0439 Medicare Annual Wellness Visit 12:44:06 CDT CPT-G8443 E-Prescribing Medication Sent 14:34:43 CDT CPT-G0438 Medicare Annual Wellness Visit Initial 11:12:53 CDT
--- OUTSIDE RECORDS SUMMARY | 2018-05-13 11:29 | XMS REPORT | Clinical Summary ---
Author Author User, [employer] Organization Amelia Rene DO, FACP Address Unknown [...] MG TABS 1 po BID SODIUM BICARBONATE 20692107831 Active Amelia Rene COUMADIN 1 MG TABS ONE TAB ALONG WITH 6MG TO TOTAL 7 MG ON WED, FRI AND SUN ONLY WARFARIN SODIUM 81208294317 Active Amelia Rene COUMADIN 6 MG TABS 1 PO DAILYON MON, TU, THURS AND FRI WARFARIN SODIUM 64703787449 Active Amelia Rene COUMADIN 1 MG TABS WARFARIN SODIUM 45013226552 No Longer Active Amelia Rene TESSALON PERLES 100 MG CAPS 1 PO TID prn cough BENZONATATE 50928340866 No Longer Active Karla Evans HYDROXYZINE HCL 10 MG TABS 1 PO TID PRN ITCHING HYDROXYZINE HCL 00515998730 No Longer Active Amelia Rene AMBIEN 10 MG TAB 1 PO QHS prn ZOLPIDEM TARTRATE 68850212272 No Longer Active Amelia Rene NOVOLOG FLEXPEN 100 UNIT/ML SOPN 14 UNITS BEFORE MEALS INSULIN ASPART 05197915933 Active Amelia Rene LEVEMIR FLEXPEN 100 UNIT/ML SOPN 25 UNITS AT HS INSULIN DETEMIR 56661046626 Active Amelia Rene COUMADIN 1 MG TABS TAKE ONE WITH A 6 MG TO TOTAL 7 MG AND THEN TAKE 6 MG THE NEXT. WARFARIN SODIUM 36191758864 No Longer Active Amelia Lisseth Rene LOVENOX 80 MG/0.8ML SOLN 1 injection twice daily ENOXAPARIN SODIUM 79674818845 No Longer Active Amelia Lisseth Rene OMEPRAZOLE 40 MG CPDR 1 PO daily OMEPRAZOLE 80621946370 Active Karla Evans NYSTATIN 935297 UNIT/ML SUSP 1 teaspoon swish and swallow QID NYSTATIN 79004309473 No Longer Active Amelianunu Rene PREDNISONE 20 MG TAB 1/2 PO daily PREDNISONE 41666097910 No Longer Active Amelianunu Rene TRUETEST TEST STRP TEST BS QID DX: 250.02 GLUCOSE BLOOD 48662552205 Active Karla Evans TOPAMAX 50 MG TABS 1 PO BID TOPIRAMATE 15952245058 Active Karla Evans MONTELUKAST SODIUM 10 MG TABS 1 PO AT HS MONTELUKAST SODIUM 53493795440 Active Karla Evans PREDNISONE 20 MG TAB 1 PO DAILY BID WITH MEALS PREDNISONE 51404406549 No Longer Active Amelianunu Rene CLARITIN 10 MG TABS 1 PO BID LORATADINE 72772398021 Active Amelianunu Rene PEPCID 20 MG TAB 1 PO BID FAMOTIDINE 01450946174 No Longer Active Amelianunu Rene DOXYCYCLINE HYCLATE 100 MG CAP 1 po BID DOXYCYCLINE HYCLATE 81884908814 No Longer Active Amleianunu Rene PEN NEEDLES /" 31G X 8 MM MISC DIRECTED DX: 250.02 INSULIN PEN NEEDLE 81107636961 No Longer Active Amelianunu Rene FLUOCINONIDE 0.05 % CREA apply to affected area on hand nightly for 7 nights then prn FLUOCINONIDE 35640308489 No Longer Active Amelia Lisseth Rene LEVITRA 10 MG TABS 1 PO as directed VARDENAFIL HCL 26904745813 No Longer Active Amelia Lisseth Rene SENIOR MULTIVITAMIN PLUS TABS 1 PO daily MULTIPLE VITAMINS- MINERALS 06583298657 No Longer Active Amelia Lisseth Rene EQL FISH OIL 1000 MG CAPS 3 PO BID OMEGA-3 FATTY ACIDS 37828603176 No Longer Active Amelia Lisseth Rene DOCUSATE SODIUM 100 MG CAPS 2 PO BID DOCUSATE SODIUM 30889086952 No Longer Active Amelia Lisseth Rene ASPIRIN 81 MG TABS 1 PO BID ASPIRIN 59846586323 No Longer Active Amelia Lisseth Rene CARBAMAZEPINE 200 MG TABS 3-5 PO daily CARBAMAZEPINE 89666672808 No Longer Active Amelia Lisseth Rene GEMFIBROZIL 600 MG TABS 1 PO BID GEMFIBROZIL 42771093010 No Longer Active Amelia Lisseth Rene METFORMIN HCL 1000 MG TABS 1 PO BID METFORMIN HCL 82315655259 No Longer Active Amelia Lisseth Rene GLYBURIDE 1.25 MG TABS 2 PO QAM and 1 PO QPM GLYBURIDE 57404407415 No Longer Active Amelia Lisseth Rene PROMETHAZINE VC/CODEINE 6.25-5-10 MG/5ML SYRP 1 teaspoon PO Q6hrs prn cough [id number] 92141381751 No Longer Active Amelia Lisseth Rene WELCHOL 625 MG TABS 3 PO BID with meals COLESEVELAM HCL 77495252015 No Longer Active Amelia Lisseth Rene TEGRETOL XR 100 MG [id number] 1 PO friday, friday, CARBAMAZEPINE 50285357450 No Longer Active Amelia Lisseth Rene JANUVIA 100 MG TABS 1 PO daily SITAGLIPTIN PHOSPHATE 74808632555 No Longer Active Amelia Lissethkarley Rene Immunizations [...] 10*3/mm3 Encounters Code Encounter Date Provider Facility CPT-26966 Ofc Vst, Est Level III 14:38:44 CDT Amelia Rene DO, FACP CPT-98488 Ofc Vst, Est Level IV 20:21:55 SUPERVISOR ACCOUNTING CLERKS Amelia Rene DO, FACP CPT-42524 Ofc Vst, Est Level IV 16:05:00 SUPERVISOR ACCOUNTING CLERKS Amelia Lisseth Rene Amelia S Rene, DO, FACP CPT-48157 Ofc Vst, Est Level V 21:19:57 SUPERVISOR ACCOUNTING CLERKS Amelia Ernst Anju, DO, FACP CPT-26058 Ofc Vst, Est Level IV 17:06:25 SUPERVISOR ACCOUNTING CLERKS Amelia [facility] CPT-55352 Ofc Vst, Est Level III 13:25:12 SUPERVISOR ACCOUNTING CLERKS Amelia Ernst Anju, DO, FACP CPT-92428 Ofc Vst, Est Level III 12:54:14 CDT Amelianunu Ernst Anju, DO, FACP CPT-93379 Ofc Vst, Est Level III 16:36:19 CDT Amelia Ernst Anju, DO, FACP CPT-45040 Ofc Vst, Est Level IV 22:37:22 CDT Amelia Lisseth Ernst Anju, DO, FACP CPT-42639 Ofc Vst, Est Level V 15:41:07 CDT Amelianunu Ernst Anju, DO, FACP CPT-06350 Ofc Vst, Est Level III 11:42:56 CDT Amelia Ernst Anju, DO, FACP CPT-24443 Ofc Vst, Est Level III 12:06:27 [employer] Amelia Ernst Anju, DO, FACP CPT-87191 Ofc Vst, Est Level III 14:34:43 CDT Amelia Ernst Anju, DO, FACP CPT-24288 Ofc Vst, Est Level III 14:19:43 [employer] Amelia Ernst Anju, DO, FACP CPT-55415 Ofc Vst, Est Level IV 16:26:28 CDT Amelianunu Ernst Anju, DO, FACP CPT-03841 Ofc Vst, Est Level IV 14:04:53 [employer] Amelia Rene DO, FACP CPT-94752 Ofc Vst, New Level IV 14:05:53 CDT Amelia Rene DO, FACP Procedures Code Procedure Name Date Entry Date Standard Description CPT-G0439 Medicare Annual Wellness Visit 12:45:38 [employer] CPT-G8443 E-Prescribing Medication Sent 12:06:27 [employer] CPT-G8443 E-Prescribing Medication Sent 12:44:06 CDT CPT-G0439 Medicare Annual Wellness Visit 12:44:06 CDT CPT-G8443 E-Prescribing Medication Sent 14:34:43 CDT CPT-G0438 Medicare Annual Wellness Visit Initial 11:12:53 CDT
--- OUTSIDE RECORDS SUMMARY | 2018-05-13 11:30 | XMS REPORT | Clinical Summary ---
Author Author User, [employer] Organization Amelia Rene DO, FACP Address Unknown [...] MG TABS 1 po BID SODIUM BICARBONATE 05599101733 Active Amelia Rene COUMADIN 1 MG TABS ONE TAB ALONG WITH 6MG TO TOTAL 7 MG ON WED, FRI AND SUN ONLY WARFARIN SODIUM 48085505475 Active Amelia Rene COUMADIN 6 MG TABS 1 PO DAILYON MON, TU, THURS AND FRI WARFARIN SODIUM 57464837045 Active Amelia Rene COUMADIN 1 MG TABS WARFARIN SODIUM 63037111649 No Longer Active Amelia Rene TESSALON PERLES 100 MG CAPS 1 PO TID prn cough BENZONATATE 34483446508 No Longer Active Karla Evans HYDROXYZINE HCL 10 MG TABS 1 PO TID PRN ITCHING HYDROXYZINE HCL 62153491581 No Longer Active Amelia Rene AMBIEN 10 MG TAB 1 PO QHS prn ZOLPIDEM TARTRATE 92768844735 No Longer Active Amelia Rene NOVOLOG FLEXPEN 100 UNIT/ML SOPN 14 UNITS BEFORE MEALS INSULIN ASPART 93670400905 Active Amelia Rene LEVEMIR FLEXPEN 100 UNIT/ML SOPN 25 UNITS AT HS INSULIN DETEMIR 50500809680 Active Amelia Rene COUMADIN 1 MG TABS TAKE ONE WITH A 6 MG TO TOTAL 7 MG AND THEN TAKE 6 MG THE NEXT. WARFARIN SODIUM 63820613641 No Longer Active Amelia Lisseth Rene LOVENOX 80 MG/0.8ML SOLN 1 injection twice daily ENOXAPARIN SODIUM 98534286542 No Longer Active Amelia Lisseth Rene OMEPRAZOLE 40 MG CPDR 1 PO daily OMEPRAZOLE 89672126847 Active Karla Evans NYSTATIN 311864 UNIT/ML SUSP 1 teaspoon swish and swallow QID NYSTATIN 96547851013 No Longer Active Amelianunu Rene PREDNISONE 20 MG TAB 1/2 PO daily PREDNISONE 94210829936 No Longer Active Amelianunu Rene TRUETEST TEST STRP TEST BS QID DX: 250.02 GLUCOSE BLOOD 02462002026 Active Karla Evans TOPAMAX 50 MG TABS 1 PO BID TOPIRAMATE 01211279628 Active Karla Evans MONTELUKAST SODIUM 10 MG TABS 1 PO AT HS MONTELUKAST SODIUM 89260636192 Active Karla Evans PREDNISONE 20 MG TAB 1 PO DAILY BID WITH MEALS PREDNISONE 62896468528 No Longer Active Amelianunu Rene CLARITIN 10 MG TABS 1 PO BID LORATADINE 93672969640 Active Amelianunu Rene PEPCID 20 MG TAB 1 PO BID FAMOTIDINE 84507839025 No Longer Active Amelianunu Rene DOXYCYCLINE HYCLATE 100 MG CAP 1 po BID DOXYCYCLINE HYCLATE 94633241498 No Longer Active Amelianunu Rene PEN NEEDLES 01/21" 31G X 8 MM MISC DIRECTED DX: 250.02 INSULIN PEN NEEDLE 54078390449 No Longer Active Amelia Lisseth Rene FLUOCINONIDE 0.05 % CREA apply to affected area on hand nightly for 7 nights then prn FLUOCINONIDE 47118359864 No Longer Active Amelia Lisseth Rene LEVITRA 10 MG TABS 1 PO as directed VARDENAFIL HCL 60619909436 No Longer Active Amelia Lisseth Rene SENIOR MULTIVITAMIN PLUS TABS 1 PO daily MULTIPLE VITAMINS- MINERALS 97108734532 No Longer Active Amelia Lisseth Rene EQL FISH OIL 1000 MG CAPS 3 PO BID OMEGA-3 FATTY ACIDS 69523476250 No Longer Active Amelia Lisseth Rene DOCUSATE SODIUM 100 MG CAPS 2 PO BID DOCUSATE SODIUM 91283563727 No Longer Active Amelia Lisseth Rene ASPIRIN 81 MG TABS 1 PO BID ASPIRIN 66822609298 No Longer Active Amelia Lisseth Rene CARBAMAZEPINE 200 MG TABS 3-5 PO daily CARBAMAZEPINE 41402506733 No Longer Active Amelia Lisseth Rene GEMFIBROZIL 600 MG TABS 1 PO BID GEMFIBROZIL 82022648023 No Longer Active Amelia Lisseth Rene METFORMIN HCL 1000 MG TABS 1 PO BID METFORMIN HCL 97071913355 No Longer Active Amelia Lisseth Rene GLYBURIDE 1.25 MG TABS 2 PO QAM and 1 PO QPM GLYBURIDE 44138339638 No Longer Active Amelia Lisseth Rene PROMETHAZINE VC/CODEINE 6.25-5-10 MG/5ML SYRP 1 teaspoon PO Q6hrs prn cough [id number] 98756810316 No Longer Active Amelia Lisseth Rene WELCHOL 625 MG TABS 3 PO BID with meals COLESEVELAM HCL 56708697349 No Longer Active Amelia Lisseth Rene TEGRETOL XR 100 MG [id number] 1 PO friday, friday, CARBAMAZEPINE 63602894933 No Longer Active Amelia Lisseth Rene JANUVIA 100 MG TABS 1 PO daily SITAGLIPTIN PHOSPHATE 44900503974 No Longer Active Amelia Lissethkarley Rene Immunizations [...] 10*3/mm3 Encounters Code Encounter Date Provider Facility CPT-63319 Ofc Vst, Est Level III 14:38:44 CDT Amelia Rene DO, FACP CPT-81630 Ofc Vst, Est Level IV 20:21:55 STRUCTURES MECHANIC Amelia Rene DO, FACP CPT-71826 Ofc Vst, Est Level IV 16:05:00 STRUCTURES MECHANIC Amelia Lisseth Rene Amelia S Rene, DO, FACP CPT-90563 Ofc Vst, Est Level V 21:19:57 STRUCTURES MECHANIC Amelia Ernst Anju, DO, FACP CPT-07152 Ofc Vst, Est Level IV 17:06:25 STRUCTURES MECHANIC Amelia [facility] CPT-16584 Ofc Vst, Est Level III 13:25:12 STRUCTURES MECHANIC Amelia Ernst Anju, DO, FACP CPT-00656 Ofc Vst, Est Level III 12:54:14 CDT Amelianunu Ernst Anju, DO, FACP CPT-20083 Ofc Vst, Est Level III 16:36:19 CDT Amelia Ernst Anju, DO, FACP CPT-01155 Ofc Vst, Est Level IV 22:37:22 CDT Amelianunu Ernst Anju, DO, FACP CPT-75152 Ofc Vst, Est Level V 15:41:07 CDT Amelianunu Ernst Anju, DO, FACP CPT-05821 Ofc Vst, Est Level III 11:42:56 CDT Amelianunu Ernst Anju, DO, FACP CPT-70848 Ofc Vst, Est Level III 12:06:27 STRUCTURES MECHANIC Amelia Ernst Anju, DO, FACP CPT-23995 Ofc Vst, Est Level III 14:34:43 CDT Amelia Ernst Anju, DO, FACP CPT-92442 Ofc Vst, Est Level III 14:19:43 STRUCTURES MECHANIC Amelia Ernst Anju, DO, FACP CPT-40566 Ofc Vst, Est Level IV 16:26:28 CDT Amelianunu Ernst Anju, DO, FACP CPT-28332 Ofc Vst, Est Level IV 14:04:53 STRUCTURES MECHANIC Amelia Rene DO, FACP CPT-10740 Ofc Vst, New Level IV 14:05:53 CDT Amelia Rene DO, FACP Procedures Code Procedure Name Date Entry Date Standard Description CPT-G0439 Medicare Annual Wellness Visit 12:45:38 STRUCTURES MECHANIC CPT-G8443 E-Prescribing Medication Sent 12:06:27 STRUCTURES MECHANIC CPT-G8443 E-Prescribing Medication Sent 12:44:06 CDT CPT-G0439 Medicare Annual Wellness Visit 12:44:06 CDT CPT-G8443 E-Prescribing Medication Sent 14:34:43 CDT CPT-G0438 Medicare Annual Wellness Visit Initial 11:12:53 CDT
--- OUTSIDE RECORDS SUMMARY | 2018-05-13 11:31 | XMS REPORT | Clinical Summary ---
Author Author User, [employer] Organization Amelia Rene DO, FACP Address Unknown [...] MG TABS 1 po BID SODIUM BICARBONATE 14858829366 Active Amelia Rene COUMADIN 1 MG TABS ONE TAB ALONG WITH 6MG TO TOTAL 7 MG ON WED, FRI AND SUN ONLY WARFARIN SODIUM 46298903539 Active Amelia Rene COUMADIN 6 MG TABS 1 PO DAILYON MON, TU, THURS AND FRI WARFARIN SODIUM 89199273104 Active Amelia Rene COUMADIN 1 MG TABS WARFARIN SODIUM 52042436886 No Longer Active Amelia Rene TESSALON PERLES 100 MG CAPS 1 PO TID prn cough BENZONATATE 57439275914 No Longer Active Karla Evans HYDROXYZINE HCL 10 MG TABS 1 PO TID PRN ITCHING HYDROXYZINE HCL 91748739409 No Longer Active Amelia Rene AMBIEN 10 MG TAB 1 PO QHS prn ZOLPIDEM TARTRATE 33383132609 No Longer Active Amelia Rene NOVOLOG FLEXPEN 100 UNIT/ML SOPN 14 UNITS BEFORE MEALS INSULIN ASPART 45236476294 Active Amelia Rene LEVEMIR FLEXPEN 100 UNIT/ML SOPN 25 UNITS AT HS INSULIN DETEMIR 49369669742 Active Amelia Rene COUMADIN 1 MG TABS TAKE ONE WITH A 6 MG TO TOTAL 7 MG AND THEN TAKE 6 MG THE NEXT. WARFARIN SODIUM 47336285771 No Longer Active Amelia Lisseth Rene LOVENOX 80 MG/0.8ML SOLN 1 injection twice daily ENOXAPARIN SODIUM 66685076921 No Longer Active Amelia Lisseth Rene OMEPRAZOLE 40 MG CPDR 1 PO daily OMEPRAZOLE 92076182444 Active Karla Evans NYSTATIN 116603 UNIT/ML SUSP 1 teaspoon swish and swallow QID NYSTATIN 26007019265 No Longer Active Amelianunu Rene PREDNISONE 20 MG TAB 1/2 PO daily PREDNISONE 96218723090 No Longer Active Amelianunu Rene TRUETEST TEST STRP TEST BS QID DX: 250.02 GLUCOSE BLOOD 24223490143 Active Karla Evans TOPAMAX 50 MG TABS 1 PO BID TOPIRAMATE 13484090615 Active Karla Evans MONTELUKAST SODIUM 10 MG TABS 1 PO AT HS MONTELUKAST SODIUM 15489644316 Active Karla Evans PREDNISONE 20 MG TAB 1 PO DAILY BID WITH MEALS PREDNISONE 12085738736 No Longer Active Amelianunu Rene CLARITIN 10 MG TABS 1 PO BID LORATADINE 09044430424 Active Amelianunu Rene PEPCID 20 MG TAB 1 PO BID FAMOTIDINE 34666104459 No Longer Active Amelianunu Rene DOXYCYCLINE HYCLATE 100 MG CAP 1 po BID DOXYCYCLINE HYCLATE 16245404082 No Longer Active Amelianunu Rene PEN NEEDLES /" 31G X 8 MM MISC DIRECTED DX: 250.02 INSULIN PEN NEEDLE 33353343341 No Longer Active Amelianunu Rene FLUOCINONIDE 0.05 % CREA apply to affected area on hand nightly for 7 nights then prn FLUOCINONIDE 68810567035 No Longer Active Amelia Lisseth Rene LEVITRA 10 MG TABS 1 PO as directed VARDENAFIL HCL 01360294707 No Longer Active Amelia Lisseth Rene SENIOR MULTIVITAMIN PLUS TABS 1 PO daily MULTIPLE VITAMINS- MINERALS 68426892647 No Longer Active Amelia Lisseth Rene EQL FISH OIL 1000 MG CAPS 3 PO BID OMEGA-3 FATTY ACIDS 05503209890 No Longer Active Amelia Lisseth Rene DOCUSATE SODIUM 100 MG CAPS 2 PO BID DOCUSATE SODIUM 84142030459 No Longer Active Amelia Lisseth Rene ASPIRIN 81 MG TABS 1 PO BID ASPIRIN 05754539745 No Longer Active Amelia Lisseth Rene CARBAMAZEPINE 200 MG TABS 3-5 PO daily CARBAMAZEPINE 13459166151 No Longer Active Amelia Lisseth Rene GEMFIBROZIL 600 MG TABS 1 PO BID GEMFIBROZIL 53788885942 No Longer Active Amelia Lisseth Rene METFORMIN HCL 1000 MG TABS 1 PO BID METFORMIN HCL 60881287803 No Longer Active Amelia Lisseth Rene GLYBURIDE 1.25 MG TABS 2 PO QAM and 1 PO QPM GLYBURIDE 55290632073 No Longer Active Amelia Lisseth Rene PROMETHAZINE VC/CODEINE 6.25-5-10 MG/5ML SYRP 1 teaspoon PO Q6hrs prn cough [id number] 54917317799 No Longer Active Amelia Lisseth Rene WELCHOL 625 MG TABS 3 PO BID with meals COLESEVELAM HCL 58871803306 No Longer Active Amelia Lisseth Rene TEGRETOL XR 100 MG [id number] 1 PO friday, friday, CARBAMAZEPINE 07824414007 No Longer Active Amelia Lisseth Rene JANUVIA 100 MG TABS 1 PO daily SITAGLIPTIN PHOSPHATE 24384688628 No Longer Active Amelia Lissethkarley Rene Immunizations [...] 10*3/mm3 Encounters Code Encounter Date Provider Facility CPT-81276 Ofc Vst, Est Level III 14:38:44 CDT Amelia Rene DO, FACP CPT-78820 Ofc Vst, Est Level IV 20:21:55 BUS CLEANER Amelia Rene DO, FACP CPT-57247 Ofc Vst, Est Level IV 16:05:00 BUS CLEANER Amelia Lisseth Rene Amelia S Rene, DO, FACP CPT-89605 Ofc Vst, Est Level V 21:19:57 BUS CLEANER Amelia Ernst Anju, DO, FACP CPT-76683 Ofc Vst, Est Level IV 17:06:25 BUS CLEANER Amelia [facility] CPT-40603 Ofc Vst, Est Level III 13:25:12 BUS CLEANER Amelia Ernst Anju, DO, FACP CPT-73187 Ofc Vst, Est Level III 12:54:14 CDT Amelianunu Ernst Anju, DO, FACP CPT-35080 Ofc Vst, Est Level III 16:36:19 CDT Amelia Ernst Anju, DO, FACP CPT-24821 Ofc Vst, Est Level IV 22:37:22 CDT Amelia Lisseth Ernst Anju, DO, FACP CPT-24857 Ofc Vst, Est Level V 15:41:07 CDT Amelianunu Ernst Anju, DO, FACP CPT-48464 Ofc Vst, Est Level III 11:42:56 CDT Amelia Ernst Anju, DO, FACP CPT-76208 Ofc Vst, Est Level III 12:06:27 BUS CLEANER Amelia Ernst Anju, DO, FACP CPT-44432 Ofc Vst, Est Level III 14:34:43 CDT Amelia Ernst Anju, DO, FACP CPT-85084 Ofc Vst, Est Level III 14:19:43 BUS CLEANER Amelia Ernst Anju, DO, FACP CPT-80345 Ofc Vst, Est Level IV 16:26:28 CDT Amelianunu Ernst Anju, DO, FACP CPT-12412 Ofc Vst, Est Level IV 14:04:53 BUS CLEANER Amelia Rene DO, FACP CPT-70810 Ofc Vst, New Level IV 14:05:53 CDT Amelia Rene DO, FACP Procedures Code Procedure Name Date Entry Date Standard Description CPT-G0439 Medicare Annual Wellness Visit 12:45:38 BUS CLEANER CPT-G8443 E-Prescribing Medication Sent 12:06:27 BUS CLEANER CPT-G8443 E-Prescribing Medication Sent 12:44:06 CDT CPT-G0439 Medicare Annual Wellness Visit 12:44:06 CDT CPT-G8443 E-Prescribing Medication Sent 14:34:43 CDT CPT-G0438 Medicare Annual Wellness Visit Initial 11:12:53 CDT
--- OUTSIDE RECORDS SUMMARY | 2018-05-13 11:32 | XMS REPORT | Clinical Summary ---
Author Author User, [employer] Organization Amelia Rene DO, FACP Address Unknown [...] MG TABS 1 po BID SODIUM BICARBONATE 50305270709 Active Amelia Rene COUMADIN 1 MG TABS ONE TAB ALONG WITH 6MG TO TOTAL 7 MG ON WED, FRI AND SUN ONLY WARFARIN SODIUM 94253807394 Active Amelia Rene COUMADIN 6 MG TABS 1 PO DAILYON MON, TU, THURS AND FRI WARFARIN SODIUM 46408846497 Active Amelia Rene COUMADIN 1 MG TABS WARFARIN SODIUM 50441715781 No Longer Active Amelia Rene TESSALON PERLES 100 MG CAPS 1 PO TID prn cough BENZONATATE 12734923783 No Longer Active Karla Evans HYDROXYZINE HCL 10 MG TABS 1 PO TID PRN ITCHING HYDROXYZINE HCL 48210711638 No Longer Active Amelia Rene AMBIEN 10 MG TAB 1 PO QHS prn ZOLPIDEM TARTRATE 10905141388 No Longer Active Amelia Rene NOVOLOG FLEXPEN 100 UNIT/ML SOPN 14 UNITS BEFORE MEALS INSULIN ASPART 94345925083 Active Amelia Rene LEVEMIR FLEXPEN 100 UNIT/ML SOPN 25 UNITS AT HS INSULIN DETEMIR 46881177369 Active Amelia Rene COUMADIN 1 MG TABS TAKE ONE WITH A 6 MG TO TOTAL 7 MG AND THEN TAKE 6 MG THE NEXT. WARFARIN SODIUM 05462374741 No Longer Active Amelia Lisseth Rene LOVENOX 80 MG/0.8ML SOLN 1 injection twice daily ENOXAPARIN SODIUM 82146707606 No Longer Active Amelia Lisseth Rene OMEPRAZOLE 40 MG CPDR 1 PO daily OMEPRAZOLE 34094869016 Active Karla Evans NYSTATIN 292837 UNIT/ML SUSP 1 teaspoon swish and swallow QID NYSTATIN 95813233171 No Longer Active Amelianunu Rene PREDNISONE 20 MG TAB 1/2 PO daily PREDNISONE 06830519184 No Longer Active Amelianunu Rene TRUETEST TEST STRP TEST BS QID DX: 250.02 GLUCOSE BLOOD 00669949460 Active Karla Evans TOPAMAX 50 MG TABS 1 PO BID TOPIRAMATE 64253983952 Active Karla Evans MONTELUKAST SODIUM 10 MG TABS 1 PO AT HS MONTELUKAST SODIUM 11870127051 Active Karla Evans PREDNISONE 20 MG TAB 1 PO DAILY BID WITH MEALS PREDNISONE 12310174892 No Longer Active Amelianunu Rene CLARITIN 10 MG TABS 1 PO BID LORATADINE 55740410577 Active Amelianunu Rene PEPCID 20 MG TAB 1 PO BID FAMOTIDINE 40395130105 No Longer Active Amelianunu Rene DOXYCYCLINE HYCLATE 100 MG CAP 1 po BID DOXYCYCLINE HYCLATE 44706154880 No Longer Active Amelianunu Rene PEN NEEDLES /" 31G X 8 MM MISC DIRECTED DX: 250.02 INSULIN PEN NEEDLE 43156837479 No Longer Active Amelianunu Rene FLUOCINONIDE 0.05 % CREA apply to affected area on hand nightly for 7 nights then prn FLUOCINONIDE 56447293707 No Longer Active Amelia Lisseth Rene LEVITRA 10 MG TABS 1 PO as directed VARDENAFIL HCL 54849649900 No Longer Active Ameila Lisseth Rene SENIOR MULTIVITAMIN PLUS TABS 1 PO daily MULTIPLE VITAMINS- MINERALS 49271579886 No Longer Active Amelia Lisseth Rene EQL FISH OIL 1000 MG CAPS 3 PO BID OMEGA-3 FATTY ACIDS 04454140122 No Longer Active Amelia Lisseth Rene DOCUSATE SODIUM 100 MG CAPS 2 PO BID DOCUSATE SODIUM 25100104567 No Longer Active Amelia Lisseth Rene ASPIRIN 81 MG TABS 1 PO BID ASPIRIN 61543391599 No Longer Active Amelia Lisseth Rene CARBAMAZEPINE 200 MG TABS 3-5 PO daily CARBAMAZEPINE 02330665637 No Longer Active Amelia Lisseth Rene GEMFIBROZIL 600 MG TABS 1 PO BID GEMFIBROZIL 48546267128 No Longer Active Amelia Lisseth Rene METFORMIN HCL 1000 MG TABS 1 PO BID METFORMIN HCL 24308571960 No Longer Active Amelia Lisseth Rene GLYBURIDE 1.25 MG TABS 2 PO QAM and 1 PO QPM GLYBURIDE 53999860323 No Longer Active Amelia Lisseth Rene PROMETHAZINE VC/CODEINE 6.25-5-10 MG/5ML SYRP 1 teaspoon PO Q6hrs prn cough [id number] 41132319891 No Longer Active Amelia Lisseth Rene WELCHOL 625 MG TABS 3 PO BID with meals COLESEVELAM HCL 63348425445 No Longer Active Amelia Lisseth Rene TEGRETOL XR 100 MG [id number] 1 PO friday, friday, CARBAMAZEPINE 72815172199 No Longer Active Amelia Lisseth Rene JANUVIA 100 MG TABS 1 PO daily SITAGLIPTIN PHOSPHATE 82784771169 No Longer Active Amelia Lissethkarley Rene Immunizations [...] 10*3/mm3 Encounters Code Encounter Date Provider Facility CPT-75843 Ofc Vst, Est Level III 14:38:44 CDT Amelia Rene DO, FACP CPT-40393 Ofc Vst, Est Level IV 20:21:55 AIRWAYS OPERATIONS SPECIALIST Amelia Rene DO, FACP CPT-15143 Ofc Vst, Est Level IV 16:05:00 AIRWAYS OPERATIONS SPECIALIST Amelia Lisseth Rene Amelia S Rene, DO, FACP CPT-62899 Ofc Vst, Est Level V 21:19:57 AIRWAYS OPERATIONS SPECIALIST Amelia Ernst Anju, DO, FACP CPT-96709 Ofc Vst, Est Level IV 17:06:25 AIRWAYS OPERATIONS SPECIALIST Amelia [facility] CPT-46149 Ofc Vst, Est Level III 13:25:12 AIRWAYS OPERATIONS SPECIALIST Amelia Ernst Anju, DO, FACP CPT-64400 Ofc Vst, Est Level III 12:54:14 CDT Amelianunu Ernst Anju, DO, FACP CPT-50717 Ofc Vst, Est Level III 16:36:19 CDT Amelia Ernst Anju, DO, FACP CPT-94122 Ofc Vst, Est Level IV 22:37:22 CDT Amelia Lisseth Ernst Anju, DO, FACP CPT-24662 Ofc Vst, Est Level V 15:41:07 CDT Amelianunu Ernst Anju, DO, FACP CPT-04755 Ofc Vst, Est Level III 11:42:56 CDT mAelia Ernst Anju, DO, FACP CPT-14700 Ofc Vst, Est Level III 12:06:27 AIRWAYS OPERATIONS SPECIALIST Amelia Ernst Anju, DO, FACP CPT-63794 Ofc Vst, Est Level III 14:34:43 CDT Amelia Ernst Anju, DO, FACP CPT-73560 Ofc Vst, Est Level III 14:19:43 AIRWAYS OPERATIONS SPECIALIST Amelia Ernst Anju, DO, FACP CPT-14389 Ofc Vst, Est Level IV 16:26:28 CDT Amelianunu Ernst Anju, DO, FACP CPT-95327 Ofc Vst, Est Level IV 14:04:53 AIRWAYS OPERATIONS SPECIALIST Amelia Rene DO, FACP CPT-05334 Ofc Vst, New Level IV 14:05:53 CDT Amelia Rene DO, FACP Procedures Code Procedure Name Date Entry Date Standard Description CPT-G0439 Medicare Annual Wellness Visit 12:45:38 AIRWAYS OPERATIONS SPECIALIST CPT-G8443 E-Prescribing Medication Sent 12:06:27 AIRWAYS OPERATIONS SPECIALIST CPT-G8443 E-Prescribing Medication Sent 12:44:06 CDT CPT-G0439 Medicare Annual Wellness Visit 12:44:06 CDT CPT-G8443 E-Prescribing Medication Sent 14:34:43 CDT CPT-G0438 Medicare Annual Wellness Visit Initial 11:12:53 CDT
--- OUTSIDE RECORDS SUMMARY | 2018-05-13 11:32 | XMS REPORT | Clinical Summary ---
Author Author User, [employer] Organization Amelia Rene DO, FACP Address Unknown [...] MG TABS 1 po BID SODIUM BICARBONATE 73782374472 Active Amelia Rene COUMADIN 1 MG TABS ONE TAB ALONG WITH 6MG TO TOTAL 7 MG ON WED, FRI AND SUN ONLY WARFARIN SODIUM 39093267218 Active Amelia Rene COUMADIN 6 MG TABS 1 PO DAILYON MON, TU, THURS AND FRI WARFARIN SODIUM 08517572351 Active Amelia Rene COUMADIN 1 MG TABS WARFARIN SODIUM 16334569662 No Longer Active Amelia Rene TESSALON PERLES 100 MG CAPS 1 PO TID prn cough BENZONATATE 06923206698 No Longer Active Karla Evans HYDROXYZINE HCL 10 MG TABS 1 PO TID PRN ITCHING HYDROXYZINE HCL 13722178110 No Longer Active Amelia Rene AMBIEN 10 MG TAB 1 PO QHS prn ZOLPIDEM TARTRATE 16961764818 No Longer Active Amelia Rene NOVOLOG FLEXPEN 100 UNIT/ML SOPN 14 UNITS BEFORE MEALS INSULIN ASPART 27760899603 Active Amelia Rene LEVEMIR FLEXPEN 100 UNIT/ML SOPN 25 UNITS AT HS INSULIN DETEMIR 67978681511 Active Amelia Rene COUMADIN 1 MG TABS TAKE ONE WITH A 6 MG TO TOTAL 7 MG AND THEN TAKE 6 MG THE NEXT. WARFARIN SODIUM 72342619781 No Longer Active Amelia Lisseth Rene LOVENOX 80 MG/0.8ML SOLN 1 injection twice daily ENOXAPARIN SODIUM 71683639387 No Longer Active Amelia Lisseth Rene OMEPRAZOLE 40 MG CPDR 1 PO daily OMEPRAZOLE 25621130538 Active Karla Evans NYSTATIN 079286 UNIT/ML SUSP 1 teaspoon swish and swallow QID NYSTATIN 12883091621 No Longer Active Amelianunu Rene PREDNISONE 20 MG TAB 1/2 PO daily PREDNISONE 29632553196 No Longer Active Amelianunu Rene TRUETEST TEST STRP TEST BS QID DX: 250.02 GLUCOSE BLOOD 88042693451 Active Karla Evans TOPAMAX 50 MG TABS 1 PO BID TOPIRAMATE 74112422357 Active Karla Evans MONTELUKAST SODIUM 10 MG TABS 1 PO AT HS MONTELUKAST SODIUM 27821050238 Active Karla Evans PREDNISONE 20 MG TAB 1 PO DAILY BID WITH MEALS PREDNISONE 35691871535 No Longer Active Amelianunu Rene CLARITIN 10 MG TABS 1 PO BID LORATADINE 42763796940 Active Amelianunu Rene PEPCID 20 MG TAB 1 PO BID FAMOTIDINE 68825494909 No Longer Active Amelianunu Rene DOXYCYCLINE HYCLATE 100 MG CAP 1 po BID DOXYCYCLINE HYCLATE 92745418050 No Longer Active Amelianunu Rene PEN NEEDLES /" 31G X 8 MM MISC DIRECTED DX: 250.02 INSULIN PEN NEEDLE 36165271306 No Longer Active Amelianunu Rene FLUOCINONIDE 0.05 % CREA apply to affected area on hand nightly for 7 nights then prn FLUOCINONIDE 14550241093 No Longer Active Amelia Lisseth Rene LEVITRA 10 MG TABS 1 PO as directed VARDENAFIL HCL 78736114969 No Longer Active Amelia Lisseth Rene SENIOR MULTIVITAMIN PLUS TABS 1 PO daily MULTIPLE VITAMINS- MINERALS 08771948550 No Longer Active Amelia Lisseth Rene EQL FISH OIL 1000 MG CAPS 3 PO BID OMEGA-3 FATTY ACIDS 04141669255 No Longer Active Amelia Lisseth Rene DOCUSATE SODIUM 100 MG CAPS 2 PO BID DOCUSATE SODIUM 18057822968 No Longer Active Amelia Lisseth Rene ASPIRIN 81 MG TABS 1 PO BID ASPIRIN 81852084689 No Longer Active Amelia Lisseth Rene CARBAMAZEPINE 200 MG TABS 3-5 PO daily CARBAMAZEPINE 05161945703 No Longer Active Amelia Lisseth Rene GEMFIBROZIL 600 MG TABS 1 PO BID GEMFIBROZIL 65440230955 No Longer Active Amelia Lisseth Rnee METFORMIN HCL 1000 MG TABS 1 PO BID METFORMIN HCL 57330205930 No Longer Active Amelia Lisseth Rene GLYBURIDE 1.25 MG TABS 2 PO QAM and 1 PO QPM GLYBURIDE 77327565257 No Longer Active Amelia Lisseth Rene PROMETHAZINE VC/CODEINE 6.25-5-10 MG/5ML SYRP 1 teaspoon PO Q6hrs prn cough [id number] 39641379117 No Longer Active Amelia Lisseth Rene WELCHOL 625 MG TABS 3 PO BID with meals COLESEVELAM HCL 49562782427 No Longer Active Amelia Lisseth Rene TEGRETOL XR 100 MG [id number]-PYT 1 PO friday, friday, CARBAMAZEPINE 80571692205 No Longer Active Amelia Lisseth Rene JANUVIA 100 MG TABS 1 PO daily SITAGLIPTIN PHOSPHATE 82253288388 No Longer Active Amelia Lissethkarley Rene Immunizations [...] 10*3/mm3 Encounters Code Encounter Date Provider Facility CPT-66423 Ofc Vst, Est Level III 14:38:44 CDT Amelia Rene DO, FACP CPT-33984 Ofc Vst, Est Level IV 20:21:55 MUD ANALYSIS WELL LOGGING CAPTAIN Amelia Rene DO, FACP CPT-10404 Ofc Vst, Est Level IV 16:05:00 MUD ANALYSIS WELL LOGGING CAPTAIN Amelia Lisseth Rene Amelia S Rene, DO, FACP CPT-34424 Ofc Vst, Est Level V 21:19:57 MUD ANALYSIS WELL LOGGING CAPTAIN Amelia Ernst Anju, DO, FACP CPT-43151 Ofc Vst, Est Level IV 17:06:25 MUD ANALYSIS WELL LOGGING CAPTAIN Amelia [facility] CPT-44787 Ofc Vst, Est Level III 13:25:12 MUD ANALYSIS WELL LOGGING CAPTAIN Amelia Ernst Anju, DO, FACP CPT-14527 Ofc Vst, Est Level III 12:54:14 CDT Amelianunu Ernst Anju, DO, FACP CPT-82249 Ofc Vst, Est Level III 16:36:19 CDT Amelia Ernst Anju, DO, FACP CPT-22592 Ofc Vst, Est Level IV 22:37:22 CDT Amelia Lisseth Ernst Anju, DO, FACP CPT-08348 Ofc Vst, Est Level V 15:41:07 CDT Amelianunu Ernst Anju, DO, FACP CPT-04900 Ofc Vst, Est Level III 11:42:56 CDT Amelia Ernst Anju, DO, FACP CPT-04840 Ofc Vst, Est Level III 12:06:27 [employer] Amelia Ernst Anju, DO, FACP CPT-13105 Ofc Vst, Est Level III 14:34:43 CDT Amelia Ernst Anju, DO, FACP CPT-80105 Ofc Vst, Est Level III 14:19:43 [employer] Amelia Ernst Anju, DO, FACP CPT-18772 Ofc Vst, Est Level IV 16:26:28 CDT Amelianunu Ernst Anju, DO, FACP CPT-54382 Ofc Vst, Est Level IV 14:04:53 [employer] Amelia Reen DO, FACP CPT-74275 Ofc Vst, New Level IV 14:05:53 CDT Amelia Rene DO, FACP Procedures Code Procedure Name Date Entry Date Standard Description CPT-G0439 Medicare Annual Wellness Visit 12:45:38 [employer] CPT-G8443 E-Prescribing Medication Sent 12:06:27 [employer] CPT-G8443 E-Prescribing Medication Sent 12:44:06 CDT CPT-G0439 Medicare Annual Wellness Visit 12:44:06 CDT CPT-G8443 E-Prescribing Medication Sent 14:34:43 CDT CPT-G0438 Medicare Annual Wellness Visit Initial 11:12:53 CDT
[2018-05-13 11:35] LABS: ABG OXYGEN SATURATION 97 % (94-100); ABG PCO2 24 MMHG (35-45); ABG PH 7.39 (7.37-7.43); ABG PO2 92 MMHG (79-93); ABG TCO2 14.7 MMOL/L (21.0-31.0)
--- OUTSIDE RECORDS SUMMARY | 2018-05-13 11:35 | XMS REPORT | Clinical Summary ---
Author Author User, [employer] Organization Amelia Rene DO, FACP Address Unknown [...] MG TABS 1 po BID SODIUM BICARBONATE 50835279174 Active Amelia Rene COUMADIN 1 MG TABS ONE TAB ALONG WITH 6MG TO TOTAL 7 MG ON WED, FRI AND SUN ONLY WARFARIN SODIUM 23788083942 Active Amelia Rene COUMADIN 6 MG TABS 1 PO DAILYON MON, TU, THURS AND FRI WARFARIN SODIUM 04992869258 Active Amelia Rene COUMADIN 1 MG TABS WARFARIN SODIUM 15335752237 No Longer Active Amelia Rene TESSALON PERLES 100 MG CAPS 1 PO TID prn cough BENZONATATE 75888123954 No Longer Active Karla Evans HYDROXYZINE HCL 10 MG TABS 1 PO TID PRN ITCHING HYDROXYZINE HCL 83048810942 No Longer Active Amelia Rene AMBIEN 10 MG TAB 1 PO QHS prn ZOLPIDEM TARTRATE 96669104951 No Longer Active Amelia Rene NOVOLOG FLEXPEN 100 UNIT/ML SOPN 14 UNITS BEFORE MEALS INSULIN ASPART 20739843704 Active Amelia Rene LEVEMIR FLEXPEN 100 UNIT/ML SOPN 25 UNITS AT HS INSULIN DETEMIR 18752328198 Active Amelia Rene COUMADIN 1 MG TABS TAKE ONE WITH A 6 MG TO TOTAL 7 MG AND THEN TAKE 6 MG THE NEXT. WARFARIN SODIUM 08610505390 No Longer Active Amelia Lisseth Rene LOVENOX 80 MG/0.8ML SOLN 1 injection twice daily ENOXAPARIN SODIUM 40438316553 No Longer Active Amelia Lisseth Rene OMEPRAZOLE 40 MG CPDR 1 PO daily OMEPRAZOLE 55166965595 Active Karla Evans NYSTATIN 605400 UNIT/ML SUSP 1 teaspoon swish and swallow QID NYSTATIN 95918234962 No Longer Active Amelianunu Rene PREDNISONE 20 MG TAB 1/2 PO daily PREDNISONE 04130286566 No Longer Active Amelianunu Rene TRUETEST TEST STRP TEST BS QID DX: 250.02 GLUCOSE BLOOD 87387891951 Active Karla Evans TOPAMAX 50 MG TABS 1 PO BID TOPIRAMATE 76331246292 Active Karla Evans MONTELUKAST SODIUM 10 MG TABS 1 PO AT HS MONTELUKAST SODIUM 90806063688 Active Karla Evans PREDNISONE 20 MG TAB 1 PO DAILY BID WITH MEALS PREDNISONE 97323289293 No Longer Active Amelianunu Rene CLARITIN 10 MG TABS 1 PO BID LORATADINE 10669534200 Active Amelianunu Rene PEPCID 20 MG TAB 1 PO BID FAMOTIDINE 14751224818 No Longer Active Amelianunu Rene DOXYCYCLINE HYCLATE 100 MG CAP 1 po BID DOXYCYCLINE HYCLATE 15780177611 No Longer Active Amelianunu Rene PEN NEEDLES /" 31G X 8 MM MISC DIRECTED DX: 250.02 INSULIN PEN NEEDLE 06327693764 No Longer Active Amelianunu Rene FLUOCINONIDE 0.05 % CREA apply to affected area on hand nightly for 7 nights then prn FLUOCINONIDE 04873575831 No Longer Active Amelia Lisseth Rene LEVITRA 10 MG TABS 1 PO as directed VARDENAFIL HCL 45595778371 No Longer Active Amelia Lisseth Rene SENIOR MULTIVITAMIN PLUS TABS 1 PO daily MULTIPLE VITAMINS- MINERALS 27772701485 No Longer Active Amelia Lisseth Rene EQL FISH OIL 1000 MG CAPS 3 PO BID OMEGA-3 FATTY ACIDS 46153007046 No Longer Active Amelia Lisseth Rene DOCUSATE SODIUM 100 MG CAPS 2 PO BID DOCUSATE SODIUM 84318455318 No Longer Active Amelia Lisseth Rene ASPIRIN 81 MG TABS 1 PO BID ASPIRIN 84862396343 No Longer Active Amelia Lisseth Rene CARBAMAZEPINE 200 MG TABS 3-5 PO daily CARBAMAZEPINE 90970016738 No Longer Active Amelia Lisseth Rene GEMFIBROZIL 600 MG TABS 1 PO BID GEMFIBROZIL 46858820994 No Longer Active Amelia Lisseth Rene METFORMIN HCL 1000 MG TABS 1 PO BID METFORMIN HCL 59407225556 No Longer Active Amelia Lisseth Rene GLYBURIDE 1.25 MG TABS 2 PO QAM and 1 PO QPM GLYBURIDE 46088708911 No Longer Active Amelia Lisseth Rene PROMETHAZINE VC/CODEINE 6.25-5-10 MG/5ML SYRP 1 teaspoon PO Q6hrs prn cough [id number] 50055885683 No Longer Active Amelia Lisseth Rene WELCHOL 625 MG TABS 3 PO BID with meals COLESEVELAM HCL 78216788486 No Longer Active Amelia Lisseth Rene TEGRETOL XR 100 MG [id number] 1 PO friday, friday, CARBAMAZEPINE 50871304967 No Longer Active Amelia Lisseth Rene JANUVIA 100 MG TABS 1 PO daily SITAGLIPTIN PHOSPHATE 64579658794 No Longer Active Amelia Lissethkarley Rene Immunizations [...] 10*3/mm3 Encounters Code Encounter Date Provider Facility CPT-60063 Ofc Vst, Est Level III 14:38:44 CDT Amelia Rene DO, FACP CPT-82280 Ofc Vst, Est Level IV 20:21:55 TEST [employer]ER HELPER Amelia Rene DO, FACP CPT-11076 Ofc Vst, Est Level IV 16:05:00 [employer] HELPER Amelia Lisseth Rene Amelia S Rene, DO, FACP CPT-59444 Ofc Vst, Est Level V 21:19:57 TEST [employer] HELPER Amelia Ernst Anju, DO, FACP CPT-19484 Ofc Vst, Est Level IV 17:06:25 TEST [employer] HELPER [facility] CPT-30540 Ofc Vst, Est Level III 13:25:12 [employer] HELPER Amelia Ernst Anju, DO, FACP CPT-76520 Ofc Vst, Est Level III 12:54:14 CDT Amelianunu Ernst Anju, DO, FACP CPT-03342 Ofc Vst, Est Level III 16:36:19 CDT Amelia Ernst Anju, DO, FACP CPT-99444 Ofc Vst, Est Level IV 22:37:22 CDT Amelia Lisseth Ernst Anju, DO, FACP CPT-74684 Ofc Vst, Est Level V 15:41:07 CDT Amelianunu Ernst Anju, DO, FACP CPT-91665 Ofc Vst, Est Level III 11:42:56 CDT Amelia Ernst Anju, DO, FACP CPT-28059 Ofc Vst, Est Level III 12:06:27 TEST [employer] HELPER Amelia Ernst Anju, DO, FACP CPT-15048 Ofc Vst, Est Level III 14:34:43 CDT Amelia Ernst Anju, DO, FACP CPT-83261 Ofc Vst, Est Level III 14:19:43 TEST [employer]ER HELPER Amelia Ernst Anju, DO, FACP CPT-76534 Ofc Vst, Est Level IV 16:26:28 CDT Amelianunu Ernst Anju, DO, FACP CPT-29391 Ofc Vst, Est Level IV 14:04:53 TEST B[employer]ER HELPER Amelia Rene DO, FACP CPT-71767 Ofc Vst, New Level IV 14:05:53 CDT Amelia Rene DO, FACP Procedures Code Procedure Name Date Entry Date Standard Description CPT-G0439 Medicare Annual Wellness Visit 12:45:38 TEST B[employer]ER HELPER CPT-G8443 E-Prescribing Medication Sent 12:06:27 TEST [employer]ER HELPER CPT-G8443 E-Prescribing Medication Sent 12:44:06 CDT CPT-G0439 Medicare Annual Wellness Visit 12:44:06 CDT CPT-G8443 E-Prescribing Medication Sent 14:34:43 CDT CPT-G0438 Medicare Annual Wellness Visit Initial 11:12:53 CDT
--- OUTSIDE RECORDS SUMMARY | 2018-05-13 11:36 | XMS REPORT | Clinical Summary ---
Author Author User, [employer] Organization Amelia Rene DO, FACP Address Unknown [...] Generic Name NDC Status Provider Patient Instruction HYDROXYZINE HCL 25 MG TAB 1 PO q 6 hours prn HYDROXYZINE HCL 44221141145 Active Amelia Rene BD PEN NEEDLE BARAK U/F 32G X 4 MM MISC DIRECTED DX: 250.02 INSULIN PEN NEEDLE 98681733238 Active Karla Ramey COUMADIN 6 MG TABS 1 PO DAILY WARFARIN SODIUM 93730123625 Active Karla Ramey COUMADIN 1 MG TABS ONE TAB ALONG WITH 6MG TO TOTAL 7 MG ON WED, FRI AND SUN ONLY WARFARIN SODIUM 58132144720 No Longer Active Amelia Rene SODIUM BICARBONATE 325 MG TABS 1 po BID SODIUM BICARBONATE 32518267940 Active Karla Ramey COUMADIN 1 MG TABS WARFARIN SODIUM 91279300507 No Longer Active Amelia Rene TESSALON PERLES 100 MG CAPS 1 PO TID prn cough BENZONATATE 11364688016 No Longer Active Karla Evans HYDROXYZINE HCL 10 MG TABS 1 PO TID PRN ITCHING HYDROXYZINE HCL 68174965456 No Longer Active Amelia Rene AMBIEN 10 MG TAB 1 PO QHS prn ZOLPIDEM TARTRATE 30781136871 No Longer Active Amelia Rene NOVOLOG FLEXPEN 100 UNIT/ML SOPN 14 UNITS BEFORE MEALS INSULIN ASPART 01643321804 Active Karla Evans LEVEMIR FLEXPEN 100 UNIT/ML SOPN 25 UNITS AT HS INSULIN DETEMIR 72963970358 Active Karla Waterstis COUMADIN 1 MG TABS TAKE ONE WITH A 6 MG TO TOTAL 7 MG AND THEN TAKE 6 MG THE NEXT. WARFARIN SODIUM 55454821526 No Longer Active Amelianunu Rene LOVENOX 80 MG/0.8ML SOLN 1 injection twice daily ENOXAPARIN SODIUM 72266315492 No Longer Active Amelia Rene OMEPRAZOLE 40 MG CPDR 1 PO daily OMEPRAZOLE 64991010483 Active Karla Waterstis NYSTATIN 095312 UNIT/ML SUSP 1 teaspoon swish and swallow QID NYSTATIN 57312302508 No Longer Active Amelianunu Rene PREDNISONE 20 MG TAB 1/2 PO daily PREDNISONE 31817031094 No Longer Active Amelia Rene TRUETEST TEST STRP TEST BS QID DX: 250.02 GLUCOSE BLOOD 32914839314 Active Karla Waterstis TOPAMAX 50 MG TABS 1 PO BID TOPIRAMATE 02040866367 Active Karla Evans MONTELUKAST SODIUM 10 MG TABS 1 PO AT HS MONTELUKAST SODIUM 62493343713 Active Karla Waterstis PREDNISONE 20 MG TAB 1 PO DAILY BID WITH MEALS PREDNISONE 18522748479 No Longer Active Amelia Rene CLARITIN 10 MG TABS 1 PO BID LORATADINE 34390372563 Active Amelia Rene PEPCID 20 MG TAB 1 PO BID FAMOTIDINE 25388874665 No Longer Active Amelianunu Rene DOXYCYCLINE HYCLATE 100 MG CAP 1 po BID DOXYCYCLINE HYCLATE 68202059149 No Longer Active Amelia Rene PEN NEEDLES 5/" 31G X 8 MM MISC DIRECTED DX: 250.02 INSULIN PEN NEEDLE 50475925386 No Longer Active Amelia Lisseth Rene FLUOCINONIDE 0.05 % CREA apply to affected area on hand nightly for 7 nights then prn FLUOCINONIDE 42723208010 No Longer Active Amelia Lisseth Rene LEVITRA 10 MG TABS 1 PO as directed VARDENAFIL HCL 05975829280 No Longer Active Amelia Lisseth Rene SENIOR MULTIVITAMIN PLUS TABS 1 PO daily MULTIPLE VITAMINS- MINERALS 91830934533 No Longer Active Amelia Lisseth Rene EQL FISH OIL 1000 MG CAPS 3 PO BID OMEGA-3 FATTY ACIDS 54309739057 No Longer Active Amelia Lisseth Rene DOCUSATE SODIUM 100 MG CAPS 2 PO BID DOCUSATE SODIUM 74242332374 No Longer Active Amelia Lisseth Rene ASPIRIN 81 MG TABS 1 PO BID ASPIRIN 55694577060 No Longer Active Amelia Lisseth Rene CARBAMAZEPINE 200 MG TABS 3-5 PO daily CARBAMAZEPINE 10509449444 No Longer Active Amelia Lisseth Rene GEMFIBROZIL 600 MG TABS 1 PO BID GEMFIBROZIL 49535088190 No Longer Active Amelia Lisseth Rene METFORMIN HCL 1000 MG TABS 1 PO BID METFORMIN HCL 80548229113 No Longer Active Amelia Lisseth Rene GLYBURIDE 1.25 MG TABS 2 PO QAM and 1 PO QPM GLYBURIDE 13059849100 No Longer Active Amelia Lisseth Rene PROMETHAZINE VC/CODEINE 6.25-5-10 MG/5ML SYRP 1 teaspoon PO Q6hrs prn cough [id number] 04760922695 No Longer Active Amelia Lisseth Rene WELCHOL 625 MG TABS 3 PO BID with meals COLESEVELAM HCL 31821631510 No Longer Active Amelia Lisseth Rene TEGRETOL XR 100 MG [id number] 1 PO friday, friday, [facility] 20034761783 No Longer Active Amelia Rene JANUVIA 100 MG TABS 1 PO daily SITAGLIPTIN PHOSPHATE 60714756686 No Longer Active Amelia Rene Immunizations Vaccine Administration Date Value Standard Description Influenza vaccine given Done influenza virus vaccine, unspecified formulation Vital Signs Date Name Value Unit Range Description blood pressure, diastolic - 8462-4 75 mm[Hg] BP michael blood pressure, systolic - 8480-6 130 mm[Hg] BP sys pulse rate E&M - 8867-4 84 /min Heart rate respiratory rate E&M - 9279-1 14 /min Resp rate temperature E&M 98.6 [degF] Body temperature weight E&M - 3141-9 186 [lb_av] Weight Measured pulse rate E&M - 8867-4 76 /min [...] pressure, diastolic - 8462-4 68 mm[Hg] BP michale blood pressure, systolic - 8480-6 122 mm[Hg] [...] 10*3/mm3 Encounters Code Encounter Date Provider Facility CPT-43212 Ofc Vst, Est Level IV 11:43:49 CDT Amelia Rene, DO, FACP CPT-32843 Ofc Vst, Est Level III 14:38:44 CDT Amelia Rene, DO, FACP CPT-61397 Ofc Vst, Est Level IV 20:21:55 F[employer]NACE FEEDER Amelia Rene, DO, FACP CPT-06358 Ofc Vst, Est Level IV 16:05:00 F[employer]NACE FEEDER Amelia Rene, DO, FACP CPT-00540 Ofc Vst, Est Level V 21:19:57 F[employer]NA[employer] FEEDER Amelia Rene, DO, FACP CPT-91058 Ofc Vst, Est Level IV 17:06:25 FURNACE FEEDER Amelia Rene [facility] CPT-78366 Ofc Vst, Est Level III 13:25:12 FURNACE FEEDER Amelia Rene, DO, FACP CPT-08983 Ofc Vst, Est Level III 12:54:14 CDT Amelia Rene, DO, FACP CPT-44424 Ofc Vst, Est Level III 16:36:19 CDT Amelia Rene, DO, FACP CPT-49792 Ofc Vst, Est Level IV 22:37:22 CDT Amelia Rene, DO, FACP CPT-86799 Ofc Vst, Est Level V 15:41:07 CDT Amelia Rene, DO, FACP CPT-67193 Ofc Vst, Est Level III 11:42:56 CDT Amelia Ernst Anju, DO, FACP CPT-74674 Ofc Vst, Est Level III 12:06:27 F[employer] FEEDER Amelia Ernst Anju, DO, FACP CPT-33367 Ofc Vst, Est Level III 14:34:43 CDT Amelia Ernst Anju, DO, FACP CPT-11854 Ofc Vst, Est Level III 14:19:43 FURNACE FEEDER Amelia Ernst Anju, DO, FACP CPT-50750 Ofc Vst, Est Level IV 16:26:28 CDT Amelia Ernst Anju, DO, FACP CPT-56221 Ofc Vst, Est Level IV 14:04:53 FURNACE FEEDER Amelia Ernst Anju, DO, FACP CPT-25213 Ofc Vst, New Level IV 14:05:53 CDT Amelia Ernst Anju, DO, FACP Procedures Code Procedure Name Date Entry Date Standard Description CPT-G0439 Medicare Annual Wellness Visit 12:45:38 FURNACE FEEDER CPT-G8443 E-Prescribing Medication Sent 12:06:27 FURNACE FEEDER CPT-G8443 E-Prescribing Medication Sent 12:44:06 CDT CPT-G0439 Medicare Annual Wellness Visit 12:44:06 CDT CPT-G8443 E-Prescribing Medication Sent 14:34:43 CDT CPT-G0438 Medicare Annual Wellness Visit Initial 11:12:53 CDT
[2018-05-13 11:37] LABS: ALLENS TEST YES-POS; INSPIRED O2 ROOM AIR; PATIENT TEMP 99.9; VENTILATOR NO
--- OUTSIDE RECORDS SUMMARY | 2018-05-13 11:39 | XMS REPORT | Clinical Summary ---
Author Author User, [employer] Organization Amelia Rene DO, FACP Address Unknown [...] Rene Other convulsions HYPERCHOLESTEROLEMIA 272.0 Active Amelia Rnee Pure hypercholesterolemia HYPERTRIGLYCERIDEMIA 272.1 Active Amelia Rene [...] MISC DIRECTED DX: 250.02 INSULIN PEN NEEDLE 17962920930 Active Karla Waterstis COUMADIN 6 MG TABS 1 PO DAILY WARFARIN SODIUM 40065875723 Active Karla Waterstis COUMADIN 1 MG TABS ONE TAB ALONG WITH 6MG TO TOTAL 7 MG ON WED, SAT AND SUN ONLY WARFARIN SODIUM 93399133332 No Longer Active Amelia Rene SODIUM BICARBONATE 325 MG TABS 1 po BID SODIUM BICARBONATE 76528437791 Active Karla Waterstis COUMADIN 1 MG TABS WARFARIN SODIUM 99345731419 No Longer Active Amelia Rene TESSALON PERLES 100 MG CAPS 1 PO TID prn cough BENZONATATE 48480427732 No Longer Active Karla Waterstis HYDROXYZINE HCL 10 MG TABS 1 PO TID PRN ITCHING HYDROXYZINE HCL 84925793539 No Longer Active Amelia Rene AMBIEN 10 MG TAB 1 PO QHS prn ZOLPIDEM TARTRATE 91364800222 No Longer Active Amelia Rene NOVOLOG FLEXPEN 100 UNIT/ML SOPN 14 UNITS BEFORE MEALS INSULIN ASPART 58741295245 Active Amelia Rene LEVEMIR FLEXPEN 100 UNIT/ML SOPN 25 UNITS AT HS INSULIN DETEMIR 03527874640 Active Amelianunu Rene COUMADIN 1 MG TABS TAKE ONE WITH A 6 MG TO TOTAL 7 MG AND THEN TAKE 6 MG THE NEXT. WARFARIN SODIUM 12712001396 No Longer Active Amelianunu Rene LOVENOX 80 MG/0.8ML SOLN 1 injection twice daily ENOXAPARIN SODIUM 45948683365 No Longer Active Amelianunu Rene OMEPRAZOLE 40 MG CPDR 1 PO daily OMEPRAZOLE 41806750989 Active Karla Cristina NYSTATIN 279152 UNIT/ML SUSP 1 teaspoon swish and swallow QID NYSTATIN 86317758432 No Longer Active Amelianunu Rene PREDNISONE 20 MG TAB 1/2 PO daily PREDNISONE 23359792861 No Longer Active Amelia Rene TRUETEST TEST STRP TEST BS QID DX: 250.02 GLUCOSE BLOOD 27609872303 Active Karla Waterstis TOPAMAX 50 MG TABS 1 PO BID TOPIRAMATE 43271322387 Active Karla Evans MONTELUKAST SODIUM 10 MG TABS 1 PO AT HS MONTELUKAST SODIUM 30678860809 Active Karla Cristina PREDNISONE 20 MG TAB 1 PO DAILY BID WITH MEALS PREDNISONE 76122135098 No Longer Active Amelianunu Rene CLARITIN 10 MG TABS 1 PO BID LORATADINE 30323238499 Active Amelianunu Rene PEPCID 20 MG TAB 1 PO BID FAMOTIDINE 36244666607 No Longer Active Amelianunu Reen DOXYCYCLINE HYCLATE 100 MG CAP 1 po BID DOXYCYCLINE HYCLATE 76198138276 No Longer Active Amelia Rene PEN NEEDLES 5/16" 31G X 8 MM MISC DIRECTED DX: 250.02 INSULIN PEN NEEDLE 17993641514 No Longer Active Amelia Lisseth Rene FLUOCINONIDE 0.05 % CREA apply to affected area on hand nightly for 7 nights then prn FLUOCINONIDE 13155145388 No Longer Active Amelia Lisseth Rene LEVITRA 10 MG TABS 1 PO as directed VARDENAFIL HCL 98818610572 No Longer Active Amelia Lisseth Rene SENIOR MULTIVITAMIN PLUS TABS 1 PO daily MULTIPLE VITAMINS- MINERALS 27792038902 No Longer Active Amelia Lisseth Rene EQL FISH OIL 1000 MG CAPS 3 PO BID OMEGA-3 FATTY ACIDS 70202345566 No Longer Active Amelia Lisseth Rene DOCUSATE SODIUM 100 MG CAPS 2 PO BID DOCUSATE SODIUM 21649754680 No Longer Active Amelia Lisseth Rene ASPIRIN 81 MG TABS 1 PO BID ASPIRIN 04069121227 No Longer Active Amelia Lisseth Rene CARBAMAZEPINE 200 MG TABS 3-5 PO daily CARBAMAZEPINE 95898894196 No Longer Active Amelia Lisseth Rene GEMFIBROZIL 600 MG TABS 1 PO BID GEMFIBROZIL 29424986832 No Longer Active Amelia Lisseth Rene METFORMIN HCL 1000 MG TABS 1 PO BID METFORMIN HCL 46610691775 No Longer Active Amelia Lisseth Rene GLYBURIDE 1.25 MG TABS 2 PO QAM and 1 PO QPM GLYBURIDE 17845876234 No Longer Active Amelia Lisseth Rene PROMETHAZINE VC/CODEINE 6.25-5-10 MG/5ML SYRP 1 teaspoon PO Q6hrs prn cough [id number] 83598324048 No Longer Active Amelia Lisseth Rene WELCHOL 625 MG TABS 3 PO BID with meals COLESEVELAM HCL 02923701462 No Longer Active Amelia Lisseth Rene TEGRETOL XR 100 MG [id number] 1 PO friday, friday, [facility] 35081195722 No Longer Active Amelia Rene JANUVIA 100 MG TABS 1 PO daily SITAGLIPTIN PHOSPHATE 32471871801 No Longer Active Amelia Rene Immunizations Vaccine [...] Lists Update: IN PT LABS - Urinalysis protein, urine, semiquantitative (dipstick) 100 blood in [...] bilirubin, urine neg glucose, urine, semiquantitative >100 Clinical Lists Update: PT,INR - Coagulation international normalized ratio (INR) 3.2 prothrombin time (patient) 42.0 s international normalized ratio (INR) 4.6 prothrombin time (patient) 48.0 s international normalized ratio (INR) 1.7 prothrombin time (patient) 17.2 s international normalized ratio (INR) 3.7 prothrombin time (patient) 38.3 s international normalized ratio (INR) 4.8 prothrombin time (patient) 49.9 s prothrombin time (patient) 33.5 s international normalized ratio (INR) 3.9 international [...] 10*3/mm3 Encounters Code Encounter Date Provider Facility CPT-66752 Ofc Vst, Est Level III 14:38:44 CDT Amelia Lisseth Rene Amelia S Rene, DO, FACP CPT-02875 Ofc Vst, Est Level IV 20:21:55 VP STRATEGY Amelia Ernst Rene, DO, FACP CPT-45003 Ofc Vst, Est Level IV 16:05:00 VP STRATEGY Amelia Ernst Rene, DO, FACP CPT-20700 Ofc Vst, Est Level V 21:19:57 VP STRATEGY Amelia Rodriguezner, DO, FACP CPT-11542 Ofc Vst, Est Level IV 17:06:25 VP STRATEGY [facility] CPT-42686 Ofc Vst, Est Level III 13:25:12 VP STRATEGY Amelia Ernst Rene, DO, FACP CPT-60375 Ofc Vst, Est Level III 12:54:14 CDT Amelianunu Ernst Rene, DO, FACP CPT-67012 Ofc Vst, Est Level III 16:36:19 CDT Amelianunu Ernst Rene, DO, FACP CPT-74291 Ofc Vst, Est Level IV 22:37:22 CDT Amelia Ernst Rene, DO, FACP CPT-43592 Ofc Vst, Est Level V 15:41:07 CDT Amelianunu Ernst Rene, DO, FACP CPT-66621 Ofc Vst, Est Level III 11:42:56 CDT Amelianunu Ernst Rene, DO, FACP CPT-67710 Ofc Vst, Est Level III 12:06:27 VP STRATEGY Amelia Ernst Rene, DO, FACP CPT-72828 Ofc Vst, Est Level III 14:34:43 CDT Amelianunu Ernst Anju, DO, FACP CPT-31416 Ofc Vst, Est Level III 14:19:43 VP STRATEGY Amelia Lisseth Anju Rene DO, FACP CPT-25287 Ofc Vst, Est Level IV 16:26:28 CDT Amelia Rene DO, FACP CPT-60274 Ofc Vst, Est Level IV 14:04:53 VP STRATEGY Amelia Rene DO, FACP CPT-57672 Ofc Vst, New Level IV 14:05:53 CDT Amelia Lissethkarley Rene DO, FACP Procedures Code Procedure Name Date Entry Date Standard Description CPT-G0439 Medicare Annual Wellness Visit 12:45:38 VP STRATEGY CPT-G8443 E-Prescribing Medication Sent 12:06:27 VP STRATEGY CPT-G8443 E-Prescribing Medication Sent 12:44:06 CDT CPT-G0439 Medicare Annual Wellness Visit 12:44:06 CDT CPT-G8443 E-Prescribing Medication Sent 14:34:43 CDT CPT-G0438 Medicare Annual Wellness Visit Initial 11:12:53 CDT
--- OUTSIDE RECORDS SUMMARY | 2018-05-13 11:43 | XMS REPORT | Clinical Summary ---
Author Author User, [employer] Organization Amelia Rene DO, FACP Address Unknown [...] MG TABS 1 po BID SODIUM BICARBONATE 95152116994 Active Amelia Rene COUMADIN 1 MG TABS ONE TAB ALONG WITH 6MG TO TOTAL 7 MG ON WED, FRI AND SUN ONLY WARFARIN SODIUM 17959153048 Active Amelia Rene COUMADIN 6 MG TABS 1 PO DAILYON MON, TU, THURS AND FRI WARFARIN SODIUM 59559050605 Active Amelia Rene COUMADIN 1 MG TABS WARFARIN SODIUM 78069668827 No Longer Active Amelia Rene TESSALON PERLES 100 MG CAPS 1 PO TID prn cough BENZONATATE 92947307279 No Longer Active Karla Evans HYDROXYZINE HCL 10 MG TABS 1 PO TID PRN ITCHING HYDROXYZINE HCL 61382025532 No Longer Active Amleia Rene AMBIEN 10 MG TAB 1 PO QHS prn ZOLPIDEM TARTRATE 57593160251 No Longer Active Amelia Rene NOVOLOG FLEXPEN 100 UNIT/ML SOPN 14 UNITS BEFORE MEALS INSULIN ASPART 89633031685 Active Amelia Rene LEVEMIR FLEXPEN 100 UNIT/ML SOPN 25 UNITS AT HS INSULIN DETEMIR 72374471851 Active Amelia Rene COUMADIN 1 MG TABS TAKE ONE WITH A 6 MG TO TOTAL 7 MG AND THEN TAKE 6 MG THE NEXT. WARFARIN SODIUM 88205171235 No Longer Active Amelia Lisseth Rene LOVENOX 80 MG/0.8ML SOLN 1 injection twice daily ENOXAPARIN SODIUM 44939722832 No Longer Active Amelia Lisseth Rene OMEPRAZOLE 40 MG CPDR 1 PO daily OMEPRAZOLE 27184568235 Active Karla Evans NYSTATIN 202361 UNIT/ML SUSP 1 teaspoon swish and swallow QID NYSTATIN 12029658505 No Longer Active Amelianunu Rene PREDNISONE 20 MG TAB 1/2 PO daily PREDNISONE 60369986535 No Longer Active Amelianunu Rene TRUETEST TEST STRP TEST BS QID DX: 250.02 GLUCOSE BLOOD 72875755327 Active Karla Evans TOPAMAX 50 MG TABS 1 PO BID TOPIRAMATE 88491379545 Active Karla Evans MONTELUKAST SODIUM 10 MG TABS 1 PO AT HS MONTELUKAST SODIUM 79405215320 Active Karla Evans PREDNISONE 20 MG TAB 1 PO DAILY BID WITH MEALS PREDNISONE 09894226930 No Longer Active Amelianunu Rene CLARITIN 10 MG TABS 1 PO BID LORATADINE 84963915969 Active Amelianunu Rene PEPCID 20 MG TAB 1 PO BID FAMOTIDINE 38422951419 No Longer Active Amelianunu Rene DOXYCYCLINE HYCLATE 100 MG CAP 1 po BID DOXYCYCLINE HYCLATE 01677428645 No Longer Active Amelianunu Rene PEN NEEDLES 01/21" 31G X 8 MM MISC DIRECTED DX: 250.02 INSULIN PEN NEEDLE 81808661260 No Longer Active Amelia Lisseth Rene FLUOCINONIDE 0.05 % CREA apply to affected area on hand nightly for 7 nights then prn FLUOCINONIDE 82836821918 No Longer Active Amelia Lisseth Rene LEVITRA 10 MG TABS 1 PO as directed VARDENAFIL HCL 05834720567 No Longer Active Amleia Lisseth Rene SENIOR MULTIVITAMIN PLUS TABS 1 PO daily MULTIPLE VITAMINS- MINERALS 73297202125 No Longer Active Amelia Lisseth Rene EQL FISH OIL 1000 MG CAPS 3 PO BID OMEGA-3 FATTY ACIDS 66621607834 No Longer Active Amelia Lisseth Rene DOCUSATE SODIUM 100 MG CAPS 2 PO BID DOCUSATE SODIUM 76758575023 No Longer Active Amelia Lisseth Rene ASPIRIN 81 MG TABS 1 PO BID ASPIRIN 34997497051 No Longer Active Amelia Lisseth Rene CARBAMAZEPINE 200 MG TABS 3-5 PO daily CARBAMAZEPINE 08240424006 No Longer Active Amelia Lisseth Rene GEMFIBROZIL 600 MG TABS 1 PO BID GEMFIBROZIL 88991371415 No Longer Active Amelia Lisseth Rene METFORMIN HCL 1000 MG TABS 1 PO BID METFORMIN HCL 90293088472 No Longer Active Amelia Lisseth Rene GLYBURIDE 1.25 MG TABS 2 PO QAM and 1 PO QPM GLYBURIDE 39457850205 No Longer Active Amelia Lisseth Rene PROMETHAZINE VC/CODEINE 6.25-5-10 MG/5ML SYRP 1 teaspoon PO Q6hrs prn cough [id number] 82855801131 No Longer Active Amelia Lisseth Rene WELCHOL 625 MG TABS 3 PO BID with meals COLESEVELAM HCL 86778396236 No Longer Active Amelia Lisseth Rene TEGRETOL XR 100 MG [id number] 1 PO friday, friday, CARBAMAZEPINE 75820133872 No Longer Active Amelia Lisseth Rene JANUVIA 100 MG TABS 1 PO daily SITAGLIPTIN PHOSPHATE 66830329912 No Longer Active Amelia Lissethkarley Rene Immunizations [...] 10*3/mm3 Encounters Code Encounter Date Provider Facility CPT-92683 Ofc Vst, Est Level III 14:38:44 CDT Amelia Rene DO, FACP CPT-98128 Ofc Vst, Est Level IV 20:21:55 HYDRO PLANT TECHNICIAN Amelia Rene DO, FACP CPT-96787 Ofc Vst, Est Level IV 16:05:00 HYDRO PLANT TECHNICIAN Amelia Lisseth Rene Amelia S Rene, DO, FACP CPT-82323 Ofc Vst, Est Level V 21:19:57 HYDRO PLANT TECHNICIAN Amelia Ernst Anju, DO, FACP CPT-04817 Ofc Vst, Est Level IV 17:06:25 HYDRO PLANT TECHNICIAN [facility] CPT-94344 Ofc Vst, Est Level III 13:25:12 HYDRO PLANT TECHNICIAN Amelia Ernst Anju, DO, FACP CPT-72353 Ofc Vst, Est Level III 12:54:14 CDT Amelianunu Ernst Anju, DO, FACP CPT-35100 Ofc Vst, Est Level III 16:36:19 CDT Amelia Ernst Anju, DO, FACP CPT-27913 Ofc Vst, Est Level IV 22:37:22 CDT Amelianunu Ernst Anju, DO, FACP CPT-09383 Ofc Vst, Est Level V 15:41:07 CDT Amelianunu Ernst Anju, DO, FACP CPT-47940 Ofc Vst, Est Level III 11:42:56 CDT Amelianunu Ernst Anju, DO, FACP CPT-23138 Ofc Vst, Est Level III 12:06:27 HYDRO PLANT TECHNICIAN Amelia Ernst Anju, DO, FACP CPT-11885 Ofc Vst, Est Level III 14:34:43 CDT Amelia Ernst Anju, DO, FACP CPT-14261 Ofc Vst, Est Level III 14:19:43 HYDRO PLANT TECHNICIAN Amelia Ernst Anju, DO, FACP CPT-62270 Ofc Vst, Est Level IV 16:26:28 CDT Amelianunu Ernst Anju, DO, FACP CPT-89252 Ofc Vst, Est Level IV 14:04:53 HY[employer]O PLANT TECHNICIAN Amelia Rene DO, FACP CPT-47642 Ofc Vst, New Level IV 14:05:53 CDT Amelia Rene DO, FACP Procedures Code Procedure Name Date Entry Date Standard Description CPT-G0439 Medicare Annual Wellness Visit 12:45:38 HYDRO PLANT TECHNICIAN CPT-G8443 E-Prescribing Medication Sent 12:06:27 HYDRO PLANT TECHNICIAN CPT-G8443 E-Prescribing Medication Sent 12:44:06 CDT CPT-G0439 Medicare Annual Wellness Visit 12:44:06 CDT CPT-G8443 E-Prescribing Medication Sent 14:34:43 CDT CPT-G0438 Medicare Annual Wellness Visit Initial 11:12:53 CDT
--- OUTSIDE RECORDS SUMMARY | 2018-05-13 11:46 | XMS REPORT | Clinical Summary ---
Author Author User, [employer] Organization Amelia Rene DO, FACP Address Unknown [...] MG TABS 1 po BID SODIUM BICARBONATE 26770548072 Active Amelia Rene COUMADIN 1 MG TABS ONE TAB ALONG WITH 6MG TO TOTAL 7 MG ON WED, FRI AND SUN ONLY WARFARIN SODIUM 80774437376 Active Amelia Rene COUMADIN 6 MG TABS 1 PO DAILYON MON, TU, THURS AND FRI WARFARIN SODIUM 96260314714 Active Amelia Rene COUMADIN 1 MG TABS WARFARIN SODIUM 85349510389 No Longer Active Amelia Rene TESSALON PERLES 100 MG CAPS 1 PO TID prn cough BENZONATATE 78845748249 No Longer Active aKrla Evans HYDROXYZINE HCL 10 MG TABS 1 PO TID PRN ITCHING HYDROXYZINE HCL 68266091676 No Longer Active Amelia Rene AMBIEN 10 MG TAB 1 PO QHS prn ZOLPIDEM TARTRATE 05496946996 No Longer Active Amelia Rene NOVOLOG FLEXPEN 100 UNIT/ML SOPN 14 UNITS BEFORE MEALS INSULIN ASPART 09239241198 Active Amelia Rene LEVEMIR FLEXPEN 100 UNIT/ML SOPN 25 UNITS AT HS INSULIN DETEMIR 82376765021 Active Amelia Rene COUMADIN 1 MG TABS TAKE ONE WITH A 6 MG TO TOTAL 7 MG AND THEN TAKE 6 MG THE NEXT. WARFARIN SODIUM 49552811999 No Longer Active Amelia Lisseth Rene LOVENOX 80 MG/0.8ML SOLN 1 injection twice daily ENOXAPARIN SODIUM 51699339536 No Longer Active Amelia Lisseth Rene OMEPRAZOLE 40 MG CPDR 1 PO daily OMEPRAZOLE 55357451677 Active Karla Evans NYSTATIN 437975 UNIT/ML SUSP 1 teaspoon swish and swallow QID NYSTATIN 16069155819 No Longer Active Amelianunu Rene PREDNISONE 20 MG TAB 1/2 PO daily PREDNISONE 09007192845 No Longer Active Amelianunu Rene TRUETEST TEST STRP TEST BS QID DX: 250.02 GLUCOSE BLOOD 98058843793 Active Karla Evans TOPAMAX 50 MG TABS 1 PO BID TOPIRAMATE 63817954611 Active Karla Evans MONTELUKAST SODIUM 10 MG TABS 1 PO AT HS MONTELUKAST SODIUM 66546244121 Active Karla Evans PREDNISONE 20 MG TAB 1 PO DAILY BID WITH MEALS PREDNISONE 67875106598 No Longer Active Amelianunu Rene CLARITIN 10 MG TABS 1 PO BID LORATADINE 36775920384 Active Amelianunu Rene PEPCID 20 MG TAB 1 PO BID FAMOTIDINE 64215734307 No Longer Active Amelianunu Rene DOXYCYCLINE HYCLATE 100 MG CAP 1 po BID DOXYCYCLINE HYCLATE 50347370269 No Longer Active Amelianunu Rene PEN NEEDLES 01/21" 31G X 8 MM MISC DIRECTED DX: 250.02 INSULIN PEN NEEDLE 50869011452 No Longer Active Amelia Lisseth Rene FLUOCINONIDE 0.05 % CREA apply to affected area on hand nightly for 7 nights then prn FLUOCINONIDE 88145558701 No Longer Active Amelia Lisseth Rene LEVITRA 10 MG TABS 1 PO as directed VARDENAFIL HCL 00583326880 No Longer Active Amelia Lisseth Rene SENIOR MULTIVITAMIN PLUS TABS 1 PO daily MULTIPLE VITAMINS- MINERALS 93444505374 No Longer Active Amelia Lisseth Rene EQL FISH OIL 1000 MG CAPS 3 PO BID OMEGA-3 FATTY ACIDS 75667238546 No Longer Active Amelia Lisseth Rene DOCUSATE SODIUM 100 MG CAPS 2 PO BID DOCUSATE SODIUM 00249575300 No Longer Active Amelia Lisseth Rene ASPIRIN 81 MG TABS 1 PO BID ASPIRIN 07932156707 No Longer Active Amelia Lisseth Rene CARBAMAZEPINE 200 MG TABS 3-5 PO daily CARBAMAZEPINE 81053300877 No Longer Active Amelia Lisseth Rene GEMFIBROZIL 600 MG TABS 1 PO BID GEMFIBROZIL 40941882252 No Longer Active Amelia Lisseth Rene METFORMIN HCL 1000 MG TABS 1 PO BID METFORMIN HCL 57821711777 No Longer Active Amelia Lisseth Rene GLYBURIDE 1.25 MG TABS 2 PO QAM and 1 PO QPM GLYBURIDE 28836417791 No Longer Active Amelia Lisseth Rene PROMETHAZINE VC/CODEINE 6.25-5-10 MG/5ML SYRP 1 teaspoon PO Q6hrs prn cough [id number] 50231102824 No Longer Active Amelia Lisseth Reen WELCHOL 625 MG TABS 3 PO BID with meals COLESEVELAM HCL 74414927933 No Longer Active Amelia Lisseth Rene TEGRETOL XR 100 MG [id number] 1 PO friday, friday, CARBAMAZEPINE 87805462058 No Longer Active Amelia Lisseth Rene JANUVIA 100 MG TABS 1 PO daily SITAGLIPTIN PHOSPHATE 07216540357 No Longer Active Amelia Lissethkarley Rene Immunizations [...] 10*3/mm3 Encounters Code Encounter Date Provider Facility CPT-20974 Ofc Vst, Est Level III 14:38:44 CDT Amelia Rene DO, FACP CPT-95214 Ofc Vst, Est Level IV 20:21:55 SKEIN WINDING OPERATOR Amelia Rene DO, FACP CPT-97207 Ofc Vst, Est Level IV 16:05:00 SKEIN WINDING OPERATOR Amelia Lisseth Rene Amelia S Rene, DO, FACP CPT-69934 Ofc Vst, Est Level V 21:19:57 SKEIN WINDING OPERATOR Amelia Ernst Anju, DO, FACP CPT-54922 Ofc Vst, Est Level IV 17:06:25 SKEIN WINDING OPERATOR [facility] CPT-06684 Ofc Vst, Est Level III 13:25:12 SKEIN WINDING OPERATOR Amelia Ernst Anju, DO, FACP CPT-50757 Ofc Vst, Est Level III 12:54:14 CDT Amelianunu Ernst Anju, DO, FACP CPT-63137 Ofc Vst, Est Level III 16:36:19 CDT Amelia Ernst Anju, DO, FACP CPT-35123 Ofc Vst, Est Level IV 22:37:22 CDT Amelianunu Ernst Anju, DO, FACP CPT-13746 Ofc Vst, Est Level V 15:41:07 CDT Amelianunu Ernst Anju, DO, FACP CPT-68111 Ofc Vst, Est Level III 11:42:56 CDT Amelianunu Ernst Anju, DO, FACP CPT-13559 Ofc Vst, Est Level III 12:06:27 SKEIN WINDING OPERATOR Amelia Ernst Anju, DO, FACP CPT-52677 Ofc Vst, Est Level III 14:34:43 CDT Amelia Ernst Anju, DO, FACP CPT-99095 Ofc Vst, Est Level III 14:19:43 SKEIN WINDING OPERATOR Amelia Ernst Anju, DO, FACP CPT-90820 Ofc Vst, Est Level IV 16:26:28 CDT Amelianunu Ernst Anju, DO, FACP CPT-27979 Ofc Vst, Est Level IV 14:04:53 SKEIN WINDING OPERATOR Amelia Rene DO, FACP CPT-99240 Ofc Vst, New Level IV 14:05:53 CDT Amelia Rene DO, FACP Procedures Code Procedure Name Date Entry Date Standard Description CPT-G0439 Medicare Annual Wellness Visit 12:45:38 SKEIN WINDING OPERATOR CPT-G8443 E-Prescribing Medication Sent 12:06:27 SKEIN WINDING OPERATOR CPT-G8443 E-Prescribing Medication Sent 12:44:06 CDT CPT-G0439 Medicare Annual Wellness Visit 12:44:06 CDT CPT-G8443 E-Prescribing Medication Sent 14:34:43 CDT CPT-G0438 Medicare Annual Wellness Visit Initial 11:12:53 CDT
[2018-05-13 11:47] LABS: BASOPHILS % (AUTO) 0 % (0-10); EOSINOPHILS # (AUTO) 0.2 10^3/uL (0.0-0.3); EOSINOPHILS % (AUTO) 2 % (0-10); HEMATOCRIT 38 % (40-54); HEMOGLOBIN 12.5 G/DL (13.3-17.7); LYMPHOCYTES # (AUTO) 2.1 X 10^3 (1.0-4.0); LYMPHOCYTES % (AUTO) 24 % (12-44); MEAN CORPUSCULAR HEMOGLOBIN 28 PG (25-34); MEAN CORPUSCULAR HGB CONC 33 G/DL (32-36); MEAN CORPUSCULAR VOLUME 85 FL (80-99); MEAN PLATELET VOLUME 9.3 FL (7.4-10.4); MONOCYTES # (AUTO) 0.8 X 10^3 (0.0-1.0); MONOCYTES % (AUTO) 9 % (0-12); NEUTROPHILS # (AUTO) 5.7 X 10^3 (1.8-7.8); NEUTROPHILS % (AUTO) 65 % (42-75); PLATELET COUNT 134 10^3/uL (130-400); RED BLOOD COUNT 4.42 10^6/uL (4.35-5.85); WHITE BLOOD COUNT 8.8 10^3/uL (4.3-11.0)
--- OUTSIDE RECORDS SUMMARY | 2018-05-13 11:47 | XMS REPORT | Clinical Summary ---
Author Author User, [employer] Organization Amelia Rene DO, FACP Address Unknown [...] MG TABS 1 po BID SODIUM BICARBONATE 04313079055 Active Amelia Rene COUMADIN 1 MG TABS ONE TAB ALONG WITH 6MG TO TOTAL 7 MG ON WED, FRI AND SUN ONLY WARFARIN SODIUM 88112462239 Active Amelia Rene COUMADIN 6 MG TABS 1 PO DAILYON MON, TU, THURS AND FRI WARFARIN SODIUM 78424356374 Active Amelia Rene COUMADIN 1 MG TABS WARFARIN SODIUM 45702232264 No Longer Active Amelia Rene TESSALON PERLES 100 MG CAPS 1 PO TID prn cough BENZONATATE 28588399382 No Longer Active Karla Evans HYDROXYZINE HCL 10 MG TABS 1 PO TID PRN ITCHING HYDROXYZINE HCL 87875674748 No Longer Active Amelia Rene AMBIEN 10 MG TAB 1 PO QHS prn ZOLPIDEM TARTRATE 91751870068 No Longer Active Amelia Rene NOVOLOG FLEXPEN 100 UNIT/ML SOPN 14 UNITS BEFORE MEALS INSULIN ASPART 68157565161 Active Amelia Rene LEVEMIR FLEXPEN 100 UNIT/ML SOPN 25 UNITS AT HS INSULIN DETEMIR 94322829527 Active Amelia Rene COUMADIN 1 MG TABS TAKE ONE WITH A 6 MG TO TOTAL 7 MG AND THEN TAKE 6 MG THE NEXT. WARFARIN SODIUM 66559179366 No Longer Active Amelia Lisseth Rene LOVENOX 80 MG/0.8ML SOLN 1 injection twice daily ENOXAPARIN SODIUM 98641812371 No Longer Active Amelia Lisseth Rene OMEPRAZOLE 40 MG CPDR 1 PO daily OMEPRAZOLE 34956618050 Active Karla Evans NYSTATIN 435676 UNIT/ML SUSP 1 teaspoon swish and swallow QID NYSTATIN 12105335839 No Longer Active Amelianunu Rene PREDNISONE 20 MG TAB 1/2 PO daily PREDNISONE 24509677803 No Longer Active Amelianunu Rene TRUETEST TEST STRP TEST BS QID DX: 250.02 GLUCOSE BLOOD 92039217529 Active Karla Evans TOPAMAX 50 MG TABS 1 PO BID TOPIRAMATE 11576531556 Active Karla Evans MONTELUKAST SODIUM 10 MG TABS 1 PO AT HS MONTELUKAST SODIUM 32450950147 Active Karla Evans PREDNISONE 20 MG TAB 1 PO DAILY BID WITH MEALS PREDNISONE 30191513133 No Longer Active Amelianunu Rene CLARITIN 10 MG TABS 1 PO BID LORATADINE 35126327720 Active Amelianunu Rene PEPCID 20 MG TAB 1 PO BID FAMOTIDINE 54308996250 No Longer Active Amelianunu Rene DOXYCYCLINE HYCLATE 100 MG CAP 1 po BID DOXYCYCLINE HYCLATE 63947414341 No Longer Active Amelianunu Rene PEN NEEDLES 01/21" 31G X 8 MM MISC DIRECTED DX: 250.02 INSULIN PEN NEEDLE 42621183377 No Longer Active Amelia Lisseth Rene FLUOCINONIDE 0.05 % CREA apply to affected area on hand nightly for 7 nights then prn FLUOCINONIDE 91948544654 No Longer Active Amelia Lisseth Rene LEVITRA 10 MG TABS 1 PO as directed VARDENAFIL HCL 05124789887 No Longer Active Amelia Lisseth Rene SENIOR MULTIVITAMIN PLUS TABS 1 PO daily MULTIPLE VITAMINS- MINERALS 91637536479 No Longer Active Amelia Lisseth Rene EQL FISH OIL 1000 MG CAPS 3 PO BID OMEGA-3 FATTY ACIDS 09342024289 No Longer Active Amelia Lisseth Rene DOCUSATE SODIUM 100 MG CAPS 2 PO BID DOCUSATE SODIUM 03903098603 No Longer Active Amelia Lisseth Rene ASPIRIN 81 MG TABS 1 PO BID ASPIRIN 22535755754 No Longer Active Amelia Lisseth Rene CARBAMAZEPINE 200 MG TABS 3-5 PO daily CARBAMAZEPINE 97529513598 No Longer Active Amelia Lisseth Rene GEMFIBROZIL 600 MG TABS 1 PO BID GEMFIBROZIL 60978453435 No Longer Active Amelia Lisseth Rene METFORMIN HCL 1000 MG TABS 1 PO BID METFORMIN HCL 91482782565 No Longer Active Amelia Lisseth Rene GLYBURIDE 1.25 MG TABS 2 PO QAM and 1 PO QPM GLYBURIDE 65623279591 No Longer Active Amleia Lisseth Rene PROMETHAZINE VC/CODEINE 6.25-5-10 MG/5ML SYRP 1 teaspoon PO Q6hrs prn cough [id number] 20548204990 No Longer Active Amelia Lisseth Rene WELCHOL 625 MG TABS 3 PO BID with meals COLESEVELAM HCL 72075701292 No Longer Active Amelia Lisseth Rene TEGRETOL XR 100 MG [id number] 1 PO friday, friday, CARBAMAZEPINE 33151114518 No Longer Active Amelia Lisseth Rene JANUVIA 100 MG TABS 1 PO daily SITAGLIPTIN PHOSPHATE 81171876690 No Longer Active Amelia Lissethkarley Rene Immunizations [...] 10*3/mm3 Encounters Code Encounter Date Provider Facility CPT-06197 Ofc Vst, Est Level III 14:38:44 CDT Amelia Reen DO, FACP CPT-98126 Ofc Vst, Est Level IV 20:21:55 DIRECTOR OF PUBLIC SAFETY Amelia Rene DO, FACP CPT-69355 Ofc Vst, Est Level IV 16:05:00 DIRECTOR OF PUBLIC SAFETY Amelia Lisseth Rene Amelia S Rene, DO, FACP CPT-89725 Ofc Vst, Est Level V 21:19:57 DIRECTOR OF PUBLIC SAFETY Amelia Ernst Anju, DO, FACP CPT-73961 Ofc Vst, Est Level IV 17:06:25 DIRECTOR OF PUBLIC SAFETY [facility] CPT-28833 Ofc Vst, Est Level III 13:25:12 DIRECTOR OF PUBLIC SAFETY Amelia Ernst Anju, DO, FACP CPT-00534 Ofc Vst, Est Level III 12:54:14 CDT Amelianunu Ernst Anju, DO, FACP CPT-00067 Ofc Vst, Est Level III 16:36:19 CDT Amelia Ernst Anju, DO, FACP CPT-06962 Ofc Vst, Est Level IV 22:37:22 CDT Amelianunu Ernst Anju, DO, FACP CPT-07088 Ofc Vst, Est Level V 15:41:07 CDT Amelianunu Ernst Anju, DO, FACP CPT-58506 Ofc Vst, Est Level III 11:42:56 CDT Amelianunu Ernst Anju, DO, FACP CPT-11119 Ofc Vst, Est Level III 12:06:27 DIRECTOR OF PUBLIC SAFETY Amelia Ernst Anju, DO, FACP CPT-63561 Ofc Vst, Est Level III 14:34:43 CDT Amelia Ernst Anju, DO, FACP CPT-38167 Ofc Vst, Est Level III 14:19:43 DIRECTOR OF PUBLIC SAFETY Amelia Ernst Anju, DO, FACP CPT-62308 Ofc Vst, Est Level IV 16:26:28 CDT Amelianunu Ernst Anju, DO, FACP CPT-00719 Ofc Vst, Est Level IV 14:04:53 DIRECTOR OF PUBLIC SAFETY Amelia Rene DO, FACP CPT-79407 Ofc Vst, New Level IV 14:05:53 CDT Amelia Rene DO, FACP Procedures Code Procedure Name Date Entry Date Standard Description CPT-G0439 Medicare Annual Wellness Visit 12:45:38 DIRECTOR OF PUBLIC SAFETY CPT-G8443 E-Prescribing Medication Sent 12:06:27 DIRECTOR OF PUBLIC SAFETY CPT-G8443 E-Prescribing Medication Sent 12:44:06 CDT CPT-G0439 Medicare Annual Wellness Visit 12:44:06 CDT CPT-G8443 E-Prescribing Medication Sent 14:34:43 CDT CPT-G0438 Medicare Annual Wellness Visit Initial 11:12:53 CDT
--- OUTSIDE RECORDS SUMMARY | 2018-05-13 11:54 | XMS REPORT | Continuity of Care Document ---
Author Author [facility] Organization [facility] Address Unknown Phone Unavailable Allergies Active Description Code Type Severity Reaction Onset Reported/Identified Relationship to Patient Clinical Status Yes TETRACYCLINE [id number] DRUG N/A N/A Yes No Known Drug Allergies [id number] Drug Allergy Unknown N/A 06/14/2014 Medications There is no data. Problems Date Dx Coded Attending Type Code Diagnosis Diagnosed By 06/17/2014 ERICA RODRÍGUEZ DO Ot 038.9 SEPTICEMIA NOS 06/17/2014 LAMONTE RODRÍGUEZ DOI Ot 066.1 TICK-BORNE FEVER 06/17/2014 ANNE DON ERICA Ot 112.0 THRUSH 06/17/2014 ANNE DON ERICA Ot 250.02 DIAB DERRICK WO COMPL, TYPE II OR UNSPEC TY 06/17/2014 ANNE DON ERICA Ot 272.0 PURE HYPERCHOLESTEROLEM 06/17/2014 ANNE DON ERICA Ot 272.4 HYPERLIPIDEMIA NEC/NOS 06/17/2014 ANNE DON ERICA Ot 285.9 ANEMIA NOS 06/17/2014 ANNE DON ERICA Ot 300.00 ANXIETY STATE NOS 06/17/2014 ANNE DON ERICA Ot 311 DEPRESSIVE DISORDER NEC 06/17/2014 ANNE DON ERICA Ot 345.90 EPILEPSY UNSPEC W/O MENTION INTRACTABLE 06/17/2014 ANNE DON ERICA Ot 401.9 HYPERTENSION NOS 06/17/2014 ANNE DON ERICA Ot 490 BRONCHITIS NOS 06/17/2014 ANNE DON ERICA Ot 584.9 ACUTE RENAL FAILURE, UNSPECIFIED 06/17/2014 ANNE DON ERICA Ot 708.0 ALLERGIC URTICARIA 06/17/2014 ANNE DON ERICA Ot 782.3 EDEMA 06/17/2014 ANNE DON ERICA Ot 785.1 PALPITATIONS 06/17/2014 ANNE DON ERICA Ot 995.92 SEVERE SEPSIS 06/17/2014 ANNE DON ERICA Ot E932.0 ADV EFF CORTICOSTEROIDS 06/21/2014 ANNE DON ERICA Ot 112.0 THRUSH 06/21/2014 RODRÍGUEZ DO, ERICA Ot 250.02 DIAB DERRICK WO COMPL, TYPE II OR UNSPEC TY 06/21/2014 RODRÍGUEZ DO, ERICA Ot 272.4 HYPERLIPIDEMIA NEC/NOS 06/21/2014 RODRÍGUEZ DO, ERICA Ot 285.9 ANEMIA NOS 06/21/2014 RODRÍGUEZ DO, ERICA Ot 288.60 LEUKOCYTOSIS, UNSPECIFIED 06/21/2014 RODRÍGUEZ DO, ERICA Ot 300.00 ANXIETY STATE NOS 06/21/2014 RODRÍGUEZ DO, ERICA Ot 311 DEPRESSIVE DISORDER NEC 06/21/2014 RODRÍGUEZ DO, ERICA Ot 345.90 EPILEPSY UNSPEC W/O MENTION INTRACTABLE 06/21/2014 RODRÍGUEZ DO, ERICA Ot 401.9 HYPERTENSION NOS 06/21/2014 RODRÍGUEZ DO, ERICA Ot 427.89 CARDIAC DYSRHYTHMIAS NEC 06/21/2014 RODRÍGUEZ DO, ERICA Ot 490 BRONCHITIS NOS 06/21/2014 RODRÍGUEZ DO, ERICA Ot 708.9 URTICARIA NOS 06/21/2014 ANNE DO, ERICA Ot 782.3 EDEMA 06/21/2014 ANNE DON, ERICA Ot 785.1 PALPITATIONS 06/21/2014 ANNE DO, ERICA Ot E849.7 ACCID IN RESIDENT INSTIT 06/21/2014 ANNE DO, ERICA Ot E932.0 ADV EFF CORTICOSTEROIDS 09/02/2014 ANNE DO, ERICA Ot 250.00 DIAB DERRICK WO COMPL, TYPE II OR UNSPEC TY 09/02/2014 ANNE DO, ERICA Ot 272.0 PURE HYPERCHOLESTEROLEM 09/02/2014 ANNE DO, ERICA Ot 272.1 PURE HYPERGLYCERIDEMIA 09/02/2014 ANNE DO ERICA Ot 276.8 HYPOPOTASSEMIA 09/02/2014 ANNE DO ERICA Ot 345.90 EPILEPSY UNSPEC W/O MENTION INTRACTABLE 09/02/2014 ANNE DO, ERICA Ot 403.90 HYPTNSV CHR KID DIS, UNSPEC, W CHR KD ST 09/02/2014 ANNE DO, ERICA Ot 415.13 SADDLE EMBOLUS OF PULMONARY ARTERY 09/02/2014 ANNE DO, ERICA Ot 453.41 ACUTE VENOUS EMBOLISM THROMBOSIS DEEP 09/02/2014 ANNE DO, ERICA Ot 530.81 ESOPHAGEAL REFLUX 09/02/2014 ANNE DO, ERICA Ot 585.9 CHRONIC KIDNEY DISEASE, UNSPECIFIED 09/02/2014 ANNE DON ERICA Ot V58.67 LONG-TERM (CURRENT) USE OF INSULIN 09/06/2014 ANNE DON ERICA Ot 250.00 DIAB DERRICK WO COMPL, TYPE II OR UNSPEC TY 09/06/2014 ANNE DO ERICA Ot 272.0 PURE HYPERCHOLESTEROLEM 09/06/2014 ANNE DO ERICA Ot 272.1 PURE HYPERGLYCERIDEMIA 09/06/2014 ANNE DO ERICA Ot 276.2 ACIDOSIS 09/06/2014 ANNE DO ERICA Ot 276.8 HYPOPOTASSEMIA 09/06/2014 ANNE DO ERICA Ot 345.90 EPILEPSY UNSPEC W/O MENTION INTRACTABLE 09/06/2014 ANNE DO ERICA Ot 403.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 CHR KID DIS, UNSPEC, W CHR KD ST 09/06/2014 ANNE DON ERICA Ot 415.13 SADDLE EMBOLUS OF PULMONARY ARTERY 09/06/2014 ANNE DON ERICA Ot 453.41 ACUTE VENOUS EMBOLISM THROMBOSIS DEEP 09/06/2014 ANNE DON ERICA Ot 530.81 ESOPHAGEAL REFLUX 09/06/2014 ANNE DON ERICA Ot 585.9 CHRONIC KIDNEY DISEASE, UNSPECIFIED 09/06/2014 ANNE DON ERICA Ot V58.67 LONG-TERM (CURRENT) USE OF INSULIN 10/12/2014 ANNE DO ERICA Ot V58.61 10/12/2014 ANNE DO ERICA Ot V58.83 11/03/2014 RODRÍGUEZ DO ERICA Ot V58.61 11/03/2014 RODRÍGUEZ DO ERICA Ot V58.83 08/28/2015 RODRÍGUEZ DO ERICA Ot V58.61 08/28/2015 RODRÍGUEZ DO ERICA Ot V58.83 09/19/2015 ANNE DON ERICA Ot J18.9 02/25/2016 Ot S01.111A LACERATION W/O FB OF RIGHT EYELID AND PE 02/25/2016 Ot S50.312A ABRASION OF LEFT ELBOW, INITIAL ENCOUNTE 02/25/2016 Ot S61.411A LACERATION WITHOUT FOREIGN BODY OF RIGHT 02/25/2016 Ot S80.211A ABRASION, RIGHT KNEE, INITIAL ENCOUNTER 02/25/2016 Ot S80.212A ABRASION, LEFT KNEE, INITIAL ENCOUNTER 02/25/2016 Ot W01.0XXA FALL SAME LEV FROM SLIP/TRIP W/O STRIKE 02/25/2016 Ot Y92[address] OF OCCURRENCE OF T 02/25/2016 Ot Y99.8 OTHER EXTERNAL CAUSE STATUS 02/25/2016 Ot Z23 ENCOUNTER FOR IMMUNIZATION 02/25/2016 Ot 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 02/25/2016 Ot Z86.711 PERSONAL HISTORY OF PULMONARY EMBOLISM 02/25/2016 Ot Z86.718 PERSONAL HISTORY OF OTHER VENOUS THROMBO 02/29/2016 ERICA RODRÍGUEZ DO Ot V58.61 ANTICOAGULANTS,LT,CURRENT USE 02/29/2016 ERICA RODRÍGUEZ DO Ot V58.83 ENCOUNTER FOR THERAPEUTIC DRUG MONITORIN 02/29/2016 ERICA RODRÍGUEZ DO Ot J18.9 PNEUMONIA, UNSPECIFIED ORGANISM 10/10/2016 ERICA RODRÍGUEZ DO Ot V58.61 ANTICOAGULANTS,LT,CURRENT USE 10/10/2016 ERICA RODRÍGUEZ DO Ot V58.83 ENCOUNTER FOR THERAPEUTIC DRUG MONITORIN 10/10/2016 ERICA RODRÍGUEZ DO Ot J18.9 PNEUMONIA, UNSPECIFIED ORGANISM 10/11/2016 ERICA RODRÍGUEZ DO Ot E11.65 TYPE 2 DIABETES MELLITUS WITH HYPERGLYCE 10/11/2016 ERICA RODRÍGUEZ DO Ot E55.9 VITAMIN D DEFICIENCY, UNSPECIFIED 10/11/2016 ERICA RODRÍGUEZ DO Ot E78.1 PURE HYPERGLYCERIDEMIA 10/11/2016 ERICA RODRÍGUEZ DO Ot 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 10/11/2016 ERICA RODRÍGUEZ DO Ot E11.65 TYPE 2 DIABETES MELLITUS WITH HYPERGLYCE 10/11/2016 ERICA RODRÍGUEZ DO Ot E55.9 VITAMIN D DEFICIENCY, UNSPECIFIED 10/11/2016 ERICA RODRÍGUEZ DO Ot E78.00 PURE HYPERCHOLESTEROLEMIA, UNSPECIFIED 10/11/2016 ERICA RODRÍGUEZ DO Ot E78.1 PURE HYPERGLYCERIDEMIA 10/11/2016 ERICA RODRÍGUEZ DO Ot 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 10/11/2016 ERICA RODRÍGUEZ DO Ot Z00.00 ENCNTR FOR GENERAL ADULT MEDICAL EXAM W/ 10/16/2016 ERICA RODRÍGUEZ DO Ot E11.65 TYPE 2 DIABETES MELLITUS WITH HYPERGLYCE 10/16/2016 ERICA RODRÍGUEZ DO Ot E55.9 VITAMIN D DEFICIENCY, UNSPECIFIED 10/16/2016 LAMONTE RODRÍGUEZ DOI Ot E78.00 PURE HYPERCHOLESTEROLEMIA, UNSPECIFIED 10/16/2016 LAMONTE RODRÍGUEZ DOI Ot E78.1 PURE HYPERGLYCERIDEMIA 10/16/2016 LAMONTE RODRÍGUEZ DOI Ot 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 10/16/2016 LAMONTE RODRÍGUEZ DOI Ot Z00.00 ENCNTR FOR GENERAL ADULT MEDICAL EXAM W11/04/2016 ERICA RODRÍGUEZ DO Ot E11.65 TYPE 2 DIABETES MELLITUS WITH HYPERGLYCE 11/04/2016 ERICA RODRÍGUEZ DO Ot E55.9 VITAMIN D DEFICIENCY, UNSPECIFIED 11/04/2016 LAMONTE RODRÍGUEZ DOI Ot E78.00 PURE HYPERCHOLESTEROLEMIA, UNSPECIFIED 11/04/2016 LAMONTE RODRÍGUEZ DOI Ot E78.1 PURE HYPERGLYCERIDEMIA 11/04/2016 ANNE DON ERICA Ot 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 11/04/2016 ERICA RODRÍGUEZ DO Ot Z00.00 ENCNTR FOR GENERAL ADULT MEDICAL EXAM W11/05/2017 ERICA RODRÍGUEZ DO Ot V58.61 ANTICOAGULANTS,LT,CURRENT USE 11/05/2017 LAOMNTE RODRÍGUEZ DOI Ot V58.83 ENCOUNTER FOR THERAPEUTIC DRUG MONITORIN 11/05/2017 ERICA RODRÍGUEZ DO Ot J18.9 PNEUMONIA, UNSPECIFIED ORGANISM 11/05/2017 ERICA RODRÍGUEZ DO Ot E11.65 TYPE 2 DIABETES MELLITUS WITH HYPERGLYCE 11/05/2017 ERICA RODRÍGUEZ DO Ot E55.9 VITAMIN D DEFICIENCY, UNSPECIFIED 11/05/2017 ERICA RODRÍGUEZ DO Ot E78.00 PURE HYPERCHOLESTEROLEMIA, UNSPECIFIED 11/05/2017 LAMONTE RODRÍGUEZ DOI Ot E78.1 PURE HYPERGLYCERIDEMIA 11/05/2017 LAMONTE RODRÍGUEZ DOI Ot 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 11/05/2017 LAMONTE RODRÍGUEZ DOI Ot Z00.00 ENCNTR FOR GENERAL ADULT MEDICAL EXAM W11/11/2017 LAMONTE RODRÍGUEZ DOI Ot R07.9 CHEST PAIN, UNSPECIFIED 11/28/2017 LAMONTE RODRÍGUEZ DOI Ot R07.9 CHEST PAIN, UNSPECIFIED 02/24/2018 LAMONTE RODRÍGUEZ DOI Ot R07.9 CHEST PAIN, UNSPECIFIED 04/27/2018 ERICA RODRÍGUEZ DO Ot V58.61 ANTICOAGULANTS,LT,CURRENT USE 04/27/2018 ERICA RODRÍGUEZ DO Ot V58.83 ENCOUNTER FOR THERAPEUTIC DRUG MONITORIN 04/27/2018 ERICA RODRÍGUEZ DO Ot J18.9 PNEUMONIA, UNSPECIFIED ORGANISM 04/27/2018 ERICA RODRÍGUEZ DO Ot E11.65 TYPE 2 DIABETES MELLITUS WITH HYPERGLYCE 04/27/2018 ERICA RODRÍGUEZ DO Ot E55.9 VITAMIN D DEFICIENCY, UNSPECIFIED 04/27/2018 ERICA RODRÍGUEZ DO Ot E78.00 PURE HYPERCHOLESTEROLEMIA, UNSPECIFIED 04/27/2018 ERICA RODRÍGUEZ DO Ot E78.1 PURE HYPERGLYCERIDEMIA 04/27/2018 ERICA RODRÍGUEZ DO Ot 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 04/27/2018 ERICA RODRÍGUEZ DO Ot Z00.00 ENCNTR FOR GENERAL ADULT MEDICAL EXAM W/ 04/27/2018 ERICA RODRÍGUEZ DO Ot R07.9 CHEST PAIN, UNSPECIFIED Procedures Code Description Performed By Performed On 86.11 CLOSED BIOPSY OF SKIN AND SUBCUTANEOUS T 06/14/2014 Results Test Result Range Complete blood count (CBC) with automated white blood cell (WBC) differential - 10/10/16 08:41 Blood leukocytes automated count (number/volume) 6.5 10*3/uL 4.3-11.0 Blood erythrocytes automated count (number/volume) 5.72 10*6/uL 4.35-5.85 Venous blood hemoglobin measurement (mass/volume) 16.8 g/dL 13.3-17.7 Blood hematocrit (volume fraction) 50 % 40-54 Automated erythrocyte mean corpuscular volume 87 [foz_us] 80-99 Automated erythrocyte mean corpuscular hemoglobin (mass per erythrocyte) 29 pg 25-34 Automated erythrocyte mean corpuscular hemoglobin concentration measurement ( mass/volume) 34 g/dL 32-36 Automated erythrocyte distribution width ratio 13.6 % 10.0-14.5 Automated blood platelet count (count/volume) 239 10*3/uL 130-400 Automated blood platelet mean volume measurement 10.0 [foz_us] 7.4-10.4 Automated blood neutrophils/100 leukocytes 55 % 42-75 Automated blood lymphocytes/100 leukocytes 33 % 12-44 Blood monocytes/100 leukocytes 8 % 0-12 Automated blood eosinophils/100 leukocytes 3 % 0-10 Automated blood basophils/100 leukocytes 1 % 0-10 Blood neutrophils automated count (number/volume) 3.6 10*3 1.8-7.8 Blood lymphocytes automated count (number/volume) 2.2 10*3 1.0-4.0 Blood monocytes automated count (number/volume) 0.5 10*3 0.0-1.0 Automated eosinophil count 0.2 10*3/uL 0.0-0.3 Automated blood basophil count (count/volume) 0.0 10*3/uL 0.0-0.1 PT panel in platelet poor plasma by coagulation assay - 10/10/16 08:41 Prothrombin time (PT) in platelet poor plasma by coagulation assay 33.8 s 12.2-14.7 INR in platelet poor plasma or blood by coagulation assay 3.3 0.8-1.4 Comprehensive metabolic panel - 10/10/16 08:41 Serum or plasma sodium measurement (moles/volume) 137 mmol/L 135-145 Serum or plasma potassium measurement (moles/volume) 4.1 mmol/L 3.6-5.0 Serum or plasma chloride measurement (moles/volume) 109 mmol/L 98-107 Carbon dioxide 20 mmol/L 21-32 Serum or plasma anion gap determination (moles/volume) 8 mmol/L 5-14 Serum or plasma urea nitrogen measurement (mass/volume) 17 mg/dL 7-18 Serum or plasma creatinine measurement (mass/volume) 1.52 mg/dL 0.60-1.30 Serum or plasma urea nitrogen/creatinine mass ratio 11 NRG Serum or plasma creatinine measurement with calculation of estimated glomerular filtration rate 46 NRG Serum or plasma glucose measurement (mass/volume) 163 mg/dL 70-105 Serum or plasma calcium measurement (mass/volume) 9.3 mg/dL 8.5-10.1 Serum or plasma total bilirubin measurement (mass/volume) 0.5 mg/dL 0.1-1.0 Serum or plasma alkaline phosphatase measurement (enzymatic activity/volume) 65 U/L 40-136 Serum or plasma aspartate aminotransferase measurement (enzymatic activity/ volume) 20 U/L 5-34 Serum or plasma alanine aminotransferase measurement (enzymatic activity/volume ) 25 U/L 0-55 Serum or plasma protein measurement (mass/volume) 8.7 g/dL 6.4-8.2 Serum or plasma albumin measurement (mass/volume) 4.2 g/dL 3.2-4.5 Serum or plasma triglyceride measurement (mass/volume) - 10/10/16 08:41 Serum or plasma triglyceride measurement (mass/volume) 359 mg/dL <150 Serum or plasma cholesterol measurement (mass/volume) - 10/10/16 08:41 Serum or plasma cholesterol measurement (mass/volume) 164 mg/dL < 200 Hemoglobin A1c - 10/10/16 08:41 Hemoglobin A1c 9.8 % 4.5-6.2 25-hydroxyvitamin D measurement - 10/10/16 08:41 25-hydroxy vitamin D measurement 10 % 30-100 Capillary blood glucose measurement by glucometer (mass/volume) - 05/01/18 10: 39 Capillary blood glucose measurement by glucometer (mass/volume) 261 mg/dL 70-110 Encounters ACCT No. Visit Date/Time Discharge Status Pt. Type Provider Facility Loc./Unit Complaint [id number] 07/28/2014 12:01:34 07/28/2014 23:59:59 CLS Outpatient Bernabe Hawkins [id number] 06/08/2014 21:55:31 06/08/2014 23:59:59 CLS Outpatient Usha Louise [id number] 06/07/2014 13:07:15 06/07/2014 23:59:59 CLS Outpatient Alen Bateman [facility] 09/12/2014 14:15:42 ACT Document Registration [id number] 11/07/2017 10:30:00 11/07/2017 23:59:59 CLS Preadmit ERICA RODRÍGUEZ DO [facility] CARD R07.9 CHEST PAIN [id number] 11/07/2017 06:31:00 11/07/2017 23:59:59 CLS Outpatient ANNE DON ERICA [facility] CARD R07.9 CHEST PAIN [id number] 10/10/2016 08:18:00 10/10/2016 23:59:59 CLS Outpatient ANNE DON ERICA [facility] RAD TYPE 2 DIABETES MELLITUS WITH HYPERGLYCEMIA [id number] 08/28/2015 13:46:00 08/28/2015 23:59:59 CLS Outpatient RODRÍGUEZ DO, ERICA [facility] RAD PNEUMONIA [id number] 09/12/2014 14:14:00 09/12/2014 23:59:59 CLS Outpatient RODRÍGUEZ DO, ERICA [facility] LAB COUMADIN THERAPY [id number] 09/02/2014 08:49:00 09/06/2014 14:00:00 DIS Inpatient RODRÍGUEZ DO, ERICA [facility] 4TH SWB-UNSTABLE ANGINA,NEW HEART FAILURE [id number] 08/29/2014 12:10:00 09/02/2014 08:36:00 DIS Inpatient RODRÍGUEZ DO, ERICA [address] UNSTABLE ANGINA,NEW HEART FAILURE [id number] 06/17/2014 10:45:00 06/21/2014 11:00:00 DIS Inpatient RODRÍGUEZ DO, ERICA [facility] CSD SWB-SYNCOPAL EPISODES [id number] 06/14/2014 10:55:00 06/17/2014 10:25:00 DIS Inpatient RODRÍGUEZ DO, ERICA [facility] CSD SYNCOPAL EPISODES [id number] 04/27/2018 09:49:00 ACT Inpatient RODRÍGUEZ DO, ERICA [facility] ICU GI BLEED,ANTICOAGULATED [id number] 02/25/2016 10:00:00 Document Registration [id number] 01/23/2018 08:01:14 Document Registration [id number] 09/26/2017 11:29:37 Document Registration [id number] 09/26/2017 11:23:53 Document Registration [id number] 05/20/2017 09:31:02 Document Registration
--- NOTE | 2018-05-13 12:03 | Diagnostic Imaging Report ---
Indication: Dyspnea. Time of exam 11:42 AM Correlation is made with prior study from 05/01/2018. The heart size is stable. The lungs are clear. No infiltrate is detected. No effusion or pneumothorax is seen. Impression: No acute cardiopulmonary process is detected. Dictated by: Dictated on workstation # [id number]
[2018-05-13 12:06] LABS: ALANINE AMINOTRANSFERASE 10 U/L (0-55); ALBUMIN 3.5 GM/DL (3.2-4.5); ALKALINE PHOSPHATASE 51 U/L (40-136); BILIRUBIN,TOTAL 0.6 MG/DL (0.1-1.0); BUN/CREATININE RATIO 12; CALCIUM 9.1 MG/DL (8.5-10.1); CARBON DIOXIDE 17 MMOL/L (21-32); CHLORIDE 109 MMOL/L (98-107); CREATININE SERUM 1.61 MG/DL (0.60-1.30); GFR ESTIMATED 43; GLUCOSE 201 MG/DL (70-105); MAGNESIUM 1.8 MG/DL (1.8-2.4); PHOSPHORUS 2.5 MG/DL (2.3-4.7); SODIUM 136 MMOL/L (135-145); TOTAL PROTEIN 8.2 GM/DL (6.4-8.2)
[2018-05-13 12:09] LABS: FIBRIN DEGRADATION PRODUCTS 9.82 UG/ML (0.00-0.49); INR 1.2 (0.8-1.4); PROTHROMBIN TIME PATIENT 15.4 SEC (12.2-14.7)
[2018-05-13] MEDS ORDERED: FUROSEMIDE 40 MG/4 ML INJ (LASIX) IVP NR (12:45)
[2018-05-13] MEDS ORDERED: SODIUM BICARB 8.4% 50 MEQ/50 ML (ABBOTT) SYR ONE (12:58)
[2018-05-13] MEDS ORDERED: SODIUM BICARB 8.4% 50 MEQ/50 ML (ABBOTT) SYR IV NR (13:00)
--- NOTE | 2018-05-13 13:07 | Consultation-Cardiology ---
HPI-Cardiology Cardiology Consultation Date of Consultation 05/13/18 Date of Admission Time Seen by Provider: 13:02 Indication: Chest pain, shortness of breath HPI 72 years old gentleman with history of DVT and PE, had large GI bleed received multiple blood transfusion last month, was doing well after his discharge until the past 4-5 days when he started having increasing shortness of breath on exertion which became worse to the point that he became short of breath after walking to the bathroom. He had an episode of chest tightness earlier last week described it as dull achiness in the upper retrosternal area lasted for about an hour and resolved spontaneously. No further episodes of chest pain. Denied any palpitation, syncope or near syncopal episodes. Denied any claudications, no fever or chills. Had mild enlargement of the lymph nodes Home Medications & Allergies Allergies: Coded Allergies: No Known Drug Allergies (Unverified , 06/14/14) Home Medication List Reviewed: Yes HAQ-Zyfvvl-Jehzls Hx Patient Social History Marital Status: Employed/Student: retired Recent Hopitalizations: No Immunizations Up To Date Date of Pneumonia Vaccine: Jun 08, 2013 Past Medical History Past medical history is described below Family Medical History Significant Family History: Diabetes Family Medical Hx Noncontributory to his current condition Family History: FH: pancreatic cancer Review of Systems Constitutional: see HPI, malaise EENTM: see HPI, no symptoms reported Respiratory: see HPI, cough, dyspnea on exertion; No hemoptysis, No orthopnea, No phlegm; short of breath; No stridor, No wheezing, No other Cardiovascular: see HPI, chest pain; No edema, No Hx of Intervention, No palpitations, No syncope, No vascular heart diseas, No other Gastrointestinal: no symptoms reported, see HPI Genitourinary: no symptoms reported, see HPI Musculoskeletal: no symptoms reported, see HPI Skin: no symptoms reported, see HPI Psychiatric/Neurological: No Symptoms Reported, See HPI Reviewed Test Results Reviewed Test Results Lab Laboratory Tests Test 05/13/18 11:30 Range/Units White Blood Count 8.8 4.3-11.0 10^3/uL Red Blood Count 4.42 4.35-5.85 10^6/uL Hemoglobin 12.5 L 13.3-17.7 G/DL Hematocrit 38 L 40-54 % Mean Corpuscular Volume 85 80-99 FL Mean Corpuscular Hemoglobin 28 25-34 PG Mean Corpuscular Hemoglobin Concent 33 32-36 G/DL Red Cell Distribution Width 15.0 H 10.0-14.5 % Platelet Count 134 130-400 10^3/uL Mean Platelet Volume 9.3 7.4-10.4 FL Neutrophils (%) (Auto) 65 42-75 % Lymphocytes (%) (Auto) 24 12-44 % Monocytes (%) (Auto) 9 0-12 % Eosinophils (%) (Auto) 2 0-10 % Basophils (%) (Auto) 0 0-10 % Neutrophils # (Auto) 5.7 1.8-7.8 X 10^3 Lymphocytes # (Auto) 2.1 1.0-4.0 X 10^3 Monocytes # (Auto) 0.8 0.0-1.0 X 10^3 Eosinophils # (Auto) 0.2 0.0-0.3 10^3/uL Basophils # (Auto) 0.0 0.0-0.1 10^3/uL Prothrombin Time 15.4 H 12.2-14.7 SEC INR Comment 1.2 0.8-1.4 D-Dimer 9.82 H 0.00-0.49 UG/ML Blood Gas Puncture Site RT RAD Blood Gas Patient Temperature 99.9 Arterial Blood pH 7.39 7.37-7.43 Arterial Blood Partial Pressure CO2 24 L 35-45 MMHG Arterial Blood Partial Pressure O2 92 79-93 MMHG Arterial Blood HCO3 14 *L 23-27 MMOL/L Arterial Blood Total CO2 14.7 L 21.0-31.0 MMOL/L Arterial Blood Oxygen Saturation 97 94-100 % Arterial Blood Base Excess -10.0 L -2.5-2.5 MMOL/L Elias Test YES-POS Blood Gas Ventilator Setting NO Blood Gas Inspired Oxygen ROOM AIR Sodium Level 136 135-145 MMOL/L Potassium Level 4.0 3.6-5.0 MMOL/L Chloride Level 109 H 98-107 MMOL/L Carbon Dioxide Level 17 L 21-32 MMOL/L Anion Gap 10 5-14 MMOL/L Blood Urea Nitrogen 19 H 7-18 MG/DL Creatinine 1.61 H 0.60-1.30 MG/DL Estimat Glomerular Filtration Rate 43 BUN/Creatinine Ratio 12 Glucose Level 201 H 70-105 MG/DL Lactic Acid Level 1.65 0.50-2.00 MMOL/L Calcium Level 9.1 8.5-10.1 MG/DL Corrected Calcium 9.5 8.5-10.1 MG/DL Phosphorus Level 2.5 2.3-4.7 MG/DL Magnesium Level 1.8 1.8-2.4 MG/DL Total Bilirubin 0.6 0.1-1.0 MG/DL Aspartate Amino Transf (AST/SGOT) 12 5-34 U/L Alanine Aminotransferase (ALT/SGPT) 10 0-55 U/L Alkaline Phosphatase 51 40-136 U/L Troponin I < 0.30 <0.30 NG/ML B-Type Natriuretic Peptide 514.7 H <100.0 PG/ML Total Protein 8.2 6.4-8.2 GM/DL Albumin 3.5 3.2-4.5 GM/DL Physical Exam Vital Signs Vital Signs - First Documented 05/13/18 10:50 Pulse 107 Resp 20 B/P (MAP) 125/87 (100) Pulse Ox 97 O2 Delivery Room Air Capillary Refill : Height, Weight, BMI Height: 5'11.00" Weight: 183lbs. 0.7oz. 83.181148hr; 25.5 BMI Method:Stated General Appearance: No Apparent Distress, WD/WN Eyes: Bilateral Eye Normal Inspection, Bilateral Eye PERRL, Bilateral Eye EOMI HEENT: PERRL/EOMI, TMs Normal, Normal ENT Inspection, Pharynx Normal Neck: Full Range of Motion, Normal Inspection, Non Tender, Supple, Carotid Bruit Respiratory: Chest Non Tender, Lungs Clear, Normal Breath Sounds, No Accessory Muscle Use, No Respiratory Distress Cardiovascular: Regular Rate, Rhythm, No Edema, No Gallop, No JVD, No Murmur, Normal Peripheral Pulses Gastrointestinal: Normal Bowel Sounds, No Organomegaly, No Pulsatile Mass, Non Tender, Soft Back: Normal Inspection, No CVA Tenderness, No Vertebral Tenderness Extremity: Normal Capillary Refill, Normal Inspection, Normal Range of Motion, Non Tender, No Calf Tenderness, No Pedal Edema Neurologic/Psychiatric: Alert, Oriented x3, No Motor/Sensory Deficits, Normal Mood/Affect Skin: Normal Color, Warm/Dry Lymphatic: No Adenopathy A/P-Cardiology Admission Diagnosis Shortness of breath Anterior chest wall pain GI bleed Hypertension Assessment/Plan Shortness of breath, worsening over the past week, progressive deterioration, history of deep venous thrombosis and pulmonary embolism in the past and he has been maintained on Coumadin since 2013 until April 2018 when he was admitted with acute GI bleed. D-dimer is elevated, I will start Lovenox and PPI and evaluate VQ scan. Chest pain nonspecific etiology, could be secondary to pulmonary embolism, will consider stress test in the future. Monitor cardiac enzymes for now. History of GI bleed, had Rosemary-Oshea tear, received multiple transfusion, continue to monitor H&H while on Lovenox Status post hypothalamic/hypotensive shock, occurred in April secondary to GI bleed. Continue to monitor at this time. History of tick bite in March 2018. I will evaluate tick panel History of allergic reaction in 2013. History of epilepsy MARIO MACKAY MD May 13, 2018 13:07
[2018-05-13] MEDS: LACTATED RINGERS 1,000 ML IV SCH ×2 (13:08→20:31)
[2018-05-13] MEDS ORDERED: POLY17PO6 PO (13:09)
[2018-05-13] MEDS ORDERED: PANT40TA2 PO (13:09)
[2018-05-13] MEDS ORDERED: ALBU2.5V4 NEB (13:09)
[2018-05-13] MEDS ORDERED: ENOXAPARIN 100 MG/1 ML (LOVENOX) SYR SC SCH (13:15)
[2018-05-13 13:30] VITALS: BP 128/89
[2018-05-13] MEDS ORDERED: RT-ALBUTEROL SULF 2.5 MG/3 ML PRE-MIX VIAL INH PRN (13:30)
[2018-05-13] MEDS ORDERED: NON-FORMULARY MEDICATION 1 EA EA (Hydroxyzine HCl 25 MG) PO PRN (13:30)
[2018-05-13] MEDS ORDERED: NON-FORMULARY MEDICATION 1 EA EA (Benzonatate 200 MG) PO PRN (13:30)
[2018-05-13] MEDS: ENOXAPARIN 80 MG/0.8 ML (LOVENOX) SYR SC SCH (13:39)
[2018-05-13] MEDS ORDERED: hydrOXYzine (VISTARIL) 25 MG CAP PO PRN (13:45)
[2018-05-13 13:51] LABS: BILIRUBIN,URINE NEGATIVE (NEGATIVE); CLARITY,URINE CLEAR; COLOR,URINE YELLOW; GLUCOSE, URINE (UA) NEGATIVE (NEGATIVE); KETONES,URINE NEGATIVE (NEGATIVE); LEUKOCYTE ESTERASE ,URINE NEGATIVE (NEGATIVE); NITRITE,URINE NEGATIVE (NEGATIVE); PH,URINE 6.5 (5-9); PROTEIN,URINE 1+ (NEGATIVE); UROBILINOGEN,URINE NORMAL (NORMAL)
[2018-05-13 14:14] LABS: BACTERIA,URINE FEW /HPF; GRANULAR CASTS,URINE RARE /LPF; SQUAMOUS EPITHELIAL CELL,UR RARE /HPF; WBC,URINE 0-2 /HPF
[2018-05-13] MEDS: RT-ALBUTEROL SULF 2.5 MG/3 ML PRE-MIX VIAL INH SCH ×3 (15:12→20:13)
[2018-05-13 16:00] VITALS: BP 128/81
[2018-05-13] MEDS ORDERED: NON-FORMULARY MEDICATION 1 EA EA (Insulin Aspart (Novolog Flexpen) 10 UNITS) SC SCH (16:00)
--- NOTE | 2018-05-13 16:31 | Diagnostic Imaging Report ---
INDICATION: Dyspnea. TECHNIQUE: Patient was administered 1 mCi technetium 99m aerosolized DTPA and imaging over the chest was performed. In addition, patient was administered 5.4 mCi technetium 99m MAA intravenously and imaging over the chest was performed. FINDINGS: Ventilation portion of the study demonstrates homogeneous ventilation of both lungs. No definite ventilation defects are seen. The perfusion portion of the study does show a moderate sized area of wedge-shaped defect in the midportion of the left lung. In addition, there appears to be a moderate-sized area of perfusion defect in the upper portion of the right lung. No other abnormality seen. IMPRESSION: Ventilation perfusion mismatch with moderate-sized areas of perfusion defect bilaterally, as described. This is intermediate to high probability category for pulmonary embolism. Results were discussed with Dr. Kwok prior to this dictation. Dictated by: Dictated on workstation # [id number]
[2018-05-13] MEDS ORDERED: LACTATED RINGERS 1,000 ML IV ONE (17:00)
--- NOTE | 2018-05-13 17:11 | Diagnostic Imaging Report ---
PROCEDURE: US Renal Bilateral. TECHNIQUE: Multiple real-time grayscale images were obtained over the kidneys in various projections bilaterally. INDICATION: Renal failure. FINDINGS: Right kidney measures 11.0 x 5.0 x 5.1 cm. Left kidney measures 11.4 x 6.4 x 6.0 cm. There is no mass, calculus, or hydronephrosis in either kidney. Urinary bladder appears normal. IMPRESSION: Negative renal ultrasound. Dictated by: Dictated on workstation # [id number]
[2018-05-13] MEDS: inSUlin ASPART (NovoLOG) 1 UNIT/0.01 ML (CHARGE PER UNIT) SC SCH (17:16)
--- NOTE | 2018-05-13 17:37 | Diagnostic Imaging Report ---
PROCEDURE: US venous lower extremity, bilaterally. TECHNIQUE: Multiple real-time grayscale images were obtained over the lower extremities in various projections, bilaterally. Additional duplex Doppler and color Doppler images were also obtained. INDICATION: In the left leg, deep veins have good color fill and compressibility. Normal spontaneous and augmented flow. In the right leg, there is thrombus in the popliteal vein segment. The femoral vein is patent. IMPRESSION: Segmental deep vein thrombosis in the right popliteal vein. Dictated by: Dictated on workstation # [id number]
[2018-05-13 20:00] VITALS: BP 101/68
[2018-05-13] MEDS ORDERED: NON-FORMULARY MEDICATION 1 EA EA (Polyethylene Glycol 3350 (Miralax) 17 GM) PO SCH (21:00)
[2018-05-13] MEDS: POLYETHYLENE GLYCOL 17 GM (MIRALAX) PACK PO SCH (21:33)
[2018-05-13] MEDS: MONTELUKAST 10 MG (SINGULAIR) TAB PO SCH (21:34)
[2018-05-13] MEDS: LORATADINE (CLARITIN) 10 MG TAB PO SCH (21:34)
[2018-05-13] MEDS: inSUlin DETERMIR 1 UNIT/0.01 ML (LEVEMIR) CHARGE PER UNIT SQ SCH (21:34)
[2018-05-13] MEDS: PANTOPRAZOLE 40 MG (PROTONIX) TAB PO SCH (21:34)
[2018-05-13] MEDS: BENZONATATE 100 MG (TESSALON) CAPSULE PO PRN (21:34)
[2018-05-13] MEDS: toPIRamate 100 MG (TOPAMAX) TAB PO SCH (21:34)
[2018-05-13] MEDS ORDERED: NON-FORMULARY MEDICATION 1 EA EA (Topiramate 100 MG) PO SCH (22:00)
[2018-05-13] MEDS ORDERED: INSULIN DETEMIR 21 UNIT SC SCH (22:00)
[2018-05-14] VITALS: BP 114/78
[2018-05-14] MEDS: LACTATED RINGERS 1,000 ML IV SCH ×3 (00:44→20:52)
[2018-05-14] MEDS: ENOXAPARIN 80 MG/0.8 ML (LOVENOX) SYR SC SCH ×2 (00:45→14:06)
[2018-05-14 03:55] VITALS: BP 112/76
[2018-05-14] MEDS: BENZONATATE 100 MG (TESSALON) CAPSULE PO PRN (03:55)
[2018-05-14 04:06] LABS: BASOPHILS % (AUTO) 0 % (0-10); EOSINOPHILS # (AUTO) 0.2 10^3/uL (0.0-0.3); EOSINOPHILS % (AUTO) 2 % (0-10); HEMATOCRIT 35 % (40-54); HEMOGLOBIN 11.4 G/DL (13.3-17.7); LYMPHOCYTES # (AUTO) 2.7 X 10^3 (1.0-4.0); LYMPHOCYTES % (AUTO) 31 % (12-44); MEAN CORPUSCULAR HEMOGLOBIN 28 PG (25-34); MEAN CORPUSCULAR HGB CONC 33 G/DL (32-36); MEAN CORPUSCULAR VOLUME 85 FL (80-99); MEAN PLATELET VOLUME 10.1 FL (7.4-10.4); MONOCYTES # (AUTO) 0.7 X 10^3 (0.0-1.0); MONOCYTES % (AUTO) 8 % (0-12); NEUTROPHILS # (AUTO) 5.1 X 10^3 (1.8-7.8); NEUTROPHILS % (AUTO) 59 % (42-75); PLATELET COUNT 148 10^3/uL (130-400); RED BLOOD COUNT 4.07 10^6/uL (4.35-5.85); RED CELL DISTRIBUTION WIDTH 14.9 % (10.0-14.5); WHITE BLOOD COUNT 8.8 10^3/uL (4.3-11.0)
[2018-05-14 04:29] LABS: ALANINE AMINOTRANSFERASE < 6 U/L (0-55); ALKALINE PHOSPHATASE 50 U/L (40-136); BILIRUBIN,TOTAL 0.3 MG/DL (0.1-1.0); BUN/CREATININE RATIO 14; CALCIUM 8.6 MG/DL (8.5-10.1); CARBON DIOXIDE 20 MMOL/L (21-32); CHLORIDE 109 MMOL/L (98-107); CREATININE SERUM 1.47 MG/DL (0.60-1.30); GFR ESTIMATED 47; GLUCOSE 161 MG/DL (70-105); MAGNESIUM 1.7 MG/DL (1.8-2.4); PHOSPHORUS 3.5 MG/DL (2.3-4.7); POTASSIUM 3.3 MMOL/L (3.6-5.0); SODIUM 139 MMOL/L (135-145); TOTAL PROTEIN 7.4 GM/DL (6.4-8.2)
--- NOTE | 2018-05-14 05:41 | History & Physical ---
History of Present Illness History of Present Illness Reason for visit/HPI CC: Dyspnea HPI: 72 year old male with history of hospitalizations for PE in 2013 (placed on coumadin) and a GI bleed in April 2018 (coumadin was discontinued) presented to outpatient clinic on Friday05/13/18 complaining of SOB and a dry cough symptoms began 5 days prior he describes cough as nonproductive of blood or sputum associated symptoms include fatigue, sore throat, right side neck pain, and headache patient denies blood in stools severity of symptoms increased to the point he was unable to stand long enough to shower before becoming short of breath and this prompted his visit patient is a good historian who appeared anxious and ill given his prior history of PE and presentation in outpatient clinic, he was admitted to the ICU for further testing and treatment of his acute condition Dr. Blanchard and Dr. Kwok were consulted for management of suspected PE enoxaparin was given 05/12/18 which seemed to relieve patients SOB somewhat Lung V/Q scan showed bilateral perfusion defect confirming suspicion of PE US with dopler of lower extremities showed right popliteal DVT placement of IVC filter has been discussed with patient as recent GI bleed increases risk associated with anticoagulation patient reports he is not in pain Date of Admission May 13, 2018 at 17:00 Time Seen by Provider: 06:00 I consulted on this patient on 05/14/18 05:41 Attending Physician Amelia Rodríguez DO Admitting Physician Amelia Rodríguez DO Consult Allergies and Home Medications Allergies Coded Allergies: No Known Drug Allergies (Unverified , 06/14/14) Home Medications Albuterol Sulfate 2.5 Mg/3 Ml Vial.neb, 2.5 MG NEB TID PRN for SHORTNESS OF BREATH, (Reported) Benzonatate 100 Mg Capsule, 200 MG PO TID PRN for COUGH Prescribed by: AMELIA RODRÍGUEZ on 05/01/18 1031 Hydroxyzine HCl 25 Mg Tablet, 25 MG PO TID PRN for ITCHING, (Reported) Insulin Aspart 300 Units/3 Ml Solution, 10-18 UNITS SC AC, (Reported) Insulin Detemir 100 Unit/1 Ml Insuln.pen, 21 UNITS SC 2200, (Reported) Loratadine 10 Mg Tablet, 10 MG PO 1000,2200, (Reported) Montelukast Sodium 10 Mg Tablet, 10 MG PO 2200, (Reported) Pantoprazole Sodium 40 Mg Tablet., 40 MG PO BID, (Reported) Polyethylene Glycol 3350 17 Gm Powd.pack, 17 GM PO HS, (Reported) 14 DAY THERAPY STOP DATE 05-15-18 Topiramate 100 Mg Tablet, 100 MG PO 1000,2200, (Reported) Patient Home Medication List Home Medication List Reviewed: Yes Past Hkicnof-Lnuavp-Pcohvg Hx Past Med/Social Hx: Reviewed Nursing Past Med/Soc Hx, Reviewed and Corrections made Patient Social History Marrital Status: 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) Alcohol Use: Rarely Uses Number of Drinks Today: 0 Alcohol Beverage of Choice: [place] Recreational Drug Use: No Smoking Status: Never a Smoker Physical Abuse Screen: No Sexual Abuse: No Recent Foreign Travel: No Contact w/other who traveled: No Recent Hopitalizations: No Recent Infectious Disease Expo: No Immunizations Up To Date Pediatric: No Date of Pneumonia Vaccine: Jun 08, 2013 Seasonal Allergies Seasonal Allergies: No Past Medical History Surgeries: Appendectomy, Eye Surgery Respiratory: Pneumonia Currently Using CPAP: No Currently Using BIPAP: No Cardiac: High Cholesterol, Hypertension Neurological: Seizure Disorder Reproductive: No Sexually Transmitted Disease: No HIV/AIDS: No Genitourinary: Renal Failure Gastrointestinal: Gastrointestinal Bleed (04/25) Musculoskeletal: Chronic Back Pain Endocrine: Diabetes, Insulin dep HEENT: Cataract Loss of Vision: Denies Hearing Impairment: Denies History of Blood Disorders: No Adverse Reaction to Blood Verma: No Family History FH: pancreatic cancer Diabetes Review of Systems Constitutional: see HPI, dizziness, malaise, weakness EENTM: no symptoms reported Respiratory: cough, dyspnea on exertion, short of breath, wheezing Cardiovascular: chest pain Gastrointestinal: no symptoms reported Genitourinary: no symptoms reported Musculoskeletal: no symptoms reported Skin: no symptoms reported Psychiatric/Neurological: No Symptoms Reported All Other Systems Reviewed Negative Unless Noted: Yes Physical Exam Vital Signs Vital Signs - First Documented 05/13/18 10:50 Temp 99.9 Pulse 107 Resp 20 B/P (MAP) 125/87 (100) Pulse Ox 97 O2 Delivery Room Air Capillary Refill : Height, Weight, BMI Height: 5'11.00" Weight: 185lbs. 3.0oz. 83.059216fu; 25.5 BMI Method:Stated General Appearance: WD/WN, Chronically ill, Moderate Distress (due to dyspnea) Eyes: Bilateral Eye Normal Inspection, Bilateral Eye PERRL, Bilateral Eye EOMI HEENT: PERRL/EOMI, TMs Normal, Normal ENT Inspection, Pharynx Normal Neck: Full Range of Motion, Normal Inspection, Non Tender, Supple, Carotid Bruit Respiratory: Chest Non Tender, Lungs Clear, Normal Breath Sounds, No Accessory Muscle Use, No Respiratory Distress Cardiovascular: Regular Rate, Rhythm, No Edema, No Gallop, No JVD, No Murmur, Normal Peripheral Pulses Gastrointestinal: Normal Bowel Sounds, No Organomegaly, No Pulsatile Mass, Non Tender, Soft Back: Normal Inspection, No CVA Tenderness, No Vertebral Tenderness Extremity: Normal Capillary Refill, Normal Inspection, Normal Range of Motion, Non Tender, No Calf Tenderness, No Pedal Edema Neurologic/Psychiatric: Alert, Oriented x3, No Motor/Sensory Deficits, Normal Mood/Affect Skin: Normal Color, Warm/Dry Lymphatic: No Adenopathy Assessment/Plan Assessment and Plan Problems: (1) DVT (deep venous thrombosis) Status: Acute Admission Diagnosis Admission Status: Inpatient Order (span 2 midnights) Reason for Inpatient Admission: Close monitoring and anticoagulation will require 3 midnights prior to stable status Clinical Quality Measures DVT/VTE Risk/Contraindication: Risk Factor Score Per Nursin RFS Level Per Nursing on Admit: 4+=Very High Contraindications-Mechi: Other *list below* Other: Pt has DVT in Right popliteal Diagnosis/Problems Diagnosis/Problems (1) Pulmonary embolism Status: Acute (2) Recent urinary tract infection Status: Resolved (3) Elevated brain natriuretic peptide (BNP) level Status: Acute (4) Transfusion history Status: Acute Assessment & Plan: 10 days ago for massive GI bleed 6 units (5) Dyspnea Status: Acute (6) Hx pulmonary embolism Status: Chronic (7) Hypertension Status: Chronic (8) Seizure disorder Status: Chronic (9) Hyperlipidemia Status: Chronic (10) Diabetes mellitus Status: Chronic Problem Qualifiers (1) DVT (deep venous thrombosis): DVT location: lower extremity Affected thrombotic vein of extremity: popliteal Chronicity: acute Laterality: right Qualified Codes: I82.431 - Acute embolism and thrombosis of right popliteal vein (2) Pulmonary embolism: Pulmonary embolism type: saddle Chronicity: acute Acute cor pulmonale presence: with acute cor pulmonale Qualified Codes: I26.02 - Saddle embolus of pulmonary artery with acute cor pulmonale (3) Hypertension: Hypertension type: essential hypertension Qualified Codes: I10 - Essential ( primary) hypertension (4) Hyperlipidemia: Hyperlipidemia type: mixed hyperlipidemia Qualified Codes: E78.2 - Mixed hyperlipidemia (5) Diabetes mellitus: Diabetes mellitus type: type 2 Diabetes mellitus detention insulin use: with 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
--- NOTE | 2018-05-14 06:22 | Pulmonary Consultation ---
History of Present Illness History of Present Illness Date of Consultation 05/14/18 06:22 Time Seen by Provider: 12:46 Date of Admission Reason for Visit: Chest pain, shortness of breath History of Present Illness 72yo with hx of PE 2013 tx with Coumadin however secondary to recent GIB 04/2018 coumadin was discontinued. Pt was directly admitted secondary to worsening SOB and dry cough that started 5days prior. Stat V/Q scan upon admission shows acute PE. I am consulted for pulmonary management. Allergies and Home Medications Allergies Coded Allergies: No Known Drug Allergies (Unverified , 06/14/14) Home Medications Albuterol Sulfate 2.5 Mg/3 Ml Vial.neb, 2.5 MG NEB TID PRN for SHORTNESS OF BREATH, (Reported) Benzonatate 100 Mg Capsule, 200 MG PO TID PRN for COUGH Prescribed by: ERICA RODRÍGUEZ on 05/01/18 1031 Enoxaparin Sodium 80 Mg/0.8 Ml Syringe, 80 MG SC Q12H Prescribed by: ERICA RODRÍGUEZ on 05/18/18 09 Hydroxyzine HCl 25 Mg Tablet, 25 MG PO TID PRN for ITCHING, (Reported) Insulin Aspart 300 Units/3 Ml Solution, 10-18 UNITS SC AC, (Reported) Insulin Detemir 100 Unit/1 Ml Insuln.pen, 21 UNITS SC 2200, (Reported) Loratadine 10 Mg Tablet, 10 MG PO 1000,2200, (Reported) Montelukast Sodium 10 Mg Tablet, 10 MG PO 2200, (Reported) Pantoprazole Sodium 40 Mg Tablet.dr, 40 MG PO BID, (Reported) Polyethylene Glycol 3350 17 Gm Powd.pack, 17 GM PO HS, (Reported) 14 DAY THERAPY STOP DATE 05-15-18 Sodium Bicarbonate 325 Mg Tablet, 325 MG PO BID, (Reported) Topiramate 100 Mg Tablet, 100 MG PO 1000,2200, (Reported) Warfarin Sodium 1 Mg Tablet, 6 MG PO DAILY Prescribed by: ERICA RODRÍGUEZ on 05/18/18918 Past Vzwlqtc-Aalbuf-Nraiqa Hx Patient Social History Alcohol Use: Rarely Uses Number of Drinks Today: 0 Alcohol Beverage of Choice: [place] Recreational Drug Use: No Smoking Status: Never a Smoker Recent Foreign Travel: No Contact w/Someone Who Travel: No Recent Infectious Disease Expo: No Recent Hopitalizations: No Immunizations Up To Date PED Vaccines UTD: No Date of Pneumonia Vaccine: Jun 08, 2013 Seasonal Allergies Seasonal Allergies: No Past Medical History Surgeries: Yes Appendectomy, Eye Surgery Respiratory: Yes Pneumonia, Pulmonary Embolism Currently Using CPAP: No Currently Using BIPAP: No Cardiac: No High Cholesterol, Hypertension Neurological: Yes (EPILEPSY) Seizure Disorder Reproductive Disorders: No Sexually Transmitted Disease: No HIV/AIDS: No Genitourinary: No Renal Failure Gastrointestinal: Yes Gastrointestinal Bleed Musculoskeletal: No Chronic Back Pain Endocrine: Yes Diabetes, Insulin dep HEENT: Yes Cataract Loss of Vision: Denies Hearing Impairment: Denies Cancer: No Psychosocial: No Integumentary: No Blood Disorders: No Adverse Reaction/Blood Tranf: No Family Medical History FH: pancreatic cancer Diabetes Review of Systems Time Seen by Provider: 12:49 Constitutional: Weakness, Malaise; No: Fever, Chills, Sweats, Other Eyes: No: Pain, Vision change, Conjunctivae inflammation, Eyelid inflammation, Other, Redness ENT: No: Ear pain, Ear discharge, Nose pain, Nose discharge, Nose congestion, Mouth pain, Mouth swelling, Throat pain, Throat swelling, Other Respiratory: Cough, Dry, Shortness of breath, SOB with excertion; No: Wheezing , Hemoptysis, Sputum Gastrointestinal: No: Nausea, Vomiting, Diarrhea Sepsis Event Evaluation Height, Weight, BMI Height: 5'11.00" Weight: 185lbs. 3.0oz. 83.306069vr; 25.5 BMI Method:Stated Exam Exam Vital Signs Date Time Temp Pulse Resp B/P (MAP) Pulse Ox O2 Delivery O2 Flow Rate FiO2 05/14/18 04:00 92 Room Air 05/14/18 03:55 98.8 105 16 112/76 (88) 92 Room Air 05/14/18 01:00 110 05/14/18 00:00 98.1 108 16 114/78 (90) 95 Room Air 05/14/18 00:00 96 Room Air 05/13/18 21:00 96 Room Air 05/13/18 20:14 96 Room Air 05/13/18 20:00 98.0 110 18 101/68 (79) 96 Room Air 05/13/18 20:00 96 Room Air 05/13/18 19:00 106 05/13/18 16:00 98.0 73 16 128/81 (97) 96 Room Air 05/13/18 15:49 95 Room Air 05/13/18 15:15 94 Room Air 05/13/18 13:30 106 18 128/89 (102) 97 Room Air 05/13/18 12:45 100 05/13/18 11:10 Room Air 05/13/18 10:55 109 05/13/18 10:50 99.9 18 05/13/18 10:50 107 20 125/87 (100) 97 Room Air I & O 05/14/18 07:00 Intake Total 720 ml Output Total 800 ml Balance -80 ml Height & Weight Height: 5'11.00" Weight: 185lbs. 3.0oz. 83.050783oz; 25.5 BMI Method:Stated General Appearance: No Apparent Distress, WD/WN HEENT: PERRL/EOMI, TMs Normal, Normal ENT Inspection, Pharynx Normal Neck: Full Range of Motion, Normal Inspection, Non Tender, Supple, Carotid Bruit Respiratory: Chest Non Tender, Lungs Clear, Normal Breath Sounds, No Accessory Muscle Use, No Respiratory Distress Cardiovascular: Regular Rate, Rhythm, No Edema, No Gallop, No JVD, No Murmur, Normal Peripheral Pulses Extremity: Normal Capillary Refill, Normal Inspection, Normal Range of Motion, Non Tender, No Calf Tenderness, No Pedal Edema Neurologic/Psychiatric: Alert, Oriented x3, No Motor/Sensory Deficits, Normal Mood/Affect Skin: Normal Color, Warm/Dry Lymphatic: No Adenopathy Results Lab Laboratory Tests 05/13/18 11:30 05/14/18 03:05 Assessment/Plan Assessment/Plan SOB probably secondary to acute PE -Strong consideration for IVC filter and continuation of anticoagulation for at least 6mo unless pt starts to bleed. -V/Q scan is moderate to high probability -Doppler is positive for RLE extremity -Continue lovenox theraputic dose -Monitor bleeding Hx of Rosemary-Oshea tear Upper GIB with at 4 units of PRBC --- last hospitalization -Continue Protonix Metabolic lactic acidosis -IVF - decrease to 100cc/hr Acute on chronic renal failure probably prerenal -IVF and monitor Hx of unprovoked PE 2013 -Coumadin was held last hospitalization secondary to massive GIB DM insulin dependent HTN HLP hx Seizure disorder -seizure precautions MAGALI PULLIAM DO May 14, 2018 06:22
--- NOTE | 2018-05-14 06:29 | Pulmonary Progress Note ---
Subjective Time Seen by Provider: 07:22 Sepsis Event Evaluation Height, Weight, BMI Height: 5'11.00" Weight: 185lbs. 3.0oz. 83.135286wh; 25.5 BMI Method:Stated Focused Exam Lactate Level 05/13/18 11:30: Lactic Acid Level 1.65 Exam Exam Vital Signs Date Time Temp Pulse Resp B/P (MAP) Pulse Ox O2 Delivery O2 Flow Rate FiO2 05/14/18 04:00 92 Room Air 05/14/18 03:55 98.8 105 16 112/76 (88) 92 Room Air 05/14/18 01:00 110 05/14/18 00:00 98.1 108 16 114/78 (90) 95 Room Air 05/14/18 00:00 96 Room Air 05/13/18 21:00 96 Room Air 05/13/18 20:14 96 Room Air 05/13/18 20:00 98.0 110 18 101/68 (79) 96 Room Air 05/13/18 20:00 96 Room Air 05/13/18 19:00 106 05/13/18 16:00 98.0 73 16 128/81 (97) 96 Room Air 05/13/18 15:49 95 Room Air 05/13/18 15:15 94 Room Air 05/13/18 13:30 106 18 128/89 (102) 97 Room Air 05/13/18 12:45 100 05/13/18 11:10 Room Air 05/13/18 10:55 109 05/13/18 10:50 99.9 18 05/13/18 10:50 107 20 125/87 (100) 97 Room Air I & O 05/14/18 07:00 Intake Total 720 ml Output Total 800 ml Balance -80 ml Height & Weight Height: 5'11.00" Weight: 185lbs. 3.0oz. 83.881279pz; 25.5 BMI Method:Stated General Appearance: No Apparent Distress, WD/WN HEENT: PERRL/EOMI, TMs Normal, Normal ENT Inspection, Pharynx Normal Neck: Full Range of Motion, Normal Inspection, Non Tender, Supple, Carotid Bruit Respiratory: Chest Non Tender, Lungs Clear, Normal Breath Sounds, No Accessory Muscle Use, No Respiratory Distress Cardiovascular: Regular Rate, Rhythm, No Edema, No Gallop, No JVD, No Murmur, Normal Peripheral Pulses Extremity: Normal Capillary Refill, Normal Inspection, Normal Range of Motion, Non Tender, No Calf Tenderness, No Pedal Edema Neurologic/Psychiatric: Alert, Oriented x3, No Motor/Sensory Deficits, Normal Mood/Affect Skin: Normal Color, Warm/Dry Lymphatic: No Adenopathy Results Lab Laboratory Tests 05/13/18 11:30 05/14/18 03:05 Assessment/Plan Assessment/Plan SOB probably secondary to acute PE -Strong consideration for IVC filter and continuation of anticoagulation for at least 6mo unless pt starts to bleed. -V/Q scan is moderate to high probability -Doppler is positive for RLE extremity -Continue lovenox theraputic dose -Monitor bleeding Hx of Rosemary-Oshea tear Upper GIB with at 4 units of PRBC --- last hospitalization -Continue Protonix Metabolic lactic acidosis -IVF - decrease to 100cc/hr Acute on chronic renal failure probably prerenal -IVF and monitor Hx of unprovoked PE 2013 -Coumadin was held last hospitalization secondary to massive GIB DM insulin dependent HTN HLP hx Seizure disorder -seizure precautions MAGALI PULLIAM DO May 14, 2018 06:29
[2018-05-14] MEDS: MAGNESIUM 1 GM/100 ML IVPB 100 ML IV SCH ×2 (06:57→07:59)
[2018-05-14] MEDS: PANTOPRAZOLE 40 MG (PROTONIX) TAB PO SCH ×2 (07:59→20:51)
[2018-05-14] MEDS: inSUlin ASPART (NovoLOG) 1 UNIT/0.01 ML (CHARGE PER UNIT) SC SCH ×3 (07:59→16:27)
[2018-05-14] MEDS: RT-ALBUTEROL SULF 2.5 MG/3 ML PRE-MIX VIAL INH SCH ×3 (08:00→20:28)
[2018-05-14 08:05] VITALS: BP 117/79
--- NOTE | 2018-05-14 08:49 | Cardiology Progress Note ---
Subjective Date Seen by Provider: May 14, 2018 Time Seen by Provider: 08:47 Subjective/Events-last exam Patient is sitting in a chair, still complaining of dyspnea, complaining of cough. No chest pain. Review of Systems General: No Chills, No Night Sweats, No Fatigue, No Malaise, No Appetite, No Other HEENT: No Head Aches, No Visual Changes, No Eye Pain, No Ear Pain, No Dysphasia , No Sinus Congestion, No Post Nasal Drip, No Sore Throat, No Other Pulmonary: Dyspnea, Cough; No Pleuritic Chest Pain, No Other Cardiovascular: No: Chest Pain, Palpitations, Orthopnea, Paroxysmal Noc. Dyspnea, Edema, Lt Headedness, Other Focused Exam Lactate Level 05/13/18 11:30: Lactic Acid Level 1.65 Objective-Cardiology Exam Last Set of Vital Signs Vital Signs 05/14/18 08:05 Temp 98.6 Pulse 106 Resp 27 B/P (MAP) 117/79 (92) Pulse Ox 95 O2 Delivery Room Air Capillary Refill : I&O Intake and Output 05/14/18 00:00 Intake Total 420 ml Output Total 400 ml Balance 20 ml Intake Oral 270 ml IV Total 150 ml Output Urine Total 400 ml Daily Weight Change No General: Alert, Oriented X3, Cooperative HEENT: Atraumatic, PERRLA Neck: Supple, No JVD, No Thyromegaly Lungs: Clear to Auscultation, Normal Air Movement Heart: Regular Rate, Normal S1, Normal S2, No Murmurs Abdomen: Normal Bowel Sounds, Soft, No Tenderness, No Hepatosplenomegaly, No Masses Extremities: No Clubbing, No Cyanosis, No Edema, Normal Pulses, No Tenderness/ Swelling Skin: No Rashes, No Breakdown, No Significant Lesion Neuro: Normal Gait, Normal Speech, Strength at 5/5 X4 Ext, Normal Tone, Sensation Intact Psych/Mental Status: Mental Status NL, Mood NL Results Lab Laboratory Tests 05/13/18 11:30 05/14/18 03:05 A/P-Cardiology Admission Diagnosis Shortness of breath Anterior chest wall pain GI bleed Hypertension Assessment/Plan Shortness of breath, probably secondary to recurrent pulmonary embolism. Had a long discussion with the patient and Dr. Kwok, he will need to have IVC filter and possible oral anticoagulation with close monitoring to his H&H. Chest pain nonspecific etiology, could be secondary to pulmonary embolism, will consider stress test in the future. Reporting improvement in his chest pain at this time. Continue to monitor History of GI bleed, had Rosemary-Oshea tear, received multiple transfusion, continue to monitor H&H while on Lovenox Status post hypothalamic/hypotensive shock, occurred in April secondary to GI bleed. Continue to monitor at this time. History of tick bite in March 2018. I will evaluate tick panel History of allergic reaction in 2013. History of epilepsy Clinical Quality Measures DVT/VTE Risk/Contraindication: Risk Factor Score Per Nursin RFS Level Per Nursing on Admit: 4+=Very High Contraindications-Mechi: Other *list below* Other: Pt has DVT in Right popliteal MARIO MACKAY MD May 14, 2018 08:49
[2018-05-14] MEDS ORDERED: guaiFENesin/DM (ROBITUSSIN DM) 10 ML UDC PO PRN (09:00)
[2018-05-14] MEDS: POTASSIUM CL 10MEQ/50ML IVPB 50 ML IV SCH ×4 (09:16→14:06)
[2018-05-14] MEDS: LORATADINE (CLARITIN) 10 MG TAB PO SCH ×2 (09:49→20:51)
[2018-05-14] MEDS: toPIRamate 100 MG (TOPAMAX) TAB PO SCH ×2 (09:49→20:51)
[2018-05-14 12:13] VITALS: BP 113/74
--- NOTE | 2018-05-14 14:40 | Consultation ---
History of Present Illness History of Present Illness Patient Consulted On(mando/time) 05/14/18 14:35 Date Seen by Provider: May 14, 2018 Time Seen by Provider: 13:10 Reason for Visit: Chest pain, shortness of breath. History of Present Illness This gentleman is admitted with recurrent popliteal vein thrombosis and bilateral pulmonary emboli. About 4 years ago, he suffered saddle pulmonary embolism and has been on anticoagulation ever since. Quite recently, he developed GI bleeding and was found to have healed Rosemary-Oshea tear at the gastroesophageal junction and a splenic flexure, adenomatous polyp, that was snared. To minimize the risk of further pulmonary embolism, I have been asked to see him for consideration of placing an inferior vena caval filter. Allergies and Home Medications Allergies Coded Allergies: No Known Drug Allergies (Unverified , 06/14/14) Home Medications Albuterol Sulfate 2.5 Mg/3 Ml Vial.neb, 2.5 MG NEB TID PRN for SHORTNESS OF BREATH, (Reported) Benzonatate 100 Mg Capsule, 200 MG PO TID PRN for COUGH Prescribed by: ERICA RODRÍGUEZ on 05/01/18 1031 Hydroxyzine HCl 25 Mg Tablet, 25 MG PO TID PRN for ITCHING, (Reported) Insulin Aspart 300 Units/3 Ml Solution, 10-18 UNITS SC AC, (Reported) Insulin Detemir 100 Unit/1 Ml Insuln.pen, 21 UNITS SC 2200, (Reported) Loratadine 10 Mg Tablet, 10 MG PO 1000,2200, (Reported) Montelukast Sodium 10 Mg Tablet, 10 MG PO 2200, (Reported) Pantoprazole Sodium 40 Mg Tablet.dr, 40 MG PO BID, (Reported) Polyethylene Glycol 3350 17 Gm Powd.pack, 17 GM PO HS, (Reported) 14 DAY THERAPY STOP DATE 05-15-18 Topiramate 100 Mg Tablet, 100 MG PO 1000,2200, (Reported) Patient Home Medication List Home Medication List Reviewed: Yes Past Nzkuggx-Pqycaw-Zpqxlu Hx Past Med/Social Hx: Reviewed Nursing Past Med/Soc Hx, Reviewed and Corrections made Patient Social History Alcohol Use: Rarely Uses Number of Drinks Today: 0 Alcohol Beverage of Choice: [place] Recreational Drug Use: No Smoking Status: Never a Smoker Recent Foreign Travel: No Contact w/Someone Who Travel: No Recent Infectious Disease Expo: No Recent Hopitalizations: No Immunizations Up To Date PED Vaccines UTD: No Date of Pneumonia Vaccine: Jun 08, 2013 Seasonal Allergies Seasonal Allergies: No Past Medical History Surgeries: Yes Appendectomy, Eye Surgery Respiratory: Yes Pneumonia, Pulmonary Embolism Currently Using CPAP: No Currently Using BIPAP: No Cardiac: No High Cholesterol, Hypertension Neurological: Yes (EPILEPSY) Seizure Disorder Reproductive Disorders: No Sexually Transmitted Disease: No HIV/AIDS: No Genitourinary: No Renal Failure Gastrointestinal: Yes Gastrointestinal Bleed (04/25) Musculoskeletal: No Chronic Back Pain Endocrine: Yes Diabetes, Insulin dep HEENT: Yes Cataract Loss of Vision: Denies Hearing Impairment: Denies Cancer: No Psychosocial: No Integumentary: No Blood Disorders: No Adverse Reaction/Blood Tranf: No Family Medical History FH: pancreatic cancer Diabetes Review of Systems-General Constitutional: malaise, weakness EENTM: no symptoms reported Respiratory: cough, dyspnea on exertion Cardiovascular: chest pain Gastrointestinal: see HPI Skin: no symptoms reported Psychiatric/Neurological: No Symptoms Reported Physical Exam-General Problems Physical Exam Vital Signs Vital Signs - First Documented 05/13/18 10:50 Temp 99.9 Pulse 107 Resp 20 B/P (MAP) 125/87 (100) Pulse Ox 97 O2 Delivery Room Air Capillary Refill : General Appearance: mild distress Respiratory: decreased breath sounds Cardiovascular: regular rate, rhythm Neurologic/Psychiatric: alert Skin: warm/dry Assessment/Plan Assessment/Plan Admission Diagnosis/Plan gentleman with recurrent pulmonary embolism and a new popliteal vein thrombosis. anticoagulation complicated by GI bleeding. Consideration for placing a vena caval filter appropriate. Details of placing a filter using the jugular approach under fluoroscopy discussed using a hand drawn illustration. Expectation of access site hematoma and discomfort, complications of dislodgment , perforation of the vena cava and for the risk of thrombosis discussed. Projected about 80-90 percent protection against further pulmonary embolus am, emphasizing the possibility of thromboembolism involving the upper part of his body. His renal function is compromised, but trending to be improving. Contrast induced nephropathy and worsening of his renal function emphasized explicitly. Provisionally scheduled for tomorrow, pending improvement of his renal function. Admission Status: Inpatient Order (span 2 midnights) Clinical Quality Measures DVT/VTE Risk/Contraindication: Risk Factor Score Per Nursin RFS Level Per Nursing on Admit: 4+=Very High Contraindications-Mechi: Other *list below* Other: Pt has DVT in Right popliteal YAIMA ARIZMENDI MD May 14, 2018 14:40
[2018-05-14 16:00] VITALS: BP 118/73
[2018-05-14 19:16] VITALS: BP 118/68
[2018-05-14] MEDS: POLYETHYLENE GLYCOL 17 GM (MIRALAX) PACK PO SCH (20:45)
[2018-05-14] MEDS: MONTELUKAST 10 MG (SINGULAIR) TAB PO SCH (20:51)
[2018-05-14] MEDS: inSUlin DETERMIR 1 UNIT/0.01 ML (LEVEMIR) CHARGE PER UNIT SQ SCH (20:52)
--- NOTE | 2018-05-14 21:32 | CONSULTATION REPORT ---
DATE OF SERVICE: 05/14/2018 REFERRING AND PRIMARY PHYSICIAN: Amelia Rene DO The patient is admitted to room 417. IMPRESSION: 1. A 72-year-old male admitted to the hospital with increasing shortness of breath. He was found to have bilateral pulmonary embolism and right popliteal vein deep vein thrombosis. 2. Currently, on anticoagulation with Lovenox 80 mg every 12 hours. 3. Previous history of deep vein thrombosis and bilateral pulmonary embolism in 2013 and on anticoagulation until early April 2018. The anticoagulation was stopped because of significant GI bleeding from Rosemary-Oshea tear following an episode of gastroenteritis. 4. Workup in 2013 showed no mutations of factor V or factor II. RECOMMENDATIONS: 1. Continue anticoagulation with Lovenox for now and transition to oral agents like Eliquis, Xarelto or Coumadin. 2. As this is the second episode of major pulmonary embolism and DVT, I would recommend long-term anticoagulation. 3. The patient has no bleeding tendencies and most recent bleeding episode was from a Rosemary-Oshea tear following an episode of gastroenteritis and severe vomiting. 4. Insertion of IVC filter in this setting is controversial as he is going to be on chronic anticoagulation. If for any reason he is not a candidate for anticoagulation and the risk of PE is high, then I would recommend insertion of IVC filter. 5. I would not recommend additional workup for thrombophilia as he has had an acute episode of DVT and PE and is on anticoagulation with Lovenox. 6. I will follow the patient with you. BRIEF HISTORY OF PRESENT ILLNESS: The patient is a 72-year-old male who was admitted to the hospital with increasing shortness of breath and found to have bilateral PE as well as a right popliteal vein DVT. He has a very complicated history and was diagnosed with bilateral PE and left lower extremity DVT in 08/2014 [address] trip. At that time, he was evaluated by Dr. Charity Castellanos and a workup was done including a factor II mutation analysis, factor V mutation analysis and anticardiolipin antibodies all of which were normal. He was started on chronic anticoagulation with warfarin and continued it until early 04/2018. At that time, he was returning from another long road trip from [place] and got sick when he got home. He started having significant vomiting and diarrhea and blamed this on eating out. This changed to hematemesis, hematochezia and melena with worsening fatigue. He was brought to the emergency room and found to be significantly anemic with active GI bleeding. His anticoagulation was stopped and reversed using fresh frozen plasma. Workup including EGD and colonoscopy showed a Rosemary-Oshea tear as possible source of bleeding. He was discharged home with no further bleeding. Last week, he started having increasing shortness of breath, over the weekend, came to the emergency room for evaluation. He was noted to have bilateral PE and right lower extremity DVT and was started back on anticoagulation with Lovenox. A hematology consultation was requested for further recommendations. PAST MEDICAL HISTORY: Significant for history of left lower extremity DVT and bilateral PE in 08/2014 as mentioned above. He has a history of hypertension and hypercholesterolemia for a long time. He gives a history of seizure disorder in the past, but has not had an active seizure, diabetes mellitus, type 2, but insulin requiring. PRIOR SURGERIES: Include an appendectomy, cataract surgeries. SOCIAL HISTORY: The patient is and lives in [place], [place]. 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 He has a son, and a daughter who is alive and a son who at the age of 6 years. He denies any tobacco or recreational drug use and uses alcohol socially. He gives history of exposure to chemicals in his childhood and young adulthood as he grew up on a farm in [place], [place]. FAMILY HISTORY: Significant for his mother who had probable ovarian cancer and at the age of 53 years. His father of leukemia at the age of 58 years. He does not have any full siblings, but had a several half siblings on the maternal side and 3 half siblings on the paternal side. Four out of 6 uncles and aunts on the maternal side of family had various malignancies, but the patient does not know the details. No history of blood clots in the family that the patient knows of. PHYSICAL EXAMINATION: GENERAL: Today showed elderly male, well-developed, well-nourished, awake and oriented, in no acute distress at the time of evaluation. VITAL SIGNS: Temperature was 98.9, pulse rate of 107, respirations 16, blood pressure 118/73, oxygen saturation was 96% on 2 liters by nasal cannula. HEENT: Normocephalic with male pattern baldness, extraocular muscles intact, conjunctivae pink, oral mucosa moist. NECK: Supple, with no JVD. No cervical, supraclavicular or axillary lymphadenopathy palpable. CHEST: Symmetrical. Lungs with slightly diminished breath sound in the left base. Rest of the lung leonard clear to auscultation without wheezes or rales. CARDIOVASCULAR: Borderline tachycardic, regular with no murmurs or gallops heard. ABDOMEN: Slightly obese, soft, nontender with no hepatosplenomegaly or other masses palpable. EXTREMITIES: Showed no edema. No calf muscle tenderness palpable. NEUROLOGIC: Grossly intact without focal motor deficits. LABORATORY DATA: CBC done today showed WBC 8.8, hemoglobin 11.4, MCV 85, platelet count 148,000 with neutrophil count 5.1 and lymphocyte count 2.7. Chemistry panel showed potassium level of 3.3 and CO2 level of 20. BUN was 21 and creatinine 1.47 with GFR 47 mL per minute. Blood glucose was 161. Liver function studies were normal except albumin level of 3.0. Tick panel drawn yesterday was negative. Nuclear medicine V/Q scan done on 05/13/2018 showed ventilation perfusion mismatch with moderate sized areas of perfusion defect bilaterally. This is intermediate to high probability category for PE. The perfusion portion of the study showed moderate sized area of wedge-shaped defect in the mid portion of the left lung. In addition, there is a moderate sized area of perfusion defect in the upper portion of the right lung. Venous Doppler study of lower extremities showed a segmental deep venous thrombosis in the right popliteal vein. Thank you for allowing me to participate in this patient's care. I will follow the patient with you and make appropriate recommendations. Job ID: [id number] DocumentID: [id number] Dictated Date: 05/14/2018 18:52:19 Tinner Automatic Date: 05/14/2018 21:32:18 Dictated By: ASHLYN NUNEZ MD [facility]
[2018-05-15 00:14] VITALS: BP 120/71
[2018-05-15 04:17] LABS: BASOPHILS % (AUTO) 0 % (0-10); EOSINOPHILS # (AUTO) 0.3 10^3/uL (0.0-0.3); EOSINOPHILS % (AUTO) 4 % (0-10); HEMATOCRIT 32 % (40-54); HEMOGLOBIN 10.5 G/DL (13.3-17.7); LYMPHOCYTES # (AUTO) 2.1 X 10^3 (1.0-4.0); LYMPHOCYTES % (AUTO) 29 % (12-44); MEAN CORPUSCULAR HEMOGLOBIN 29 PG (25-34); MEAN CORPUSCULAR HGB CONC 33 G/DL (32-36); MEAN CORPUSCULAR VOLUME 86 FL (80-99); MEAN PLATELET VOLUME 9.3 FL (7.4-10.4); MONOCYTES # (AUTO) 0.6 X 10^3 (0.0-1.0); MONOCYTES % (AUTO) 9 % (0-12); NEUTROPHILS # (AUTO) 4.2 X 10^3 (1.8-7.8); NEUTROPHILS % (AUTO) 59 % (42-75); PLATELET COUNT 142 10^3/uL (130-400); RED BLOOD COUNT 3.66 10^6/uL (4.35-5.85); RED CELL DISTRIBUTION WIDTH 14.9 % (10.0-14.5); WHITE BLOOD COUNT 7.1 10^3/uL (4.3-11.0)
[2018-05-15 04:20] VITALS: BP 132/81
[2018-05-15 04:34] LABS: BILIRUBIN,TOTAL 0.2 MG/DL (0.1-1.0); CALCIUM 8.4 MG/DL (8.5-10.1); CREATININE SERUM 1.21 MG/DL (0.60-1.30); POTASSIUM 3.6 MMOL/L (3.6-5.0); TOTAL PROTEIN 6.8 GM/DL (6.4-8.2)
[2018-05-15 04:35] LABS: ALBUMIN 2.9 GM/DL (3.2-4.5)
[2018-05-15] MEDS: inSUlin ASPART (NovoLOG) 1 UNIT/0.01 ML (CHARGE PER UNIT) SC SCH ×3 (05:16→18:40)
[2018-05-15] MEDS: PANTOPRAZOLE 40 MG (PROTONIX) TAB PO SCH ×2 (06:40→21:39)
--- NOTE | 2018-05-15 06:54 | Cardiology Progress Note ---
Subjective Date Seen by Provider: May 15, 2018 Time Seen by Provider: 06:51 Subjective/Events-last exam Patient is laying down in bed, still having dyspnea and cough. Review of Systems General: No Chills, No Night Sweats, No Fatigue, No Malaise, No Appetite, No Other HEENT: No Head Aches, No Visual Changes, No Eye Pain, No Ear Pain, No Dysphasia , No Sinus Congestion, No Post Nasal Drip, No Sore Throat, No Other Pulmonary: Dyspnea, Cough; No Pleuritic Chest Pain, No Other Cardiovascular: No: Chest Pain, Palpitations, Orthopnea, Paroxysmal Noc. Dyspnea, Edema, Lt Headedness, Other Focused Exam Lactate Level 05/13/18 11:30: Lactic Acid Level 1.65 Objective-Cardiology Exam Last Set of Vital Signs Vital Signs 05/15/18 04:20 Temp 97.2 Pulse 100 Resp 18 B/P (MAP) 132/81 (98) Pulse Ox 94 O2 Delivery Room Air Capillary Refill : I&O Intake and Output 05/15/18 00:00 Intake Total 4120 ml Output Total 400 ml Balance 3720 ml Intake Oral 1720 ml IV Total 2400 ml Output Urine Total 400 ml # Voids 4 # Bowel Movements 1 General: Alert, Oriented X3, Cooperative HEENT: Atraumatic, PERRLA Neck: Supple, No JVD, No Thyromegaly Lungs: Clear to Auscultation, Normal Air Movement Heart: Regular Rate, Normal S1, Normal S2, No Murmurs Abdomen: Normal Bowel Sounds, Soft, No Tenderness, No Hepatosplenomegaly, No Masses Extremities: No Clubbing, No Cyanosis, No Edema, Normal Pulses, No Tenderness/ Swelling Skin: No Rashes, No Breakdown, No Significant Lesion Neuro: Normal Gait, Normal Speech, Strength at 5/5 X4 Ext, Normal Tone, Sensation Intact Psych/Mental Status: Mental Status NL, Mood NL Results Lab Laboratory Tests 05/15/18 04:08 A/P-Cardiology Admission Diagnosis Shortness of breath Anterior chest wall pain GI bleed Hypertension Assessment/Plan Shortness of breath, probably secondary to recurrent pulmonary embolism. Still having shortness of breath. Dr. Mcbride was consulted and he recommended oral anticoagulation, IVC filter insertion is controversial due to the fact that his bleeding was secondary to Rosemary-Oshea tear after an episode of gastroenteritis. Had a long discussion with the patient and he is inquiring about the use of Coumadin instead of NOACs do to fear of cost and insurance denial Chest pain nonspecific etiology, could be secondary to pulmonary embolism, will consider stress test in the future. Reporting improvement in his chest pain at this time. Continue to monitor History of GI bleed, had Rosemary-Oshea tear, received multiple transfusion, continue to monitor H&H while on Lovenox Status post hypothalamic/hypotensive shock, occurred in April secondary to GI bleed. Continue to monitor at this time. History of tick bite in March 2018. I will evaluate tick panel History of allergic reaction in 2013. History of epilepsy Clinical Quality Measures DVT/VTE Risk/Contraindication: Risk Factor Score Per Nursin RFS Level Per Nursing on Admit: 4+=Very High Contraindications-Mechi: Other *list below* Other: Pt has DVT in Right popliteal MARIO MACKAY MD May 15, 2018 06:54
--- NOTE | 2018-05-15 07:40 | Pulmonary Progress Note ---
Subjective Time Seen by Provider: 07:44 Subjective/Events-last exam Pt appears to be doing better today. Sepsis Event Evaluation Height, Weight, BMI Height: 5'11.00" Weight: 178lbs. 6.4oz. 80.797421kj; 25.5 BMI Method:Stated Focused Exam Lactate Level 05/13/18 11:30: Lactic Acid Level 1.65 Exam Exam Vital Signs Date Time Temp Pulse Resp B/P (MAP) Pulse Ox O2 Delivery O2 Flow Rate FiO2 05/15/18 04:20 97.2 100 18 132/81 (98) 94 Room Air 05/15/18 01:00 104 05/15/18 00:14 99.2 105 20 120/71 (87) 94 Room Air 05/14/18 21:00 Room Air 05/14/18 20:28 93 Room Air 05/14/18 19:45 105 05/14/18 19:16 99.0 107 24 118/68 (85) 93 Room Air 05/14/18 16:41 92 Room Air 05/14/18 16:00 98.9 107 16 118/73 (88) 96 Room Air 05/14/18 14:58 92 Room Air 05/14/18 13:00 104 05/14/18 12:13 98.0 102 14 113/74 (87) 93 Room Air 05/14/18 12:00 93 Room Air 05/14/18 08:05 98.6 106 27 117/79 (92) 95 Room Air 05/14/18 08:00 95 Room Air 05/14/18 08:00 95 Room Air 05/14/18 08:00 96 Room Air I & O 05/15/18 07:00 Intake Total 3820 ml Balance 3820 ml Height & Weight Height: 5'.00" Weight: 178lbs. 6.4oz. 80.675956fu; 25.5 BMI Method:Stated General Appearance: No Apparent Distress, WD/WN HEENT: PERRL/EOMI, TMs Normal, Normal ENT Inspection, Pharynx Normal Neck: Full Range of Motion, Normal Inspection, Non Tender, Supple, Carotid Bruit Respiratory: Chest Non Tender, Lungs Clear, Normal Breath Sounds, No Accessory Muscle Use, No Respiratory Distress Cardiovascular: Regular Rate, Rhythm, No Edema, No Gallop, No JVD, No Murmur, Normal Peripheral Pulses Extremity: Normal Capillary Refill, Normal Inspection, Normal Range of Motion, Non Tender, No Calf Tenderness, No Pedal Edema Neurologic/Psychiatric: Alert, Oriented x3, No Motor/Sensory Deficits, Normal Mood/Affect Skin: Normal Color, Warm/Dry Lymphatic: No Adenopathy Results Lab Laboratory Tests 05/13/18 11:30 05/14/18 03:05 05/15/18 04:08 Assessment/Plan Assessment/Plan SOB probably secondary to acute PE -Strong consideration for IVC filter and continuation of anticoagulation for at least 6mo unless pt starts to bleed VS anticoagulation alone. -Risk and benefits explained of both treatment options explained to patient. Will allow pt to make decision since either is an acceptable medical recommendation. -V/Q scan is moderate to high probability -Doppler is positive for RLE extremity -Continue lovenox theraputic dose -Monitor bleeding Hx of Rosemary-Oshea tear Upper GIB with at 4 units of PRBC --- last hospitalization -Continue Protonix Metabolic lactic acidosis -IVF - decrease to 50cc/hr -Repeat LA Acute on chronic renal failure probably prerenal -- much improved -IVF and monitor Hx of unprovoked PE 2013 -Coumadin was held last hospitalization secondary to massive GIB DM insulin dependent HTN HLP hx Seizure disorder -seizure precautions MAGALI PULLIAM DO May 15, 2018 07:40
[2018-05-15 08:00] VITALS: BP 120/68
[2018-05-15] MEDS: LACTATED RINGERS 1,000 ML IV SCH ×2 (08:18→17:33)
[2018-05-15] MEDS ORDERED: ceFAZolin INJECTION 1,000 MG in NS (IVPB) 50 ML IV NR (10:00)
[2018-05-15] MEDS: RT-ALBUTEROL SULF 2.5 MG/3 ML PRE-MIX VIAL INH SCH ×3 (10:02→19:32)
--- NOTE | 2018-05-15 10:36 | Progress Note-Hospitalist ---
VIR[place] SUAZO MEDICAL STUDENT 05/15/18 1036: Subjective HPI/CC On Admission Date Seen by Provider: May 15, 2018 Time Seen by Provider: 08:45 Short of breath Subjective/Events-last exam Mr. Temple had no acute events overnight. He states he did not sleep well as he had frequent visitors and had to get up often to urinate as he has been receiving fluids. He states he has been NPO overnight for IVC filter placement today. His shortness of breath is still present, though imrpoving. Likewise, cough still present and improving. He has had a headache as well related to his cough. Pt states clearly that he would like to have IVC filter placed. Focused Exam Lactate Level 05/13/18 11:30: Lactic Acid Level 1.65 Respiratory: Chest Non Tender, Lungs Clear, Normal Breath Sounds, Other ( Increased work of breathing. ) Cardiovascular: Regular Rate, Rhythm, No Murmur Skin: warm/dry Objective Exam Vital Signs Vital Signs Date Time Temp Pulse Resp B/P (MAP) Pulse Ox O2 Delivery O2 Flow Rate FiO2 05/15/18 10:03 93 Room Air 05/15/18 07:00 99 05/15/18 04:20 97.2 18 132/81 (98) Capillary Refill : Results/Procedures Lab Laboratory Tests 05/15/18 04:08 Patient resulted labs reviewed. Assessment/Plan Assessment and Plan Assess & Plan/Chief Complaint Mr. Temple is a 72 year old male with hx of DVT in 2013 that had to be taken off anticoagulation two weeks ago due to suspected Rosemary Oshea tear requiring transfusion of 6 units of blood that was admitted for dyspnea and found to have high probability of PE on V/Q scan. He is now clinically stable and awaiting IVC filter placement and long term care pharmacist plan for anticoagulation. PE -NPO overnight with plan for transjugular IVC filter placement today. -Will plan for 6 months of DOAC if covered by insurance. Otherwise, will resume Coumadin. -Monitoring H&H closely given recent GI bleed and currently receiving Lovenox -Hematology, Cardiology, and Pulmonology following FEN -IVF @ 50 mL/hr -Advance diet after IVC placement Clinical Quality Measures DVT/VTE Risk/Contraindication: Risk Factor Score Per Nursin RFS Level Per Nursing on Admit: 4+=Very High Contraindications-Mechi: Other *list below* Other: Pt has DVT in Right popliteal ERICA RODRÍGUEZ 05/15/18 1241: Subjective Subjective/Events-last exam Patient was very upset about the change of plans for the filter and after a lengthy discussion and listening to patient venting and talking to all doctors ( Corwin Queen Marji, Rissa) we have decided the filter placement will be medically necessary and patient was relieved and appreciative of this decision. Review of Systems Pulmonary: Dyspnea Objective Exam General Appearance: No Apparent Distress, WD/WN, Chronically ill Respiratory: Chest Non Tender, Lungs Clear, Normal Breath Sounds, No Accessory Muscle Use, No Respiratory Distress, Decreased Breath Sounds Cardiovascular: Regular Rate, Rhythm, No Edema, No Gallop, No JVD, No Murmur, Normal Peripheral Pulses Neurologic/Psychiatric: Alert, Oriented x3, No Motor/Sensory Deficits, Normal Mood/Affect Assessment/Plan Assessment and Plan Assess & Plan/Chief Complaint Filter placement today at [address] Queen Monitor closely thru weekend May need home O2 at DC Appreciate all consultants assistance Diagnosis/Problems Diagnosis/Problems (1) Pulmonary embolism Status: Acute Qualifiers: Pulmonary embolism type: saddle Chronicity: acute Acute cor pulmonale presence: with acute cor pulmonale Qualified Codes: I26.02 - Saddle embolus of pulmonary artery with acute cor pulmonale (2) DVT (deep venous thrombosis) Status: Acute Qualifiers: DVT location: lower extremity Affected thrombotic vein of extremity: popliteal Chronicity: acute Laterality: right Qualified Codes: I82.431 - Acute embolism and thrombosis of right popliteal vein (3) Seizure disorder Status: Chronic (4) Hyperlipidemia Status: Chronic Qualifiers: Hyperlipidemia type: mixed hyperlipidemia Qualified Codes: E78.2 - Mixed hyperlipidemia (5) Dyspnea Status: Acute (6) Diabetes mellitus Status: Chronic Qualifiers: Diabetes mellitus type: type 2 Diabetes mellitus long term care pharmacist insulin use: with long term care pharmacist use Diabetes mellitus complication status: with circulatory complication Diabetes mellitus complication detail: with other circulatory complications Qualified Codes: E11.59 - Type 2 diabetes mellitus with other circulatory complications; Z79.4 - FDC (current) use of insulin (7) Recent urinary tract infection Status: Resolved (8) Hx pulmonary embolism Status: Chronic (9) Transfusion history Status: Acute (10) Elevated brain natriuretic peptide (BNP) level Status: Acute (11) Hypertension Status: Chronic Qualifiers: Hypertension type: essential hypertension Qualified Codes: I10 - Essential (primary) hypertension [employer] STUDENT May 15, 2018 10:36 ERICA RODRÍGUEZ DO May 15, 2018 12:41
[2018-05-15] MEDS: LORATADINE (CLARITIN) 10 MG TAB PO SCH ×2 (11:25→21:39)
[2018-05-15] MEDS: toPIRamate 100 MG (TOPAMAX) TAB PO SCH ×2 (11:25→21:38)
[2018-05-15 12:00] VITALS: BP 125/71
--- NOTE | 2018-05-15 12:28 | Progress Note-Pre Operative ---
Pre-Operative Progress Note H&P Reviewed The H&P was reviewed, patient examined and no changes noted. Date Seen by Provider: May 15, 2018 Time Seen by Provider: 07:40 Date H&P Reviewed: May 15, 2018 Time H&P Reviewed: 12:28 Pre-Operative Diagnosis: recurrent pulmonary embolism and venous thrombosis YAIMA ARIZMENDI MD May 15, 2018 12:28
--- NOTE | 2018-05-15 12:28 | Progress Note-Standard ---
Standard Progress Note Progress Notes/Assess & Plan Date Seen by Provider: May 15, 2018 Time Seen by Provider: 07:40 Progress/Assessment & Plan Controversy about the indication for IVC filter was brought up by Dr. Mcbride, our oncologist. Pros and cons thoroughly reviewed repeatedly.The patient, his clinical science liaison Dr. Kwok and his traffic maintenance officer Dr. Blanchard have unanimously agreed to proceed with placing a vena caval filter. Subsequent, I have had direct conversations with Dr. Mcbride himself, who has agreed subsequently agreed to the plan. Details of the procedure, complications of dislodgment of the filter, vena caval perforation and the potential for further pulmonary embolism despite providing a high degree of prophylaxis reviewed explicitly with the patient and his . Procedure will be performed later this afternoon Final Diagnosis recurrent pulmonary embolism and venous thrombosis Focused Exam Lactate Level 05/13/18 11:30: Lactic Acid Level 1.65 YAIMA ARIZMENDI MD May 15, 2018 12:27
[2018-05-15] MEDS ORDERED: BUP/EPI 0.5% 1:200,000 (SENSORCAINE) 30 ML VIAL ONE (13:42)
[2018-05-15] MEDS ORDERED: HEParin (CENTRAL IV FLUSH) 500 UNIT/5 ML SYR ONE ×2 (13:42→14:33)
[2018-05-15] MEDS ORDERED: fentaNYL INJECTION 100 MCG/2 ML AMP ONE ×2 (13:48→14:54)
[2018-05-15] MEDS ORDERED: ONDANSETRON 4 MG/2 ML (SDV) Z0FRAN ONE (13:48)
[2018-05-15] MEDS ORDERED: LIDOCAINE PF 2% 5 ML (XYLOCAINE) VIAL ONE (13:48)
[2018-05-15] MEDS ORDERED: proPOfol 200 MG/20 ML (DIPRIVAN) VIAL IV ONE (13:48)
[2018-05-15] MEDS ORDERED: SEVOFLURANE (ULTANE) 15 ML INHAL SOLN ONE ×3 (13:52→15:15)
[2018-05-15] MEDS ORDERED: PHENYLEPHRINE 100 MCG/ML 10 ML (ANESTHESIA) SYR ONE (14:59)
[2018-05-15] MEDS ORDERED: ceFAZolin INJECTION 1,000 MG in NS (IVPB) 50 ML IV ONE (15:00)
[2018-05-15] MEDS ORDERED: LACTATED RINGERS 1,000 ML IV PRN (15:27)
--- NOTE | 2018-05-15 15:54 | Operative Report ---
Operative Report Date of Procedure/Surgery May 15, 2018 Surgeon (s) YAIMA ARIZMENDI MD Egg Candler (s): N/A Post-Operative Diagnosis Same Procedure Performed Inferior vena caval filter placement Description of Procedure Anesthesia Type: General Estimated blood loss (mL): Minimal Specimen(s) collected/removed None Description of the Procedure Indication for the procedure: This gentleman has suffered recurrent, bilateral pulmonary embolism including a previous saddle embolus resulting in hemodynamic compromise. In addition, he has developed a recurrent popliteal vein thrombosis. He is management was complicated by 1 episode of profuse GI bleeding, possibly due to Rosemary-Oshea tear. Under the circumstances, it was felt reasonable to place a vena caval filter. Informed consent was obtained after reviewing the details of the procedure and highlighting incidence of recurrent DVT, requirement for prolonged anticoagulation, procedure related complications of this large amount of the filter, thrombosis etc. After a detailed discussion, informed consent was obtained. Description of the procedure: He was placed supine on the operating table and general anesthesia induced. A gram of Ancef was administered intravenously as prophylaxis against wound infection. His neck was prepared and draped in the usual sterile manner. Initially, I attempted to access the right internal jugular vein under ultrasound guidance. Due to a large, pre-existing hematoma, resulting from a central line placement a few weeks ago, this was difficult. Therefore, left internal jugular vein was localized under ultrasound guidance and a 0.35 guidewire advanced under fluoroscopy, all the way down to the right common femoral vein. A 3 mm incision was made around the catheter and the access catheter, along with the vascular dilating sheath with radiopaque markers advanced to the fourth lumbar vertebra, under fluoroscopy. The guidewire was removed and venacavogram obtained using Omnipaque contrast. The renal veins were located at about the middle of second lumbar vertebra. The guider was then replaced and the catheter access sheath and advanced to the superior aspect of L3 vertebra. A TRAPEASE, vena caval filter made of titanium was introduced down the access system under fluoroscopy. It was deployed under fluoroscopy and found to be in satisfactory position. Post--deployment cavogram revealed adequate flow around the filter with the renal veins being cephalad. The access sheath was then carefully removed under fluoroscopy. A 4-0 Vicryl suture was placed over the skin incision on the neck and a dressing applied. He tolerated the procedure well, was extubated in the operating room and taken to the recovery room in a stable condition. Findings of the Procedure see op report Allergies and Home Medications Allergies Coded Allergies: No Known Drug Allergies (Unverified , 06/14/14) Home Medications Albuterol Sulfate 2.5 Mg/3 Ml Vial.neb, 2.5 MG NEB TID PRN for SHORTNESS OF BREATH, (Reported) Benzonatate 100 Mg Capsule, 200 MG PO TID PRN for COUGH Prescribed by: ERICA RODRÍGUEZ on 05/01/18 1031 Hydroxyzine HCl 25 Mg Tablet, 25 MG PO TID PRN for ITCHING, (Reported) Insulin Aspart 300 Units/3 Ml Solution, 10-18 UNITS SC AC, (Reported) Insulin Detemir 100 Unit/1 Ml Insuln.pen, 21 UNITS SC 2200, (Reported) Loratadine 10 Mg Tablet, 10 MG PO 1000,2200, (Reported) Montelukast Sodium 10 Mg Tablet, 10 MG PO 2200, (Reported) Pantoprazole Sodium 40 Mg Tablet.dr, 40 MG PO BID, (Reported) Polyethylene Glycol 3350 17 Gm Powd.pack, 17 GM PO HS, (Reported) 14 DAY THERAPY STOP DATE 05-15-18 Topiramate 100 Mg Tablet, 100 MG PO 1000,2200, (Reported) Patient Home Medication List Home Medication List Reviewed: Yes YAIMA ARIZMENDI MD May 15, 2018 15:54
[2018-05-15] MEDS ORDERED: ONDANSETRON 4 MG/2 ML (SDV) Z0FRAN IVP PRN (16:00)
[2018-05-15] MEDS ORDERED: morphine INJ 10 MG/ML 1ML (SYR OR VIAL) IVP ONE (16:00)
[2018-05-15 16:35] VITALS: BP 120/75
--- NOTE | 2018-05-15 16:59 | Diagnostic Imaging Report ---
Indication: Fluoroscopy during IVC filter placement. Fluoroscopy was provided in the OR during an IVC filter placement. 7 minutes and 13 seconds of fluoroscopy was utilized. There appears to be an IVC filter at approximate the level of L3. Impression: Fluoroscopy during IVC filter placement. Dictated by: Dictated on workstation # [id number]
[2018-05-15 19:35] VITALS: BP 126/86
[2018-05-15] MEDS: ENOXAPARIN 80 MG/0.8 ML (LOVENOX) SYR SC SCH (21:39)
[2018-05-15] MEDS: inSUlin DETERMIR 1 UNIT/0.01 ML (LEVEMIR) CHARGE PER UNIT SQ SCH (21:39)
[2018-05-15] MEDS: MONTELUKAST 10 MG (SINGULAIR) TAB PO SCH (21:39)
[2018-05-15] MEDS: POLYETHYLENE GLYCOL 17 GM (MIRALAX) PACK PO SCH (21:40)
[2018-05-16] VITALS: BP 125/72
[2018-05-16 04:00] VITALS: BP 119/70
[2018-05-16] MEDS: inSUlin ASPART (NovoLOG) 1 UNIT/0.01 ML (CHARGE PER UNIT) SC SCH ×5 (06:00→18:20)
[2018-05-16] MEDS: PANTOPRAZOLE 40 MG (PROTONIX) TAB PO SCH ×2 (06:52→21:02)
[2018-05-16] MEDS: RT-ALBUTEROL SULF 2.5 MG/3 ML PRE-MIX VIAL INH SCH ×5 (07:50→21:03)
[2018-05-16 08:00] VITALS: BP 119/73
--- NOTE | 2018-05-16 08:09 | Pulmonary Progress Note ---
Subjective Time Seen by Provider: 08:05 Subjective/Events-last exam Post IVC filter. No complications noted. Sepsis Event Evaluation Height, Weight, BMI Height: 5'11.00" Weight: 191lbs. 6.4oz. 86.433879bw; 25.5 BMI Method:Stated Focused Exam Lactate Level 05/13/18 11:30: Lactic Acid Level 1.65 Exam Exam Vital Signs Date Time Temp Pulse Resp B/P (MAP) Pulse Ox O2 Delivery O2 Flow Rate FiO2 05/16/18 07:50 93 Nasal Cannula 1.00 05/16/18 07:00 85 05/16/18 04:00 98.4 94 20 119/70 (86) 94 Nasal Cannula 1.00 05/16/18 01:00 98 05/16/18 00:00 100.3 104 20 125/72 (89) 94 Nasal Cannula 1.00 05/15/18 21:00 Room Air 05/15/18 19:35 98.5 104 16 126/86 (99) 96 Nasal Cannula 1.00 05/15/18 19:32 95 Nasal Cannula 1.00 05/15/18 19:00 106 05/15/18 16:35 97.7 100 20 120/75 (90) 94 Nasal Cannula 2.00 05/15/18 13:00 99 05/15/18 12:00 99.7 80 20 125/71 (89) 95 Room Air 05/15/18 10:03 93 Room Air 05/15/18 09:00 Room Air I & O 05/16/18 07:00 Intake Total 2750 ml Balance 2750 ml Height & Weight Height: 5'11.00" Weight: 191lbs. 6.4oz. 86.726196dd; 25.5 BMI Method:Stated General Appearance: No Apparent Distress, WD/WN, Chronically ill HEENT: PERRL/EOMI, TMs Normal, Normal ENT Inspection, Pharynx Normal Neck: Full Range of Motion, Normal Inspection, Non Tender, Supple, Carotid Bruit Respiratory: Chest Non Tender, Lungs Clear, Normal Breath Sounds, No Accessory Muscle Use, No Respiratory Distress, Decreased Breath Sounds Cardiovascular: Regular Rate, Rhythm, No Edema, No Gallop, No JVD, No Murmur, Normal Peripheral Pulses Extremity: Normal Capillary Refill, Normal Inspection, Normal Range of Motion, Non Tender, No Calf Tenderness, No Pedal Edema Neurologic/Psychiatric: Alert, Oriented x3, No Motor/Sensory Deficits, Normal Mood/Affect Skin: Normal Color, Warm/Dry Lymphatic: No Adenopathy Results Lab Laboratory Tests 05/15/18 04:08 Assessment/Plan Assessment/Plan SOB probably secondary to acute PE with DVT -S/P IVC filter placement -Continue lovenox theraputic dose -Monitor bleeding Hx of Rosemary-Oshea tear Upper GIB with at 4 units of PRBC --- last hospitalization -Continue Protonix Metabolic lactic acidosis -Monitor Acute on chronic renal failure probably prerenal -- much improved -IVF and monitor Hx of unprovoked PE 2013 -Coumadin was held last hospitalization secondary to massive GIB DM insulin dependent HTN HLP hx Seizure disorder -seizure precautions MAGALI PULLIAM DO May 16, 2018 08:09
[2018-05-16] MEDS: ENOXAPARIN 80 MG/0.8 ML (LOVENOX) SYR SC SCH ×2 (09:00→21:02)
--- NOTE | 2018-05-16 09:29 | Cardiology Progress Note ---
Subjective Date Seen by Provider: May 16, 2018 Time Seen by Provider: 09:28 Subjective/Events-last exam Patient is sitting in a chair, eating breakfast, feeling better. No new complaint. Had a long discussion about the management plan and will initiate Coumadin Review of Systems General: No Chills, No Night Sweats, No Fatigue, No Malaise, No Appetite, No Other HEENT: No Head Aches, No Visual Changes, No Eye Pain, No Ear Pain, No Dysphasia , No Sinus Congestion, No Post Nasal Drip, No Sore Throat, No Other Pulmonary: No Dyspnea, No Cough, No Pleuritic Chest Pain, No Other Cardiovascular: No: Chest Pain, Palpitations, Orthopnea, Paroxysmal Noc. Dyspnea, Edema, Lt Headedness, Other Focused Exam Lactate Level 05/13/18 11:30: Lactic Acid Level 1.65 Objective-Cardiology Exam Last Set of Vital Signs Vital Signs 05/16/18 05/16/18 05/16/18 04:00 07:00 07:50 Temp 98.4 Pulse 85 Resp 20 B/P (MAP) 119/70 (86) Pulse Ox 93 O2 Delivery Nasal Cannula O2 Flow Rate 1.00 Capillary Refill : I&O Intake and Output 05/16/18 00:00 Intake Total 2350 ml Balance 2350 ml Intake Oral 700 ml IV Total 1650 ml # Voids 8 # Bowel Movements 2 General: Alert, Oriented X3, Cooperative HEENT: Atraumatic, PERRLA Neck: Supple, No JVD, No Thyromegaly Lungs: Clear to Auscultation, Normal Air Movement Heart: Regular Rate, Normal S1, Normal S2, No Murmurs Abdomen: Normal Bowel Sounds, Soft, No Tenderness, No Hepatosplenomegaly, No Masses Extremities: No Clubbing, No Cyanosis, No Edema, Normal Pulses, No Tenderness/ Swelling Skin: No Rashes, No Breakdown, No Significant Lesion Neuro: Normal Gait, Normal Speech, Strength at 5/5 X4 Ext, Normal Tone, Sensation Intact Psych/Mental Status: Mental Status NL, Mood NL Results Lab Laboratory Tests Test 05/15/18 11:57 05/15/18 14:00 05/15/18 16:42 05/15/18 20:49 Range/Units Glucometer 138 H 131 H 125 H 70-110 MG/DL Stool Occult Blood Immunoassay NEGATIVE NEGATIVE Test 05/16/18 05:26 Range/Units Glucometer 176 H 70-110 MG/DL A/P-Cardiology Admission Diagnosis Shortness of breath Anterior chest wall pain GI bleed Hypertension Assessment/Plan Shortness of breath, probably secondary to recurrent pulmonary embolism. Status post IVC filter implant, we will restart Coumadin and monitor H&H closely , stool for occult blood was negative. Chest pain nonspecific etiology, could be secondary to pulmonary embolism, will consider stress test in the future. Reporting improvement in his chest pain at this time. Continue to monitor History of GI bleed, had Rosemary-Oshea tear, received multiple transfusion, continue to monitor H&H while on Lovenox Status post hypothalamic/hypotensive shock, occurred in April secondary to GI bleed. Continue to monitor at this time. History of tick bite in March 2018. I will evaluate tick panel History of allergic reaction in 2013. History of epilepsy Clinical Quality Measures DVT/VTE Risk/Contraindication: Risk Factor Score Per Nursin RFS Level Per Nursing on Admit: 4+=Very High Contraindications-Mechi: Other *list below* Other: Pt has DVT in Right popliteal MARIO MACKAY MD May 16, 2018 09:29
--- NOTE | 2018-05-16 09:58 | Progress Note-Hospitalist ---
VIR[place] SUAZO MEDICAL STUDENT 05/16/18 0958: Subjective HPI/CC On Admission Date Seen by Provider: May 16, 2018 Time Seen by Provider: 08:25 Short of breath Subjective/Events-last exam Had IVC filter placed yesterday. Minimal pain at catheter sites on neck. Slept welll last night, for the first time in a few nights. Had a BM yesterday and urinating okay. Per in the room, pt's color improving when he ambulates. Has not had incentive spirometer. Focused Exam Lactate Level 05/13/18 11:30: Lactic Acid Level 1.65 Respiratory: Accessory Muscle Use, Crackles (Crackles present in all left lung leonard. ) Cardiovascular: Regular Rate, Rhythm, No Edema, No Murmur Skin: normal color, warm/dry Objective Exam Vital Signs Vital Signs Date Time Temp Pulse Resp B/P (MAP) Pulse Ox O2 Delivery O2 Flow Rate FiO2 05/16/18 09:28 Room Air 05/16/18 08:00 98.9 89 20 119/73 (88) 94 1.00 Capillary Refill : Results/Procedures Lab Patient resulted labs reviewed. Assessment/Plan Assessment and Plan Assess & Plan/Chief Complaint Mr. Temple is a 72 year old male with hx of DVT in 2013 that had to be taken off anticoagulation two weeks ago due to suspected Rosemary Oshea tear requiring transfusion of 6 units of blood that was admitted for dyspnea and found to have high probability of PE on V/Q scan. He is now clinically stable after IVC placement. PE -Will plan for 6 months of DOAC if covered by insurance. Otherwise, will resume Coumadin. -Monitoring H&H closely given recent GI bleed and currently receiving Lovenox -Will provide incentive spirometer for prevention of atelectasis -Hematology, Cardiology, and Pulmonology following FEN -IVF @ 50 mL/hr -Regular diet Clinical Quality Measures DVT/VTE Risk/Contraindication: Risk Factor Score Per Nursin RFS Level Per Nursing on Admit: 4+=Very High Contraindications-Mechi: Other *list below* Other: Pt has DVT in Right popliteal ERICA RODRÍGUEZ DO 05/16/18 1448: Subjective HPI/CC On Admission Time Seen by Provider: 11:00 Subjective/Events-last exam Patient doing very well No ill effects from filter placement Pain is controlled Will DC IVF Will initiate Nebs and IS Monitoring closely DC [place] Review of Systems General: Fatigue Pulmonary: Dyspnea Objective Exam General Appearance: No Apparent Distress, WD/WN, Chronically ill Neck: Full Range of Motion, Normal Inspection, Non Tender, Supple, Carotid Bruit Respiratory: Chest Non Tender, Normal Breath Sounds, No Accessory Muscle Use, No Respiratory Distress, Crackles (bases subtle) Cardiovascular: Regular Rate, Rhythm, No Edema, No Gallop, No JVD, No Murmur, Normal Peripheral Pulses Neurologic/Psychiatric: Alert, Oriented x3, No Motor/Sensory Deficits, Normal Mood/Affect Skin: Normal Color, Warm/Dry Assessment/Plan Assessment and Plan Assess & Plan/Chief Complaint Maintain anticoagulation Filter in place DC Friday DC IVF Ambulate Home O2 evaluation Diagnosis/Problems Diagnosis/Problems (1) [place] filter in place Status: Acute (2) Hypercoagulable state Status: Chronic (3) Debility Status: Acute (4) Pulmonary embolism Status: Acute Qualifiers: Pulmonary embolism type: saddle Chronicity: acute Acute cor pulmonale presence: with acute cor pulmonale Qualified Codes: I26.02 - Saddle embolus of pulmonary artery with acute cor pulmonale (5) DVT (deep venous thrombosis) Status: Acute Qualifiers: DVT location: lower extremity Affected thrombotic vein of extremity: popliteal Chronicity: acute Laterality: right Qualified Codes: I82.431 - Acute embolism and thrombosis of right popliteal vein (6) Elevated brain natriuretic peptide (BNP) level Status: Acute (7) Hx pulmonary embolism Status: Chronic (8) Recent urinary tract infection Status: Resolved (9) Transfusion history Status: Acute (10) Hypertension Status: Chronic Qualifiers: Hypertension type: essential hypertension Qualified Codes: I10 - Essential (primary) hypertension (11) Seizure disorder Status: Chronic (12) Hyperlipidemia Status: Chronic Qualifiers: Hyperlipidemia type: mixed hyperlipidemia Qualified Codes: E78.2 - Mixed hyperlipidemia (13) Dyspnea Status: Acute (14) Diabetes mellitus Status: Chronic Qualifiers: Diabetes mellitus type: type 2 Diabetes mellitus penitentiary insulin use: with penitentiary use Diabetes mellitus complication status: with circulatory complication Diabetes mellitus complication detail: with other circulatory complications Qualified Codes: E11.59 - Type 2 diabetes mellitus with other circulatory complications; 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
[2018-05-16 10:15] LABS: HEMOGLOBIN 11.3 G/DL (13.3-17.7); RED BLOOD COUNT 3.95 10^6/uL (4.35-5.85); RED CELL DISTRIBUTION WIDTH 15.1 % (10.0-14.5); WHITE BLOOD COUNT 6.9 10^3/uL (4.3-11.0)
[2018-05-16] MEDS: toPIRamate 100 MG (TOPAMAX) TAB PO SCH ×2 (10:17→21:02)
[2018-05-16] MEDS: LORATADINE (CLARITIN) 10 MG TAB PO SCH ×2 (10:17→21:02)
--- NOTE | 2018-05-16 10:22 | Anesthesia-General Post-Op ---
General Patient Condition Mental Status/LOC: Same as Preop Cardiovascular: Satisfactory Nausea/Vomiting: Absent Respiratory: Satisfactory Pain: Controlled Complications: Absent Post Op Complications Complications None Follow Up Care/Instructions Patient Instructions None needed. Anesthesia/Patient Condition Patient Condition Patient is doing well, no complaints, stable vital signs, no apparent adverse anesthesia problems. No complications reported per nursing. SOLOMON SILVA CRNA May 16, 2018 10:22
[2018-05-16 11:19] LABS: CALCIUM 8.7 MG/DL (8.5-10.1); CREATININE SERUM 1.3 MG/DL (0.60-1.30); POTASSIUM 3.6 MMOL/L (3.6-5.0)
--- NOTE | 2018-05-16 11:37 | Progress Note-Standard ---
Standard Progress Note Progress Notes/Assess & Plan Date Seen by Provider: May 16, 2018 Time Seen by Provider: 10:10 Progress/Assessment & Plan Controversy about the indication for IVC filter was brought up by Dr. Mcbride, our oncologist. Pros and cons thoroughly reviewed repeatedly.The patient, his department assistant Dr. Kwok and his interlacer Dr. Blanchard have unanimously agreed to proceed with placing a vena caval filter. Subsequent, I have had direct conversations with Dr. Mcbride himself, who has agreed subsequently agreed to the plan. Details of the procedure, complications of dislodgment of the filter, vena caval perforation and the potential for further pulmonary embolism despite providing a high degree of prophylaxis reviewed explicitly with the patient and his . Procedure will be performed later this afternoon no specific symptoms. Hematoma over the right side of the neck contained and less tender. Access site over the left side of the neck dry. Creatinine normal. Could be hep-locked. Coumadin and restored, awaiting adequate anticoagulation before Lovenox could be terminated. Final Diagnosis recurrent pulmonary embolism. YAIMA ARIZMENDI MD May 16, 2018 11:37
[2018-05-16 11:59] VITALS: BP 120/73
[2018-05-16] MEDS ORDERED: RT-ALBUTEROL SULF 2.5 MG/3 ML PRE-MIX VIAL INH SCH (14:00)
[2018-05-16 16:16] VITALS: BP 166/76
[2018-05-16] MEDS: warFARin 5 MG (COUMADIN) TAB PO SCH (18:20)
[2018-05-16 20:30] VITALS: BP 126/61
[2018-05-16] MEDS: POLYETHYLENE GLYCOL 17 GM (MIRALAX) PACK PO SCH (20:47)
[2018-05-16] MEDS: MONTELUKAST 10 MG (SINGULAIR) TAB PO SCH (21:02)
[2018-05-16] MEDS: inSUlin DETERMIR 1 UNIT/0.01 ML (LEVEMIR) CHARGE PER UNIT SQ SCH (21:02)
[2018-05-17] VITALS (7 sets, daily range): BP systolic 113–139; BP diastolic 66–75
[2018-05-17] MEDS: PANTOPRAZOLE 40 MG (PROTONIX) TAB PO SCH ×2 (05:24→21:18)
[2018-05-17 05:37] LABS: HEMOGLOBIN 10.5 G/DL (13.3-17.7); MEAN PLATELET VOLUME 9.2 FL (7.4-10.4); RED BLOOD COUNT 3.75 10^6/uL (4.35-5.85); RED CELL DISTRIBUTION WIDTH 14.9 % (10.0-14.5); WHITE BLOOD COUNT 6.9 10^3/uL (4.3-11.0)
[2018-05-17 05:48] LABS: INR 1.2 (0.8-1.4); PROTHROMBIN TIME PATIENT 15.2 SEC (12.2-14.7)
[2018-05-17 06:00] LABS: BILIRUBIN,TOTAL 0.3 MG/DL (0.1-1.0); CALCIUM 8.8 MG/DL (8.5-10.1); CREATININE SERUM 1.22 MG/DL (0.60-1.30); POTASSIUM 3.8 MMOL/L (3.6-5.0); TOTAL PROTEIN 6.9 GM/DL (6.4-8.2)
--- NOTE | 2018-05-17 07:00 | Pulmonary Progress Note ---
Subjective Time Seen by Provider: 13:01 Subjective/Events-last exam no complications noted. Sepsis Event Evaluation Height, Weight, BMI Height: 5'11.00" Weight: 189lbs. 0.0oz. 85.324996lo; 25.5 BMI Method:Stated Exam Exam Vital Signs Date Time Temp Pulse Resp B/P (MAP) Pulse Ox O2 Delivery O2 Flow Rate FiO2 05/17/18 04:00 98.8 98 20 124/74 (91) 92 Room Air 05/17/18 01:00 100 05/17/18 00:00 99.5 99 20 116/68 (84) 90 Room Air 05/16/18 21:03 92 Room Air 05/16/18 21:00 Room Air 05/16/18 20:30 100.0 106 20 126/61 (82) 95 Room Air 05/16/18 19:00 105 05/16/18 16:16 99.6 103 24 166/76 (106) 93 Room Air 05/16/18 15:25 92 Nasal Cannula 1.00 05/16/18 13:00 104 05/16/18 11:59 98.7 98 20 120/73 (89) 92 Room Air 05/16/18 09:28 Room Air 05/16/18 08:00 98.9 89 20 119/73 (88) 94 Nasal Cannula 1.00 05/16/18 07:50 93 Nasal Cannula 1.00 05/16/18 07:00 85 I & O 05/17/18 07:00 Intake Total 2760 ml Balance 2760 ml Height & Weight Height: 5'11.00" Weight: 189lbs. 0.0oz. 85.699159gm; 25.5 BMI Method:Stated General Appearance: No Apparent Distress, WD/WN, Chronically ill HEENT: PERRL/EOMI, TMs Normal, Normal ENT Inspection, Pharynx Normal Neck: Full Range of Motion, Normal Inspection, Non Tender, Supple, Carotid Bruit Respiratory: Chest Non Tender, Normal Breath Sounds, No Accessory Muscle Use, No Respiratory Distress, Crackles (bases subtle) Cardiovascular: Regular Rate, Rhythm, No Edema, No Gallop, No JVD, No Murmur, Normal Peripheral Pulses Extremity: Normal Capillary Refill, Normal Inspection, Normal Range of Motion, Non Tender, No Calf Tenderness, No Pedal Edema Neurologic/Psychiatric: Alert, Oriented x3, No Motor/Sensory Deficits, Normal Mood/Affect Skin: Normal Color, Warm/Dry Lymphatic: No Adenopathy Results Lab Laboratory Tests 05/16/18 10:00 05/16/18 10:55 05/17/18 05:24 Assessment/Plan Assessment/Plan SOB probably secondary to acute PE with DVT -S/P IVC filter placement -Continue lovenox theraputic dose -Monitor bleeding Fever with metabolic acidosis -Recheck LA, and CXR Hx of Rosemary-Oshea tear Upper GIB with at 4 units of PRBC --- last hospitalization -Continue Protonix Metabolic lactic acidosis -Monitor Acute on chronic renal failure probably prerenal -- much improved -IVF and monitor Hx of unprovoked PE 2013 -Coumadin was held last hospitalization secondary to massive GIB DM insulin dependent HTN HLP hx Seizure disorder -seizure precautions MAGALI PULLIAM DO May 17, 2018 07:00
[2018-05-17] MEDS: RT-ALBUTEROL SULF 2.5 MG/3 ML PRE-MIX VIAL INH SCH ×4 (07:34→20:52)
--- NOTE | 2018-05-17 07:44 | Cardiology Progress Note ---
Subjective Date Seen by Provider: May 17, 2018 Time Seen by Provider: 07:42 Subjective/Events-last exam Patient is feeling better. Denied any chest pain, still having some dyspnea on exertion but reporting some improvement, still having cough Review of Systems General: No Chills, No Night Sweats, No Fatigue, No Malaise, No Appetite, No Other HEENT: No Head Aches, No Visual Changes, No Eye Pain, No Ear Pain, No Dysphasia , No Sinus Congestion, No Post Nasal Drip, No Sore Throat, No Other Pulmonary: Dyspnea, Cough; No Pleuritic Chest Pain, No Other Cardiovascular: No: Chest Pain, Palpitations, Orthopnea, Paroxysmal Noc. Dyspnea, Edema, Lt Headedness, Other Objective-Cardiology Exam Last Set of Vital Signs Vital Signs 05/16/18 05/17/18 05/17/18 05/17/18 15:25 04:00 07:00 07:34 Temp 98.8 Pulse 98 Resp 20 B/P (MAP) 124/74 (91) Pulse Ox 94 O2 Delivery Room Air O2 Flow Rate 1.00 Capillary Refill : I&O Intake and Output 05/17/18 00:00 Intake Total 2960 ml Balance 2960 ml Intake Oral 2110 ml IV Total 850 ml # Voids 10 General: Alert, Oriented X3, Cooperative HEENT: Atraumatic, PERRLA Neck: Supple, No JVD, No Thyromegaly Lungs: Clear to Auscultation, Normal Air Movement Heart: Regular Rate, Normal S1, Normal S2, No Murmurs Abdomen: Normal Bowel Sounds, Soft, No Tenderness, No Hepatosplenomegaly, No Masses Extremities: No Clubbing, No Cyanosis, No Edema, Normal Pulses, No Tenderness/ Swelling Skin: No Rashes, No Breakdown, No Significant Lesion Neuro: Normal Gait, Normal Speech, Strength at 5/5 X4 Ext, Normal Tone, Sensation Intact Psych/Mental Status: Mental Status NL, Mood NL Results Lab Laboratory Tests 05/16/18 10:00 05/16/18 10:55 05/17/18 05:24 A/P-Cardiology Admission Diagnosis Shortness of breath Anterior chest wall pain GI bleed Hypertension Assessment/Plan Shortness of breath, probably secondary to recurrent pulmonary embolism. Status post IVC filter implant, stool for occult blood was negative. Started on Coumadin, continue to monitor H&H Chest pain nonspecific etiology, could be secondary to pulmonary embolism, will consider stress test in the future. Reporting improvement, no further episodes of chest pain were reported. History of GI bleed, had Rosemary-Oshea tear, received multiple transfusion, continue to monitor H&H while on Lovenox Status post hypotensive shock, occurred in April secondary to GI bleed. Continue to monitor at this time. History of tick bite in March 2018. I will evaluate tick panel History of allergic reaction in 2013. History of epilepsy Clinical Quality Measures DVT/VTE Risk/Contraindication: Risk Factor Score Per Nursin RFS Level Per Nursing on Admit: 4+=Very High Contraindications-Mechi: Other *list below* Other: Pt has DVT in Right popliteal MARIO MACKAY MD May 17, 2018 07:44
--- NOTE | 2018-05-17 08:10 | Diagnostic Imaging Report ---
INDICATION: Febrile. Comparison with 05/13/2018. FINDINGS: PA and lateral chest. Lungs are well-aerated. There are no infiltrates. Heart is not enlarged. There is no pulmonary edema. No hilar adenopathy. No pneumothorax or pleural effusion. No bony abnormality. IMPRESSION: Normal PA and lateral chest. Dictated by: Dictated on workstation # [id number]
[2018-05-17] MEDS: toPIRamate 100 MG (TOPAMAX) TAB PO SCH ×2 (09:35→21:18)
[2018-05-17] MEDS: LORATADINE (CLARITIN) 10 MG TAB PO SCH ×2 (09:35→21:18)
[2018-05-17] MEDS: inSUlin ASPART (NovoLOG) 1 UNIT/0.01 ML (CHARGE PER UNIT) SC SCH ×3 (09:36→16:48)
[2018-05-17] MEDS: ENOXAPARIN 80 MG/0.8 ML (LOVENOX) SYR SC SCH ×2 (09:36→21:18)
--- NOTE | 2018-05-17 09:42 | Progress Note-Hospitalist ---
VIR[place]IA SUAZO MEDICAL STUDENT 05/17/18 0942: Subjective HPI/CC On Admission Date Seen by Provider: May 17, 2018 Time Seen by Provider: 09:00 CC: Short of breath HPI: 72 year old male with hx of DVT in 2013 on anticoagulation until GI bleed 2 /2 Rosemary Oshea tear ~2 weeks ago requiring transfusion of 6 units pRBCs presented with PE s/p IVC filter placement on 05/16 and now bridging to warfarin. Subjective/Events-last exam Pt with low grade temperature overnight, without symptoms. Slept okay overnight. Reports not using IS as much as he should, but he thinks breathing treatments are helping. Neck is tender today and pt's notes more bruising. Has not had a BM in 2 days, but reports this is his baseline. Has been refusing miralax. Urinating without difficulty. Ambulating frequently. Focused Exam Lactate Level 05/17/18 07:40: Lactic Acid Level 0.73 Respiratory: Chest Non Tender, Lungs Clear, Normal Breath Sounds Cardiovascular: Regular Rate, Rhythm, No Edema Skin: normal color, warm/dry, ecchymosis (Present over inferior neck around jugular notch. ) Lactic Acid Level Laboratory Tests Test 05/17/18 07:40 Lactic Acid Level 0.73 MMOL/L (0.50-2.00) Objective Exam Vital Signs Vital Signs Date Time Temp Pulse Resp B/P (MAP) Pulse Ox O2 Delivery O2 Flow Rate FiO2 05/17/18 07:34 94 Room Air 05/17/18 07:00 98 05/17/18 04:00 98.8 20 124/74 (91) 05/16/18 15:25 1.00 Capillary Refill : Results/Procedures Lab Laboratory Tests 05/16/18 10:00 05/16/18 10:55 05/17/18 05:24 Patient resulted labs reviewed. Assessment/Plan Assessment and Plan Assess & Plan/Chief Complaint Mr. Temple is a 72 year old male with hx of DVT in 2013 that had to be taken off anticoagulation two weeks ago due to suspected Rosemary Oshea tear requiring transfusion of 6 units of blood that was admitted for dyspnea and found to have high probability of PE on V/Q scan. He is now clinically stable after IVC placement and is bridging to Warfarin. PE -Resumed coumadin -Monitoring H&H (Hgb slowly trending down) closely given recent GI bleed and currently receiving Lovenox -Will encourage incentive spirometer for prevention of atelectasis -Hematology, Cardiology, and Pulmonology following Elevated Temp Overnight -Lactic Acid normal -CXR stable -Pt reports taking sodium bicarb since his last PE. Constipation -Will encourage Miralax use (+) MRSA Screen -Will place on contact precautions FEN -Regular diet Dispo -Likely Friday dc to home Clinical Quality Measures DVT/VTE Risk/Contraindication: Risk Factor Score Per Nursin RFS Level Per Nursing on Admit: 4+=Very High Contraindications-Mechi: Other *list below* Other: Pt has DVT in Right popliteal LAMONTE RODRÍGUEZI DO 05/17/18 1219: Subjective HPI/CC On Admission Time Seen by Provider: 11:00 Subjective/Events-last exam Patient doing well Lovenox tolerated well No pain Ambulating well Coumadin maintained Home tomorrow O2 evaluation Review of Systems General: Fatigue Pulmonary: Dyspnea Objective Exam General Appearance: No Apparent Distress, WD/WN, Chronically ill Respiratory: Chest Non Tender, Lungs Clear, Normal Breath Sounds, No Accessory Muscle Use, No Respiratory Distress Cardiovascular: Regular Rate, Rhythm, No Edema, No Gallop, No JVD, No Murmur, Normal Peripheral Pulses Neurologic/Psychiatric: Alert, Oriented x3, No Motor/Sensory Deficits, Normal Mood/Affect Skin: Normal Color, Warm/Dry Assessment/Plan Assessment and Plan Assess & Plan/Chief Complaint DC home tomorrow O2 evaluation Anti-coagulation Diagnosis/Problems Diagnosis/Problems (1) Pulmonary embolism Status: Acute Qualifiers: Pulmonary embolism type: saddle Chronicity: acute Acute cor pulmonale presence: with acute cor pulmonale Qualified Codes: I26.02 - Saddle embolus of pulmonary artery with acute cor pulmonale (2) DVT (deep venous thrombosis) Status: Acute Qualifiers: DVT location: lower extremity Affected thrombotic vein of extremity: popliteal Chronicity: acute Laterality: right Qualified Codes: I82.431 - Acute embolism and thrombosis of right popliteal vein (3) [place] filter in place Status: Acute (4) Hypercoagulable state Status: Chronic (5) Debility Status: Acute (6) Recent urinary tract infection Status: Resolved (7) Hx pulmonary embolism Status: Chronic (8) Transfusion history Status: Acute (9) Elevated brain natriuretic peptide (BNP) level Status: Acute (10) Hypertension Status: Chronic Qualifiers: Hypertension type: essential hypertension Qualified Codes: I10 - Essential (primary) hypertension (11) Hyperlipidemia Status: Chronic Qualifiers: Hyperlipidemia type: mixed hyperlipidemia Qualified Codes: E78.2 - Mixed hyperlipidemia (12) Dyspnea Status: Acute (13) Diabetes mellitus Status: Chronic Qualifiers: Diabetes mellitus type: type 2 Diabetes mellitus manager civil insulin use: with manager civil use Diabetes mellitus complication status: with circulatory complication Diabetes mellitus complication detail: with other circulatory complications Qualified Codes: E11.59 - Type 2 diabetes mellitus with other circulatory complications; 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
[2018-05-17] MEDS ORDERED: SODI325T PO (10:13)
[2018-05-17] MEDS: SODIUM BICARBONATE 650 MG TABLET (NON-FORMULARY) PO SCH ×2 (10:54→21:18)
[2018-05-17] MEDS: warFARin 5 MG (COUMADIN) TAB PO SCH (17:25)
[2018-05-17] MEDS: MONTELUKAST 10 MG (SINGULAIR) TAB PO SCH (21:18)
[2018-05-17] MEDS: inSUlin DETERMIR 1 UNIT/0.01 ML (LEVEMIR) CHARGE PER UNIT SQ SCH (21:18)
[2018-05-17] MEDS: POLYETHYLENE GLYCOL 17 GM (MIRALAX) PACK PO SCH (21:24)
[2018-05-18] VITALS: BP 117/59
[2018-05-18 04:00] VITALS: BP 116/69
[2018-05-18] MEDS: PANTOPRAZOLE 40 MG (PROTONIX) TAB PO SCH (04:57)
[2018-05-18 06:25] LABS: INR 1.2 (0.8-1.4)
--- NOTE | 2018-05-18 07:44 | Pulmonary Progress Note ---
Subjective Time Seen by Provider: 13:04 Subjective/Events-last exam No complications noted. Sepsis Event Evaluation Height, Weight, BMI Height: 5'11.00" Weight: 189lbs. 0.0oz. 85.665505rn; 25.5 BMI Method:Stated Focused Exam Lactate Level 05/17/18 07:40: Lactic Acid Level 0.73 Exam Exam Vital Signs Date Time Temp Pulse Resp B/P (MAP) Pulse Ox O2 Delivery O2 Flow Rate FiO2 05/18/18 01:00 88 05/18/18 00:00 99.4 90 18 117/59 (78) 92 Room Air 05/17/18 21:00 Room Air 05/17/18 20:52 91 Room Air 05/17/18 19:20 100.5 104 20 133/66 (88) 94 Room Air 05/17/18 19:00 104 05/17/18 16:05 97.3 85 20 114/66 (82) 93 Room Air 05/17/18 14:49 96 Room Air 05/17/18 14:40 96 05/17/18 13:00 99 05/17/18 12:00 98.8 96 18 139/68 (91) 92 Room Air 05/17/18 08:45 Room Air 05/17/18 08:40 98.8 105 16 113/75 (88) 94 Room Air 05/17/18 08:00 98.8 98 20 124/74 (91) 92 Room Air I & O 05/18/18 07:00 Intake Total 1570 ml Balance 1570 ml Height & Weight Height: 5'11.00" Weight: 189lbs. 0.0oz. 85.210760we; 25.5 BMI Method:Stated General Appearance: No Apparent Distress, WD/WN, Chronically ill HEENT: PERRL/EOMI, TMs Normal, Normal ENT Inspection, Pharynx Normal Neck: Full Range of Motion, Normal Inspection, Non Tender, Supple, Carotid Bruit Respiratory: Chest Non Tender, Lungs Clear, Normal Breath Sounds, No Accessory Muscle Use, No Respiratory Distress Cardiovascular: Regular Rate, Rhythm, No Edema, No Gallop, No JVD, No Murmur, Normal Peripheral Pulses Extremity: Normal Capillary Refill, Normal Inspection, Normal Range of Motion, Non Tender, No Calf Tenderness, No Pedal Edema Neurologic/Psychiatric: Alert, Oriented x3, No Motor/Sensory Deficits, Normal Mood/Affect Skin: Normal Color, Warm/Dry Lymphatic: No Adenopathy Results Lab Laboratory Tests 05/16/18 10:00 05/16/18 10:55 05/17/18 05:24 Assessment/Plan Assessment/Plan SOB probably secondary to acute PE with DVT -S/P IVC filter placement -Continue lovenox theraputic dose. Bridging to coumadin -Monitor bleeding Fever - possibly from PE/DVT and metabolic acidosis- is chronic pt takes home bicarb PO -Recheck LA- is normal , and CXR - is clear -No leukocytosis Hx of Rosemary-Oshea tear Upper GIB with at 4 units of PRBC --- last hospitalization -Continue Protonix Metabolic lactic acidosis -Monitor Acute on chronic renal failure probably prerenal -- much improved -IVF and monitor Hx of unprovoked PE 2013 -Coumadin was held last hospitalization secondary to massive GIB DM insulin dependent HTN HLP hx Seizure disorder -seizure precautions MAGALI PULLIAM DO May 18, 2018 07:44
--- NOTE | 2018-05-18 07:52 | Cardiology Progress Note ---
Subjective Date Seen by Provider: May 18, 2018 Time Seen by Provider: 07:48 Subjective/Events-last exam Patient is in bed, feeling better, no new complaint, still having some cough and dyspnea and feeling better Review of Systems General: No Chills, No Night Sweats, No Fatigue, No Malaise, No Appetite, No Other HEENT: No Head Aches, No Visual Changes, No Eye Pain, No Ear Pain, No Dysphasia , No Sinus Congestion, No Post Nasal Drip, No Sore Throat, No Other Pulmonary: Dyspnea, Cough; No Pleuritic Chest Pain, No Other Cardiovascular: No: Chest Pain, Palpitations, Orthopnea, Paroxysmal Noc. Dyspnea, Edema, Lt Headedness, Other Focused Exam Lactate Level 05/17/18 07:40: Lactic Acid Level 0.73 Objective-Cardiology Exam Last Set of Vital Signs Vital Signs 05/16/18 05/18/18 05/18/18 15:25 00:00 07:00 Temp 99.4 Pulse 86 Resp 18 B/P (MAP) 117/59 (78) Pulse Ox 92 O2 Delivery Room Air O2 Flow Rate 1.00 Capillary Refill : I&O Intake and Output 05/18/18 00:00 Intake Total 1320 ml Balance 1320 ml Intake Oral 1320 ml # Voids 8 # Bowel Movements 1 General: Alert, Oriented X3, Cooperative HEENT: Atraumatic, PERRLA Neck: Supple, No JVD, No Thyromegaly Lungs: Clear to Auscultation, Normal Air Movement Heart: Regular Rate, Normal S1, Normal S2, No Murmurs Abdomen: Normal Bowel Sounds, Soft, No Tenderness, No Hepatosplenomegaly, No Masses Extremities: No Clubbing, No Cyanosis, No Edema, Normal Pulses, No Tenderness/ Swelling Skin: No Rashes, No Breakdown, No Significant Lesion Neuro: Normal Gait, Normal Speech, Strength at 5/5 X4 Ext, Normal Tone, Sensation Intact Psych/Mental Status: Mental Status NL, Mood NL Results Lab Laboratory Tests Test 05/17/18 11:07 05/17/18 16:08 05/17/18 20:48 05/18/18 04:57 Range/Units Glucometer 184 H 113 H 230 H 119 H 70-110 MG/DL Test 05/18/18 05:26 Range/Units Prothrombin Time 15.0 H 12.2-14.7 SEC INR Comment 1.2 0.8-1.4 A/P-Cardiology Admission Diagnosis Shortness of breath Anterior chest wall pain GI bleed Hypertension Assessment/Plan Shortness of breath, secondary to recurrent pulmonary embolism. Status post IVC filter implant, stool for occult blood was negative. Started on Coumadin and Lovenox, continue to monitor H&H Chest pain nonspecific etiology, could be secondary to pulmonary embolism, will consider stress test in the future. Reporting improvement, no further episodes of chest pain were reported. History of GI bleed, had Rosemary-Oshea tear, received multiple transfusion, continue to monitor H&H while on Lovenox Status post hypotensive shock, occurred in April secondary to GI bleed. Continue to monitor at this time. History of tick bite in March 2018. I will evaluate tick panel History of allergic reaction in 2013. History of epilepsy Ok for discharge from cardiology standpoint Clinical Quality Measures DVT/VTE Risk/Contraindication: Risk Factor Score Per Nursin RFS Level Per Nursing on Admit: 4+=Very High Contraindications-Mechi: Other *list below* Other: Pt has DVT in Right popliteal MARIO MACKAY MD May 18, 2018 07:52
[2018-05-18 08:00] VITALS: BP 122/75
--- NOTE | 2018-05-18 08:04 | Discharge Summary-Hospitalist ---
[employer] SU[employer]O MEDICAL STUDENT 05/18/18 0804: Diagnosis/Chief Complaint Date of Admission May 13, 2018 at 17:00 Date of Discharge Discharge Diagnosis (1) Pulmonary embolism Status: Acute (2) DVT (deep venous thrombosis) Status: Acute (3) New [place] filter in place Status: Acute (4) Hypercoagulable state Status: Chronic (5) Debility Status: Acute (6) Recent urinary tract infection Status: Resolved (7) Hx pulmonary embolism Status: Chronic (8) Transfusion history Status: Acute (9) Elevated brain natriuretic peptide (BNP) level Status: Acute (10) Hypertension Status: Chronic (11) Hyperlipidemia Status: Chronic (12) Dyspnea Status: Acute (13) Diabetes mellitus Status: Chronic (14) Seizure disorder Status: Chronic Discharge Summary Procedures/Consulations Consults -Hematology -Cardiology -Pulmonology -General surgery Procedures IVC filter placement Discharge Physical Exam Allergies: Coded Allergies: No Known Drug Allergies (Unverified , 06/14/14) Vitals & I&Os Vital Signs Date Time Temp Pulse Resp B/P (MAP) Pulse Ox O2 Delivery O2 Flow Rate FiO2 05/18/18 07:00 86 05/18/18 04:00 99.3 18 116/69 (85) 94 Room Air 05/16/18 15:25 1.00 General Appearance: No Apparent Distress, WD/WN Respiratory: Chest Non Tender, Normal Breath Sounds, No Accessory Muscle Use, No Respiratory Distress Cardiovascular: Regular Rate, Rhythm, No Edema Gastrointestinal: Normal Bowel Sounds Extremity: Normal Capillary Refill Skin: Normal Color, Warm/Dry Neurologic/Psychiatric: Alert, Oriented x3 Hospital Course Shashank Temple is a 72 year old male with a hx of PE in 2013 on anticoagulation until April 2018 when he was hospitalized for massive GI bleed that was admitted from clinic for worsening dyspnea. D-dimer was elevated at 9.82, so a V /Q scan was obtained given elevated creatinine, which showed high probability of bilateral PE. Venous doppler study showed a clot in his right popliteal. He was started on Lovenox and a PPI. Cardiology, Pulmonology, General surgery, and Hematology were consulted and after extensive discussion it was decided an IVC filter with 6 months anticoagulation was best option. An IVC filter was placed and he was bridged to warfarin. Pt exhibited no signs of GI bleed during his stay, hemoccult was negative. Pt improved clinically and was ready for discharge on hospital day 5 with lovenox and follow up scheduled with Dr. Rene 05/25 to monitor INR. Given 2nd DVT, outpatient coagulation studies were considered but unlikely to be helpful as pt has resumed anticoagulation. Labs (last 24 hrs) Laboratory Tests 05/17/18 11:07: Glucometer 184H 05/17/18 16:08: Glucometer 113H 05/17/18 20:48: Glucometer 230H 05/18/18 04:57: Glucometer 119H 05/18/18 05:26: Prothrombin Time 15.0H, INR Comment 1.2 Microbiology 05/13/18 Blood Culture - Preliminary, Resulted No growth 05/14/18 MRSA Screen - Final, Complete Patient resulted labs reviewed. Pending Labs Laboratory Tests 05/18/18 04:57: Glucometer 119 05/18/18 05:26: Prothrombin Time 15.0, INR Comment 1.2 Imaging: Reviewed Imaging Report Discharge Home Medications: Active Scripts Active Benzonatate 100 Mg Capsule 200 Mg PO TID PRN Reported Sodium Bicarbonate 325 Mg Tablet 325 Mg PO BID Miralax (Polyethylene Glycol 3350) 17 Gm Powd.pack 17 Gm PO HS 14 Days 14 DAY THERAPY STOP DATE 05-15-18 Albuterol Sulfate 2.5 Mg/3 Ml Vial.neb 2.5 Mg NEB TID PRN Protonix (Pantoprazole Sodium) 40 Mg Tablet.dr 40 Mg PO BID Hydroxyzine HCl 25 Mg Tablet 25 Mg PO TID PRN Topiramate 100 Mg Tablet 100 Mg PO 1000,2200 Montelukast Sodium 10 Mg Tablet 10 Mg PO 2200 Novolog Flexpen (Insulin Aspart) 300 Units/3 Ml Solution 10-18 Units SC AC Levemir Flextouch (Insulin Detemir) 100 Unit/1 Ml Insuln.pen 21 Units SC 2200 Loratadine 10 Mg Tablet 10 Mg PO 1000,2200 Instructions to patient/family Please see electronic discharge instructions given to patient. Clinical Quality Measures DVT/VTE Risk/Contraindication: Risk Factor Score Per Nursin RFS Level Per Nursing on Admit: 4+=Very High Contraindications-Mechi: Other *list below* Other: Pt has DVT in Right popliteal ERICA RENE DO 05/18/18 0925: Discharge Summary Discharge Physical Exam Allergies: Coded Allergies: No Known Drug Allergies (Unverified , 06/14/14) General Appearance: No Apparent Distress, WD/WN, Chronically ill HEENT: PERRL/EOMI, TMs Normal, Normal ENT Inspection, Pharynx Normal Respiratory: Chest Non Tender, Lungs Clear, Normal Breath Sounds, No Accessory Muscle Use, No Respiratory Distress Cardiovascular: Regular Rate, Rhythm, No Edema, No Gallop, No JVD, No Murmur, Normal Peripheral Pulses Gastrointestinal: Normal Bowel Sounds, No Organomegaly, No Pulsatile Mass, Non Tender, Soft Extremity: Normal Capillary Refill, Normal Inspection, Normal Range of Motion, Non Tender, No Calf Tenderness, No Pedal Edema Skin: Normal Color, Warm/Dry Neurologic/Psychiatric: Alert, Oriented x3, No Motor/Sensory Deficits, Normal Mood/Affect Hospital Course Patient did very well through the entire hospital course. Pt was found to have an acute PE after being off Coumadin for 10 days after massive GIB and 6 units of blood, filter was placed after consensus among physicians. Patient did well and will be DC home on Lovenox bridge with Coumadin and will have INR and will see me on Friday. Discussion & Recommendations Discharge Planning: <30 minutes discharge planning Problem Qualifiers (1) Pulmonary embolism: Pulmonary embolism type: saddle Chronicity: acute Acute cor pulmonale presence: with acute cor pulmonale Qualified Codes: I26.02 - Saddle embolus of pulmonary artery with acute cor pulmonale (2) DVT (deep venous thrombosis): DVT location: lower extremity Affected thrombotic vein of extremity: popliteal Chronicity: acute Laterality: right Qualified Codes: I82.431 - Acute embolism and thrombosis of right popliteal vein (3) Hypertension: Hypertension type: essential hypertension Qualified Codes: I10 - Essential ( primary) hypertension (4) Hyperlipidemia: Hyperlipidemia type: mixed hyperlipidemia Qualified Codes: E78.2 - Mixed hyperlipidemia (5) Diabetes mellitus: Diabetes mellitus type: type 2 Diabetes mellitus intermediate insulin use: with intermediate manager use Diabetes mellitus complication status: with circulatory complication Diabetes mellitus complication detail: with other circulatory complications Qualified Codes: E11.59 - Type 2 diabetes mellitus with other circulatory complications; Z79.4 - shelter (current) use of insulin [employer]ENT May 18, 2018 08:04 ERICA RENE DO May 18, 2018 09:25
[2018-05-18] MEDS: SODIUM BICARBONATE 650 MG TABLET (NON-FORMULARY) PO SCH (09:05)
[2018-05-18] MEDS: ENOXAPARIN 80 MG/0.8 ML (LOVENOX) SYR SC SCH (09:05)
[2018-05-18] MEDS: inSUlin ASPART (NovoLOG) 1 UNIT/0.01 ML (CHARGE PER UNIT) SC SCH (09:05)
[2018-05-18] MEDS: RT-ALBUTEROL SULF 2.5 MG/3 ML PRE-MIX VIAL INH SCH (09:06)
[2018-05-18] MEDS ORDERED: ENOX80DI7 SC (09:19)
[2018-05-18] MEDS ORDERED: WARF1TAB PO (09:19)
--- OUTSIDE RECORDS SUMMARY | 2018-05-20 12:30 | XMS REPORT | Continuity of Care Document ---
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9 PNEUMONIA, UNSPECIFIED ORGANISM 04/27/2018 RODRÍGUEZ DO ERICA Ot E11.65 TYPE 2 DIABETES MELLITUS WITH HYPERGLYCE 04/27/2018 ANNE DO ERICA Ot E55.9 VITAMIN D DEFICIENCY, UNSPECIFIED 04/27/2018 RODRÍGUEZ DO, ERICA Ot E78.00 PURE HYPERCHOLESTEROLEMIA, UNSPECIFIED 04/27/2018 RODRÍGUEZ DO, ERICA Ot E78.1 PURE HYPERGLYCERIDEMIA 04/27/2018 RODRÍGUEZ DO ERICA Ot 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 04/27/2018 ANNE DO ERICA Ot Z00.00 ENCNTR FOR GENERAL ADULT MEDICAL EXAM W04/27/2018 ANNE DON ERICA Ot R07.9 CHEST PAIN, UNSPECIFIED 05/01/2018 ANNE DO ERICA Ot V58.61 ANTICOAGULANTS,LT,CURRENT USE 05/01/2018 RODRÍGUEZ DO ERICA Ot V58.83 ENCOUNTER FOR THERAPEUTIC DRUG MONITORIN 05/01/2018 ANNE DO ERICA Ot J18.9 PNEUMONIA, UNSPECIFIED ORGANISM 05/01/2018 ANNE DO ERICA Ot E11.65 TYPE 2 DIABETES MELLITUS WITH HYPERGLYCE 05/01/2018 ANNE DO ERICA Ot E55.9 VITAMIN D DEFICIENCY, UNSPECIFIED 05/01/2018 RODRÍGUEZ DO ERICA Ot E78.00 PURE HYPERCHOLESTEROLEMIA, UNSPECIFIED 05/01/2018 RODRÍGUEZ DO ERICA Ot E78.1 PURE HYPERGLYCERIDEMIA 05/01/2018 RODRÍGUEZ DO ERICA Ot 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 05/01/2018 ANNE DO ERICA Ot Z00.00 ENCNTR FOR GENERAL ADULT MEDICAL EXAM W05/01/2018 ANNE DO ERICA Ot R07.9 CHEST PAIN, UNSPECIFIED 05/01/2018 RODRÍGUEZ DO ERICA Ot R07.9 CHEST PAIN, UNSPECIFIED 05/01/2018 ANNE DO ERICA Ot D12.3 BENIGN NEOPLASM OF TRANSVERSE COLON 05/01/2018 RODRÍGUEZ DO, ERICA Ot E11.59 TYPE 2 DIABETES MELLITUS WITH OTH CIRCUL 05/01/2018 RODRÍGUEZ DO, ERICA Ot E78.2 MIXED HYPERLIPIDEMIA 05/01/2018 RODRÍGUEZ DO, ERICA Ot E86.1 HYPOVOLEMIA 05/01/2018 RODRÍGUEZ DO, ERICA Ot E87.2 ACIDOSIS 05/01/2018 RODRÍGUEZ DO, ERICA Ot G40.909 EPILEPSY, UNSP, NOT INTRACTABLE, WITHOUT 05/01/2018 RODRÍGUEZ DO, ERICA Ot I12.9 HYPERTENSIVE CHRONIC KIDNEY DISEASE W ST 05/01/2018 RODRÍGUEZ DO, ERICA Ot I30.9 ACUTE PERICARDITIS, UNSPECIFIED 05/01/2018 RODRÍGUEZ DO, ERICA Ot I87.2 VENOUS INSUFFICIENCY (CHRONIC) (PERIPHER 05/01/2018 RODRÍGUEZ DO, ERICA Ot I95.89 OTHER HYPOTENSION 05/01/2018 RODRÍGUEZ DO, ERICA Ot K22.6 GASTRO-ESOPHAGEAL LACERATION-HEMORRHAGE 05/01/2018 RODRÍGUEZ DO, ERICA Ot K29.70 GASTRITIS, UNSPECIFIED, WITHOUT BLEEDING 05/01/2018 RODRÍGUEZ DO, ERICA Ot K57.30 DVRTCLOS OF LG INT W/O PERFORATION OR AB 05/01/2018 RODRÍGUEZ DO, ERICA Ot K64.8 OTHER HEMORRHOIDS 05/01/2018 RODRÍGUEZ DO, ERICA Ot K92.1 MELENA 05/01/2018 RODRÍGUEZ DO, ERICA Ot N17.9 ACUTE KIDNEY FAILURE, UNSPECIFIED 05/01/2018 RODRÍGUEZ DO, ERICA Ot N18.9 CHRONIC KIDNEY DISEASE, UNSPECIFIED 05/01/2018 RODRÍGUEZ DO, ERICA Ot N39.0 URINARY TRACT INFECTION, SITE NOT SPECIF 05/01/2018 RODRÍGUEZ DO, ERICA Ot R00.0 TACHYCARDIA, UNSPECIFIED 05/01/2018 RODRÍGUEZ DO, ERICA Ot R06.00 DYSPNEA, UNSPECIFIED 05/01/2018 RODRÍGUEZ DO, ERICA Ot R07.9 CHEST PAIN, UNSPECIFIED 05/01/2018 RODRÍGUEZ DO, ERICA Ot Z79.01 RETIREMENT (CURRENT) USE OF ANTICOAGULANT 05/01/2018 ANNE DO, ERICA Ot Z79.4 RETIREMENT (CURRENT) USE OF INSULIN 05/01/2018 ANNE DO, ERICA Ot Z80.6 FAMILY HISTORY OF LEUKEMIA 05/01/2018 ERICA RODRÍGUEZ DO Ot Z86.711 PERSONAL HISTORY OF PULMONARY EMBOLISM 05/01/2018 ERICA RODRÍGUEZ DO Ot Z86.718 PERSONAL HISTORY OF OTHER VENOUS THROMBO 05/01/2018 ERICA RODRÍGUEZ DO Ot Z87.01 PERSONAL HISTORY OF PNEUMONIA (RECURRENT 05/01/2018 ERICA RODRÍGUEZ DO Ot Z91.19 PATIENT'S NONCOMPLIANCE W OT MEDICAL TR 05/20/2018 ERICA RODRÍGUEZ DO Ot E11.59 TYPE 2 DIABETES MELLITUS WITH OTH CIRCUL 05/20/2018 LAMONTE RODRÍGUEZ DOI Ot E78.2 MIXED HYPERLIPIDEMIA 05/20/2018 LAMONTE RODRÍGUEZ DOI Ot E87.2 ACIDOSIS 05/20/2018 ERICA RODRÍGUEZ DO Ot G40.909 EPILEPSY, UNSP, NOT INTRACTABLE, WITHOUT 05/20/2018 LAMONTE RODRÍGUEZ DOI Ot I10 ESSENTIAL (PRIMARY) HYPERTENSION 05/20/2018 ERICA RODRÍGUEZ DO Ot I26.02 SADDLE EMBOLUS OF PULMONARY ARTERY WITH 05/20/2018 ERICA RODRÍGUEZ DO Ot I82.431 ACUTE EMBOLISM AND THROMBOSIS OF RIGHT P 05/20/2018 ERICA RODRÍGUEZ DO Ot K59.00 CONSTIPATION, UNSPECIFIED 05/20/2018 ERICA RODRÍGUEZ DO Ot N17.9 ACUTE KIDNEY FAILURE, UNSPECIFIED 05/20/2018 ERICA RODRÍGUEZ DO Ot N18.9 CHRONIC KIDNEY DISEASE, UNSPECIFIED 05/20/2018 ERICA RODRÍGUEZ DO Ot R07.9 CHEST PAIN, UNSPECIFIED 05/20/2018 ERICA RODRÍGUEZ DO Ot R50.9 FEVER, UNSPECIFIED 05/20/2018 ERICA RODRÍGUEZ DO Ot Z22.322 CARRIER OR SUSPECTED CARRIER OF METHICIL 05/20/2018 ERICA RODRÍGUEZ DO Ot Z79.01 RETIREMENT (CURRENT) USE OF ANTICOAGULANT 05/20/2018 ERICA RODRÍGUEZ DO Ot Z79.4 RETIREMENT (CURRENT) USE OF INSULIN 05/20/2018 ERICA RODRÍGUEZ DO Ot Z87.19 PERSONAL HISTORY OF OTHER DISEASES OF TH 05/20/2018 ERICA RODRÍGUEZ DO Ot E11.59 TYPE 2 DIABETES MELLITUS WITH OT CIRCUL 05/20/2018 LAMONTE RODRÍGUEZ DOI Ot E78.2 MIXED HYPERLIPIDEMIA 05/20/2018 LAMONTE RODRÍGUEZ DOI Ot E87.2 ACIDOSIS 05/20/2018 LAMONTE RODRÍGUEZ DOI Ot G40.909 EPILEPSY, UNSP, NOT INTRACTABLE, WITHOUT 05/20/2018 ANNE DON ERICA Ot I10 ESSENTIAL (PRIMARY) HYPERTENSION 05/20/2018 ANNE DON ERICA Ot I26.02 SADDLE EMBOLUS OF PULMONARY ARTERY WITH 05/20/2018 ANNE DON ERICA Ot I82.431 ACUTE EMBOLISM AND THROMBOSIS OF RIGHT P 05/20/2018 ANNE DON ERICA Ot K59.00 CONSTIPATION, UNSPECIFIED 05/20/2018 ANNE DON ERICA Ot N17.9 ACUTE KIDNEY FAILURE, UNSPECIFIED 05/20/2018 ANNE DON ERICA Ot N18.9 CHRONIC KIDNEY DISEASE, UNSPECIFIED 05/20/2018 LAMONTE RODRÍGUEZ DOI Ot R07.9 CHEST PAIN, UNSPECIFIED 05/20/2018 ANNE DON ERICA Ot R50.9 FEVER, UNSPECIFIED 05/20/2018 ANNE DON ERICA Ot Z22.322 CARRIER OR SUSPECTED CARRIER OF METHICIL 05/20/2018 LAMONTE RODRÍGUEZ DOI Ot Z79.01 RETIREMENT (CURRENT) USE OF ANTICOAGULANT 05/20/2018 LAMONTE RODRÍGUEZ DOI Ot Z79.4 RETIREMENT (CURRENT) USE OF INSULIN 05/20/2018 LAMONTE RODRÍGUEZ DOI Ot Z87.19 PERSONAL HISTORY OF OTHER DISEASES OF TH 05/20/2018 ERICA RODRÍGUEZ DO Ot E11.59 TYPE 2 DIABETES MELLITUS WITH OTH CIRCUL 05/20/2018 ANNE DON ERICA Ot E78.2 MIXED HYPERLIPIDEMIA 05/20/2018 ERICA RODRÍGUEZ DO Ot E87.2 ACIDOSIS 05/20/2018 ERICA RODRÍGUEZ DO Ot G40.909 EPILEPSY, UNSP, NOT INTRACTABLE, WITHOUT 05/20/2018 ANNE DON ERICA Ot I10 ESSENTIAL (PRIMARY) HYPERTENSION 05/20/2018 LAMONTE RODRÍGUEZ DOI Ot I26.02 SADDLE EMBOLUS OF PULMONARY ARTERY WITH 05/20/2018 ANNE DON ERICA Ot I82.431 ACUTE EMBOLISM AND THROMBOSIS OF RIGHT P 05/20/2018 ANNE DON ERICA Ot K59.00 CONSTIPATION, UNSPECIFIED 05/20/2018 ANNE DON ERICA Ot N17.9 ACUTE KIDNEY FAILURE, UNSPECIFIED 05/20/2018 RODRÍGUEZ DO, ERICA Ot N18.9 CHRONIC KIDNEY DISEASE, UNSPECIFIED 05/20/2018 ERICA RODRÍGUEZ DO Ot R07.9 CHEST PAIN, UNSPECIFIED 05/20/2018 ERICA RODRÍGUEZ DO Ot R50.9 FEVER, UNSPECIFIED 05/20/2018 ERICA RODRÍGUEZ DO Ot Z22.322 CARRIER OR SUSPECTED CARRIER OF METHICIL 05/20/2018 ERICA RODRÍGUEZ DO Ot Z79.01 RAT POISONER (CURRENT) USE OF ANTICOAGULANT 05/20/2018 ERICA RODRÍGUEZ DO Ot Z79.4 RAT POISONER (CURRENT) USE OF INSULIN 05/20/2018 ERICA RODRÍGUEZ DO Ot Z87.19 PERSONAL HISTORY OF OTHER DISEASES OF Procedures Code Description Performed By Performed On 86.11 CLOSED BIOPSY OF SKIN AND SUBCUTANEOUS T 06/14/2014 [id number] EXCISION OF ESOPHAGOGASTRIC JUNCTION, EN 04/27/2018 [id number] EXCISION OF TRANSVERSE COLON, ENDO 04/29/2018 [id number] INSPECTION OF UPPER INTESTINAL TRACT, EN 04/29/2018 Results Test Result Range Complete blood count [...] 25-hydroxy vitamin D measurement 10 % 30-100 Bacterial blood culture - 04/27/18 07:30 Bacterial blood culture NG NRG Bacterial blood culture - 04/27/18 08:05 Bacterial blood culture NG NRG Capillary blood glucose measurement by glucometer (mass/volume) - 05/01/18 10: 39 Capillary blood glucose measurement by glucometer (mass/volume) 261 mg/dL 70-110 Arterial blood gas measurement - 05/13/18 11:30 Blood pCO2 24 mm[Hg] 35-45 Blood pO2 92 mm[Hg] 79-93 Arterial blood bicarbonate measurement (moles/volume) 14 mmol/L 23-27 Arterial blood base excess by calculation -10.0 mmol/L - 2.5-2.5 Arterial blood oxygen saturation measurement 97 % 94-100 * Inhaled oxygen flow rate ROOM AIR NRG Arterial blood pH measurement with patient temperature correction 7.39 7.37-7.43 Arterial blood carbon dioxide, total measurement (moles/volume) 14.7 mmol/L 21.0-31.0 Body site RT RAD NRG Assessment of wrist artery patency prior to arterial puncture YES- POS NRG Setting of ventilation mode NO NRG Measurement of body temperature 99.9 NRG Complete blood count (CBC) with automated white blood cell (WBC) differential - 05/13/18 11:30 Blood leukocytes automated count (number/volume) 8.8 10*3/uL 4.3-11.0 Blood erythrocytes automated count (number/volume) 4.42 10*6/uL 4.35-5.85 Venous blood hemoglobin measurement (mass/volume) 12.5 g/dL 13.3-17.7 Blood hematocrit (volume fraction) 38 % 40-54 Automated erythrocyte mean corpuscular volume 85 [foz_us] 80-99 Automated erythrocyte mean corpuscular hemoglobin (mass per erythrocyte) 28 pg 25-34 Automated erythrocyte mean corpuscular hemoglobin concentration measurement ( mass/volume) 33 g/dL 32-36 Automated erythrocyte distribution width ratio 15.0 % 10.0-14.5 Automated blood platelet count (count/volume) 134 10*3/uL 130-400 Automated blood platelet mean volume measurement 9.3 [foz_us] 7.4-10.4 Automated blood neutrophils/100 leukocytes 65 % 42-75 Automated blood lymphocytes/100 leukocytes 24 % 12-44 Blood monocytes/100 leukocytes 9 % 0-12 Automated blood eosinophils/100 leukocytes 2 % 0-10 Automated blood basophils/100 leukocytes 0 % 0-10 Blood neutrophils automated count (number/volume) 5.7 10*3 1.8-7.8 Blood lymphocytes automated count (number/volume) 2.1 10*3 1.0-4.0 Blood monocytes automated count (number/volume) 0.8 10*3 0.0-1.0 Automated eosinophil count 0.2 10*3/uL 0.0-0.3 Automated blood basophil count (count/volume) 0.0 10*3/uL 0.0-0.1 Blood lactic acid measurement (moles/volume) - 05/13/18 11:30 Blood lactic acid measurement (moles/volume) 1.65 mmol/L 0.50-2.00 Comprehensive metabolic panel - 05/13/18 11:30 Serum or plasma sodium measurement (moles/volume) 136 mmol/L 135-145 Serum or plasma potassium measurement (moles/volume) 4.0 mmol/L 3.6-5.0 Serum or plasma chloride measurement (moles/volume) 109 mmol/L 98-107 Carbon dioxide 17 mmol/L 21-32 Serum or plasma anion gap determination (moles/volume) 10 mmol/L 5-14 Serum or plasma urea nitrogen measurement (mass/volume) 19 mg/dL 7-18 Serum or plasma creatinine measurement (mass/volume) 1.61 mg/dL 0.60-1.30 Serum or plasma urea nitrogen/creatinine mass ratio 12 NRG Serum or plasma creatinine measurement with calculation of estimated glomerular filtration rate 43 NRG Serum or plasma glucose measurement (mass/volume) 201 mg/dL 70-105 Serum or plasma calcium measurement (mass/volume) 9.1 mg/dL 8.5-10.1 Serum or plasma total bilirubin measurement (mass/volume) 0.6 mg/dL 0.1-1.0 Serum or plasma alkaline phosphatase measurement (enzymatic activity/volume) 51 U/L 40-136 Serum or plasma aspartate aminotransferase measurement (enzymatic activity/ volume) 12 U/L 5-34 Serum or plasma alanine aminotransferase measurement (enzymatic activity/volume ) 10 U/L 0-55 Serum or plasma protein measurement (mass/volume) 8.2 g/dL 6.4-8.2 Serum or plasma albumin measurement (mass/volume) 3.5 g/dL 3.2-4.5 CALCIUM CORRECTED 9.5 mg/dL 8.5-10.1 Serum or plasma phosphate measurement (mass/volume) - 05/13/18 11:30 Serum or plasma phosphate measurement (mass/volume) 2.5 mg/dL 2.3-4.7 Magnesium - 05/13/18 11:30 Magnesium 1.8 mg/dL 1.8-2.4 PT panel in platelet poor plasma by coagulation assay - 05/13/18 11:30 Prothrombin time (PT) in platelet poor plasma by coagulation assay 15.4 s 12.2-14.7 INR in platelet poor plasma or blood by coagulation assay 1.2 0.8-1.4 Fibrin D-dimer FEU measurement in platelet poor plasma (mass/volume) - 11:30 Fibrin D-dimer FEU measurement in platelet poor plasma (mass/volume) 9.82 ug/mL 0.00-0.49 Serum or plasma troponin i.cardiac measurement (mass/volume) - 05/13/18 11:30 Serum or plasma troponin i.cardiac measurement (mass/volume) < ng/ mL <0.30 Serum or plasma lithium measurement (moles/volume) - 05/13/18 11:30 BNP level 514.7 pg/mL <100.0 Bacterial blood culture - 05/13/18 11:30 Bacterial blood culture NG NRG Bacterial blood culture - 05/13/18 11:40 Bacterial blood culture NG NR Fibrin D-dimer FEU measurement in platelet poor plasma (mass/volume) - 13:03 Fibrin D-dimer FEU measurement in platelet poor plasma (mass/volume) 9.82 ug/mL 0.00-0.49 Tick identification panel - 05/13/18 13:03 Serum Ehrlichia chaffeensis IgG antibody detection <1:16 <1:16 Serum Ehrlichia chaffeensis IgM antibody detection <1:10 <1:10 Serum Rickettsia rickettsii IgG antibody assay (units/volume) < <1:16 Benoit spotted fever panel < <1:10 Francisella tularensis antibody assay <1:20 NRG LYME AB G M 0.05 % 0.00-0.89 Interpretation of Lyme disease antibody assay Negative Negative Complete urinalysis with reflex to culture - 05/13/18 13:35 Urine color determination YELLOW NRG Urine clarity determination CLEAR NRG Urine pH measurement by test strip 6.5 5-9 Specific gravity of urine by test strip 1.015 1.016- 1.022 Urine protein assay by test strip, semi-quantitative 1+ NEGATIVE Urine glucose detection by automated test strip NEGATIVE NEGATIVE Erythrocytes detection in urine sediment by light microscopy NEGATIVE NEGATIVE Urine ketones detection by automated test strip NEGATIVE NEGATIVE Urine nitrite detection by test strip NEGATIVE NEGATIVE Urine total bilirubin detection by test strip NEGATIVE NEGATIVE Urine urobilinogen measurement by automated test strip (mass/volume) NORMAL NORMAL Urine leukocyte esterase detection by dipstick NEGATIVE NEGATIVE Automated urine sediment erythrocyte count by microscopy (number/high power field) NONE NRG Automated urine sediment leukocyte count by microscopy (number/high power field ) [HPF] NRG Bacteria detection in urine sediment by light microscopy FEW NRG Squamous epithelial cells detection in urine sediment by light microscopy RARE NRG Crystals detection in urine sediment by light microscopy NONE NRG Casts detection in urine sediment by light microscopy PRESENT NRG Mucus detection in urine sediment by light microscopy SMALL NRG Complete urinalysis with reflex to culture NO NRG Hyaline casts detection in urine sediment by light microscopy 10-25 NRG Renal epithelial cells detection in urine sediment by light microscopy NONE NRG Granular casts detection in urine sediment by light microscopy RARE NRG Capillary blood glucose measurement by glucometer (mass/volume) - 05/13/18 16: 55 Capillary blood glucose measurement by glucometer (mass/volume) 162 mg/dL 70-110 Serum or plasma troponin i.cardiac measurement (mass/volume) - 05/13/18 17:33 Serum or plasma troponin i.cardiac measurement (mass/volume) < ng/ mL <0.30 Capillary blood glucose measurement by glucometer (mass/volume) - 05/13/18 21: 26 Capillary blood glucose measurement by glucometer (mass/volume) 157 mg/dL 70-110 Serum or plasma troponin i.cardiac measurement (mass/volume) - 05/13/18 23:30 Serum or plasma troponin i.cardiac measurement (mass/volume) < ng/ mL <0.30 Complete blood count (CBC) with automated white blood cell (WBC) differential - 05/14/18 03:05 Blood leukocytes automated count (number/volume) 8.8 10*3/uL 4.3-11.0 Blood erythrocytes automated count (number/volume) 4.07 10*6/uL 4.35-5.85 Venous blood hemoglobin measurement (mass/volume) 11.4 g/dL 13.3-17.7 Blood hematocrit (volume fraction) 35 % 40-54 Automated erythrocyte mean corpuscular volume 85 [foz_us] 80-99 Automated erythrocyte mean corpuscular hemoglobin (mass per erythrocyte) 28 pg 25-34 Automated erythrocyte mean corpuscular hemoglobin concentration measurement ( mass/volume) 33 g/dL 32-36 Automated erythrocyte distribution width ratio 14.9 % 10.0-14.5 Automated blood platelet count (count/volume) 148 10*3/uL 130-400 Automated blood platelet mean volume measurement 10.1 [foz_us] 7.4-10.4 Automated blood neutrophils/100 leukocytes 59 % 42-75 Automated blood lymphocytes/100 leukocytes 31 % 12-44 Blood monocytes/100 leukocytes 8 % 0-12 Automated blood eosinophils/100 leukocytes 2 % 0-10 Automated blood basophils/100 leukocytes 0 % 0-10 Blood neutrophils automated count (number/volume) 5.1 10*3 1.8-7.8 Blood lymphocytes automated count (number/volume) 2.7 10*3 1.0-4.0 Blood monocytes automated count (number/volume) 0.7 10*3 0.0-1.0 Automated eosinophil count 0.2 10*3/uL 0.0-0.3 Automated blood basophil count (count/volume) 0.0 10*3/uL 0.0-0.1 Comprehensive metabolic panel - 05/14/18 03:05 Serum or plasma sodium measurement (moles/volume) 139 mmol/L 135-145 Serum or plasma potassium measurement (moles/volume) 3.3 mmol/L 3.6-5.0 Serum or plasma chloride measurement (moles/volume) 109 mmol/L 98-107 Carbon dioxide 20 mmol/L 21-32 Serum or plasma anion gap determination (moles/volume) 10 mmol/L 5-14 Serum or plasma urea nitrogen measurement (mass/volume) 21 mg/dL 7-18 Serum or plasma creatinine measurement (mass/volume) 1.47 mg/dL 0.60-1.30 Serum or plasma urea nitrogen/creatinine mass ratio 14 NRG Serum or plasma creatinine measurement with calculation of estimated glomerular filtration rate 47 NRG Serum or plasma glucose measurement (mass/volume) 161 mg/dL 70-105 Serum or plasma calcium measurement (mass/volume) 8.6 mg/dL 8.5-10.1 Serum or plasma total bilirubin measurement (mass/volume) 0.3 mg/dL 0.1-1.0 Serum or plasma alkaline phosphatase measurement (enzymatic activity/volume) 50 U/L 40-136 Serum or plasma aspartate aminotransferase measurement (enzymatic activity/ volume) 11 U/L 5-34 Serum or plasma alanine aminotransferase measurement (enzymatic activity/volume ) < U/L 0-55 Serum or plasma protein measurement (mass/volume) 7.4 g/dL 6.4-8.2 Serum or plasma albumin measurement (mass/volume) 3.0 g/dL 3.2-4.5 CALCIUM CORRECTED 9.4 mg/dL 8.5-10.1 Serum or plasma phosphate measurement (mass/volume) - 05/14/18 03:05 Serum or plasma phosphate measurement (mass/volume) 3.5 mg/dL 2.3-4.7 Magnesium - 05/14/18 03:05 Magnesium 1.7 mg/dL 1.8-2.4 Capillary blood glucose measurement by glucometer (mass/volume) - 05/14/18 07: 02 Capillary blood glucose measurement by glucometer (mass/volume) 164 mg/dL 70-110 Capillary blood glucose measurement by glucometer (mass/volume) - 05/14/18 12: 13 Capillary blood glucose measurement by glucometer (mass/volume) 153 mg/dL 70-110 Capillary blood glucose measurement by glucometer (mass/volume) - 05/14/18 16: 17 Capillary blood glucose measurement by glucometer (mass/volume) 145 mg/dL 70-110 Methicillin resistant Staphylococcus aureus (MRSA) screening culture - 21:00 MRSA SCREEN RESULT MRSA ISOLATED NRG Capillary blood glucose measurement by glucometer (mass/volume) - 05/14/18 21: 01 Capillary blood glucose measurement by glucometer (mass/volume) 157 mg/dL 70-110 Complete blood count (CBC) with automated white blood cell (WBC) differential - 05/15/18 04:08 Blood leukocytes automated count (number/volume) 7.1 10*3/uL 4.3-11.0 Blood erythrocytes automated count (number/volume) 3.66 10*6/uL 4.35-5.85 Venous blood hemoglobin measurement (mass/volume) 10.5 g/dL 13.3-17.7 Blood hematocrit (volume fraction) 32 % 40-54 Automated erythrocyte mean corpuscular volume 86 [foz_us] 80-99 Automated erythrocyte mean corpuscular hemoglobin (mass per erythrocyte) 29 pg 25-34 Automated erythrocyte mean corpuscular hemoglobin concentration measurement ( mass/volume) 33 g/dL 32-36 Automated erythrocyte distribution width ratio 14.9 % 10.0-14.5 Automated blood platelet count (count/volume) 142 10*3/uL 130-400 Automated blood platelet mean volume measurement 9.3 [foz_us] 7.4-10.4 Automated blood neutrophils/100 leukocytes 59 % 42-75 Automated blood lymphocytes/100 leukocytes 29 % 12-44 Blood monocytes/100 leukocytes 9 % 0-12 Automated blood eosinophils/100 leukocytes 4 % 0-10 Automated blood basophils/100 leukocytes 0 % 0-10 Blood neutrophils automated count (number/volume) 4.2 10*3 1.8-7.8 Blood lymphocytes automated count (number/volume) 2.1 10*3 1.0-4.0 Blood monocytes automated count (number/volume) 0.6 10*3 0.0-1.0 Automated eosinophil count 0.3 10*3/uL 0.0-0.3 Automated blood basophil count (count/volume) 0.0 10*3/uL 0.0-0.1 Comprehensive metabolic panel - 05/15/18 04:08 Serum or plasma sodium measurement (moles/volume) 136 mmol/L 135-145 Serum or plasma potassium measurement (moles/volume) 3.6 mmol/L 3.6-5.0 Serum or plasma chloride measurement (moles/volume) 112 mmol/L 98-107 Carbon dioxide 15 mmol/L 21-32 Serum or plasma anion gap determination (moles/volume) 9 mmol/L 5-14 Serum or plasma urea nitrogen measurement (mass/volume) 14 mg/dL 7-18 Serum or plasma creatinine measurement (mass/volume) 1.21 mg/dL 0.60-1.30 Serum or plasma urea nitrogen/creatinine mass ratio 12 NRG Serum or plasma creatinine measurement with calculation of estimated glomerular filtration rate 59 NRG Serum or plasma glucose measurement (mass/volume) 180 mg/dL 70-105 Serum or plasma calcium measurement (mass/volume) 8.4 mg/dL 8.5-10.1 Serum or plasma total bilirubin measurement (mass/volume) 0.2 mg/dL 0.1-1.0 Serum or plasma alkaline phosphatase measurement (enzymatic activity/volume) 44 U/L 40-136 Serum or plasma aspartate aminotransferase measurement (enzymatic activity/ volume) 9 U/L 5-34 Serum or plasma alanine aminotransferase measurement (enzymatic activity/volume ) 9 U/L 0-55 Serum or plasma protein measurement (mass/volume) 6.8 g/dL 6.4-8.2 Serum or plasma albumin measurement (mass/volume) 2.9 g/dL 3.2-4.5 CALCIUM CORRECTED 9.3 mg/dL 8.5-10.1 Serum or plasma lithium measurement (moles/volume) - 05/15/18 04:08 BNP level 363.7 pg/mL <100.0 Capillary blood glucose measurement by glucometer (mass/volume) - 05/15/18 05: 06 Capillary blood glucose measurement by glucometer (mass/volume) 160 mg/dL 70-110 Capillary blood glucose measurement by glucometer (mass/volume) - 05/15/18 11: 57 Capillary blood glucose measurement by glucometer (mass/volume) 138 mg/dL 70-110 Stool occult blood screen - 05/15/18 14:00 Stool gastrointestinal hemoglobin detection NEGATIVE NEGATIVE Capillary blood glucose measurement by glucometer (mass/volume) - 05/15/18 16: 42 Capillary blood glucose measurement by glucometer (mass/volume) 131 mg/dL 70-110 Capillary blood glucose measurement by glucometer (mass/volume) - 05/15/18 20: 49 Capillary blood glucose measurement by glucometer (mass/volume) 125 mg/dL 70-110 Capillary blood glucose measurement by glucometer (mass/volume) - 05/16/18 05: 26 Capillary blood glucose measurement by glucometer (mass/volume) 176 mg/dL 70-110 Automated blood complete blood count (hemogram) panel - 05/16/18 10:00 Blood leukocytes automated count (number/volume) 6.9 10*3/uL 4.3-11.0 Blood erythrocytes automated count (number/volume) 3.95 10*6/uL 4.35-5.85 Venous blood hemoglobin measurement (mass/volume) 11.3 g/dL 13.3-17.7 Blood hematocrit (volume fraction) 35 % 40-54 Automated erythrocyte mean corpuscular volume 88 [foz_us] 80-99 Automated erythrocyte mean corpuscular hemoglobin (mass per erythrocyte) 29 pg 25-34 Automated erythrocyte mean corpuscular hemoglobin concentration measurement ( mass/volume) 33 g/dL 32-36 Automated erythrocyte distribution width ratio 15.1 % 10.0-14.5 Automated blood platelet count (count/volume) 161 10*3/uL 130-400 Automated blood platelet mean volume measurement 9.0 [foz_us] 7.4-10.4 Capillary blood glucose measurement by glucometer (mass/volume) - 05/16/18 10: 26 Capillary blood glucose measurement by glucometer (mass/volume) 164 mg/dL 70-110 Whole blood basic metabolic panel - 05/16/18 10:55 Serum or plasma sodium measurement (moles/volume) 140 mmol/L 135-145 Serum or plasma potassium measurement (moles/volume) 3.6 mmol/L 3.6-5.0 Serum or plasma chloride measurement (moles/volume) 112 mmol/L 98-107 Carbon dioxide 19 mmol/L 21-32 Serum or plasma anion gap determination (moles/volume) 9 mmol/L 5-14 Serum or plasma urea nitrogen measurement (mass/volume) 10 mg/dL 7-18 Serum or plasma creatinine measurement (mass/volume) 1.30 mg/dL 0.60-1.30 Serum or plasma urea nitrogen/creatinine mass ratio 8 NRG Serum or plasma creatinine measurement with calculation of estimated glomerular filtration rate 54 NRG Serum or plasma glucose measurement (mass/volume) 139 mg/dL 70-105 Serum or plasma calcium measurement (mass/volume) 8.7 mg/dL 8.5-10.1 Encounters ACCT No. Visit Date/Time Discharge Status Pt. Type Provider Facility Loc./Unit Complaint [id number] 07/28/2014 12:01:34 07/28/2014 23:59:59 CLS Outpatient Bernabe Hawkins [id number] 06/08/2014 21:55:31 06/08/2014 23:59:59 CLS Outpatient Usha Louise [id number] 06/07/2014 13:07:15 06/07/2014 23:59:59 CLS Outpatient Alen Bateman [facility] 09/12/2014 14:15:42 ACT Document Registration [id number] 05/13/2018 16:54:00 05/18/2018 10:00:00 DIS Inpatient RODRÍGUEZ DO, ERICA [facility] 4TH SOB [id number] 04/27/2018 09:49:00 05/01/2018 12:08:00 DIS Outpatient RODRÍGUEZ DO, ERICA [facility] 4TH GI BLEED,ANTICOAGULATED [id number] 11/07/2017 10:30:00 11/07/2017 23:59:59 CLS Preadmit RODRÍGUEZ DO, ERICA [facility] CARD R07.9 CHEST PAIN [id number] 11/07/2017 06:31:00 11/07/2017 23:59:59 CLS Outpatient RODRÍGUEZ DO, ERICA [facility] CARD R07.9 CHEST PAIN [id number] 10/10/2016 08:18:00 10/10/2016 23:59:59 CLS Outpatient RODRÍGUEZ DO, ERICA [facility] RAD TYPE 2 DIABETES MELLITUS WITH HYPERGLYCEMIA [id number] 08/28/2015 13:46:00 08/28/2015 23:59:59 CLS Outpatient RODRÍGUEZ DO, ERICA [facility] RAD PNEUMONIA [id number] 09/12/2014 14:14:00 09/12/2014 23:59:59 CLS Outpatient RODRÍGUEZ DO, ERICA [facility] LAB COUMADIN THERAPY [id number] 09/02/2014 08:49:00 09/06/2014 14:00:00 DIS Inpatient RODRÍGUEZ DO, ERICA [facility] 4TH SWB-UNSTABLE ANGINA,NEW HEART FAILURE [id number] 08/29/2014 12:10:00 09/02/2014 08:36:00 DIS Inpatient RODRÍGUEZ DO, ERICA Via [address] UNSTABLE ANGINA,NEW HEART FAILURE [id number] 06/17/2014 10:45:00 06/21/2014 11:00:00 DIS Inpatient RODRÍGUEZ DO, ERICA [facility] SWB-SYNCOPAL EPISODES [id number] 06/14/2014 10:55:00 06/17/2014 10:25:00 DIS Inpatient RODRÍGUEZ DO, ERICA [facility] SYNCOPAL EPISODES [id number] 02/25/2016 10:00:00 Document Registration [id number] 01/23/2018 08:01:14 Document Registration [id number] 09/26/2017 11:29:37 Document Registration [id number] 09/26/2017 11:23:53 Document Registration [id number] 05/20/2017 09:31:02 Document Registration
== END 2018-05-18 10:00 | disposition home or self-care (01) | DRG 166 ==
LOC: ICU 10:50 → UNDOADMOB 10:54 → OBSVTOIN 16:54 → INTOOBSV 17:00 → ICU 05-14 15:40 → 4TH 05-14 15:40 → UNDODISIN 05-18 10:00
PROVIDERS: ADMIT Internal Medicine; ATTEND Internal Medicine
PROC: 06H03DZ Insertion of Intraluminal Device into Inferior Vena Cava, Percutaneous Approach (ICD-10-PCS; principal; 2018-05-15 14:13)
DX: I26.02 Saddle embolus of pulmonary artery with acute cor pulmonale (principal); I82.431 Acute embolism and thrombosis of right popliteal vein; E87.2 Acidosis; N17.9 Acute kidney failure, unspecified; I12.9 Hypertensive chronic kidney disease with stage 1 through stage 4 chronic kidney disease, or unspecified chronic kidney disease; E78.2 Mixed hyperlipidemia; E11.59 Type 2 diabetes mellitus with other circulatory complications; G40.909 Epilepsy, unspecified, not intractable, without status epilepticus; R07.9 Chest pain, unspecified; R50.9 Fever, unspecified; N18.9 Chronic kidney disease, unspecified; K59.00 Constipation, unspecified; Z22.322 Carrier or suspected carrier of Methicillin resistant Staphylococcus aureus; Z79.4 Long term (current) use of insulin; Z87.19 Personal history of other diseases of the digestive system; Z79.01 Long term (current) use of anticoagulants
CPT/HCPCS: 36415; 71045; 71046; 76770; 78582; 80048; 80053; 81000; 82274; 82805; 82962; 83605; 83735; 83880; 84100; 84484; 85025; 85027; 85379; 85610; 86618; 86666; 86668; 86757; 87040; 87081; 93306; 93970; 94640; 94664; 94760; 94761

== ENCOUNTER 2018-10-29 13:49 | Outpatient (RCR) | payer MEDICARE, OTHER ==
[~2018-10-29 13:49] MED LIST changes: +ALBU2.5V4 NEB; +ENOX80DI7 SC; +PANT40TA2 PO; -POLY17PO23 PO; +POLY17PO31 PO; +POLY17PO6 PO
[2018-10-29 14:40] LABS: INR 1.9 (0.8-1.4)
== END 2019-01-27 | disposition home or self-care (01) ==
LOC: LAB 13:49
PROVIDERS: ATTEND Internal Medicine
DX: Z51.81 Encounter for therapeutic drug level monitoring (principal); Z79.01 Long term (current) use of anticoagulants
CPT/HCPCS: 36415; 85610

== ENCOUNTER → 2018-11-16 | Outpatient (CLI) | payer MEDICARE, OTHER ==
[2018-11-16 11:38] LABS: BASOPHILS % (AUTO) 0 % (0-10); EOSINOPHILS # (AUTO) 0.1 10^3/uL (0.0-0.3); EOSINOPHILS % (AUTO) 2 % (0-10); HEMATOCRIT 46 % (40-54); HEMOGLOBIN 14.8 G/DL (13.3-17.7); LYMPHOCYTES % (AUTO) 30 % (12-44); MEAN CORPUSCULAR HEMOGLOBIN 27 PG (25-34); MEAN CORPUSCULAR HGB CONC 32 G/DL (32-36); MEAN CORPUSCULAR VOLUME 84 FL (80-99); MEAN PLATELET VOLUME 9.2 FL (7.4-10.4); MONOCYTES # (AUTO) 0.5 X 10^3 (0.0-1.0); MONOCYTES % (AUTO) 8 % (0-12); NEUTROPHILS % (AUTO) 60 % (42-75); PLATELET COUNT 289 10^3/uL (130-400); RED CELL DISTRIBUTION WIDTH 16.1 % (10.0-14.5); WHITE BLOOD COUNT 6.6 10^3/uL (4.3-11.0)
[2018-11-16 11:49] LABS: INR 2.6 (0.8-1.4); PROTHROMBIN TIME PATIENT 28.3 SEC (12.2-14.7)
[2018-11-16 11:56] LABS: BILIRUBIN,TOTAL 0.3 MG/DL (0.1-1.0); CALCIUM 9.1 MG/DL (8.5-10.1); CREATININE SERUM 1.69 MG/DL (0.60-1.30); POTASSIUM 4.6 MMOL/L (3.6-5.0)
== END ==
LOC: LAB 11:03
PROVIDERS: ATTEND Internal Medicine
DX: Z00.00 Encounter for general adult medical examination without abnormal findings (principal); E11.65 Type 2 diabetes mellitus with hyperglycemia; E78.00 Pure hypercholesterolemia, unspecified; E78.1 Pure hyperglyceridemia; Z79.01 Long term (current) use of anticoagulants
CPT/HCPCS: 36415; 80053; 80061; 83036; 84443; 85025; 85610

== ENCOUNTER → 2019-03-01 | Outpatient (CLI) | payer MEDICARE, OTHER ==
[2019-03-01 11:19] LABS: INR 2.6 (0.8-1.4); PROTHROMBIN TIME PATIENT 28.9 SEC (12.2-14.7)
[2019-03-01 11:27] LABS: ALBUMIN 3.8 GM/DL (3.2-4.5); BILIRUBIN,TOTAL 0.4 MG/DL (0.1-1.0); CALCIUM 8.9 MG/DL (8.5-10.1); CREATININE SERUM 1.49 MG/DL (0.60-1.30); POTASSIUM 4.3 MMOL/L (3.6-5.0); TOTAL PROTEIN 8.5 GM/DL (6.4-8.2)
== END ==
LOC: LAB 10:41
PROVIDERS: ATTEND Internal Medicine
DX: Z00.00 Encounter for general adult medical examination without abnormal findings (principal); E78.1 Pure hyperglyceridemia; E11.65 Type 2 diabetes mellitus with hyperglycemia; E78.00 Pure hypercholesterolemia, unspecified; Z79.01 Long term (current) use of anticoagulants
CPT/HCPCS: 36415; 80053; 82465; 83036; 84478; 85610

== ENCOUNTER → 2019-03-04 | Outpatient (CLI) | payer MEDICARE, OTHER ==
[2019-03-04 16:49] LABS: HEMOGLOBIN 14.7 G/DL (13.3-17.7); RED CELL DISTRIBUTION WIDTH 15.3 % (10.0-14.5); WHITE BLOOD COUNT 9.1 10^3/uL (4.3-11.0)
== END ==
LOC: LAB 16:31
PROVIDERS: ATTEND Internal Medicine
DX: D64.9 Anemia, unspecified (principal)
CPT/HCPCS: 36415; 85027

== ENCOUNTER 2019-05-24 16:45 | Day surgery (SDC) | payer MEDICARE, OTHER ==
[~2019-05-24] VITALS: Ht 204 cm; Wt 85.3 kg
[~2019-05-24 16:45] MED LIST changes: +ACETAMINOPHEN 500 MG TAB (TYLENOL) PO PRN; +ALPRAZolam 0.25 MG (XANAX) TAB PO PRN; +CALCIUM CARBONATE 500 MG (TUMS) TAB.CHEW PO PRN; +DOCUSATE SODIUM 100 MG (COLACE) CAP PO PRN; +HYDROcodone/APAP 5 MG/325 MG (LORTAB) TAB PO PRN; +LOPERAMIDE 2 MG (IMODIUM) TABLET PO PRN; +MELATONIN 3 MG TABLET PO PRN; +ONDANSETRON 4 MG (ZOFRAN) ORAL DISSOLVE TAB PO PRN; +ONDANSETRON 4 MG/2 ML (SDV) Z0FRAN IVP PRN; +diphenhydrAMINE 25 MG TAB (BENADRYL) PO PRN; +guaiFENesin/CODEINE (ROBITUSSIN AC) 10ML UDC PO PRN
--- NOTE | 2019-05-24 16:45 | NUR ---
ERA MEJÍA Sujata admitted to room 415-1, with an admitting diagnosis of dyspnea, on 05/24/19 from via ambulatory, accompanied by .ERA MEJÍA introduced to surroundings, call light, bed controls, phone, TV, temperature control, lights, meal times, smoking policy, visitor policy, side rail policy, bathrooms and showers. Patient Rights given to patient in the handbook. ERA MEJÍA verbalizes understanding that [facility] is not responsible for the loss or damage to any personal effects or valuables that are kept in the patients posession during their hospitalization. The following Patient Care Plans were discussed with the pt: Discharge Planning. ERA MEJÍA verbalizes understanding of Interdisciplinary Patient Education. Patient and/or family were informed about the Rapid Response Team and its purpose.
[2019-05-24] MEDS: SENNA W/DOCUSATE (SENOKOT S) TABLET PO SCH (17:17)
--- NOTE | 2019-05-24 17:21 | Diagnostic Imaging Report ---
INDICATION: Chest pain with shoulder and stomach pain for two weeks, decreased appetite. COMPARISON STUDY: Chest from 05/17/2018. FINDINGS: Frontal and lateral views of the chest demonstrate the lungs to be clear. The heart, mediastinum and pulmonary vascularity are normal. There are no pleural effusions. IMPRESSION: Normal chest. Dictated by: Dictated on workstation # [id number]
[2019-05-24 17:30] VITALS: BP 114/84
--- NOTE | 2019-05-24 17:48 | Consultation-Cardiology ---
HPI-Cardiology Cardiology Consultation: Date of Consultation 05/24/19 Date of Admission Attending Physician Amelia Rodríguez DO Admitting Physician Amelia Rodríguez DO Consulting Physician Giovani BROWN MD HPI: This is a 61-year-old gentleman who I first saw as an in-hospital consultation on 11/27/2017. He is a patient of [facility] and Dr. Kwok. He was directly admitted from Dr. Kwok's office for significant shortness of breath. The patient has history of active smoking and COPD. He was admitted for COPD exacerbation. He was not in congestive heart failure however was found to be in atrial flutter with 2-1 AV block. He was treated with amiodarone infusion and IV verapamil every 3 hours. He spontaneously converted to sinus rhythm. He was also started on Eliquis. For his COPD exacerbation he was treated with IV antibiotics and steroids. he also had basilar pneumonia. Echocardiogram done on 11/27/2017 showed normal LV size and function. There is mild concentric hypertrophy. EF 55-65 percent. Normal RV size and function. No significant valvular heart disease. Patient improved significantly and was discharged subsequently. However he presented again on 12/06/2017 with swelling of the feet. He was admitted for atrial fibrillation with rapid ventricular rate on 12/17/2017. He was given verapamil 5 mg every 3 hours. However he converted spontaneously to sinus rhythm. He was started on propafenone and discharged on 225 mg 3 times a day. Continue beta loretta and calcium channel loretta. GLP-Rajznr-Eygaom Hx Patient Social History Recent Foreign Travel: No Immunizations Up To Date Date of Pneumonia Vaccine: Jun 08, 2013 Past Medical History PMH As described under Assessment. Family Medical History Family History: FH: pancreatic cancer Allergies and Home Medications Allergies Coded Allergies: No Known Drug Allergies (Unverified , 06/14/14) Home Medications Albuterol Sulfate 2.5 Mg/3 Ml Vial.neb, 2.5 MG NEB TID PRN for SHORTNESS OF BREATH, (Reported) Benzonatate 100 Mg Capsule, 200 MG PO TID PRN for COUGH Prescribed by: AMELIA RODRÍGUEZ on 05/01/18 1031 Enoxaparin Sodium 80 Mg/0.8 Ml Syringe, 80 MG SC Q12H Prescribed by: AMELIA RODRÍGUEZ on 05/18/18 0919 Hydroxyzine HCl 25 Mg Tablet, 25 MG PO TID PRN for ITCHING, (Reported) Insulin Aspart 300 Units/3 Ml Solution, 10-18 UNITS SC AC, (Reported) Insulin Detemir 100 Unit/1 Ml Insuln.pen, 21 UNITS SC 2200, (Reported) Loratadine 10 Mg Tablet, 10 MG PO 1000,2200, (Reported) Montelukast Sodium 10 Mg Tablet, 10 MG PO 2200, (Reported) Pantoprazole Sodium 40 Mg Tablet.dr, 40 MG PO BID, (Reported) Polyethylene Glycol 3350 17 Gm Powd.pack, 17 GM PO HS, (Reported) 14 DAY THERAPY STOP DATE 05-15-18 Sodium Bicarbonate 325 Mg Tablet, 325 MG PO BID, (Reported) Topiramate 100 Mg Tablet, 100 MG PO 1000,2200, (Reported) Warfarin Sodium 1 Mg Tablet, 6 MG PO DAILY Prescribed by: AMELIA RODRÍGUEZ on 05/18/18 0919 Physical Exam-Cardiology Physical Exam Vital Signs/I&O 05/24/19 17:48 Pulse 84 Capillary Refill : Data Review Labs Laboratory Tests 05/24/19 17:55: A/P-Cardiology Plan 1. Severe COPD: Patient has oxygen dependent respiratory failure due to severe COPD. Likely cause of his shortness of breath. Smoking cessation was strongly recommended. 2. Atrial fibrillation with rapid ventricular rate: 3 EKGs were done. One EKG showed sinus rhythm. The next EKG showed atrial flutter. He goes back and forth between atrial flutter and sinus rhythm. On propafenone, diltiazem, metoprolol and Eliquis. On the event monitor patient had a pause of 4.4 seconds which was only once and he was asymptomatic. Dose of metoprolol was reduced. I discussed at length with the patient that if he continues to have significant pauses with symptoms he will be a candidate for a permanent pacemaker. Also to control his heart rate if we have to give more beta blockers, it is likely that the pauses will be worse and again he will need to be considered for a pacemaker. Reading material for pacemaker will be provided. For now will continue the same dose of metoprolol. Briefly discussed atrial fibrillation ablation, however due to significant oxygen dependent respiratory failure in this patient atrial fibrillation abla tion will have modest success. AV node ablation and permanent pacemaker is also an option. 3. Hypertension: Continue diltiazem . Salt restriction is recommended. 4. Obesity: Educational material on diabetes and CHF prevention was done. Patient has lost weight and he was congratulated on that. 5. Active smoking: Smoking cessation was strongly recommended. 6. Lower extremity swelling: Lasix and potassium supplementation given. 7. Typical atrial flutter - Done 01/04/2019. successful. Patient feeling much better. Thank you for your consultation. Please call me if you have any questions. Kelvin Brown MD, FACP, FACC, [facility] [place], FHRS, CCDS Interventional Cardiology Cardiac Electrophysiology Vascular Medicine and Endovascular Interventions Clinical Quality Measures DVT/VTE Risk/Contraindication: Contraindications-Pharm: Other *list below* Other: on coumadin Giovani BROWN MD May 24, 2019 17:48
[2019-05-24 17:49] VITALS: BP 114/84
[2019-05-24 18:04] LABS: ABG BASE EXCESS -9.1 MMOL/L (-2.5-2.5); ABG OXYGEN SATURATION 99 % (94-100); ABG PCO2 23 MMHG (35-45); ABG PH 7.42 (7.37-7.43); ABG PO2 145 MMHG (79-93); ABG TCO2 15.1 MMOL/L (21.0-31.0)
[2019-05-24 18:07] LABS: ALLENS TEST YES-POS; INSPIRED O2 RA; PATIENT TEMP 37.2; VENTILATOR NO
[2019-05-24] MEDS ORDERED: RT-ALBUTEROL SULF 2.5 MG/3 ML PRE-MIX VIAL INH PRN (18:15)
--- NOTE | 2019-05-24 18:47 | History & Physical-Hospitalist ---
[facility] LOERA [facility] 05/24/19 1847: History of Present Illness HPI/Chief Complaint CC: Fatigue and SOB HPI: Mr. Temple is a 73 yo WM who is presenting with dyspnea, fatigue and chest pain. He states that this all started about 2 weeks ago, but has noticed a change in his energy level about 4 months ago as well as a change in his appe tite. He states that this pain is a dull, periodic pain, which at its worst is 3/10. He states that is it worse in the evening time and with movement. He does also complain of epigastric pain, which he believes could contribute to his decreased in appetite. Another thing that he mentioned was occasionally having L shoulder pain, but he doesn't think that the two are related. He has had no sick contacts. He has not taken any medicines to help with his pain due to medical complications 4 years ago. Source: patient, family Exam Limitations: no limitations Date Seen 05/24/19 Time Seen by a Provider: 17:00 Attending Physician Amelia Rodríguez DO PCP Amelia Rodríguez DO Referring Physician Date of Admission May 24, 2019 at 16:30 Home Medications & Allergies Home Medications Reviewed patient Home Medication Reconciliation performed by pharmacy medication reconciliations meter/relay technician and/or nursing. Patients Allergies have been reviewed. Allergies Allergies Coded Allergies No Known Drug Allergies (Otmtsiiych41/7/14) Past Cagufus-Metrdf-Vawlqe Hx Past Med/Social Hx: Reviewed Nursing Past Med/Soc Hx Patient Social History Marrital Status: Employed/Student: retired Alcohol Use: Rarely Uses Number of Drinks Today: BB Alcohol Beverage of Choice: Lamb Recreational Drug Use: No Smoking Status: Never a Smoker 2nd Hand Smoke Exposure: Yes Physical Abuse Screen: No Sexual Abuse: No Recent Foreign Travel: No Contact w/other who traveled: No Recent Hopitalizations: No Recent Infectious Disease Expo: No Immunizations Up To Date Pediatric: No Date of Pneumonia Vaccine: Jun 08, 2013 Seasonal Allergies Seasonal Allergies: No Past Medical History Surgeries: Appendectomy, Eye Surgery Respiratory: Pneumonia Currently Using CPAP: No Currently Using BIPAP: No Cardiac: High Cholesterol, Hypertension Neurological: Seizure Disorder Reproductive: No Sexually Transmitted Disease: No HIV/AIDS: No Genitourinary: Renal Failure Gastrointestinal: Gastrointestinal Bleed Musculoskeletal: Chronic Back Pain Endocrine: Diabetes, Insulin dep HEENT: Cataract Loss of Vision: Denies Hearing Impairment: Denies History of Blood Disorders: No Adverse Reaction to Blood Verma: No Family History FH: pancreatic cancer Cancer (Leukemia- father, Mother- ovarian and uterine, son - thymus ), Diabetes Review of Systems Constitutional: chills, malaise EENTM: no symptoms reported Respiratory: cough, dyspnea on exertion, short of breath Cardiovascular: no symptoms reported, edema (legs ) Gastrointestinal: abdominal pain (Epigastric pain), nausea Genitourinary: no symptoms reported Musculoskeletal: joint pain (L shoulder ) Skin: no symptoms reported Psychiatric/Neurological: No Symptoms Reported Physical Exam Physical Exam Vital Signs Vital Signs - First Documented 05/24/19 05/24/19 05/24/19 17:30 17:47 17:49 Temp 37.2 Pulse 85 Resp 18 B/P (MAP) 114/84 Pulse Ox 95 O2 Delivery Room Air Capillary Refill : Height, Weight, BMI Height: 5'11.00" Weight: 188lbs. 7.0oz. 85.326888yr; 20.49 BMI Method:Stated General Appearance: No Apparent Distress, WD/WN Eyes: Bilateral Eye Normal Inspection, Bilateral Eye PERRL, Bilateral Eye EOMI HEENT: PERRL/EOMI, Normal ENT Inspection, Pharynx Normal, Moist Mucous Membranes Neck: Normal Inspection, Non Tender, Supple Respiratory: Chest Non Tender, Lungs Clear, Normal Breath Sounds, No Accessory Muscle Use, No Respiratory Distress Cardiovascular: Regular Rate, Rhythm, No Edema, No Gallop, No JVD, No Murmur, Normal Peripheral Pulses Gastrointestinal: Normal Bowel Sounds, No Organomegaly, Soft, Tenderness Extremity: Normal Capillary Refill, Normal Inspection, No Calf Tenderness Neurologic/Psychiatric: Alert, Oriented x3, No Motor/Sensory Deficits, Normal 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 Assessment/Plan Admission Diagnosis Dyspnea, fatigue, SOB Admission Status: Observation Assessment and Plan Assessment: 1. Pleurisy 2. Pericarditis 3. Pneumonia 4. DVT/PE risk 5. SOB + Dyspnea 6. Urticaria 7. DM Insulin dependent Plan: 1. CXR to rule out lung and possible cardiac pathology 2. SCDs and ambulation 3. Breathing treatment with rescue inhaler and nebulizer 4. Antihistamines + Monteleukast 5. Incentive Spirometer 6. Insulin and monitor Blood glucose levels Clinical Quality Measures DVT/VTE Risk/Contraindication: Risk Factor Score Per Nursin RFS Level Per Nursing on Admit: 4+=Very High Contraindications-Pharm: Other *list below* Other: on coumadin AMELIA RODRÍGUEZ DO 05/24/19 2018: Past Uijrdjo-Ssyonb-Tftcky Hx Past Medical History Respiratory: Pulmonary Embolism Family History FH: pancreatic cancer Review of Systems Constitutional: weight loss Assessment/Plan Admission Diagnosis Assessment: Dyspnea acute on chronic Appetite loss Abdominal pain CRI DM insulin dependent h/o PE DVT x 2 s/p filter placement 05/2018 Coumadin maintenance HTN Seizure d/o HLP Plan: Monitor o2 sats Home meds Esperanza Brown and Rissa are appreciated Admission Status: Observation Diagnosis/Problems Diagnosis/Problems (1) Dyspnea Status: Acute Qualifiers: Dyspnea type: shortness of breath Qualified Codes: R06.02 - Shortness of breath (2) Gilberto filter in place Status: Chronic (3) Hypercoagulable state Status: Chronic (4) Debility Status: Acute (5) Hx pulmonary embolism Status: Chronic (6) Transfusion history Status: Chronic (7) Hypertension Status: Chronic Qualifiers: Hypertension type: essential hypertension Qualified Codes: I10 - Essential (primary) hypertension (8) Pulmonary embolism Status: Chronic Qualifiers: Pulmonary embolism type: other Chronicity: chronic Acute cor pulmonale presence: without acute cor pulmonale Qualified Codes: I27.82 - Chronic pulmonary embolism (9) DVT (deep venous thrombosis) Status: Chronic Qualifiers: DVT location: lower extremity Affected thrombotic vein of extremity: unspecified vein of extremity Chronicity: unspecified Laterality: bilateral Qualified Codes: I82.403 - Acute embolism and thrombosis of unspecified deep veins of lower extremity, bilateral (10) Seizure disorder Status: Chronic (11) Hyperlipidemia Status: Chronic Qualifiers: Hyperlipidemia type: mixed hyperlipidemia Qualified Codes: E78.2 - Mixed hyperlipidemia (12) Diabetes mellitus Status: Chronic Qualifiers: Diabetes mellitus type: type 2 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: with care home use Diabetes mellitus complication status: with other specified complication Qualified Codes: E11.69 - Type 2 diabetes mellitus with other specified complication; Z79.4 - intermission coordinator (current) use of insulin (13) Warfarin anticoagulation Status: Chronic Supervisory-Addendum Brief Verification & Attestation Participated in pt care: history, MDM, physical Personally performed: exam, history, MDM, supervision of care Care discussed with: Medical Student Procedures: n/a Results interpretation: Verified all documentation Verification and Attestation of Medical Student E/M Service A medical student performed and documented this service in my presence. I reviewed and verified all information documented by the medical student and made modifications to such information, when appropriate. I personally performed the physical exam and medical decision making. Amelia Rodríguez, May 24, 2019,20:19 [facility] May 24, 2019 18:47 AMELIA RODRÍGUEZ DO May 24, 2019 20:18
[2019-05-24 18:57] LABS: BASOPHILS % (AUTO) 0 % (0-10); EOSINOPHILS # (AUTO) 0.1 10^3/uL (0.0-0.3); EOSINOPHILS % (AUTO) 2 % (0-10); HEMATOCRIT 41 % (40-54); HEMOGLOBIN 13.7 G/DL (13.3-17.7); LYMPHOCYTES # (AUTO) 2.4 X 10^3 (1.0-4.0); LYMPHOCYTES % (AUTO) 37 % (12-44); MEAN CORPUSCULAR HEMOGLOBIN 28 PG (25-34); MEAN CORPUSCULAR HGB CONC 33 G/DL (32-36); MEAN CORPUSCULAR VOLUME 84 FL (80-99); MEAN PLATELET VOLUME 9.4 FL (7.4-10.4); MONOCYTES # (AUTO) 0.6 X 10^3 (0.0-1.0); MONOCYTES % (AUTO) 10 % (0-12); NEUTROPHILS # (AUTO) 3.3 X 10^3 (1.8-7.8); NEUTROPHILS % (AUTO) 51 % (42-75); PLATELET COUNT 253 10^3/uL (130-400); RED CELL DISTRIBUTION WIDTH 14.3 % (10.0-14.5); WHITE BLOOD COUNT 6.5 10^3/uL (4.3-11.0)
[2019-05-24 19:05] LABS: BILIRUBIN,URINE NEGATIVE (NEGATIVE); CLARITY,URINE CLEAR; COLOR,URINE YELLOW; GLUCOSE, URINE (UA) 1+ (NEGATIVE); KETONES,URINE NEGATIVE (NEGATIVE); LEUKOCYTE ESTERASE ,URINE NEGATIVE (NEGATIVE); NITRITE,URINE NEGATIVE (NEGATIVE); PH,URINE 6 (5-9); PROTEIN,URINE 1+ (NEGATIVE); UROBILINOGEN,URINE NORMAL (NORMAL)
[2019-05-24 19:07] LABS: BACTERIA,URINE NEGATIVE /HPF; SQUAMOUS EPITHELIAL CELL,UR RARE /HPF
[2019-05-24 19:11] LABS: FIBRIN DEGRADATION PRODUCTS 0.43 UG/ML (0.00-0.49); INR 2.8 (0.8-1.4); PROTHROMBIN TIME PATIENT 30.4 SEC (12.2-14.7)
[2019-05-24 19:16] LABS: ALANINE AMINOTRANSFERASE 12 U/L (0-55); ALBUMIN 3.6 GM/DL (3.2-4.5); ALKALINE PHOSPHATASE 67 U/L (40-136); BILIRUBIN,TOTAL 0.2 MG/DL (0.1-1.0); BUN/CREATININE RATIO 10; CALCIUM 8.9 MG/DL (8.5-10.1); CARBON DIOXIDE 17 MMOL/L (21-32); CREATININE SERUM 1.43 MG/DL (0.60-1.30); GFR ESTIMATED 49; GLUCOSE 107 MG/DL (70-105); LIPASE 22 U/L (8-78); POTASSIUM 5.1 MMOL/L (3.6-5.0); SODIUM 137 MMOL/L (135-145); TOTAL PROTEIN 8.4 GM/DL (6.4-8.2)
[2019-05-24 19:18] LABS: CHLORIDE 112 MMOL/L (98-107)
[2019-05-24] MEDS ORDERED: WARF1TAB82 PO (19:27)
[2019-05-24] MEDS ORDERED: warFARin 5 MG (COUMADIN) TAB PO SCH (19:31)
[2019-05-24] MEDS ORDERED: warFARin 3 MG (COUMADIN) TAB PO SCH (19:33)
[2019-05-24 20:05] LABS: AMYLASE 42 U/L (25-125)
[2019-05-24] MEDS ORDERED: hydrOXYzine (VISTARIL/ATARAX) 25 MG capsule/tablet PO PRN (20:30)
[2019-05-24 20:38] VITALS: BP 126/79
[2019-05-24] MEDS: toPIRamate 100 MG (TOPAMAX) TAB PO SCH (21:10)
[2019-05-24] MEDS: PANTOPRAZOLE 40 MG (PROTONIX) TAB PO SCH (21:10)
[2019-05-24] MEDS: SODIUM BICARBONATE 650 MG TABLET (NON-FORMULARY) PO SCH (21:10)
[2019-05-24] MEDS: LORATADINE (CLARITIN) 10 MG TAB PO SCH (21:10)
[2019-05-24] MEDS: MONTELUKAST 10 MG (SINGULAIR) TAB PO SCH (21:10)
[2019-05-24] MEDS: inSUlin ASPART (NovoLOG) 1 UNIT/0.01 ML (CHARGE PER UNIT) SC SCH (22:09)
[2019-05-25] VITALS (8 sets, daily range): BP systolic 108–210; BP diastolic 64–78
[2019-05-25] MEDS: inSUlin ASPART (NovoLOG) 1 UNIT/0.01 ML (CHARGE PER UNIT) SC SCH ×4 (06:02→21:29)
[2019-05-25 06:04] LABS: BASOPHILS % (AUTO) 1 % (0-10); EOSINOPHILS # (AUTO) 0.2 10^3/uL (0.0-0.3); EOSINOPHILS % (AUTO) 3 % (0-10); HEMATOCRIT 41 % (40-54); HEMOGLOBIN 13.4 G/DL (13.3-17.7); LYMPHOCYTES # (AUTO) 2.3 X 10^3 (1.0-4.0); LYMPHOCYTES % (AUTO) 36 % (12-44); MEAN CORPUSCULAR HEMOGLOBIN 28 PG (25-34); MEAN CORPUSCULAR HGB CONC 33 G/DL (32-36); MEAN CORPUSCULAR VOLUME 84 FL (80-99); MEAN PLATELET VOLUME 9.4 FL (7.4-10.4); MONOCYTES # (AUTO) 0.6 X 10^3 (0.0-1.0); MONOCYTES % (AUTO) 10 % (0-12); NEUTROPHILS # (AUTO) 3.3 X 10^3 (1.8-7.8); NEUTROPHILS % (AUTO) 51 % (42-75); PLATELET COUNT 266 10^3/uL (130-400); RED CELL DISTRIBUTION WIDTH 14.3 % (10.0-14.5); WHITE BLOOD COUNT 6.4 10^3/uL (4.3-11.0)
[2019-05-25 06:18] LABS: INR 2.7 (0.8-1.4); PROTHROMBIN TIME PATIENT 30.2 SEC (12.2-14.7)
[2019-05-25 06:21] LABS: ALBUMIN 3.4 GM/DL (3.2-4.5); BILIRUBIN,TOTAL 0.4 MG/DL (0.1-1.0); CALCIUM 8.9 MG/DL (8.5-10.1); CREATININE SERUM 1.44 MG/DL (0.60-1.30); POTASSIUM 3.9 MMOL/L (3.6-5.0); TOTAL PROTEIN 8.1 GM/DL (6.4-8.2)
--- NOTE | 2019-05-25 08:26 | Consultation-Cardiology ---
HPI-Cardiology Cardiology Consultation Date of Consultation 05/25/19 Date of Admission Time Seen by Provider: 08:22 Indication: Chest pain HPI 73 years old gentleman with history of DVT/PE, IVC filter done in 2018. Was in his usual state until about 2 weeks ago when he started noticing increasing chest pressure described it as dull achiness in the retrosternal area constant, dyspnea on exertion, becoming short of breath with minimal exertion. No palpitation, syncope or near syncopal episodes. No nausea or vomiting, has been having mild loss of appetite and about 5 pounds weight loss over the past 2 weeks. Cough and phlegm, no fever or chills Home Medications & Allergies Allergies: Coded Allergies: tetracycline (Verified Allergy, Unknown, 05/24/19) Home Medication List Reviewed: Yes AWJ-Brllfo-Oyygii Hx Patient Social History Marital Status: Employed/Student: retired Alcohol Use: Rarely Uses Recreational Drug Use: No Smoking Status: Never a Smoker 2nd Hand Smoke Exposure: Yes Recent Foreign Travel: No Recent Infectious Disease Expo: No Recent Hopitalizations: No Physical Abuse Screen: No Sexual Abuse: No Immunizations Up To Date Date of Pneumonia Vaccine: Jun 08, 2013 Past Medical History Discussed below Family Medical History Significant Family History: Cancer (Leukemia- father, Mother- ovarian and uterine, son - thymus ), Diabetes Family Medical Hx Noncontributory to his current condition Family History: FH: pancreatic cancer Review of Systems-General Review of Systems Constitutional: see HPI, weakness, weight loss EENTM: see HPI, no symptoms reported Respiratory: cough, dyspnea on exertion, short of breath Cardiovascular: no symptoms reported, chest pain Gastrointestinal: RUQ, see HPI, abdominal pain (Epigastric pain), nausea Genitourinary: no symptoms reported, see HPI Musculoskeletal: see HPI, joint pain (L shoulder ) Skin: no symptoms reported, see HPI Psychiatric/Neurological: No Symptoms Reported, See HPI Reviewed Test Results Reviewed Test Results Lab Laboratory Tests Test 05/24/19 17:55 05/24/19 18:30 05/24/19 18:37 05/24/19 18:45 Range/Units Blood Gas Puncture Site RR Blood Gas Patient Temperature 37.2 Arterial Blood pH 7.42 7.37-7.43 Arterial Blood Partial Pressure CO2 23 L 35-45 MMHG Arterial Blood Partial Pressure O2 145 H 79-93 MMHG Arterial Blood HCO3 14 *L 23-27 MMOL/L Arterial Blood Total CO2 15.1 L 21.0-31.0 MMOL/L Arterial Blood Oxygen Saturation 99 94-100 % Arterial Blood Base Excess -9.1 L -2.5-2.5 MMOL/L Elias Test YES-POS Blood Gas Ventilator Setting NO Blood Gas Inspired Oxygen RA Prothrombin Time 30.4 H 12.2-14.7 SEC INR Comment 2.8 H 0.8-1.4 D-Dimer 0.43 0.00-0.49 UG/ML Sodium Level 137 135-145 MMOL/L Potassium Level 5.1 H 3.6-5.0 MMOL/L Chloride Level 112 H 98-107 MMOL/L Carbon Dioxide Level 17 L 21-32 MMOL/L Anion Gap 8 5-14 MMOL/L Blood Urea Nitrogen 15 7-18 MG/DL Creatinine 1.43 H 0.60-1.30 MG/DL Estimat Glomerular Filtration Rate 49 BUN/Creatinine Ratio 10 Glucose Level 107 H 70-105 MG/DL Calcium Level 8.9 8.5-10.1 MG/DL Corrected Calcium 9.2 8.5-10.1 MG/DL Total Bilirubin 0.2 0.1-1.0 MG/DL Aspartate Amino Transf (AST/SGOT) 18 5-34 U/L Alanine Aminotransferase (ALT/SGPT) 12 0-55 U/L Alkaline Phosphatase 67 40-136 U/L Troponin I < 0.028 <0.028 NG/ML Total Protein 8.4 H 6.4-8.2 GM/DL Albumin 3.6 3.2-4.5 GM/DL Amylase Level 42 25-125 U/L Lipase 22 8-78 U/L White Blood Count 6.5 4.3-11.0 10^3/uL Red Blood Count 4.88 4.35-5.85 10^6/uL Hemoglobin 13.7 13.3-17.7 G/DL Hematocrit 41 40-54 % Mean Corpuscular Volume 84 80-99 FL Mean Corpuscular Hemoglobin 28 25-34 PG Mean Corpuscular Hemoglobin Concent 33 32-36 G/DL Red Cell Distribution Width 14.3 10.0-14.5 % Platelet Count 253 130-400 10^3/uL Mean Platelet Volume 9.4 7.4-10.4 FL Neutrophils (%) (Auto) 51 42-75 % Lymphocytes (%) (Auto) 37 12-44 % Monocytes (%) (Auto) 10 0-12 % Eosinophils (%) (Auto) 2 0-10 % Basophils (%) (Auto) 0 0-10 % Neutrophils # (Auto) 3.3 1.8-7.8 X 10^3 Lymphocytes # (Auto) 2.4 1.0-4.0 X 10^3 Monocytes # (Auto) 0.6 0.0-1.0 X 10^3 Eosinophils # (Auto) 0.1 0.0-0.3 10^3/uL Basophils # (Auto) 0.0 0.0-0.1 10^3/uL B-Type Natriuretic Peptide 14.9 <100.0 PG/ML Lactic Acid Level 1.78 0.50-2.00 MMOL/L Test 05/24/19 18:55 05/24/19 22:02 05/25/19 05:37 05/25/19 05:42 Range/Units Urine Color YELLOW Urine Clarity CLEAR Urine pH 6 5-9 Urine Specific Mullin 1.010 L 1.016-1.022 Urine Protein 1+ H NEGATIVE Urine Glucose (UA) 1+ H NEGATIVE Urine Ketones NEGATIVE NEGATIVE Urine Nitrite NEGATIVE NEGATIVE Urine Bilirubin NEGATIVE NEGATIVE Urine Urobilinogen NORMAL NORMAL MG/DL Urine Leukocyte Esterase NEGATIVE NEGATIVE Urine RBC (Auto) NEGATIVE NEGATIVE Urine RBC NONE /HPF Urine WBC NONE /HPF Urine Squamous Epithelial Cells RARE /HPF Urine Crystals NONE /LPF Urine Bacteria NEGATIVE /HPF Urine Casts NONE /LPF Urine Mucus NEGATIVE /LPF Urine Culture Indicated NO Glucometer 215 H 111 H 70-110 MG/DL White Blood Count 6.4 4.3-11.0 10^3/uL Red Blood Count 4.82 4.35-5.85 10^6/uL Hemoglobin 13.4 13.3-17.7 G/DL Hematocrit 41 40-54 % Mean Corpuscular Volume 84 80-99 FL Mean Corpuscular Hemoglobin 28 25-34 PG Mean Corpuscular Hemoglobin Concent 33 32-36 G/DL Red Cell Distribution Width 14.3 10.0-14.5 % Platelet Count 266 130-400 10^3/uL Mean Platelet Volume 9.4 7.4-10.4 FL Neutrophils (%) (Auto) 51 42-75 % Lymphocytes (%) (Auto) 36 12-44 % Monocytes (%) (Auto) 10 0-12 % Eosinophils (%) (Auto) 3 0-10 % Basophils (%) (Auto) 1 0-10 % Neutrophils # (Auto) 3.3 1.8-7.8 X 10^3 Lymphocytes # (Auto) 2.3 1.0-4.0 X 10^3 Monocytes # (Auto) 0.6 0.0-1.0 X 10^3 Eosinophils # (Auto) 0.2 0.0-0.3 10^3/uL Basophils # (Auto) 0.0 0.0-0.1 10^3/uL Prothrombin Time 30.2 H 12.2-14.7 SEC INR Comment 2.7 H 0.8-1.4 Sodium Level 138 135-145 MMOL/L Potassium Level 3.9 3.6-5.0 MMOL/L Chloride Level 113 H 98-107 MMOL/L Carbon Dioxide Level 17 L 21-32 MMOL/L Anion Gap 8 5-14 MMOL/L Blood Urea Nitrogen 13 7-18 MG/DL Creatinine 1.44 H 0.60-1.30 MG/DL Estimat Glomerular Filtration Rate 48 BUN/Creatinine Ratio 9 Glucose Level 117 H 70-105 MG/DL Calcium Level 8.9 8.5-10.1 MG/DL Corrected Calcium 9.4 8.5-10.1 MG/DL Total Bilirubin 0.4 0.1-1.0 MG/DL Aspartate Amino Transf (AST/SGOT) 14 5-34 U/L Alanine Aminotransferase (ALT/SGPT) 10 0-55 U/L Alkaline Phosphatase 68 40-136 U/L Total Protein 8.1 6.4-8.2 GM/DL Albumin 3.4 3.2-4.5 GM/DL Physical Exam Physical Exam Vital Signs Vital Signs - First Documented 05/24/19 05/24/19 05/24/19 17:30 17:47 17:49 Temp 37.2 Pulse 85 Resp 18 B/P (MAP) 114/84 Pulse Ox 95 O2 Delivery Room Air Capillary Refill : Height, Weight, BMI Height: 5'11.00" Weight: 188lbs. 7.0oz. 85.915607wq; 20.49 BMI Method:Stated General Appearance: No Apparent Distress, WD/WN Eyes: Bilateral Eye Normal Inspection, Bilateral Eye PERRL, Bilateral Eye EOMI HEENT: PERRL/EOMI, Normal ENT Inspection, Pharynx Normal, Moist Mucous Membrane s Neck: Normal Inspection, Non Tender, Supple Respiratory: Chest Non Tender, Lungs Clear, Normal Breath Sounds, No Accessory Muscle Use, No Respiratory Distress Cardiovascular: Regular Rate, Rhythm, No Edema, No Gallop, No JVD, No Murmur, Normal Peripheral Pulses Gastrointestinal: Normal Bowel Sounds, No Organomegaly, Soft, Tenderness (Upper epigastric and right upper quadrant discomfort) Extremity: Normal Capillary Refill, Normal Inspection, No Calf Tenderness Neurologic/Psychiatric: Alert, Oriented x3, No Motor/Sensory Deficits, Normal Mood/Affect, 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 Dyspnea on exertion, worsening recently, history of recurrent pulmonary embolism. Planning to evaluate echo and pulmonary artery pressure. Evaluate for underlying pulmonary hypertension, maintained on Coumadin. Epigastric pain, right upper quadrant pain, history of GI bleed with Rosemary- Oshea tear, received multiple transfusion in the past. May require endoscopy, I will evaluate ultrasound of the gallbladder. History of DVT/PE, history of IVC filter implant, has been maintained on Couma din, monitor INR. History of tick bite in March 2018. I will evaluate tick panel History of allergic reaction in 2013. History of epilepsy Addendum, stress test was abnormal with questionable ischemia involving the mid to apical inferolateral and anterolateral wall, I will hold Coumadin, start IV fluid, evaluate PT/INR and BMP in the morning and planning to do cardiac cathete r, the next step will be evaluating EGD Clinical Quality Measures DVT/VTE Risk/Contraindication: Risk Factor Score Per Nursin RFS Level Per Nursing on Admit: 4+=Very High Contraindications-Pharm: Other *list below* Other: on coumadin MARIO MACKAY MD May 25, 2019 08:26
[2019-05-25] MEDS ORDERED: REGADENOSON 0.4 MG/5 ML SYR (LEXISCAN) IV ONE ×2 (08:30→09:55)
[2019-05-25] MEDS ORDERED: DOCU-143 PO (08:38)
[2019-05-25] MEDS ORDERED: PANT40TA3 PO (08:38)
[2019-05-25] MEDS ORDERED: ZOLP10TA5 PO (08:38)
--- NOTE | 2019-05-25 08:41 | NUR ---
SPOKE WITH THE PATIENTS FAMILY ABOUT MEDICATIONS. SHE HAD A DETAILED LIST AND I COMPARED IT WITH THE EXT MED HX. SHE STATES HE NOW USES 42 UNITS OF LEVEMIR. HE TAKES CLARITIN BID AND COLACE PRN OTC.
--- NOTE | 2019-05-25 08:42 | Progress Note - Hospitalist ---
[facility] 05/25/19 0842: Subjective HPI/CC On Admission Date Seen by Provider: May 25, 2019 Time Seen by Provider: 07:30 Subjective/Events-last exam Vitals are normal and stable. Slept inconsistently. Couldn't find a comfortable position. Eating and drinking well. Voiding well. No stooling yet. Attributes that to lack of appetite and not eating much. Spoke with Dr. Kwok who ordered an echo. Also ordered mouth was for suspected thrush. ROS: + : Chest soreness, SOB, Epigastric Pain - : N/V/D, Fever/Chills, Palpitations, MENJIVAR, Vertigo and syncope Focused Exam Lactate Level 05/24/19 18:45: Lactic Acid Level 1.78 Objective Exam Vital Signs Vital Signs Date Time Temp Pulse Resp B/P (MAP) Pulse Ox O2 Delivery O2 Flow Rate FiO2 05/25/19 07:00 73 05/25/19 03:00 37.2 18 124/75 92 Room Air Capillary Refill : General Appearance: No Apparent Distress, WD/WN HEENT: PERRL/EOMI, Normal ENT Inspection, Moist Mucous Membranes, Other Neck: Normal Inspection, Non Tender, Supple Respiratory: Lungs Clear, Normal Breath Sounds, No Accessory Muscle Use Cardiovascular: Regular Rate, Rhythm, No Edema, No Gallop, No JVD, No Murmur, Normal Peripheral Pulses Gastrointestinal: Normal Bowel Sounds, Soft, Tenderness Extremity: Normal Capillary Refill, Normal Inspection, Non Tender, No Pedal Edema Neurologic/Psychiatric: Alert, Oriented x3, No Motor/Sensory Deficits, Normal 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 Assessment/Plan Assessment and Plan Assess & Plan/Chief Complaint Assessment: 1. Pleurisy 2. Pericarditis 3. Pneumonia 4. DVT/PE risk 5. SOB + Dyspnea 6. Urticaria 7. DM Insulin dependent Plan: 1. CXR to rule out lung and possible cardiac pathology 2. SCDs and ambulation 3. Breathing treatment with rescue inhaler and nebulizer 4. Antihistamines + Monteleukast 5. Incentive Spirometer 6. Insulin and monitor Blood glucose levels Clinical Quality Measures DVT/VTE Risk/Contraindication: Risk Factor Score Per Nursin RFS Level Per Nursing on Admit: 4+=Very High Contraindications-Pharm: Other *list below* Other: on coumadin AMELIA RODRÍGUEZ DO 05/25/192045: Subjective Subjective/Events-last exam Echocardiogram today and if elevated pulmonary arterial pressure will need right and left catheterizations. Insomnia last night. Still with decreased appetite will obtain abdominal ultrasound to assure that this is not gallbladder etiology. Going for a stress test and rest of labs are normal. Workup in progress and I did confer with Dr. Blanchard and Dr. Kwok both. Review of Systems General: Fatigue Assessment/Plan Assessment and Plan Assess & Plan/Chief Complaint Cardiac cath tomorrow Reviewed USG May need EGD if cath normal Diagnosis/Problems Diagnosis/Problems (1) Abnormal stress test Status: Acute (2) Dyspnea Status: Acute Qualifiers: Qualified Codes: R06.02 - Shortness of breath (3) Hx pulmonary embolism Status: Chronic (4) Transfusion history Status: Chronic (5) Gilberto filter in place Status: Chronic (6) Hypercoagulable state Status: Chronic (7) Hypertension Status: Chronic Qualifiers: Qualified Codes: I10 - Essential (primary) hypertension (8) Debility Status: Acute (9) Pulmonary embolism Status: Chronic Qualifiers: Qualified Codes: I27.82 - Chronic pulmonary embolism (10) DVT (deep venous thrombosis) Status: Chronic Qualifiers: Qualified Codes: I82.403 - Acute embolism and thrombosis of unspecified deep veins of lower extremity, bilateral (11) Seizure disorder Status: Chronic (12) Hyperlipidemia Status: Chronic Qualifiers: Qualified Codes: E78.2 - Mixed hyperlipidemia (13) Diabetes mellitus Status: Chronic Qualifiers: Qualified Codes: E11.69 - Type 2 diabetes mellitus with other specified complication; Z79.4 - 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 I reviewed and verified all information documented by the medical student and made modifications to such information, when appropriate. I personally performed the physical exam and medical decision making. Amelia Rodríguez, May 25, 2019,20:45 [facility] May 25, 2019 08:42 AMELIA RODRÍGUEZ DO May 25, 2019 20:46
[2019-05-25] MEDS ORDERED: CATHETER FLUSH 10 ML SYR IV PRN (09:00)
--- NOTE | 2019-05-25 11:35 | Diagnostic Imaging Report ---
PROCEDURE: US Gallbladder. TECHNIQUE: Multiple real-time grayscale images were obtained over the right upper quadrant in various projections. INDICATION: Indication: Abdominal pain. Findings: The liver is enlarged and echogenic. No focal lesions are seen. The bile ducts are not dilated. Common duct measures 3 mm. Portal vein is patent. Gallbladder shows no gallstones or wall thickening. Gallbladder is not distended. The right kidney appears normal measuring 11 x 5 cm. Pancreas is not well seen. There is no ascites. IMPRESSION: Hepatomegaly with hepatic steatosis. Dictated by: Dictated on workstation # [id number]
[2019-05-25] MEDS: SENNA W/DOCUSATE (SENOKOT S) TABLET PO SCH ×2 (12:28→20:18)
[2019-05-25] MEDS: PANTOPRAZOLE 40 MG (PROTONIX) TAB PO SCH ×2 (12:28→20:18)
[2019-05-25] MEDS: LORATADINE (CLARITIN) 10 MG TAB PO SCH ×2 (12:28→21:29)
[2019-05-25] MEDS: SODIUM BICARBONATE 650 MG TABLET (NON-FORMULARY) PO SCH ×2 (12:28→20:18)
[2019-05-25] MEDS: toPIRamate 100 MG (TOPAMAX) TAB PO SCH ×2 (12:28→21:29)
--- NOTE | 2019-05-25 13:13 | STRESS TEST ---
DATE OF SERVICE: LEXISCAN MYOVIEW STRESS TEST REPORT REFERRING PHYSICIAN: Dr. Rene. INDICATION: Chest pain. Baseline heart rate is 77, baseline blood pressure 112/70. Baseline EKG is sinus rhythm with no ischemic changes. In summary, the patient was injected with 10.58 mCi of technetium-99 Myoview and the resting images were obtained. Then, the patient received 0.4 mg of Lexiscan followed by 30.2 mCi of technetium-99 Myoview. Throughout the test, there were no EKG changes. The resting and stress images were reviewed and compared in the short axis, horizontal long axis, and vertical long axis views. Review of the images showed diaphragmatic attenuation with mild ischemia involving the mid to apical inferolateral and anterolateral wall. SSS is 5, SDS 4, TID value 1.15. On the gated images, the left ventricle is normal in size with normal contractility. Calculated ejection fraction 70%. CONCLUSION: 1. The patient tolerated Lexiscan well. 2. Diaphragmatic attenuation affecting the quality of the images with mild decreased uptake involving the mid to apical inferolateral and anterolateral wall, probably secondary to the diaphragmatic attenuation, overall nondiagnostic study. 3. Normal left ventricular size with normal contractility. Calculated ejection fraction 70%. Job ID: [id number] DocumentID: [id number] Dictated Date: 05/25/2019 11:42:08 Derrick [employer] Date: 05/25/2019 13:11:22 Dictated By: MARIO MACKAY MD [facility]
[2019-05-25] MEDS: NS IV 1000 ML 1,000 ML IV SCH ×2 (13:51→23:58)
--- NOTE | 2019-05-25 15:42 | Pulmonary Consultation ---
History of Present Illness History of Present Illness Date of Consultation 05/25/19 15:37 Time Seen by Provider: 15:37 Date of Admission Reason for Visit: Chest pain History of Present Illness 73yo with hx of DVT/PE, IVC filter 2018 presented to hospital secondary to worsening SOB, and chest pressure over the last 2 wks. He is not currently requiring oxygen. He is a nonproductive cough. No LE edema. No N/V/D. I am consulted for pulmonary management. Allergies and Home Medications Allergies Coded Allergies: tetracycline (Verified Allergy, Unknown, 05/24/19) Home Medications Docusate Sodium 100 Mg Capsule, 100 MG PO DAILY PRN for CONSTIPATION-1ST LINE, (Reported) Hydroxyzine HCl 25 Mg Tablet, 25 MG PO TID PRN for ITCHING, (Reported) Insulin Aspart 300 Units/3 Ml Solution, 10-18 UNITS SC AC, (Reported) Insulin Detemir 100 Unit/1 Ml Insuln.pen, 42 UNITS SC 2200, (Reported) Loratadine 10 Mg Tablet, 10 MG PO 1000,2200, (Reported) Montelukast Sodium 10 Mg Tablet, 10 MG PO 2200, (Reported) Pantoprazole Sodium 40 Mg Tablet.dr, 40 MG PO BID, (Reported) Sodium Bicarbonate 325 Mg Tablet, 325 MG PO BID, (Reported) Topiramate 100 Mg Tablet, 100 MG PO 1000,2200, (Reported) Warfarin Sodium 1 Mg Tablet, 5.5 MG PO 1800, (Reported) TAKES 5 & 1/2 (1MG) TABLETS Zolpidem Tartrate 10 Mg Tablet, 10 MG PO HS PRN for SLEEP, (Reported) Past Qsvipwx-Bizqwh-Ofsexs Hx Past Med/Social Hx: Reviewed Nursing Past Med/Soc Hx Patient Social History Alcohol Use: Rarely Uses Number of Drinks Today: BB Alcohol Beverage of Choice: Shunk Recreational Drug Use: No Smoking Status: Never a Smoker 2nd Hand Smoke Exposure: Yes Recent Foreign Travel: No Contact w/Someone Who Travel: No Recent Infectious Disease Expo: No Recent Hopitalizations: No Immunizations Up To Date PED Vaccines UTD: No Date of Pneumonia Vaccine: Jun 08, 2013 Seasonal Allergies Seasonal Allergies: No Past Medical History Surgeries: Yes Appendectomy, Eye Surgery Respiratory: Yes Pneumonia, Pulmonary Embolism Currently Using CPAP: No Currently Using BIPAP: No Cardiac: No High Cholesterol, Hypertension Neurological: Yes (EPILEPSY) Seizure Disorder Reproductive Disorders: No Sexually Transmitted Disease: No HIV/AIDS: No Genitourinary: No Renal Failure Gastrointestinal: Yes Gastrointestinal Bleed Musculoskeletal: No Chronic Back Pain Endocrine: Yes Diabetes, Insulin dep HEENT: Yes Cataract Loss of Vision: Denies Hearing Impairment: Denies Cancer: No Psychosocial: No Integumentary: No Blood Disorders: No Adverse Reaction/Blood Tranf: No Family Medical History FH: pancreatic cancer Cancer (Leukemia- father, Mother- ovarian and uterine, son - thymus ), Diabetes Review of Systems Time Seen by Provider: 15:41 Sepsis Event Evaluation Height, Weight, BMI Height: 5'11.00" Weight: 188lbs. 7.0oz. 85.599697ay; 20.49 BMI Method:Stated Exam Exam Vital Signs Date Time Temp Pulse Resp B/P (MAP) Pulse Ox O2 Delivery O2 Flow Rate FiO2 05/25/19 12:27 84 05/25/19 12:00 35.9 84 18 124/74 (91) 96 Room Air 05/25/19 10:18 93 18 128/78 96 Room Air 05/25/19 10:16 80 18 210/78 97 Room Air 05/25/19 08:00 Room Air 05/25/19 08:00 36.6 72 20 113/66 (82) 96 Room Air 05/25/19 07:00 73 05/25/19 03:00 37.2 72 18 124/75 92 Room Air 05/25/19 01:00 78 05/25/19 00:07 37.0 85 18 121/77 93 Room Air 05/24/19 20:38 36.8 81 18 126/79 94 Room Air 05/24/19 20:00 Room Air 05/24/19 19:00 82 05/24/19 17:49 98 18 114/84 96 Room Air 05/24/19 17:48 84 05/24/19 17:47 Room Air 05/24/19 17:30 37.2 85 95 I & O 05/25/19 07:00 Intake Total 300 ml Output Total 550 ml Balance -250 ml Height & Weight Height: 5'11.00" Weight: 188lbs. 7.0oz. 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 Blanchard Chest pressure -cardiology is consulted may need MAGALI Bhakta DO May 25, 2019 15:42
[2019-05-25] MEDS ORDERED: warFARin 2.5 MG (COUMADIN) TAB PO SCH (18:00)
[2019-05-25] MEDS: MONTELUKAST 10 MG (SINGULAIR) TAB PO SCH (21:28)
[2019-05-26 00:30] VITALS: BP 133/79
[2019-05-26 04:30] VITALS: BP 122/77
[2019-05-26 05:47] LABS: HEMOGLOBIN 12.5 G/DL (13.3-17.7); MEAN PLATELET VOLUME 8.8 FL (7.4-10.4); RED CELL DISTRIBUTION WIDTH 14.3 % (10.0-14.5); WHITE BLOOD COUNT 6.5 10^3/uL (4.3-11.0)
[2019-05-26] MEDS: inSUlin ASPART (NovoLOG) 1 UNIT/0.01 ML (CHARGE PER UNIT) SC SCH ×4 (06:03→21:35)
[2019-05-26 06:06] LABS: CALCIUM 8.1 MG/DL (8.5-10.1); CREATININE SERUM 1.34 MG/DL (0.60-1.30); POTASSIUM 3.8 MMOL/L (3.6-5.0)
[2019-05-26 06:19] LABS: INR 2.5 (0.8-1.4); PROTHROMBIN TIME PATIENT 27.7 SEC (12.2-14.7)
[2019-05-26 08:00] VITALS: BP 119/77
--- NOTE | 2019-05-26 08:48 | Progress Note - Hospitalist ---
BURAK LOERA [facility] 05/26/19 0847: Subjective HPI/CC On Admission Date Seen by Provider: May 26, 2019 Time Seen by Provider: 07:00 Subjective/Events-last exam Vitals are normal and stable. Voiding quite a bit. No bowel movements yet. Ate a good meal yesterday for the first time in a while. Drinking well and plenty. Didnt sleep well because of interruptions and needs to void. Abdominal ultrasound yesterday showed Hepatomegaly w/hepatosteatosis. Stress test was preformed and showed mild ischemia but nothing diagnostic. Cardiac stenting will be performed today. Has not been ambulating much, so no complaint of SOB. ROS: + : n/a - : N/V/D, Fever/Chills, Chest pain, Syncope, Palpitations, Muscle or joint pain. Focused Exam Lactate Level 05/24/19 18:45: Lactic Acid Level 1.78 Objective Exam Vital Signs Vital Signs Date Time Temp Pulse Resp B/P (MAP) Pulse Ox O2 Delivery O2 Flow Rate FiO2 05/26/19 07:59 Room Air 05/26/19 07:34 91 05/26/19 07:00 68 05/26/19 04:30 36.9 18 122/77 (92) Capillary Refill : General Appearance: No Apparent Distress, WD/WN, Mild Distress HEENT: TMs Normal, Normal ENT Inspection, Moist Mucous Membranes Neck: Non Tender, Supple Respiratory: Chest Non Tender, Lungs Clear, Normal Breath Sounds, No Accessory Muscle Use, No Respiratory Distress Cardiovascular: Regular Rate, Rhythm, No Edema, No Gallop, No JVD, No Murmur, Normal Peripheral Pulses Extremity: Normal Capillary Refill, Normal Inspection, Normal Range of Motion Skin: Normal Color, Warm/Dry Lymphatic: No Adenopathy Results/Procedures Lab Laboratory Tests 05/26/19 05:35 Patient resulted labs reviewed. Assessment/Plan Assessment and Plan Assess & Plan/Chief Complaint Assessment: 1. Pleurisy 2. Pericarditis 3. Pneumonia 4. DVT/PE risk 5. SOB + Dyspnea 6. Urticaria 7. DM Insulin dependent Plan: 1. CXR to rule out lung and possible cardiac pathology 2. SCDs and ambulation 3. Breathing treatment with rescue inhaler and nebulizer 4. Antihistamines + Monteleukast 5. Incentive Spirometer 6. Insulin and monitor Blood glucose levels Clinical Quality Measures DVT/VTE Risk/Contraindication: Risk Factor Score Per Nursin RFS Level Per Nursing on Admit: 4+=Very High Contraindications-Pharm: Other *list below* Other: on coumadin AMELIA RODRÍGUEZ DO 05/26/196: Subjective Subjective/Events-last exam Undergoing cardiac catheterization today Updated pt on the plan Physical status is stable Updated pt and Assessment/Plan Assessment and Plan Assess & Plan/Chief Complaint Cardiac cath Diagnosis/Problems Diagnosis/Problems (1) Abnormal stress test Status: Acute (2) Hx pulmonary embolism Status: Chronic (3) Transfusion history Status: Chronic (4) [place] filter in place Status: Chronic (5) Hypercoagulable state Status: Chronic (6) Hypertension Status: Chronic Qualifiers: Qualified Codes: I10 - Essential (primary) hypertension (7) Debility Status: Acute (8) Hepatic steatosis (9) Seizure disorder Status: Chronic (10) Hyperlipidemia Status: Chronic Qualifiers: Qualified Codes: E78.2 - Mixed hyperlipidemia (11) Dyspnea Status: Acute Qualifiers: Qualified Codes: R06.02 - Shortness of breath (12) Diabetes mellitus Status: Chronic Qualifiers: Qualified Codes: E11.69 - Type 2 diabetes mellitus with other specified complication; Z79.4 - residential (current) use of insulin (13) Warfarin anticoagulation Status: Chronic Supervisory-Addendum Brief Verification & Attestation Participated in pt care: history, MDM, physical Personally performed: exam, history, MDM, supervision of care Care discussed with: Medical Student Procedures: n/a Results interpretation: Verified all documentation Verification and Attestation of Medical Student E/M Service A medical student performed and documented this service in my presence. I reviewed and verified all information documented by the medical student and made modifications to such information, when appropriate. I personally performed the physical exam and medical decision making. Amelia Rodríguez, May 26, 2019,21:05 [facility] LOERA [facility] May 26, 2019 08:47 AMELIA RODRÍGUEZ DO May 26, 2019 21:06
[2019-05-26] MEDS: NS IV 1000 ML 1,000 ML IV SCH ×2 (10:00→20:40)
[2019-05-26] MEDS ORDERED: LIDOCAINE 1% INJ 20 ML 20 ML VIAL ONE (10:02)
[2019-05-26] MEDS ORDERED: HEParin (CATH LAB) 0 ML IV ONE (10:02)
--- NOTE | 2019-05-26 10:09 | Cardiac Procedure Note-CS/ASA ---
Pre-Procedure Note Pre-Op Procedure Note H&P Reviewed The H&P was reviewed, patient examined and no changes noted. Date H&P Reviewed: May 26, 2019 Time H&P Reviewed: 10:09 Conscious Sedation Pre-Proced Time 10:09 ASA Score 3 For ASA 3 and 4: Consider anesthesia and medical clearance. Also, for patients with a history of failed moderate sedation consider anesthesia. Airway Lungs Heart ASA score ASA 1: a normal healthy patient ASA 2: a patient with a mild systemic disease (mid diabetes, controlled hypertension, obesity x ASA 3: a patient with a severe systemic disease that limits activity (angina, COPD, prior Myocardial infarction) ASA 4: a patient with an incapacitating disease that is a constant threat to life (CHF, renal failure) ASA 5: a moribund patient not expected to survive 24 hrs. (ruptured aneurysm) ASA 6: a declared brain- patient whose organs are being harvested. For emergent operations, add the letter E after the classification Mallampati Classification Grade 3 Sedation Plan Analgesia, Amnesia, Plan communicated to team members, Discussed options with patient/fam, Discussed risks with patient/fam The patient is an appropriate candidate to undergo the planned procedure, sedation, and anesthesia. The patient immediately re-assessed prior to indication. MARIO MACKAY MD May 26, 2019 10:09
--- NOTE | 2019-05-26 10:11 | Cardiology Progress Note ---
Subjective Date Seen by Provider: May 26, 2019 Time Seen by Provider: 10:10 Subjective/Events-last exam Patient is laying down in bed, feeling better today. No chest pain was reported. Review of Systems General: No Chills, No Night Sweats, No Fatigue, No Malaise, No Appetite, No Other HEENT: No Head Aches, No Visual Changes, No Eye Pain, No Ear Pain, No Dysphasia, No Sinus Congestion, No Post Nasal Drip, No Sore Throat, No Other Pulmonary: No Dyspnea, No Cough, No Pleuritic Chest Pain, No Other Cardiovascular: No: Chest Pain, Palpitations, Orthopnea, Paroxysmal Noc. Dyspnea, Edema, Lt Headedness, Other Focused Exam Lactate Level 05/24/19 18:45: Lactic Acid Level 1.78 Objective-Cardiology Exam Last Set of Vital Signs Vital Signs 05/26/19 08:00 Temp 36.9 Pulse 69 Resp 18 B/P (MAP) 119/77 (91) Pulse Ox 95 O2 Delivery Room Air Capillary Refill : I&O Intake and Output 05/26/19 00:00 Intake Total 1600 ml Output Total 870 ml Balance 730 ml Intake Oral 1600 ml Output Urine Total 870 ml # Voids 1 General: Alert, Oriented X3, Cooperative HEENT: Atraumatic, PERRLA Neck: Supple, No JVD, No Thyromegaly Lungs: Clear to Auscultation, Normal Air Movement Heart: Regular Rate, Normal S1, Normal S2, No Murmurs Abdomen: Normal Bowel Sounds, Soft, No Tenderness, No Hepatosplenomegaly, No M asses Extremities: No Clubbing, No Cyanosis, No Edema, Normal Pulses, No Tende rness/Swelling Skin: No Rashes, No Breakdown, No Significant Lesion Neuro: Normal Gait, Normal Speech, Strength at 5/5 X4 Ext, Normal Tone, Sensation Intact Psych/Mental Status: Mental Status NL, Mood NL Results Lab Laboratory Tests 05/26/19 05:35 A/P-Cardiology Admission Diagnosis Chest pain Shortness of breath on exertion Abdominal pain Pulmonary embolism Assessment/Plan Chest pain nonspecific etiology, atypical in presentation, stress test was abnormal with mild ischemia involving the mid to apical inferolateral and anterolateral wall, planning to proceed with cardiac catheterization today. Dyspnea on exertion, worsening recently, history of recurrent pulmonary embolism. Planning to evaluate echo and pulmonary artery pressure. Evaluate for underlying pulmonary hypertension, maintained on Coumadin. Epigastric pain, right upper quadrant pain, history of GI bleed with Rosemary- Oshea tear, received multiple transfusion in the past, consider EGD History of DVT/PE, history of IVC filter implant, has been maintained on Coumadin, monitor INR. History of tick bite in March 2018. I will evaluate tick panel History of allergic reaction in 2013. History of epilepsy Addendum, patient was brought to the [facility], Elias test was abnormal. I decided to cancel the procedure and reschedule it for groin access instead of radial access which would be safer if the INR is less than 2. Will put him on the schedule for tomorrow and evaluate INR tomorrow Clinical Quality Measures DVT/VTE Risk/Contraindication: Risk Factor Score Per Nursin RFS Level Per Nursing on Admit: 4+=Very High Contraindications-Pharm: Other *list below* Other: on coumadin MARIO MACKYA MD May 26, 2019 10:11
--- NOTE | 2019-05-26 10:36 | NUR ---
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
[2019-05-26] MEDS: LORATADINE (CLARITIN) 10 MG TAB PO SCH ×2 (11:36→21:34)
[2019-05-26] MEDS: PANTOPRAZOLE 40 MG (PROTONIX) TAB PO SCH ×2 (11:36→20:38)
[2019-05-26] MEDS: SENNA W/DOCUSATE (SENOKOT S) TABLET PO SCH ×2 (11:36→20:38)
[2019-05-26] MEDS: toPIRamate 100 MG (TOPAMAX) TAB PO SCH ×2 (11:36→21:34)
[2019-05-26] MEDS: SODIUM BICARBONATE 650 MG TABLET (NON-FORMULARY) PO SCH ×2 (11:36→20:38)
[2019-05-26 12:00] VITALS: BP 107/68
--- NOTE | 2019-05-26 15:07 | NUR ---
[employer]a Langley provided pastoral support through compassionate presence and active listening. Pt is Anabaptism. He shared that he is having tests done to determine cause of his shortness of breath.
[2019-05-26 16:00] VITALS: BP 123/79
--- NOTE | 2019-05-26 16:07 | Pulmonary Progress Note ---
Subjective Time Seen by a Provider: 07:26 Subjective/Events-last exam No complications noted. Sepsis Event Evaluation Height, Weight, BMI Height: 5'11.00" Weight: 188lbs. 7.0oz. 85.314785kx; 20.49 BMI Method:Stated Focused Exam Lactate Level 05/24/19 18:45: Lactic Acid Level 1.78 Exam Exam Vital Signs Date Time Temp Pulse Resp B/P (MAP) Pulse Ox O2 Delivery O2 Flow Rate FiO2 05/26/19 13:00 77 05/26/19 12:00 36.9 81 18 107/68 (81) 94 Room Air 05/26/19 08:00 36.9 69 18 119/77 (91) 95 Room Air 05/26/19 07:59 Room Air 05/26/19 07:34 91 Room Air 05/26/19 07:00 68 05/26/19 04:30 36.9 77 18 122/77 (92) 94 Room Air 05/26/19 01:00 68 05/26/19 00:30 36.7 68 18 133/79 (97) 94 Room Air 05/25/19 20:56 Room Air 05/25/19 20:36 36.7 66 18 114/66 (82) 94 Room Air 05/25/19 19:00 77 05/25/19 16:53 36.8 80 20 108/64 (79) 94 Room Air I & O 05/26/19 07:00 Intake Total 1450 ml Output Total 520 ml Balance 930 ml Height & Weight Height: 5'11.00" Weight: 188lbs. 7.0oz. 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
[2019-05-26 20:00] VITALS: BP 142/83
[2019-05-26] MEDS: MONTELUKAST 10 MG (SINGULAIR) TAB PO SCH (21:34)
[2019-05-27] VITALS (13 sets, daily range): BP systolic 120–160; BP diastolic 76–103
[2019-05-27] MEDS: NS IV 1000 ML 1,000 ML IV SCH (05:59)
[2019-05-27] MEDS: inSUlin ASPART (NovoLOG) 1 UNIT/0.01 ML (CHARGE PER UNIT) SC SCH ×3 (05:59→17:29)
[2019-05-27 06:28] LABS: HEMOGLOBIN 12.7 G/DL (13.3-17.7); MEAN PLATELET VOLUME 9.4 FL (7.4-10.4); WHITE BLOOD COUNT 8.4 10^3/uL (4.3-11.0)
[2019-05-27 06:44] LABS: INR 1.7 (0.8-1.4); PROTHROMBIN TIME PATIENT 20.3 SEC (12.2-14.7)
[2019-05-27 06:55] LABS: ALBUMIN 3.3 GM/DL (3.2-4.5); BILIRUBIN,TOTAL 0.4 MG/DL (0.1-1.0); CALCIUM 8.6 MG/DL (8.5-10.1); CREATININE SERUM 1.31 MG/DL (0.60-1.30); POTASSIUM 3.7 MMOL/L (3.6-5.0); TOTAL PROTEIN 7.5 GM/DL (6.4-8.2)
--- NOTE | 2019-05-27 07:31 | Pulmonary Progress Note ---
Subjective Time Seen by a Provider: 07:29 Subjective/Events-last exam No complications noted. Sepsis Event Evaluation Height, Weight, BMI Height: 5'11.00" Weight: 188lbs. 7.0oz. 85.341310ah; 20.49 BMI Method:Stated Focused Exam Lactate Level 05/24/19 18:45: Lactic Acid Level 1.78 Exam Exam Vital Signs Date Time Temp Pulse Resp B/P (MAP) Pulse Ox O2 Delivery O2 Flow Rate FiO2 05/27/19 04:18 36.6 91 20 120/76 (91) 96 Room Air 05/27/19 01:00 91 05/27/19 00:14 37.4 89 16 134/79 (97) 94 Room Air 05/26/19 20:45 Room Air 05/26/19 20:00 36.6 77 20 142/83 (102) 96 Room Air 05/26/19 19:00 85 05/26/19 18:29 Room Air 05/26/19 16:00 37.0 77 16 123/79 (94) 94 Room Air 05/26/19 13:00 77 05/26/19 12:00 36.9 81 18 107/68 (81) 94 Room Air 05/26/19 08:00 36.9 69 18 119/77 (91) 95 Room Air 05/26/19 07:59 Room Air 05/26/19 07:34 91 Room Air I & O 05/27/19 07:00 Intake Total 1570 ml Balance 1570 ml Height & Weight Height: 5'11.00" Weight: 188lbs. 7.0oz. 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
[2019-05-27] MEDS ORDERED: HEParin (CATH LAB) 2,000 ML IV ONE (08:20)
[2019-05-27] MEDS ORDERED: LIDOCAINE 1% INJ 20 ML 20 ML VIAL ONE (08:20)
--- NOTE | 2019-05-27 08:34 | Cardiology Progress Note ---
Subjective Date Seen by Provider: May 27, 2019 Time Seen by Provider: 08:33 Subjective/Events-last exam Patient is sitting up in bed, had clear liquid breakfast this morning, now is NPO for cath later today. Denies any chest pain. Focused Exam Lactate Level 05/24/19 18:45: Lactic Acid Level 1.78 Objective-Cardiology Exam Last Set of Vital Signs Vital Signs 05/27/19 05/27/19 05/27/19 04:18 07:00 08:27 Temp 36.6 Pulse 87 Resp 20 B/P (MAP) 120/76 (91) Pulse Ox 93 O2 Delivery Room Air Capillary Refill : I&O Intake and Output 05/27/19 00:00 Intake Total 1420 ml Balance 1420 ml Intake Oral 1420 ml # Voids 10 General: Alert, Oriented X3, Cooperative HEENT: Atraumatic, PERRLA Neck: Supple, No JVD, No Thyromegaly Lungs: Clear to Auscultation, Normal Air Movement Heart: Regular Rate, Normal S1, Normal S2, No Murmurs Abdomen: Normal Bowel Sounds, Soft, No Tenderness, No Hepatosplenomegaly, No Masses Extremities: No Clubbing, No Cyanosis, No Edema, Normal Pulses, No Tenderness/Swelling Skin: No Rashes, No Breakdown, No Significant Lesion Neuro: Normal Gait, Normal Speech, Strength at 5/5 X4 Ext, Normal Tone, Sen sation Intact Psych/Mental Status: Mental Status NL, Mood NL Results Lab Laboratory Tests 05/27/19 05:40 A/P-Cardiology Admission Diagnosis Chest pain Shortness of breath on exertion Abdominal pain Pulmonary embolism Assessment/Plan Chest pain nonspecific etiology, atypical in presentation, stress test was abnormal with mild ischemia involving the mid to apical inferolateral and anter olateral wall, planning to proceed with cardiac catheterization today. Dyspnea on exertion, worsening recently, history of recurrent pulmonary embolism. Planning to evaluate echo and pulmonary artery pressure. Evaluate for underlying pulmonary hypertension, maintained on Coumadin. Epigastric pain, right upper quadrant pain, history of GI bleed with Rosemary- Oshea tear, received multiple transfusion in the past, consider EGD History of DVT/PE, history of IVC filter implant, has been maintained on Coumadin, monitor INR. History of tick bite in March 2018. I will evaluate tick panel History of allergic reaction in 2013. History of epilepsy Clinical Quality Measures DVT/VTE Risk/Contraindication: Risk Factor Score Per Nursin RFS Level Per Nursing on Admit: 4+=Very High Contraindications-Pharm: Other *list below* Other: on coumadin PRATIMA STRONG May 27, 2019 08:34
[2019-05-27] MEDS: SENNA W/DOCUSATE (SENOKOT S) TABLET PO SCH (08:40)
[2019-05-27] MEDS: toPIRamate 100 MG (TOPAMAX) TAB PO SCH (08:40)
[2019-05-27] MEDS: LORATADINE (CLARITIN) 10 MG TAB PO SCH (08:42)
[2019-05-27] MEDS: PANTOPRAZOLE 40 MG (PROTONIX) TAB PO SCH (08:42)
[2019-05-27] MEDS ORDERED: SODIUM BICARBONATE 650 MG TABLET (NON-FORMULARY) PO SCH (09:00)
--- NOTE | 2019-05-27 11:29 | NUR ---
IV INFILTRATED EARLY THIS SHIFT AND REMOVED. PT REFUSED TO BE STUCK BY ANYONE BUT ANESTHESIA. NOTIFIED AND ORDER REC'D FOR ANESTHESIA FOR IV ACCESS.
--- NOTE | 2019-05-27 11:35 | Progress Note - Hospitalist ---
[facility] LOERA [facility] 05/27/19 1135: Subjective HPI/CC On Admission Date Seen by Provider: May 27, 2019 Time Seen by Provider: 11:00 Subjective/Events-last exam Vitals are normal and stable. Slept poorly. Frequent urination and interruptions. Melatonin didnt help. Voiding frequently. No BM Eating better. Drinking well. Ambulated ok. No exacerbation of symptoms that brought him in. Complains of feet soreness and achiness. Infiltrated R Deltoid IV site. Erythematous, Edematous, and warm to touch. New site of IV if need, anywhere but JUGULAR central line. Patient firmly state d. Review of Systems General: No Chills, No Night Sweats, No Fatigue, No Malaise, No Appetite, No Other HEENT: No Head Aches, No Visual Changes, No Eye Pain, No Ear Pain, No Dysphasia, No Sinus Congestion, No Post Nasal Drip, No Sore Throat, No Other Pulmonary: No Dyspnea, No Cough, No Pleuritic Chest Pain, No Other Cardiovascular: No: Chest Pain, Palpitations, Orthopnea, Paroxysmal Noc. Dyspnea, Edema, Lt Headedness, Other Gastrointestinal: No: Nausea, Vomiting, Abdominal Pain, Diarrhea, Constipation, Melena, Hematochezia, Other Genitourinary: No Dysuria; Frequency; No Incontinence, No Hematuria, No Retention, No Other Musculoskeletal: shoulder pain, arm pain, foot pain; No: other, neck pain, back pain, hand pain, leg pain Neurological: No: Weakness, Numbness, Incoordination, Change in speech, Confus ion, Seizures, Other Focused Exam Lactate Level 05/24/19 18:45: Lactic Acid Level 1.78 Objective Exam Vital Signs Vital Signs Date Time Temp Pulse Resp B/P (MAP) Pulse Ox O2 Delivery O2 Flow Rate FiO2 05/27/19 08:27 93 Room Air 05/27/19 07:00 87 05/27/19 04:18 36.6 20 120/76 (91) Capillary Refill : General Appearance: WD/WN, Mild Distress HEENT: Normal ENT Inspection, Moist Mucous Membranes Neck: Normal Inspection, Non Tender, Supple Respiratory: Chest Non Tender, Lungs Clear, Normal Breath Sounds, No Accessory Muscle Use, No Respiratory Distress Cardiovascular: Regular Rate, Rhythm, No Edema, No Gallop, No JVD, No Murmur, Normal Peripheral Pulses Gastrointestinal: Normal Bowel Sounds, Non Tender, Soft Extremity: Normal Capillary Refill, No Calf Tenderness, No Pedal Edema Neurologic/Psychiatric: Alert, Oriented x3, No Motor/Sensory Deficits, Normal Mood/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 Assessment/Plan Assessment and Plan Assess & Plan/Chief Complaint Assessment: 1. Pleurisy 2. Pericarditis 3. Pneumonia 4. DVT/PE risk 5. SOB + Dyspnea 6. Urticaria 7. DM Insulin dependent Plan: 1. CXR to rule out lung and possible cardiac pathology 2. SCDs and ambulation 3. Breathing treatment with rescue inhaler and nebulizer 4. Antihistamines + Monteleukast 5. Incentive Spirometer 6. Insulin and monitor Blood glucose levels Clinical Quality Measures DVT/VTE Risk/Contraindication: Risk Factor Score Per Nursin RFS Level Per Nursing on Admit: 4+=Very High Contraindications-Pharm: Other *list below* Other: on coumadin AMELIA RODRÍGUEZ DO 05/27/19 2111: Subjective Subjective/Events-last exam Dr. Brower consulted for EGD tomorrow Cardiac cath today since radial approach was not able to be completed so he will do femoral approach by Dr. Blanchard today. Son is at the bed side Denies any other significant problems Diagnosis/Problems Diagnosis/Problems (1) Dyspnea Status: Acute Qualifiers: Qualified Codes: R06.02 - Shortness of breath (2) Diabetes mellitus Status: Chronic Qualifiers: Qualified Codes: E11.69 - Type 2 diabetes mellitus with other specified complication; Z79.4 - custodial (current) use of insulin (3) Hyperlipidemia Status: Chronic Qualifiers: Qualified Codes: E78.2 - Mixed hyperlipidemia (4) Seizure disorder Status: Chronic (5) DVT (deep venous thrombosis) Status: Chronic Qualifiers: Qualified Codes: I82.403 - Acute embolism and thrombosis of unspecified deep veins of lower extremity, bilateral (6) Pulmonary embolism Status: Chronic Qualifiers: Qualified Codes: I27.82 - Chronic pulmonary embolism (7) Debility Status: Acute (8) Hypertension Status: Chronic Qualifiers: Qualified Codes: I10 - Essential (primary) hypertension (9) Hypercoagulable state Status: Chronic (10) [place] filter in place Status: Chronic (11) Transfusion history Status: Chronic (12) Hx pulmonary embolism Status: Chronic (13) Hepatic steatosis (14) Abnormal stress test Status: Acute Supervisory-Addendum Brief Verification & Attestation Participated in pt care: history, MDM, physical Personally performed: exam, history, MDM, supervision of care Care discussed with: Medical Student Procedures: n/a Results interpretation: Verified all documentation Verification and Attestation of Medical Student E/M Service A medical student performed and documented this service in my presence. I review ed and verified all information documented by the medical student and made modifications to such information, when appropriate. I personally performed the physical exam and medical decision making. Amelia Rodríguez, May 27, 2019,21:11 [facility] LOER[facility] May 27, 2019 11:35 AMELIA RODRÍGUEZ DO May 27, 2019 21:11
--- NOTE | 2019-05-27 12:14 | CONSULTATION REPORT ---
DATE OF SERVICE: 05/27/2019 HISTORY OF PRESENT ILLNESS: The patient is a 73-year-old male, who initially presented with shortness of breath, fatigue and chest pain as well as epigastric pain. He had reported a decrease energy level 4 months ago and decreased appetite. He reports that the pain was in the epigastric region; however, also in the chest. He has had a history of gastroesophageal reflux disease; however, also sounds like he had a history of a Rosemary-Oshea tear one year ago. He is on anticoagulation with Coumadin for previous history of pulmonary embolism x2 and is also status post IVC filter placement. He is scheduled to undergo a cardiac catheterization today; however, we will also need an EGD on this admission to evaluate his upper gastrointestinal tract. PAST MEDICAL HISTORY: Pulmonary embolism x2, seizure disorder, hypercholesterolemia, hypertension, insulin-dependent diabetes. PAST SURGICAL HISTORY: Appendectomy, bilateral cataract, IVC filter placement. ALLERGIES: No known drug allergies. MEDICATIONS: Hydroxyzine 25 mg t.i.d. p.r.n., NovoLog insulin q.a.c., detemir insulin 42 units at bedtime, loratadine 10 mg daily, montelukast 10 mg daily, Protonix 40 mg daily, sodium bicarbonate 325 mg b.i.d., topiramate 100 mg daily, Coumadin 5.5 mg daily, zolpidem 10 mg at bedtime p.r.n. SOCIAL HISTORY: Negative smoke, negative alcohol. FAMILY HISTORY: Father, leukemia. Mother, breast and uterine cancer. Son, thymic cancer. REVIEW OF SYSTEMS: Well-nourished male currently in no acute distress. He is not experiencing any shortness of breath or difficulty breathing. No cough or sputum production. He is having some epigastric discomfort on an intermittent basis and also has a history of gastroesophageal reflux disease as well as a Rosemary-Oshea tear. Loss of appetite. Intermittent episodes of diarrhea, no red blood per rectum, no dark tarry stools. No fever, chills with no recent inadvertent weight loss. All other review of systems negative. PHYSICAL EXAMINATION: VITAL SIGNS: Temperature 36.6, blood pressure 120/76, pulse 87, respirations 20, pulse ox 93% on room air. CHEST: Good breath sounds bilaterally. HEART: Regular, no murmurs. EXTREMITIES: No lower extremity edema, negative Homans sign. HEENT: No scleral icterus. NECK: No cervical lymphadenopathy. ABDOMEN: Soft, nondistended. There is mild discomfort in the epigastric region upon deep palpation. No palpable masses. SKIN: Warm, dry. LABORATORY DATA: WBC 8.4, hemoglobin 12.7, hematocrit 38, platelets 264. BUN 16, creatinine 1.31, INR is 1.7. ASSESSMENT AND PLAN: A 73-year-old male with epigastric and chest pain. He will undergo cardiac evaluation with cardiac catheterization today; however, due to his history of gastroesophageal reflux disease and Rosemary-Oshea tear, we will also proceed with an EGD on this admission. Job ID: [id number] DocumentID: [id number] Dictated Date: 05/27/2019 11:46:30 Silica Filter Operator Date: 05/27/2019 12:13:24 Dictated By: JONES SANTOS MD
--- NOTE | 2019-05-27 14:40 | Anesthesia-Procedure Note ---
Procedures/Interventions Procedure Start/Stop/Diagnosis Date of Procedure: May 27, 2019 Start Time: 13:40 Referring Physician: Dr Rene Preprocedural Diagnosis: No IV access Brief History Anesthesia Note ([id number]) Called to room 415 for an IV start. Pt is scheduled for a cardiac cath today and has no IV access. 22 G IV started left hand, secured and flushed with ease. Will be available if needed. Stop Time: 13:45 Postprocedural Diagnosis: IV access, ready for cath as scheduled GAIL JOE DO May 27, 2019 14:40
--- NOTE | 2019-05-27 14:40 | NUR ---
TO CATH WITH CATH STAFF.
[2019-05-27] MEDS ORDERED: fentaNYL INJECTION 100 MCG/2 ML AMP ONE (15:15)
[2019-05-27] MEDS ORDERED: MIDAZOLAM 5 MG/5 ML (VERSED) VIAL ONE (15:15)
[2019-05-27] MEDS ORDERED: NS IV 1000 ML 1,000 ML IV SCH (15:49)
--- NOTE | 2019-05-27 15:49 | Cardiac Procedure Note-CS/ASA ---
Pre-Procedure Note Pre-Op Procedure Note H&P Reviewed The H&P was reviewed, patient examined and no changes noted. Date H&P Reviewed: May 28, 2019 Time H&P Reviewed: 15:00 Conscious Sedation Pre-Proced Time 15:00 ASA Score 3 For ASA 3 and 4: Consider anesthesia and medical clearance. Also, for patients with a history of failed moderate sedation consider anesthesia. Airway Lungs Heart ASA score ASA 1: a normal healthy patient ASA 2: a patient with a mild systemic disease (mid diabetes, controlled hypertension, obesity x ASA 3: a patient with a severe systemic disease that limits activity (angina, COPD, prior Myocardial infarction) ASA 4: a patient with an incapacitating disease that is a constant threat to life (CHF, renal failure) ASA 5: a moribund patient not expected to survive 24 hrs. (ruptured aneurysm) ASA 6: a declared brain- patient whose organs are being harvested. For emergent operations, add the letter E after the classification Mallampati Classification Grade 3 Sedation Plan Analgesia, Amnesia, Plan communicated to team members, Discussed options with patient/fam, Discussed risks with patient/fam The patient is an appropriate candidate to undergo the planned procedure, sedation, and anesthesia. The patient immediately re-assessed prior to indication. MARIO MACKAY MD May 27, 2019 15:49
--- NOTE | 2019-05-27 15:54 | Cardiac Cath Report ---
Cardiac Cath Report Physician (s)/Rn Primary Care (s) Physician MAROI MACKAY MD Pre-Procedure Diagnosis Pre-Procedure Diagnosis: coronary artery disease Post-Procedure Note Procedure Start Date: May 27, 2019 Name of Procedure: Left heart catheterization Findings/Procedure Note PROCEDURE NOTE: 73 years old gentleman with history of DVT/PE, has been having recurrent chest pain, had an abnormal stress test, scheduled for cardiac catheterization possible PTCA. After explaining the procedure to the patient, all pros and cons were explained, all questions were answered. The patient signed the consent and then he was placed on the cardiac catheterization laboratory. Groin was prepped SL fashion local anesthesia was used. Sheath placed in the right femoral artery, combination of right and left Mark catheter were advanced to the right and left courses to multiple views were obtained, Mark right was prolapse to the left ventricular cavity, pressure was measured, pullback LV to aorta was done. At the end of the procedure the sheath was removed. Closure device was used FINDINGS: Hemodynamics LV 121/14, end-diastolic pressure 14 Aorta 116/66 mean of 91 ANATOMY: Left Main has ectasia with slow flow nonobstructive disease Left Anterior Descending has ectasia in the proximal portion, mild tortuous in obstructive disease Left Circumflex is nondominant artery with ectasia proximally, nonobstructive disease low-flow Right Coronory Artery is dominant artery with mild disease nonobstructive disease CONCLUSION: 1. Coronary ectasia in the left main coronary artery and the proximal LAD and circumflex system with slow flow, no significant obstructive disease 2. Dominant right coronary artery that is small to moderate in size with mild disease nonobstructive disease 3. Normal left ventricular end-diastolic pressure DISCUSSION AND RECOMMENDATION: Medical therapy is recommended no intervention is needed. Anesthesia Type: Conscious Sedation Estimated blood loss (mL): 15 ml Contrast Amount: 39 ml Total Radiation Dose: 432 mGy Post-Procedure Diagnosis Post-operative diagnosis: Chest pain Coronary artery disease Hypertension Hyperlipidemia MARIO MACKAY MD May 27, 2019 15:54
--- NOTE | 2019-05-27 15:55 | Cardiology Progress Note ---
Subjective Date Seen by Provider: May 27, 2019 Time Seen by Provider: 15:54 Subjective/Events-last exam Patient is laying down in bed, feeling better, no new complaint Review of Systems General: No Chills, No Night Sweats, No Fatigue, No Malaise, No Appetite, No Other HEENT: No Head Aches, No Visual Changes, No Eye Pain, No Ear Pain, No Dysphasia, No Sinus Congestion, No Post Nasal Drip, No Sore Throat, No Other Pulmonary: No Dyspnea, No Cough, No Pleuritic Chest Pain, No Other Cardiovascular: No: Chest Pain, Palpitations, Orthopnea, Paroxysmal Noc. Dyspnea, Edema, Lt Headedness, Other Focused Exam Lactate Level 05/24/19 18:45: Lactic Acid Level 1.78 Objective-Cardiology Exam Last Set of Vital Signs Vital Signs 05/27/19 05/27/19 12:00 13:00 Temp 37.2 Pulse 84 Resp 18 B/P (MAP) 123/85 (98) Pulse Ox 95 O2 Delivery Room Air Capillary Refill : I&O Intake and Output 05/27/19 00:00 Intake Total 1420 ml Balance 1420 ml Intake Oral 1420 ml # Voids 10 General: Alert, Oriented X3, Cooperative HEENT: Atraumatic, PERRLA Neck: Supple, No JVD, No Thyromegaly Lungs: Clear to Auscultation, Normal Air Movement Heart: Regular Rate, Normal S1, Normal S2, No Murmurs Abdomen: Normal Bowel Sounds, Soft, No Tenderness, No Hepatosplenomegaly, No Masses Extremities: No Clubbing, No Cyanosis, No Edema, Normal Pulses, No Tenderness/Swelling Skin: No Rashes, No Breakdown, No Significant Lesion Neuro: Normal Gait, Normal Speech, Strength at 5/5 X4 Ext, Normal Tone, Sensation Intact Psych/Mental Status: Mental Status NL, Mood NL Results Lab Laboratory Tests 05/27/19 05:40 A/P-Cardiology Admission Diagnosis Chest pain Shortness of breath on exertion Abdominal pain Pulmonary embolism Assessment/Plan Chest pain nonspecific etiology, atypical in presentation, stress test was abnormal with mild ischemia involving the mid to apical inferolateral and anterolateral wall, stress test showed coronary ectasia in the left main, proximal LAD and circumflex artery with slow flow, nonobstructive disease, mild disease in the right coronary artery, medical therapy is recommended no intervention is needed. Dyspnea on exertion, worsening recently, history of recurrent pulmonary embolism. Planning to evaluate echo and pulmonary artery pressure. Evaluate for underlying pulmonary hypertension, maintained on Coumadin. Epigastric pain, right upper quadrant pain, history of GI bleed with Rosemary- Oshea tear, received multiple transfusion in the past, consider EGD History of DVT/PE, history of IVC filter implant, has been maintained on Coumadin, monitor INR. History of tick bite in March 2018. I will evaluate tick panel History of allergic reaction in 2013. History of epilepsy Clinical Quality Measures DVT/VTE Risk/Contraindication: Risk Factor Score Per Nursin RFS Level Per Nursing on Admit: 4+=Very High Contraindications-Pharm: Other *list below* Other: on coumadin MARIO MACKAY MD May 27, 2019 15:55
[2019-05-27] MEDS ORDERED: PATIENT MAY USE OWN MEDS, ALL PO SCH (16:00)
--- NOTE | 2019-05-27 16:11 | Discharge Inst-Post CATH ---
Discharge Inst-CATH/EP Problems Reviewed?: Yes Post Cardiac Cath/EP D/C Inst Follow Up/Plan Appointment with Dr Blanchard's office in 2-4 weeks <b>CARDIAC CATH/EP PROCEDURE DISCHARGE INSTRUCTIONS</b> ACTIVITY * Go Home directly and rest. * Limit activity of the leg (or wrist if it was used) for 7 days including aerobics, swimming, jogging, bicycling, etc. * Restrict stair-climbing for 7 days if possible, if not, climb up with your non-cath leg, then bring together on the same step. * Avoid lifting, pushing, pulling or excessive movement of the affected extremity for 7 days. * Customary sexual activity may be resumed after 2 days-use caution not to use a position that strains or causes pain to the affected extremity. * No driving for 24 hours. * NO SMOKING. * Avoid straining for bowel movements for 7 days. * Gentle walking on level ground is allowed. * Returning to work will depend on the type of procedure and the results. Your doctor will discuss this with you. CALL YOUR DOCTOR FOR ANY OF THE FOLLOWING: *If bleeding from the puncture site occurs- Apply gentle pressure to site with clean cloth and call your doctor or EMS. * If a knot or lump forms under the skin, increases in size, or causes pain. * If bruising appears to be worsening or moving further down your leg instead of disappearing. * Temperature above 101 F. CARE OF YOUR GROIN INCISION; * Bruising or purple discoloration of the skin near the puncture site is common. * You may shower only, no bathtub bathing for 5 days. Be careful to avoid slipping as your leg may feel stiff. * If a closure device was used on your femoral artery, please see the attached guide regarding care of the device and your leg. * Leave dressing on FOR 24 hours. CARE OF YOUR WRIST INCISION; * Bruising or purple discoloration of the skin near the puncture site is common. * You may shower. * DO NOT submerge wrist. * Leave dressing on FOR 24 hours. MARIO BLANCHARD MD May 27, 2019 4:11 pm
--- NOTE | 2019-05-27 16:37 | NUR ---
BELONGINGS TRANSFERRED TO ICU PT WILL BE DISCHARGED FROM ICU. HOLLEY VILLEDA AWARE.
--- NOTE | 2019-05-27 16:43 | NUR ---
Call to Dr. Hayward for time and instructions on arrival for endoscopy tomorrow. Instructs to have pt be npo after 4am and to report to surg center at noon tomorrow. these instructions were given verbally and also written for pt' spouse. They plan to stay at a room here in town incase of any complications post discharge.
== END 2019-05-27 20:50 | disposition home or self-care (01) ==
LOC: CATH 16:45 → 4TH 16:45 → UNDODISOB 05-27 20:50 → CATH 05-27 20:50
PROVIDERS: ATTEND Internal Medicine
DX: I25.10 Atherosclerotic heart disease of native coronary artery without angina pectoris (principal); I26.99 Other pulmonary embolism without acute cor pulmonale; I31.9 Disease of pericardium, unspecified; I12.9 Hypertensive chronic kidney disease with stage 1 through stage 4 chronic kidney disease, or unspecified chronic kidney disease; E78.00 Pure hypercholesterolemia, unspecified; N18.9 Chronic kidney disease, unspecified; E11.22 Type 2 diabetes mellitus with diabetic chronic kidney disease; G40.909 Epilepsy, unspecified, not intractable, without status epilepticus; G89.29 Other chronic pain; M54.9 Dorsalgia, unspecified; R09.1 Pleurisy; D68.59 Other primary thrombophilia; J18.9 Pneumonia, unspecified organism; L50.9 Urticaria, unspecified; Z95.828 Presence of other vascular implants and grafts; Z90.89 Acquired absence of other organs; Z79.4 Long term (current) use of insulin; Z86.718 Personal history of other venous thrombosis and embolism; Z79.01 Long term (current) use of anticoagulants; Z83.3 Family history of diabetes mellitus; Z80.6 Family history of leukemia; Z80.0 Family history of malignant neoplasm of digestive organs
CPT/HCPCS: 36415; 71046; 76705; 78452; 80048; 80053; 81000; 82150; 82805; 82962; 83605; 83690; 83880; 84484; 85025; 85027; 85379; 85610; 85652; 85730; 87081; 93005; 93017; 93306; 93458; 94760; G0378

== ENCOUNTER 2019-05-28 11:36 | Day surgery (SDC) | payer MEDICARE, OTHER ==
[2019-05-28] VITALS (11 sets, daily range): BP systolic 94–167; BP diastolic 53–94
[~2019-05-28 11:36] MED LIST changes: -ACETAMINOPHEN 500 MG TAB (TYLENOL) PO PRN; -ALPRAZolam 0.25 MG (XANAX) TAB PO PRN; -CALCIUM CARBONATE 500 MG (TUMS) TAB.CHEW PO PRN; +DOCU-143 PO; -DOCUSATE SODIUM 100 MG (COLACE) CAP PO PRN; -HYDROcodone/APAP 5 MG/325 MG (LORTAB) TAB PO PRN; -LOPERAMIDE 2 MG (IMODIUM) TABLET PO PRN; -MELATONIN 3 MG TABLET PO PRN; -ONDANSETRON 4 MG (ZOFRAN) ORAL DISSOLVE TAB PO PRN; -ONDANSETRON 4 MG/2 ML (SDV) Z0FRAN IVP PRN; +ZOLP10TA5 PO; -diphenhydrAMINE 25 MG TAB (BENADRYL) PO PRN; -guaiFENesin/CODEINE (ROBITUSSIN AC) 10ML UDC PO PRN
[2019-05-28] MEDS ORDERED: NS IV 500 ML 500 ML IV PRN ×2 (11:51→12:40)
[2019-05-28] MEDS ORDERED: LIDOCAINE JELLY 2% 6 ML SYRINGE MM PRN (12:00)
[2019-05-28] MEDS ORDERED: fentaNYL INJECTION 100 MCG/2 ML AMP IVP ONE ×2 (12:00→12:45)
[2019-05-28] MEDS ORDERED: HURRICAINE EXT TUBE (BENZOCAINE) XX PRN (12:00)
[2019-05-28] MEDS ORDERED: MIDAZOLAM 2 MG/2 ML (VERSED) VIAL IVP ONE ×2 (12:00→12:45)
[2019-05-28] MEDS ORDERED: NS IV 500 ML 500 ML ONE (12:14)
--- NOTE | 2019-05-28 12:19 | Conscious Sedation/ASA ---
Conscious Sedation Pre-Proced Time 12:00 ASA Score 2 For ASA 3 and 4: Consider anesthesia and medical clearance. Also, for patients with a history of failed moderate sedation consider anesthesia. Airway Lungs Heart ASA score ASA 1: a normal healthy patient ASA 2: a patient with a mild systemic disease (mid diabetes, controlled hypertension, obesity ASA 3: a patient with a severe systemic disease that limits activity (angina, COPD, prior Myocardial infarction) ASA 4: a patient with an incapacitating disease that is a constant threat to life (CHF, renal failure) ASA 5: a moribund patient not expected to survive 24 hrs. (ruptured aneurysm) ASA 6: a declared brain- patient whose organs are being harvested. For emergent operations, add the letter E after the classification Mallampati Classification Grade 2 Sedation Plan Analgesia, Amnesia, Plan communicated to team members, Discussed options with patient/fam, Discussed risks with patient/fam The patient is an appropriate candidate to undergo the planned procedure, sedation, and anesthesia. The patient immediately re-assessed prior to indication. JONES SANTOS MD May 28, 2019 12:19
--- NOTE | 2019-05-28 12:20 | Progress Note-Pre Operative ---
Pre-Operative Progress Note H&P Reviewed The H&P was reviewed, patient examined and no changes noted. Date Seen by Provider: May 28, 2019 Time Seen by Provider: 12:00 Date H&P Reviewed: May 28, 2019 Time H&P Reviewed: 12:00 Pre-Operative Diagnosis: GERD, epigastric pain JONES SANTOS MD May 28, 2019 12:19
--- NOTE | 2019-05-28 12:22 | Discharge Inst-Surgical ---
D/C Lap Instructions-DANIELLE Follow Up Activity as tolerated High Fiber Diet 25g or more per day Avoid Alcohol, Caffeine, Spicy [place] and Acid foods. Drink 64 fluid oz or more of fluids per day. Symptoms to Report: Fever over 101 degree F, Nausea/Vomiting If any problems/questions: Contact your physician or go to Emergency Room JONES SANTOS MD May 28, 2019 12:22
[2019-05-28] MEDS ORDERED: morphine INJ 10 MG/ML 1ML (SYR OR VIAL) IVP PRN ×2 (12:30)
[2019-05-28] MEDS ORDERED: HYDROcodone/APAP 5 MG/325 MG (LORTAB) TAB PO PRN (12:30)
[2019-05-28] MEDS ORDERED: ACETAMINOPHEN 325 MG TABLET PO PRN (12:30)
[2019-05-28] MEDS ORDERED: ONDANSETRON 4 MG/2 ML (SDV) Z0FRAN IVP PRN (12:30)
--- NOTE | 2019-05-28 12:35 | Anesthesia-Procedure Note ---
Procedures/Interventions Procedure Start/Stop/Diagnosis Date of Procedure: May 28, 2019 Start Time: 12:25 Stop Time: 12:28 Central Line/IV Access IV : Location: Left Site: Antecubital IV Catheter Type: Peripheral IV IV Catheter Gauge: 22 Progress x1 attempt. flushes well. KASSANDRA SWANSON CRNA May 28, 2019 12:35
[2019-05-28] MEDS ORDERED: MIDAZOLAM 2 MG/2 ML (VERSED) VIAL ONE ×3 (12:55→12:56)
[2019-05-28] MEDS ORDERED: fentaNYL INJECTION 100 MCG/2 ML AMP ONE ×2 (12:55)
[2019-05-28] MEDS ORDERED: LIDOCAINE JELLY 2% 6 ML SYRINGE ONE (13:05)
--- NOTE | 2019-05-28 13:48 | Progress Note-Post Operative ---
Post-Operative Progess Note Surgeon (s)/Gizzard Skin Remover (s) Surgeon JONES SANTOS MD Gizzard Skin Remover: none Pre-Operative Diagnosis GERD, epigastric pain Post-Operative Diagnosis reflux esophagitis(stage 2-3), moderate HH(2.5cm), mild gastritis. Procedure & Operative Findings Date of Procedure 05/28/19 Procedure Performed/Findings EGD with bx. Anesthesia Type cs Estimated Blood Loss Estimated blood loss (mL): minimal Specimens/Packing Specimens Removed antrum, ge jxn JONES SANTOS MD May 28, 2019 13:48
--- NOTE | 2019-05-28 18:45 | OPERATIVE REPORT ---
DATE OF SERVICE: 05/28/2019 ATTENDING PRIMARY CARE PHYSICIAN: Amelia Rene DO PREOPERATIVE DIAGNOSIS: Epigastric pain with a history of gastroesophageal reflux disease. POSTOPERATIVE DIAGNOSES: Reflux esophagitis between stage II and III, moderate size hiatal hernia approximately 2.5 cm in size, mild to moderate gastritis. PROCEDURE PERFORMED: Esophagogastroduodenoscopy with biopsy. SURGEON: Jones Brower MD. ANESTHESIA: Conscious sedation. ESTIMATED BLOOD LOSS: Minimal. FINDINGS: Reflux esophagitis between stage II and III, moderate size hiatal hernia approximately 2.5 cm in size, mild to moderate gastritis. DISPOSITION: The patient tolerated the procedure well. INDICATIONS: The patient is a 73-year-old male who was recently admitted for significant epigastric pain as well as pain in the chest. He has had a history of gastroesophageal reflux disease as well as what sounds to be consistent with a Rosemary-Oshea tear status post EGD approximately one year ago. He did undergo cardiac workup including a cardiac catheterization, which did not show any cardiac abnormalities. He currently does take Protonix 40 mg daily. DESCRIPTION OF PROCEDURE: The patient was brought to the endoscopy suite, laid in left lateral decubitus position. After adequate IV pain and sedative medications and conscious sedation anesthesia, the mouthpiece was applied. The endoscope was placed in the mouth, visualizing the pharynx and hypopharyngeal region. Vocal cords, epiglottis and vallecula identified and appeared to be normal. The endoscope was then gently intubated into the esophageal opening and esophagus insufflated. Endoscope was then advanced to the first, second and third portion of the esophagus at the level of the GE junction, a reflux esophagitis between stage II and III identified with cephalad migration, which does indicate some level of reflux esophagitis as well as potential Mera esophagus. Biopsies were taken with forceps with visualization of good hemostasis. The endoscope was then advanced in the stomach and endoscope retroflexed, visualizing a small to moderate size hiatal hernia approximately 2.5 cm in size. There was a mild to moderate gastritis. No formal ulcerations, polyps, or any neoplasms. A biopsy was taken of the antrum to rule out H. pylori with visualization of good hemostasis. The endoscope was then advanced to the pylorus and the first and second portion of the duodenum, which appeared normal with no distal obstructions. The endoscope was then slowly withdrawn while taking a second look and suctioning of residual air with no additional findings. The patient tolerated the procedure well. We will recommend the necessary lifestyle and diet accommodation including small and more frequent meals, avoiding eating at night as well as head elevation while lying supine. He also needs to avoid caffeinated beverages, spicy, greasy and acidic foods. If he continues to be symptomatic despite maximal medical therapy, we will discuss potential further evaluation, which would encompass a repair of the hiatal hernia and antireflux procedure; however, before proceeding with this, we would get further testing including an esophageal manometry study to rule out a dysmotility disorder. Job ID: [id number] DocumentID: [id number] Dictated Date: 05/28/2019 13:31:00 Rice Farmworker Date: 05/28/2019 18:44:25 Dictated By: JONES BROWER MD
== END 2019-05-28 14:33 ==
LOC: ENDO 11:36
PROVIDERS: ATTEND Surgery
DX: K29.50 Unspecified chronic gastritis without bleeding (principal); K21.0 Gastro-esophageal reflux disease with esophagitis; K44.9 Diaphragmatic hernia without obstruction or gangrene; E78.00 Pure hypercholesterolemia, unspecified; I10 Essential (primary) hypertension; E11.9 Type 2 diabetes mellitus without complications; G40.909 Epilepsy, unspecified, not intractable, without status epilepticus; Z79.4 Long term (current) use of insulin; Z88.1 Allergy status to other antibiotic agents; Z79.01 Long term (current) use of anticoagulants; Z86.711 Personal history of pulmonary embolism; Z80.6 Family history of leukemia; Z80.49 Family history of malignant neoplasm of other genital organs; Z80.3 Family history of malignant neoplasm of breast; Z79.899 Other long term (current) drug therapy

== ENCOUNTER 2019-06-22 10:42 | Outpatient (RCR) | payer MEDICARE, OTHER ==
[2019-06-22 11:14] LABS: INR 2.4 (0.8-1.4); PROTHROMBIN TIME PATIENT 27.1 SEC (12.2-14.7)
[2019-06-22 11:24] LABS: ALBUMIN 3.9 GM/DL (3.2-4.5); BILIRUBIN,TOTAL 0.3 MG/DL (0.1-1.0); CALCIUM 9.3 MG/DL (8.5-10.1); CREATININE SERUM 1.52 MG/DL (0.60-1.30); POTASSIUM 4.2 MMOL/L (3.6-5.0); TOTAL PROTEIN 8.9 GM/DL (6.4-8.2)
== END 2019-09-20 | disposition home or self-care (01) ==
LOC: LAB 10:42
PROVIDERS: ATTEND Internal Medicine
DX: Z00.00 Encounter for general adult medical examination without abnormal findings (principal); E78.00 Pure hypercholesterolemia, unspecified; E78.1 Pure hyperglyceridemia; E11.65 Type 2 diabetes mellitus with hyperglycemia; Z79.01 Long term (current) use of anticoagulants
CPT/HCPCS: 36415; 80053; 82043; 82465; 83036; 84478; 85610

== ENCOUNTER 2019-09-21 10:14 | Outpatient (RCR) | payer MEDICARE, OTHER ==
[~2019-09-21 10:14] MED LIST changes: +MONT10TA26 PO
[2019-09-21 10:52] LABS: PROTHROMBIN TIME PATIENT 32.8 SEC (12.2-14.7)
== END 2019-12-20 | disposition home or self-care (01) ==
LOC: LAB 10:14
PROVIDERS: ATTEND Internal Medicine
DX: E78.00 Pure hypercholesterolemia, unspecified (principal); E78.1 Pure hyperglyceridemia; E11.65 Type 2 diabetes mellitus with hyperglycemia; Z79.01 Long term (current) use of anticoagulants
CPT/HCPCS: 36415; 82043; 83036; 85610

== ENCOUNTER → 2019-09-21 | Outpatient (CLI) | payer MEDICARE, OTHER ==
[2019-09-21 11:07] LABS: BASOPHILS % (AUTO) 1 % (0-10); EOSINOPHILS # (AUTO) 0.2 10^3/uL (0.0-0.3); EOSINOPHILS % (AUTO) 3 % (0-10); HEMATOCRIT 44 % (40-54); HEMOGLOBIN 14.5 G/DL (13.3-17.7); LYMPHOCYTES # (AUTO) 1.8 X 10^3 (1.0-4.0); LYMPHOCYTES % (AUTO) 32 % (12-44); MEAN CORPUSCULAR HEMOGLOBIN 28 PG (25-34); MEAN CORPUSCULAR HGB CONC 33 G/DL (32-36); MEAN CORPUSCULAR VOLUME 86 FL (80-99); MEAN PLATELET VOLUME 9.3 FL (7.4-10.4); MONOCYTES # (AUTO) 0.5 X 10^3 (0.0-1.0); MONOCYTES % (AUTO) 8 % (0-12); NEUTROPHILS # (AUTO) 3.3 X 10^3 (1.8-7.8); NEUTROPHILS % (AUTO) 57 % (42-75); PLATELET COUNT 289 10^3/uL (130-400); RED CELL DISTRIBUTION WIDTH 15.3 % (10.0-14.5); WHITE BLOOD COUNT 5.8 10^3/uL (4.3-11.0)
[2019-09-21 11:19] LABS: ALBUMIN 3.7 GM/DL (3.2-4.5); BILIRUBIN,TOTAL 0.3 MG/DL (0.1-1.0); CALCIUM 8.8 MG/DL (8.5-10.1); CREATININE SERUM 1.52 MG/DL (0.60-1.30); TOTAL PROTEIN 8.4 GM/DL (6.4-8.2)
== END ==
LOC: LAB 10:45
PROVIDERS: ATTEND Internal Medicine
DX: Z00.00 Encounter for general adult medical examination without abnormal findings (principal); E11.65 Type 2 diabetes mellitus with hyperglycemia; E78.1 Pure hyperglyceridemia; E78.00 Pure hypercholesterolemia, unspecified
CPT/HCPCS: 36415; 80053; 80061; 84443; 85025

== ENCOUNTER → 2019-12-24 | Outpatient (CLI) | payer MEDICARE, OTHER ==
[2019-12-24 11:59] LABS: INR 3.7 (0.8-1.4); PROTHROMBIN TIME PATIENT 38.2 SEC (12.2-14.7)
[2019-12-24 12:06] LABS: ALBUMIN 3.8 GM/DL (3.2-4.5); BILIRUBIN,TOTAL 0.3 MG/DL (0.1-1.0); CALCIUM 8.9 MG/DL (8.5-10.1); CREATININE SERUM 1.36 MG/DL (0.60-1.30); POTASSIUM 4.2 MMOL/L (3.6-5.0); TOTAL PROTEIN 8.5 GM/DL (6.4-8.2)
[2019-12-24 12:27] LABS: FREE T4 (FREE THYROXINE) 0.91 NG/DL (0.70-1.48)
== END ==
LOC: LAB 11:13
PROVIDERS: ATTEND Internal Medicine
DX: Z13.6 Encounter for screening for cardiovascular disorders (principal); E11.65 Type 2 diabetes mellitus with hyperglycemia; E03.9 Hypothyroidism, unspecified; I10 Essential (primary) hypertension; Z79.01 Long term (current) use of anticoagulants
CPT/HCPCS: 36415; 80053; 82043; 82465; 83036; 84439; 84443; 84478; 85610

== ENCOUNTER → 2020-06-12 | Outpatient (CLI) | payer MEDICARE, OTHER ==
[~2020-06-12] MED LIST changes: +ASPI-1238 PO; -ASPI-983 PO; -PANT40TA3 PO; +PANT40TA52 PO; -WARF1TAB82 PO; +WRF1T PO
[2020-06-12 12:49] LABS: INR 2.6 (0.8-1.4)
[2020-06-12 12:57] LABS: ALBUMIN 3.9 GM/DL (3.2-4.5); BILIRUBIN,TOTAL 0.5 MG/DL (0.1-1.0); CALCIUM 8.9 MG/DL (8.5-10.1); CREATININE SERUM 1.44 MG/DL (0.60-1.30); TOTAL PROTEIN 8.4 GM/DL (6.4-8.2)
[2020-06-12 13:18] LABS: FREE T4 (FREE THYROXINE) 0.92 NG/DL (0.70-1.48)
== END ==
LOC: LAB 11:37
PROVIDERS: ATTEND Internal Medicine
DX: Z13.6 Encounter for screening for cardiovascular disorders (principal); E03.9 Hypothyroidism, unspecified; E11.65 Type 2 diabetes mellitus with hyperglycemia; I10 Essential (primary) hypertension
CPT/HCPCS: 36415; 80053; 82465; 83036; 84439; 84443; 84478; 85610

== ENCOUNTER → 2020-10-12 | Outpatient (CLI) | payer MEDICARE, OTHER ==
[~2020-10-12] MED LIST changes: -MONT10TA26 PO; +MONT10TA97 PO
[2020-10-12 12:04] LABS: BASOPHILS % (AUTO) 1 % (0-10); EOSINOPHILS # (AUTO) 0.3 10^3/uL (0.0-0.3); EOSINOPHILS % (AUTO) 4 % (0-10); HEMATOCRIT 46 % (40-54); LYMPHOCYTES % (AUTO) 32 % (12-44); MEAN CORPUSCULAR HEMOGLOBIN 29 pg (25-34); MEAN CORPUSCULAR HGB CONC 33 g/dL (32-36); MEAN CORPUSCULAR VOLUME 90 fL (80-99); MEAN PLATELET VOLUME 9.4 fL (9.0-12.2); MONOCYTES # (AUTO) 0.5 10^3/uL (0.0-1.0); MONOCYTES % (AUTO) 8 % (0-12); NEUTROPHILS # (AUTO) 3.6 10^3/uL (1.8-7.8); NEUTROPHILS % (AUTO) 56 % (42-75); PLATELET COUNT 236 10^3/uL (130-400); WHITE BLOOD COUNT 6.4 10^3/uL (4.3-11.0)
[2020-10-12 12:32] LABS: ALBUMIN 3.8 GM/DL (3.2-4.5); BILIRUBIN,TOTAL 0.4 MG/DL (0.1-1.0); CALCIUM 8.8 MG/DL (8.5-10.1); CREATININE SERUM 1.43 MG/DL (0.60-1.30); POTASSIUM 3.8 MMOL/L (3.6-5.0); TOTAL PROTEIN 8.5 GM/DL (6.4-8.2)
[2020-10-12 12:53] LABS: FREE T4 (FREE THYROXINE) 0.99 NG/DL (0.70-1.48)
== END ==
LOC: LAB 11:22
PROVIDERS: ATTEND Internal Medicine
DX: Z13.6 Encounter for screening for cardiovascular disorders (principal); E11.65 Type 2 diabetes mellitus with hyperglycemia; E03.9 Hypothyroidism, unspecified; I10 Essential (primary) hypertension
CPT/HCPCS: 36415; 80053; 80061; 83036; 84439; 84443; 85007; 85025

== ENCOUNTER → 2020-11-08 | Outpatient (CLI) | payer MEDICARE, OTHER ==
[~2020-11-08] MED LIST changes: +MONT10TA32 PO; -MONT10TA97 PO; -POLY17PO31 PO; +POLY17PO54 PO
[2020-11-08 13:50] LABS: INR 2.9 (0.8-1.4); PROTHROMBIN TIME PATIENT 30.7 SEC (12.2-14.7)
== END ==
LOC: LAB 13:19
PROVIDERS: ATTEND Internal Medicine
DX: I26.09 Other pulmonary embolism with acute cor pulmonale (principal)
CPT/HCPCS: 36415; 85610

== ENCOUNTER → 2021-01-31 | Outpatient (CLI) | payer MEDICARE, OTHER ==
[2021-01-31 11:02] LABS: INR 2.5 (0.8-1.4); PROTHROMBIN TIME PATIENT 27.5 SEC (12.2-14.7)
[2021-01-31 11:13] LABS: ALBUMIN 3.7 GM/DL (3.2-4.5); BILIRUBIN,TOTAL 0.4 MG/DL (0.1-1.0); CALCIUM 8.8 MG/DL (8.5-10.1); CREATININE SERUM 1.47 MG/DL (0.60-1.30); POTASSIUM 3.8 MMOL/L (3.6-5.0); TOTAL PROTEIN 8.2 GM/DL (6.4-8.2)
[2021-01-31 11:37] LABS: FREE T4 (FREE THYROXINE) 0.91 NG/DL (0.70-1.48)
== END ==
LOC: LAB 10:10
PROVIDERS: ATTEND Internal Medicine
DX: Z13.6 Encounter for screening for cardiovascular disorders (principal); E03.9 Hypothyroidism, unspecified; E11.65 Type 2 diabetes mellitus with hyperglycemia; I10 Essential (primary) hypertension; Z79.01 Long term (current) use of anticoagulants
CPT/HCPCS: 36415; 80053; 82465; 83036; 84439; 84443; 84478; 85610

== ENCOUNTER → 2021-06-05 | Outpatient (CLI) | payer MEDICARE, OTHER ==
[2021-06-05 10:29] LABS: INR 2.5 (0.8-1.4); PROTHROMBIN TIME PATIENT 27.3 SEC (12.2-14.7)
[2021-06-05 10:59] LABS: ALBUMIN 3.6 GM/DL (3.2-4.5); BILIRUBIN,TOTAL 0.4 MG/DL (0.1-1.0); CALCIUM 9.1 MG/DL (8.5-10.1); CREATININE SERUM 1.54 MG/DL (0.60-1.30); FREE T4 (FREE THYROXINE) 0.91 NG/DL (0.70-1.48); POTASSIUM 3.9 MMOL/L (3.6-5.0); TOTAL PROTEIN 8.1 GM/DL (6.4-8.2)
== END ==
LOC: LAB 09:31
PROVIDERS: ATTEND Internal Medicine
DX: Z13.6 Encounter for screening for cardiovascular disorders (principal); E11.65 Type 2 diabetes mellitus with hyperglycemia; E03.9 Hypothyroidism, unspecified; Z79.01 Long term (current) use of anticoagulants
CPT/HCPCS: 36415; 80053; 82043; 82465; 83036; 84439; 84443; 84478; 85610

== ENCOUNTER → 2021-09-20 | Outpatient (CLI) | payer MEDICARE, OTHER ==
[~2021-09-20] MED LIST changes: +MONT-40 PO; -MONT10TA32 PO
[2021-09-20 12:00] LABS: BASOPHILS # (AUTO) 0.1 10^3/uL (0.0-0.1); BASOPHILS % (AUTO) 1 % (0-10); EOSINOPHILS # (AUTO) 0.2 10^3/uL (0.0-0.3); EOSINOPHILS % (AUTO) 3 % (0-10); HEMATOCRIT 47 % (40-54); HEMOGLOBIN 15.7 g/dL (13.3-17.7); LYMPHOCYTES % (AUTO) 31 % (12-44); MEAN CORPUSCULAR HEMOGLOBIN 29 pg (25-34); MEAN CORPUSCULAR HGB CONC 34 g/dL (32-36); MEAN CORPUSCULAR VOLUME 86 fL (80-99); MEAN PLATELET VOLUME 9.2 fL (9.0-12.2); MONOCYTES # (AUTO) 0.5 10^3/uL (0.0-1.0); MONOCYTES % (AUTO) 7 % (0-12); NEUTROPHILS # (AUTO) 3.7 10^3/uL (1.8-7.8); NEUTROPHILS % (AUTO) 59 % (42-75); PLATELET COUNT 224 10^3/uL (130-400); WHITE BLOOD COUNT 6.4 10^3/uL (4.3-11.0)
[2021-09-20 12:26] LABS: ALBUMIN 3.7 GM/DL (3.2-4.5); BILIRUBIN,TOTAL 0.5 MG/DL (0.1-1.0); CALCIUM 8.9 MG/DL (8.5-10.1); CREATININE SERUM 1.57 MG/DL (0.60-1.30); TOTAL PROTEIN 8.2 GM/DL (6.4-8.2)
== END ==
LOC: LAB 11:27
PROVIDERS: ATTEND Internal Medicine
DX: E11.65 Type 2 diabetes mellitus with hyperglycemia (principal); Z13.6 Encounter for screening for cardiovascular disorders; I10 Essential (primary) hypertension
CPT/HCPCS: 36415; 80053; 80061; 83036; 84443; 85025

== ENCOUNTER → 2022-01-21 | Outpatient (CLI) | payer MEDICARE, OTHER ==
[2022-01-21 11:40] LABS: ALBUMIN 3.9 GM/DL (3.2-4.5)
[2022-01-21 11:41] LABS: POTASSIUM 3.9 MMOL/L (3.6-5.0)
[2022-01-21 11:42] LABS: CALCIUM 9.2 MG/DL (8.5-10.1)
[2022-01-21 11:43] LABS: TOTAL PROTEIN 8.5 GM/DL (6.4-8.2)
[2022-01-21 11:45] LABS: BILIRUBIN,TOTAL 0.5 MG/DL (0.1-1.0)
[2022-01-21 11:47] LABS: CREATININE SERUM 1.56 MG/DL (0.60-1.30)
[2022-01-21 11:48] LABS: INR 2.7 (0.8-1.4); PROTHROMBIN TIME PATIENT 29.1 SEC (12.2-14.7)
[2022-01-21 12:11] LABS: FREE T4 (FREE THYROXINE) 0.93 NG/DL (0.70-1.48)
== END ==
LOC: LAB 11:01
PROVIDERS: ATTEND Internal Medicine
DX: Z13.6 Encounter for screening for cardiovascular disorders (principal); E03.9 Hypothyroidism, unspecified; E11.65 Type 2 diabetes mellitus with hyperglycemia; I10 Essential (primary) hypertension; Z79.01 Long term (current) use of anticoagulants
CPT/HCPCS: 36415; 80053; 82465; 83036; 84439; 84443; 84478; 85610

== ENCOUNTER → 2022-06-10 | Outpatient (CLI) | payer MEDICARE, OTHER ==
[2022-06-10 11:25] LABS: INR 2.2 (0.8-1.4); PROTHROMBIN TIME PATIENT 25.1 SEC (12.2-14.7)
[2022-06-10 11:32] LABS: ALBUMIN 3.7 GM/DL (3.2-4.5); BILIRUBIN,TOTAL 0.4 MG/DL (0.1-1.0); CALCIUM 9.2 MG/DL (8.5-10.1); CREATININE SERUM 1.56 MG/DL (0.60-1.30); POTASSIUM 4.1 MMOL/L (3.6-5.0); TOTAL PROTEIN 8.2 GM/DL (6.4-8.2)
[2022-06-10 11:52] LABS: FREE T4 (FREE THYROXINE) 0.83 NG/DL (0.70-1.48)
== END ==
LOC: LAB 10:31
PROVIDERS: ATTEND Internal Medicine
DX: Z13.6 Encounter for screening for cardiovascular disorders (principal); E11.65 Type 2 diabetes mellitus with hyperglycemia; E03.9 Hypothyroidism, unspecified; I10 Essential (primary) hypertension; Z79.01 Long term (current) use of anticoagulants
CPT/HCPCS: 36415; 80053; 82465; 83036; 84439; 84443; 84478; 85610

== ENCOUNTER → 2022-10-14 | Outpatient (CLI) | payer MEDICARE, OTHER ==
[2022-10-14 10:54] LABS: BASOPHILS # (AUTO) 0.1 10^3/uL (0.0-0.1); BASOPHILS % (AUTO) 1 % (0-10); EOSINOPHILS # (AUTO) 0.2 10^3/uL (0.0-0.3); EOSINOPHILS % (AUTO) 4 % (0-10); HEMATOCRIT 48 % (40-54); LYMPHOCYTES % (AUTO) 30 % (12-44); MEAN CORPUSCULAR HEMOGLOBIN 30 pg (25-34); MEAN CORPUSCULAR HGB CONC 34 g/dL (32-36); MEAN CORPUSCULAR VOLUME 88 fL (80-99); MEAN PLATELET VOLUME 9.3 fL (9.0-12.2); MONOCYTES # (AUTO) 0.3 10^3/uL (0.0-1.0); MONOCYTES % (AUTO) 5 % (0-12); NEUTROPHILS # (AUTO) 3.9 10^3/uL (1.8-7.8); NEUTROPHILS % (AUTO) 60 % (42-75); PLATELET COUNT 231 10^3/uL (130-400); WHITE BLOOD COUNT 6.5 10^3/uL (4.3-11.0)
[2022-10-14 11:20] LABS: INR 3.3 (0.8-1.4); PROTHROMBIN TIME PATIENT 34.2 SEC (12.2-14.7)
[2022-10-14 11:22] LABS: ALBUMIN 3.6 GM/DL (3.2-4.5); BILIRUBIN,TOTAL 0.4 MG/DL (0.1-1.0); CREATININE SERUM 1.64 MG/DL (0.60-1.30); POTASSIUM 3.8 MMOL/L (3.6-5.0); TOTAL PROTEIN 8.5 GM/DL (6.4-8.2)
[2022-10-14 11:43] LABS: FREE T4 (FREE THYROXINE) 0.93 NG/DL (0.70-1.48)
== END ==
LOC: LAB 10:17
PROVIDERS: ATTEND Internal Medicine
DX: Z13.6 Encounter for screening for cardiovascular disorders (principal); Z79.01 Long term (current) use of anticoagulants; E03.9 Hypothyroidism, unspecified; I10 Essential (primary) hypertension; E11.65 Type 2 diabetes mellitus with hyperglycemia
CPT/HCPCS: 36415; 80053; 80061; 83036; 84439; 84443; 85025; 85610

== ENCOUNTER → 2023-01-31 | Outpatient (CLI) | payer MEDICARE, OTHER ==
[~2023-01-31] MED LIST changes: -INSU100I29 SC; +INSU100I30 SC
[2023-01-31 10:51] LABS: INR 3.5 (0.8-1.4); PROTHROMBIN TIME PATIENT 34.3 SEC (12.2-14.7)
[2023-01-31 10:59] LABS: ALBUMIN 3.8 GM/DL (3.2-4.5); BILIRUBIN,TOTAL 0.4 MG/DL (0.1-1.0); CREATININE SERUM 1.7 MG/DL (0.60-1.30); TOTAL PROTEIN 8.7 GM/DL (6.4-8.2)
[2023-01-31 11:23] LABS: FREE T4 (FREE THYROXINE) 1.09 NG/DL (0.70-1.48)
== END ==
LOC: LAB 10:14
PROVIDERS: ATTEND Internal Medicine
DX: Z13.6 Encounter for screening for cardiovascular disorders (principal); E03.9 Hypothyroidism, unspecified; E11.65 Type 2 diabetes mellitus with hyperglycemia; I10 Essential (primary) hypertension; Z79.01 Long term (current) use of anticoagulants
CPT/HCPCS: 36415; 80053; 82465; 83036; 84439; 84443; 84478; 85610